=== PATIENT | male | born 1950 | race Hispanic/Latino ===

== ENCOUNTER 2019-07-07 11:44 | Day surgery (SDC) | payer MEDICARE ==
[2019-07-07] MEDS ORDERED: APRACLONIDINE 1% OPHTH SOLN DROPERETTE OS ONE (12:00)
[2019-07-07] MEDS ORDERED: TROPICAMIDE 1% OPHTH SOLN 3 ML OS ONE (12:01)
[2019-07-07] MEDS ORDERED: PHENYLEPHRINE 10% OPHTH SOLN 5 ML OS ONE (12:02)
[2019-07-07 12:16] VITALS: BP 130/81
[2019-07-07] MEDS ORDERED: TROPICAMIDE 1% OPHTH SOLN 3 ML ONE (13:21)
[2019-07-07] MEDS ORDERED: APRACLONIDINE 1% OPHTH SOLN DROPERETTE ONE (13:21)
[2019-07-07] MEDS ORDERED: PHENYLEPHRINE 10% OPHTH SOLN 5 ML ONE (13:21)
== END 2019-07-07 13:41 | disposition home or self-care (01) ==
LOC: OR 11:44
PROVIDERS: ATTEND Specialist
DX: H26.492 Other secondary cataract, left eye (principal); I11.0 Hypertensive heart disease with heart failure; I50.9 Heart failure, unspecified; E78.00 Pure hypercholesterolemia, unspecified; Z88.0 Allergy status to penicillin; Z79.899 Other long term (current) drug therapy; Z79.01 Long term (current) use of anticoagulants; Z98.41 Cataract extraction status, right eye; Z98.42 Cataract extraction status, left eye; Z95.0 Presence of cardiac pacemaker; Z86.2 Personal history of diseases of the blood and blood-forming organs and certain disorders involving the immune mechanism

== ENCOUNTER 2019-07-14 11:25 | Day surgery (SDC) | payer MEDICARE ==
[~2019-07-14 11:25] MED LIST: APRACLONIDINE 1% OPHTH SOLN DROPERETTE ONE; PHENYLEPHRINE 10% OPHTH SOLN 5 ML ONE; TROPICAMIDE 1% OPHTH SOLN 3 ML ONE
[2019-07-14] MEDS ORDERED: APRACLONIDINE 1% OPHTH SOLN DROPERETTE OD ONE (11:43)
[2019-07-14] MEDS ORDERED: PHENYLEPHRINE 10% OPHTH SOLN 5 ML OD ONE (11:43)
[2019-07-14] MEDS ORDERED: TROPICAMIDE 1% OPHTH SOLN 3 ML OD ONE (11:43)
[2019-07-14 12:21] VITALS: BP 124/81
== END 2019-07-14 11:26 | disposition home or self-care (01) ==
LOC: OR 11:25
PROVIDERS: ATTEND Specialist
DX: H26.491 Other secondary cataract, right eye (principal); I10 Essential (primary) hypertension; E78.00 Pure hypercholesterolemia, unspecified; Z79.899 Other long term (current) drug therapy; Z88.0 Allergy status to penicillin; Z98.890 Other specified postprocedural states
CPT/HCPCS: 82962

== ENCOUNTER 2019-10-18 20:03 | Inpatient (IN) | payer MEDICARE ==
--- NOTE | 2019-10-18 20:20 | Emergency Department Report ---
HPI - General Time Seen by Provider: 10/18/19 20:13 - HPI HPI: 68-year-old male presents to the emergency department via EMS from home with complaint of a 4-day history of progressively worsening shortness of breath. His shortness of breath is worsened with exertion. He denies any chest pain or tightness, fever, nausea or vomiting, but has had some episodes of diarr hea. He has a past medical history of CHF but denies any history of coronary artery disease, MIs, CVA or any previous PE/DVT. He did not take anything or receive anything for his symptoms prior to presentation today. 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 No recent travel or sick contacts at home. ED Past Medical Hx - Past Medical History Hx Hypertension: Yes Hx Congestive Heart Failure: Yes - Surgical History Hx Open Heart Surgery: Yes (Pcemaker/defibrillator) Hx Pacemaker: Yes Hx Internal Defibrillator: Yes - Social History Smoking Status: Never Smoker - Medications Home Medications: Home Medications Medication Instructions Recorded Confirmed Last Taken Type Atorvastatin [Lipitor Tab] 80 mg PO QHS 07/07/19 07/07/19 Unknown History Bisoprolol Fumarate 5 mg PO DAILY 07/07/19 07/07/19 Unknown History Mexiletine HCl 150 mg PO Q8H 07/07/19 07/07/19 Unknown History Warfarin [Coumadin] 5 mg PO QDAY 07/07/19 07/07/19 Unknown History ED Review of Systems ROS: Stated complaint: POSS STEMI Other details as noted in HPI Comment: All other systems reviewed and negative Constitutional: denies: chills, fever Eyes: denies: eye pain, vision change ENT: denies: ear pain, throat pain Respiratory: shortness of breath, SOB with exertion. denies: cough Cardiovascular: denies: chest pain, edema Gastrointestinal: denies: abdominal pain, vomiting Genitourinary: denies: dysuria, discharge Musculoskeletal: denies: back pain, arthralgia Skin: denies: rash, lesions Neurological: denies: headache, weakness Physical Exam - Physical Exam Physical Exam: GENERAL: Patient is ill-appearing. HENT: Normocephalic. Atraumatic. Patient has moist mucous membranes. EYES: Extraocular motions are intact. NECK: Supple. Trachea is midline. CHEST/LUNGS: Clear to auscultation. There is some tachypnea but no accessory muscle use. There is no respiratory distress noted. HEART/CARDIOVASCULAR: Regular. There is mild tachycardia. ABDOMEN: Abdomen is soft, nontender. Patient has normal bowel sounds. There is no abdominal distention. SKIN: Skin is cool and clammy. NEURO: The patient is awake, alert, and oriented. The patient is cooperative. The patient has no focal neurologic deficits. Normal speech. MUSCULOSKELETAL: There is no tenderness or deformity. There is no evidence of acute injury. - Central Line Placement Right Femoral Consent Obtained: verbal consent Time Out Performed: Yes Patient Placed on Monitor/Pulse Ox: Yes MD Prep: mask, gown, gloves Central Line Prep: Chlorhexidine scrub Local Anesthesia Used: Lidocaine 1% Amount of Anesthesia Used (mls): 3 Ultrasound Used for Placement: Yes Central Line Lumen Inserted: triple Complications: catheter malposition (I was unable to feed the catheter past 12 cm. The central catheter had good blood return but the 2 peripheral catheters had no blood return. I had concerns about using this central line placement for any infusions or pressors so it was pulled. Pressure was held and bleeding stopped.) Right IJ Consent Obtained: verbal consent Time Out Performed: Yes Patient Placed on Monitor/Pulse Ox: Yes MD Prep: mask, gown, gloves Central Line Prep: Chlorhexidine scrub Local Anesthesia Used: Lidocaine 1% Amount of Anesthesia Used (mls): 2 Ultrasound Used for Placement: Yes Central Line Lumen Inserted: triple Central Line Position: good blood return, all ports aspirated, flus, sutured in place with nyl Dressing Applied: Tegaderm, sterile gauze/tape Post Procedure X-Ray: tip of catheter in good p Patient Tolerated Procedure: well Complications: none - EJ/Peripheral Line Arm L Time Out Performed: Yes Indications: multiple IV sites needed Skin Cleansed in Sterile Fashion: Yes Size: 20 Dressing Placed: Tegaderm Patient Tolerated Procedure: well, no complications Additional Comments: This peripheral line eventually malfunctioned. ED Medical Decision Making - Lab Data Result diagrams: 10/18/19 20:37 10/18/19 20:37 - EKG Data -: EKG Interpreted by Me - EKG Data Interpretation: other (Ventricular paced complexes, nonspecific IVCD, left axis deviation, LVH, prolonged QTC, rate of 110 bpm) - Radiology Data Radiology results: image reviewed interpreted by me: Chest x-ray does not show any acute process. There are no pleural effusions, obvious pneumonia and there is no pneumothorax. - Medical Decision Making This patient presents to the emergency department with a complaint of a 4-day history of progressively worsening shortness of breath. Patient is afebrile but presents hypotensive. He started receiving some IV fluid resuscitation but at first we only have a 24-gauge in his wrist and IV fluid resuscitation is slow. Patient was placed in isolation and on droplet precautions with concern for possible Covid 19. I used PPE while in the room including surgical, goggles, mask, gloves and gowns. A chest x-ray was done that does not show any pneumonia, pleural effusions, or any other acute process. Patient's labs show multiple abnormalities. He has a 17,000 white count but leukopenia. Patient has hypochloremia, acute renal failure. Patient has abnormal coags. Initially he had elevated PT, INR and PTT. It was repeated and this time the PT was less than 10 but the INR was 17.6 and PTT was about 90. After discussion with the hospitalist, the patient was given a 5 mg dose of vitamin K. Patient's labs also show elevation in some of the COVID-19 markers and/or inflammatory markers such as ferritin, LDH, CRP, d-dimer. Despite getting about 2 L of IV fluid the patient continued to have some hypotension with a map of about 50 so the decis ion was made to place a central line. I attempted a right femoral central line but despite having the guidewire within the femoral vein as seen on ultrasound, it was very difficult to feed the central line catheter deep enough to use this CVC. So instead, a right IJ central line catheter was placed and the patient has been started on pressors. He will be admitted to the ICU and has been accepted for admission by the hospitalist, Dr. Jackson. Critical Care Time: Yes Critical care time in (mins) excluding proc time.: 45 Critical care attestation.: If time is entered above; I have spent that time in minutes in the direct care of this critically ill patient, excluding procedure time. Due to the immediate potential for life-threatening deterioration due to underlying hematologic, pulmonary and renal conditions, I spent 45 minutes of critical care time with the patient. This does not include the time spent doing the central line and peripheral line procedures. Critical Care Time: 45 minutes ED Disposition Clinical Impression: Suspected 2019-nCoV infection, Hypochloremia, Elevated INR Hypotension Qualifiers: Hypotension type: unspecified hypotension type Qualified Code(s): I95.9 - Hypotension, unspecified Acute renal failure Qualifiers: Acute renal failure type: unspecified Qualified Code(s): N17.9 - Acute kidney failure, unspecified Dyspnea Qualifiers: Dyspnea type: shortness of breath Qualified Code(s): R06.02 - Shortness of breath Disposition: -09 OP ADMIT IP TO THIS HOSP Is pt being admited?: Yes Condition: Serious Time of Disposition: 00:04
[2019-10-18] MEDS ORDERED: SODIUM CHLORIDE 0.9% 1000 ML 1,000 ML IV ONE ×2 (20:37→23:08)
[2019-10-18 20:50] LABS: Hemoglobin 9.5 gm/dl (11.8-15.2); Mean Corpuscular HGB Conc 32 % (32-34); Mean Corpuscular Volume 102 fl (84-94); Platelet Count 313 K/mm3 (140-440); Red Blood Count 2.94 M/mm3 (3.65-5.03); Red Cell Distribution Width 15.2 % (13.2-15.2)
--- NOTE | 2019-10-18 21:15 | XRay Report ---
CHEST 1 VIEW 10/18/2019 8:05 PM INDICATION / CLINICAL INFORMATION: SOB. COMPARISON: None available. FINDINGS: SUPPORT DEVICES: Cardiac pacemaker/ICD leads appear in appropriate position. HEART / MEDIASTINUM: No significant abnormality. LUNGS / PLEURA: No significant pulmonary or pleural abnormality. No pneumothorax. ADDITIONAL FINDINGS: No significant additional findings. IMPRESSION: 1. No acute findings. Signer Name: Gallo Shepard MD Signed: 10/18/2019 9:11 PM Workstation Name: [id number]
[2019-10-18 21:24] LABS: INR 16.02 (0.87-1.13); Partial Thromboplastin Time 69.1 Sec. (24.2-36.6)
[2019-10-18 21:30] LABS: Calcium 8.4 mg/dL (8.4-10.2)
[2019-10-18 21:56] LABS: Albumin 2.5 g/dL (3.9-5)
[2019-10-18 22:26] LABS: Basophils % (Manual) 0 % (0.0-1.8); Eosinophils % (Manual) 0 % (0.0-4.3); Macrocytosis Few; Ovalocytes Few; Total Cells Counted 100
[2019-10-18 22:27] LABS: Burr Cells Few; Large Platelets Few; Platelet Clumps Rare; Platelet Estimate Consistent w Auto
[2019-10-19] MEDS ORDERED: MAGNESIUM HYDROXIDE (MOM) ORAL LIQD UDC PO PRN (00:08)
[2019-10-19] MEDS ORDERED: ACETAMINOPHEN 325 MG TAB PO PRN ×2 (00:08)
[2019-10-19] MEDS ORDERED: ONDANSETRON 4 MG/2 ML INJ IV PRN (00:08)
[2019-10-19 00:17] LABS: INR > 17.67 (0.87-1.13)
[2019-10-19 00:18] LABS: Partial Thromboplastin Time 92.7 Sec. (24.2-36.6)
[2019-10-19] MEDS ORDERED: SODIUM CHLORIDE 0.9% IV ONE (00:18)
[2019-10-19] MEDS ORDERED: PHYTONADIONE IV ONE (00:18)
--- NOTE | 2019-10-19 00:28 | History and Physical Report ---
History of Present Illness Date of examination: 10/19/19 Date of admission: 10/19/2019 Chief complaint: Shortness of breath History of present illness: 68-year-old white male with known history of CHF, pacemaker/defibrillator placement in the past presenting to the emergency room today for progressive worsening of shortness of breath which has been ongoing for about 4 days. Shortness of breath is said to be worse on exertion. He denies any chest pain, no fever or chills, no cough, no nausea vomiting but he has had some episodes of diarrhea. He denies any bright red blood per rectum, no hematuria or dysuria. He denies any sick contacts and no recent travel. Upon arrival in the emergency room evaluation revealed elevated INR, acute kidney injury and other significant abnormalities on the chemistry. He was screened for COVID-19 and lab markers appeared to be remarkable. Past History Past Medical History: heart failure Past Surgical History: Other (History of pacemaker AICD placement) Social history: no significant social history Family history: no significant family history Medications and Allergies Allergies Allergy/AdvReac Type Severity Reaction Status Date / Time Penicillins Allergy Unknown Verified 07/07/19 15:47 Home Medications Medication Instructions Recorded Confirmed Last Taken Type Atorvastatin [Lipitor Tab] 80 mg PO QHS 07/07/19 07/07/19 Unknown History Bisoprolol Fumarate 5 mg PO DAILY 07/07/19 07/07/19 Unknown History Mexiletine HCl 150 mg PO Q8H 07/07/19 07/07/19 Unknown History Warfarin [Coumadin] 5 mg PO QDAY 07/07/19 07/07/19 Unknown History Active Meds: Active Medications Acetaminophen (Tylenol) 650 mg PO Q4H PRN PRN Reason: Pain MILD(1-3)/Fever >100.5/GIBBS Acetaminophen (Tylenol) 650 mg PO Q6H PRN PRN Reason: Pain MILD(1-3)/Fever >100.5/GIBBS Sodium Chloride (Nacl 0.9% 1000 Ml) 1,000 mls @ 125 mls/hr IV ONCE ONE Stop: 10/19/19 04:36 Last Admin: 10/18/19 20:45 Dose: 125 mls/hr Documented by: Sodium Chloride (Nacl 0.9% 1000 Ml) 1,000 mls @ 250 mls/hr IV ONCE ONE Stop: 10/19/19 03:07 Sodium Chloride (Nacl 0.9% 1000 Ml) 1,000 mls @ 125 mls/hr IV DIRECT ABBEY Levofloxacin/Dextrose (Levaquin 750mg/150ml) 750 mg in 150 mls @ 100 mls/hr IV Q24HR ABBEY; Protocol Phytonadione 5 mg/ Sodium (Chloride) 50.5 mls @ 100 mls/hr IV ONCE ONE Stop: 10/19/19 00:48 Magnesium Hydroxide (Milk Of Magnesia) 30 ml PO Q4H PRN PRN Reason: Constipation Ondansetron HCl (Zofran) 4 mg IV Q8H PRN PRN Reason: Nausea And Vomiting Ondansetron HCl (Zofran) 4 mg IV Q8H PRN PRN Reason: Nausea And Vomiting Sodium Chloride (Sodium Chloride Flush Syringe 10 Ml) 10 ml IV BID ABBEY Sodium Chloride (Sodium Chloride Flush Syringe 10 Ml) 10 ml IV PRN PRN PRN Reason: LINE FLUSH Sodium Chloride (Sodium Chloride Flush Syringe 10 Ml) 10 ml IV BID ABBEY Sodium Chloride (Sodium Chloride Flush Syringe 10 Ml) 10 ml IV PRN PRN PRN Reason: LINE FLUSH Review of Systems Constitutional: no weight loss, no fever, no chills Cardiovascular: no chest pain, no palpitations Respiratory: shortness of breath, no cough, no congestion Gastrointestinal: no abdominal pain, no nausea, no vomiting, no diarrhea Genitourinary Male: no dysuria, no hematuria Musculoskeletal: no neck pain, no low back pain Integumentary: no rash, no pruritis Neurological: no headaches, no confusion Psychiatric: no anxiety, no disorientation Exam - Constitutional Vitals: Temp Pulse Resp BP Pulse Ox 97.5 F L 128 H 15 90/63 100 10/18/19 20:13 10/18/19 22:46 10/18/19 22:46 10/18/19 22:46 10/18/19 22:46 General appearance: Present: no acute distress, well-nourished - EENT Eyes: Present: PERRL, EOM intact ENT: hearing intact, clear oral mucosa, dentition normal - Neck Neck: Present: supple, normal ROM - Respiratory Respiratory effort: normal Respiratory: bilateral: CTA - Cardiovascular Rhythm: regular Heart Sounds: Present: S1 & S2 - Extremities Extremities: no ischemia, pulses intact, pulses symmetrical, No edema, Full ROM Peripheral Pulses: within normal limits - Abdominal General gastrointestinal: Present: soft, non-tender, non-distended, normal bowel sounds - Integumentary Integumentary: Present: clear, warm, dry - Musculoskeletal Musculoskeletal: strength equal bilaterally - Psychiatric Psychiatric: appropriate mood/affect, intact judgment & insight, cooperative - Neurologic Neurologic: CNII-XII intact, moves all extremities Results - Labs CBC & Chem 7: 10/18/19 20:37 10/18/19 20:37 Labs: Abnormal lab results 10/18/19 10/18/19 10/18/19 Range/Units 20:37 20:37 20:37 WBC 17.8 H (4.5-11.0) K/mm3 RBC 2.94 L (3.65-5.03) M/mm3 Hgb 9.5 L (11.8-15.2) gm/dl Hct 30.0 L (35.5-45.6) % MCV 102 H (84-94) fl Seg Neuts % (Manual) 85.0 H (40.0-70.0) % Lymphocytes % (Manual) 6.0 L (13.4-35.0) % Monocytes % (Manual) 8.0 H (0.0-7.3) % Seg Neutrophils # Man 15.1 H (1.8-7.7) K/mm3 Lymphocytes # (Manual) 1.1 L (1.2-5.4) K/mm3 Monocytes # (Manual) 1.4 H (0.0-0.8) K/mm3 PT 109.8 H (12.2-14.9) Sec. INR 16.02 H* (0.87-1.13) APTT 69.1 H* (24.2-36.6) Sec. D-Dimer 2301.69 H (0-234) ng/mlDDU Chloride 60.0 L (98-107) mmol/L Carbon Dioxide 15 L (22-30) mmol/L BUN 192 H (9-20) mg/dL Creatinine 3.2 H (0.8-1.5) mg/dL Glucose 154 H (75-100) mg/dL Ferritin (13.0-400.0) ng/mL AST 120 H (5-40) units/L ALT 63 H (7-56) units/L Alkaline Phosphatase 194 H (35-129) units/L Lactate Dehydrogenase (91-180) units/L C-Reactive Protein (0.00-1.30) mg/dL NT-Pro-B Natriuret Pep 7312 H (0-900) pg/mL Total Protein 5.4 L (6.3-8.2) g/dL Albumin 2.5 L (3.9-5) g/dL 10/18/19 10/18/19 10/18/19 Range/Units 21:46 21:46 23:16 WBC (4.5-11.0) K/mm3 RBC (3.65-5.03) M/mm3 Hgb (11.8-15.2) gm/dl Hct (35.5-45.6) % MCV (84-94) fl Seg Neuts % (Manual) (40.0-70.0) % Lymphocytes % (Manual) (13.4-35.0) % Monocytes % (Manual) (0.0-7.3) % Seg Neutrophils # Man (1.8-7.7) K/mm3 Lymphocytes # (Manual) (1.2-5.4) K/mm3 Monocytes # (Manual) (0.0-0.8) K/mm3 PT < 10.0 L (12.2-14.9) Sec. INR > 17.67 H* (0.87-1.13) APTT 92.7 H* (24.2-36.6) Sec. D-Dimer 2524.09 H (0-234) ng/mlDDU Chloride (98-107) mmol/L Carbon Dioxide (22-30) mmol/L BUN (9-20) mg/dL Creatinine (0.8-1.5) mg/dL Glucose (75-100) mg/dL Ferritin > 2000.0 H (13.0-400.0) ng/mL AST (5-40) units/L ALT (7-56) units/L Alkaline Phosphatase (35-129) units/L Lactate Dehydrogenase 1150 H (91-180) units/L C-Reactive Protein 29.00 H (0.00-1.30) mg/dL NT-Pro-B Natriuret Pep (0-900) pg/mL Total Protein (6.3-8.2) g/dL Albumin (3.9-5) g/dL Assessment and Plan - Patient Problems (1) Dyspnea Current Visit: Yes Status: Acute Qualifiers: Dyspnea type: shortness of breath Qualified Code(s): R06.02 - Shortness of breath; R06.00 - Dyspnea, unspecified; R06.01 - Orthopnea Plan to address problem: Etiology is unclear. Possibly secondary to bronchitis however will rule out for COVID-19. Patient has been placed on airborne and droplet precautions. Will place on empiric IV antibiotics. We will also place a consult to infectious disease for further evaluation and recommendation. (2) Acute renal failure Current Visit: Yes Status: Acute Qualifiers: Acute renal failure type: unspecified Qualified Code(s): N17.9 - Acute kidney failure, unspecified Plan to address problem: Probably secondary to dehydration. Patient has been placed on IV fluid. Will monitor BUN and creatinine. We also place a consult to nephrology for evaluation and further recommendation. (3) Elevated INR Current Visit: Yes Status: Acute Plan to address problem: Patient had vitamin K in the emergency room. Will monitor PT/INR. Will hold off on anticoagulation. (4) Hypotension Current Visit: Yes Status: Acute Qualifiers: Hypotension type: unspecified hypotension type Qualified Code(s): I95.9 - Hypotension, unspecified Plan to address problem: Patient placed on IV fluid. Will consider placing on pressor if needed. We will continue to monitor vital signs closely. (5) DVT prophylaxis Current Visit: Yes Status: Acute Plan to address problem: We will hold anticoagulation as INR is currently supratherapeutic. (6) Full code status Current Visit: Yes Status: Acute
[2019-10-19] MEDS ORDERED: SODIUM CHLORIDE 0.9% 1000 ML 1,000 ML ONE ×5 (02:10→10:34)
[2019-10-19] MEDS ORDERED: NORepinephrine/NS 4 MG-250 ML 4 MG/250 ML BAG IV ONE ×2 (03:35→17:38)
[2019-10-19] MEDS: NORepinephrine/NS 4 MG-250 ML 4 MG/250 ML BAG IV SCH ×2 (04:05→18:15)
--- NOTE | 2019-10-19 04:31 | XRay Report ---
CHEST - 1 VIEW INDICATION: central line placement COMPARISON: Yesterday FINDINGS: Support devices: New right IJ CVL with tip in the SVC. Otherwise stable support device positioning. Heart: Stable cardiomediastinal silhouette. Lungs/pleura: Clear lungs with no pneumothorax Additional findings: None. IMPRESSION: Support devices as above. Signer Name: Burak Davila MD Signed: 10/19/2019 4:27 AM Workstation Name: [id number]
[2019-10-19] MEDS ORDERED: ONDANSETRON 4 MG/2 ML INJ ONE (08:16)
[2019-10-19] MEDS: ONDANSETRON 4 MG/2 ML INJ IV PRN (08:24)
--- NOTE | 2019-10-19 09:29 | Consultation ---
History of Present Illness - Reason for Consult Consult date: 10/19/19 r/o COVID Requesting physician: YONG MARTIN - History of Present Illness 68 y/o male with history of CAD, previous AR, CVA, CHF status post AICD, previous PE/DVT, admitted on due to 10 day-history of dry cough, malaise and progressive shortness of breath and dyspnea on exertion. 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 Last time he went to work was 10/14/2019. He denies any chest pain, nausea, vomiting. He does report an episode of diarrhea. Denies any recent travels. Patient reports a remote vague reaction to penicillin and has taken Keflex without reaction. On arrival temperature 98.1 0.1, HR 111, RR 22, O2 sat 100%, BP 100/59. Initial WBC 17.8. Hemoglobin 9.5. D-dimer 2301, CRP 29, LDH 1150, ferritin> 2000. AST 120, ALT 63. Procalcitonin 3.6. BNP 7312. Chest x-ray x2 without infiltrates. Blood pressure dropped to 70/52 patient was started on pressors in the ED. Review of Systems: positive in bold print General: +chills, +malaise Cutaneous: rash, pruritus Head: headaches or injury Eyes: changes in vision, eye pain, double vision Ears: ear pain, ear discharge, ringing or hearing loss Nose: nose bleeding, stuffiness Mouth & throat: bleeding gums, horseness, no dental problems, or swollen glands Neck: no pain, node enlargement/lumps, tyroid enlargement or tenderness Respiratory: +SOB, +cough, +[place], wheezing, sputum, hemoptysis, pleuritic chest pain Cardiovascular: chest pain, leg edema, cyanosis, [place], orthopnea Musculoskeletal: edema Gastrointestinal: nausea, vomiting, hematemesis, + diarrhea, constipation, melena, bright red blood in stools, fecal incontinence, jaundice Genitourinary/Reproductive: frequent urination, dysuria, hematuria, incontinence Neurogical: seizures, headaches, weakness, paresthesias, loss of speech or vision; memory loss, vertigo, tremors, numbness Psychiatric: stable mood; excessive anxiety, sadness or moodiness Past History Past Medical History: heart failure Past Surgical History: Other (History of pacemaker AICD placement) Social history: no significant social history Family history: no significant family history Medications and Allergies Allergies Allergy/AdvReac Type Severity Reaction Status Date / Time Penicillins Allergy Unknown Verified 07/07/19 15:47 Home Medications Medication Instructions Recorded Confirmed Last Taken Type Atorvastatin [Lipitor Tab] 80 mg PO QHS 07/07/19 07/07/19 Unknown History Bisoprolol Fumarate 5 mg PO DAILY 07/07/19 07/07/19 Unknown History Mexiletine HCl 150 mg PO Q8H 07/07/19 07/07/19 Unknown History Warfarin [Coumadin] 5 mg PO QDAY 07/07/19 07/07/19 Unknown History Active Meds: Active Medications Acetaminophen (Tylenol) 650 mg PO Q4H PRN PRN Reason: Pain MILD(1-3)/Fever >100.5/GIBBS Sodium Chloride (Nacl 0.9% 1000 Ml) 1,000 mls @ 125 mls/hr IV DIRECT ABBEY Levofloxacin/Dextrose (Levaquin 750mg/150ml) 750 mg in 150 mls @ 100 mls/hr IV Q48HR ABBEY; Protocol Norepinephrine (Levophed Drip 4 Mg/Ns 250 Ml) 4 mg in 250 mls @ 7.5 mls/hr IV TITR ABBEY; Protocol Last Titration: 10/19/19 06:05 Dose: 6 mcg/min, 22.5 mls/hr Documented by: Magnesium Hydroxide (Milk Of Magnesia) 30 ml PO Q4H PRN PRN Reason: Constipation Ondansetron HCl (Zofran) 4 mg IV Q8H PRN PRN Reason: Nausea And Vomiting Last Admin: 10/19/19 08:24 Dose: 4 mg Documented by: Sodium Chloride (Sodium Chloride Flush Syringe 10 Ml) 10 ml IV BID ABBEY Sodium Chloride (Sodium Chloride Flush Syringe 10 Ml) 10 ml IV PRN PRN PRN Reason: LINE FLUSH Physical Examination - Physical Exam Narrative exam: General appearance: Alert in NAD pleasant on nasal cannula oxygen Eyes: anicteric sclerae, moist conjunctivae HENT: Atraumatic; oropharynx clear Lungs: CTA narda +AICD pocket no erythema, heat, edema CV: Tachycardic Abdomen: Soft, non-tender Extremities: no edema, no cyanosis Skin: No rash. Psych: No agitated Neuro: alert and oriented x 3. Moving all extermities - Constitutional Vitals: Vital Signs Temp Pulse Resp BP Pulse Ox 97.4 F L 104 H 18 107/75 100 10/19/19 01:56 10/19/19 08:16 10/19/19 08:16 10/19/19 08:16 10/19/19 08:16 Temperature -Last 24 Hours Temperature 97.4 F Temperature 97.5 F Results - Labs CBC & Chem 7: 10/18/19 20:37 10/18/19 20:37 Labs: Abnormal lab results 10/18/19 10/18/19 10/18/19 Range/Units 20:37 20:37 20:37 WBC 17.8 H (4.5-11.0) K/mm3 RBC 2.94 L (3.65-5.03) M/mm3 Hgb 9.5 L (11.8-15.2) gm/dl Hct 30.0 L (35.5-45.6) % MCV 102 H (84-94) fl Seg Neuts % (Manual) 85.0 H (40.0-70.0) % Lymphocytes % (Manual) 6.0 L (13.4-35.0) % Monocytes % (Manual) 8.0 H (0.0-7.3) % Seg Neutrophils # Man 15.1 H (1.8-7.7) K/mm3 Lymphocytes # (Manual) 1.1 L (1.2-5.4) K/mm3 Monocytes # (Manual) 1.4 H (0.0-0.8) K/mm3 PT 109.8 H (12.2-14.9) Sec. INR 16.02 H* (0.87-1.13) APTT 69.1 H* (24.2-36.6) Sec. D-Dimer 2301.69 H (0-234) ng/mlDDU Chloride 60.0 L (98-107) mmol/L Carbon Dioxide 15 L (22-30) mmol/L BUN 192 H (9-20) mg/dL Creatinine 3.2 H (0.8-1.5) mg/dL Glucose 154 H (75-100) mg/dL Ferritin (13.0-400.0) ng/mL AST 120 H (5-40) units/L ALT 63 H (7-56) units/L Alkaline Phosphatase 194 H (35-129) units/L Lactate Dehydrogenase (91-180) units/L C-Reactive Protein (0.00-1.30) mg/dL NT-Pro-B Natriuret Pep 7312 H (0-900) pg/mL Total Protein 5.4 L (6.3-8.2) g/dL Albumin 2.5 L (3.9-5) g/dL 10/18/19 10/18/19 10/18/19 Range/Units 21:46 21:46 23:16 WBC (4.5-11.0) K/mm3 RBC (3.65-5.03) M/mm3 Hgb (11.8-15.2) gm/dl Hct (35.5-45.6) % MCV (84-94) fl Seg Neuts % (Manual) (40.0-70.0) % Lymphocytes % (Manual) (13.4-35.0) % Monocytes % (Manual) (0.0-7.3) % Seg Neutrophils # Man (1.8-7.7) K/mm3 Lymphocytes # (Manual) (1.2-5.4) K/mm3 Monocytes # (Manual) (0.0-0.8) K/mm3 PT < 10.0 L (12.2-14.9) Sec. INR > 17.67 H* (0.87-1.13) APTT 92.7 H* (24.2-36.6) Sec. D-Dimer 2524.09 H (0-234) ng/mlDDU Chloride (98-107) mmol/L Carbon Dioxide (22-30) mmol/L BUN (9-20) mg/dL Creatinine (0.8-1.5) mg/dL Glucose (75-100) mg/dL Ferritin > 2000.0 H (13.0-400.0) ng/mL AST (5-40) units/L ALT (7-56) units/L Alkaline Phosphatase (35-129) units/L Lactate Dehydrogenase 1150 H (91-180) units/L C-Reactive Protein 29.00 H (0.00-1.30) mg/dL NT-Pro-B Natriuret Pep (0-900) pg/mL Total Protein (6.3-8.2) g/dL Albumin (3.9-5) g/dL Assessment and Plan Cultures: None Assessment: 68 y/o male with history of CAD, previous AR, CVA, CHF status post AICD, previous PE/DVT, admitted on due to 10 day-history of dry cough, malaise and progressive shortness of breath and dyspnea on exertion: #Shock ?septic ?cardiogenic and MODS: Present on admission with tachycardia, leukocytosis, severe hypotension; unclear septic etiology ? Pneumonia (Chest x- ray negative). Urinalysis not available, blood cultures no available. Procalcitonin elevated, however unclear significance under ASHLIE setting. #Cough/Dyspnea on exertion: high suspicion for severe COVID pneumonia. CXR x 2 negative. COVID test pending. High risk for cytokine release syndrome. Inflamatory markers are markedly elevated D-dimer 2301, CRP 29, LDH 1150, ferritin> 2000. #History of CHF with AICD ? r/o CHF exacerbation, BNP 7312. AST 120, ALT 63. Currently on 2 L O2 however no desaturations documented #Elevated LFTs: from shock liver ? #ASHLIE: Renally adjust antibiotics #Anemia: Initial hemoglobin 9.5. #Penicillin allergy: Patient is taking Keflex, and he reports allergy is remote and vague. Recommendations: Obtain a stat blood cultures, UA and urine culture Check Hemoccult Obtain transthoracic echo Obtain cards consultation Stop Levaquin Start Ceftriaxone 2 gm IV q day and azithromycin 500 mg IV once a day Repeat CXR in 24h Continue COVID isolation precautions per [facility] protocol Follow-up COVID testing Check serial Ferritin, LDH, D-Dimer, CRP every 48 hour Will follow Jennifer Armstrong MD Infectious Diseases Clinical Product Specialist [facility] ([facility] M [phone] O [phone]
[2019-10-19] MEDS ORDERED: cefTRIAXone/NS 2 GM/100 ML 2 GM/100 ML BAG IV SCH ×2 (10:30→11:00)
--- NOTE | 2019-10-19 11:13 | Consultation ---
History of Present Illness Consult date: 10/19/19 Requesting physician: AGUSTIN CELESTE Consult reason: congestive heart failure History of present illness: The pt is a 68-year-old white male with a past medical history of HFrEF, NICMP, AICD in situ, paroxysmal atrial fibrillation, anticoagulated with coumadin, HTN. He is followed by [facility]. He is COVID-19 PUI and thus HPI is obtained per the chart. Pt presented with c/o 10 day-history of dry cough, malaise and progressive shortness of breath and dyspnea on exertion. 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 Last time he went to work was 10/14/2019. He denies any chest pain, nausea, vomiting. He does report an episode of diarrhea. Denies any recent travels. Cardiology has been consulted for HF although there is no apparent clinical evidence of acutely decompensated HF. Following arrival, pt noted to have significantly elevated INR >16, WBC 17.8, Hgb 9.5, D-dimer 2301, CRP 29, LDH 1150, ferritin> 2000, AST 120, ALT 63, BNP 7312. Chest x-ray x2 without infiltrates, NAF. Blood pressure dropped to 70/52 patient was started on pressors in the ED. Of note, pt has Dual-chamber ICD implanted in 2006. He currently has a [employer] generator. He has had intermittent ventricular arrhythmias for which he is on antiarrhythmics. He underwent BANK WORKER upgrade in 2017. 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 He has had inappropriate shocks for atrial fibrillation. Programming around this is challenging because he does have a history of VT which overlaps in rate with the atrial fibrillation. He continues to have episodes of rapid atrial fibrillation despite treatment with good doses of beta blockers and amiodarone. He is being considered for AV node ablation since he now has a functioning BANK WORKER system. Echo done 10/07/2016 showed EF 30%, LV severely dilated, mildly dilated LA, impaired relaxation, mod to severely reduced RV systolic function, trace MR. Cardiac PET done 02/2016 was negative for ischemia or scar, EF 25% at rest and 32% at stress, no coronary calcification present on attenuation CT scan. Past History Past Medical History: heart failure, other (as per HPI) Past Surgical History: Other (History of pacemaker AICD placement) Social history: no significant social history Family history: no significant family history Medications and Allergies Allergies Allergy/AdvReac Type Severity Reaction Status Date / Time Penicillins Allergy Unknown Verified 07/07/19 15:47 Home Medications Medication Instructions Recorded Confirmed Last Taken Type Atorvastatin [Lipitor Tab] 80 mg PO QHS 07/07/19 07/07/19 Unknown History Bisoprolol Fumarate 5 mg PO DAILY 07/07/19 07/07/19 Unknown History Mexiletine HCl 150 mg PO Q8H 07/07/19 07/07/19 Unknown History Warfarin [Coumadin] 5 mg PO QDAY 07/07/19 07/07/19 Unknown History Active Meds: Active Medications Acetaminophen (Tylenol) 650 mg PO Q4H PRN PRN Reason: Pain MILD(1-3)/Fever >100.5/GIBBS Sodium Chloride (Nacl 0.9% 1000 Ml) 1,000 mls @ 125 mls/hr IV DIRECT ABBEY Norepinephrine (Levophed Drip 4 Mg/Ns 250 Ml) 4 mg in 250 mls @ 7.5 mls/hr IV TITR ABBEY; Protocol Last Titration: 10/19/19 06:05 Dose: 6 mcg/min, 22.5 mls/hr Documented by: Azithromycin 500 mg/ Sodium (Chloride) 250 mls @ 250 mls/hr IV Q24HR ABBEY; Protocol Ceftriaxone Sodium (Rocephin/Ns 2 Gm/100 Ml) 2 gm in 100 mls @ 200 mls/hr IV Q24HR ABBEY Magnesium Hydroxide (Milk Of Magnesia) 30 ml PO Q4H PRN PRN Reason: Constipation Ondansetron HCl (Zofran) 4 mg IV Q8H PRN PRN Reason: Nausea And Vomiting Last Admin: 10/19/19 08:24 Dose: 4 mg Documented by: Sodium Chloride (Sodium Chloride Flush Syringe 10 Ml) 10 ml IV BID ABBEY Last Admin: 10/19/19 10:38 Dose: 10 ml Documented by: Sodium Chloride (Sodium Chloride Flush Syringe 10 Ml) 10 ml IV PRN PRN PRN Reason: LINE FLUSH Review of Systems All systems: negative (HPI per the chart as pt is COVID-19 PUI) Physical Examination Vital Signs Temp Pulse Resp BP Pulse Ox 97.5 F L 111 H 22 106/59 100 10/18/19 20:13 10/18/19 20:13 10/18/19 20:13 10/18/19 20:13 10/18/19 20:13 Narrative exam: agree with physical examination per primary team as pt is COVID-19 PUI Results 10/18/19 20:37 10/18/19 20:37 Cardiac Enzymes 10/18/19 10/18/19 Range/Units 20:37 21:46 AST 120 H (5-40) units/L Lactate Dehydrogenase 1150 H (91-180) units/L Coagulation 10/18/19 10/18/19 Range/Units 20:37 23:16 PT 109.8 H < 10.0 L (12.2-14.9) Sec. INR 16.02 H* > 17.67 H* (0.87-1.13) APTT 69.1 H* 92.7 H* (24.2-36.6) Sec. CBC 10/18/19 Range/Units 20:37 WBC 17.8 H (4.5-11.0) K/mm3 RBC 2.94 L (3.65-5.03) M/mm3 Hgb 9.5 L (11.8-15.2) gm/dl Hct 30.0 L (35.5-45.6) % Plt Count 313 (140-440) K/mm3 Comprehensive Metabolic Panel 10/18/19 Range/Units 20:37 Sodium 138 (137-145) mmol/L Potassium 4.6 (3.6-5.0) mmol/L Chloride 60.0 L (98-107) mmol/L Carbon Dioxide 15 L (22-30) mmol/L BUN 192 H (9-20) mg/dL Creatinine 3.2 H (0.8-1.5) mg/dL Glucose 154 H (75-100) mg/dL Calcium 8.4 (8.4-10.2) mg/dL AST 120 H (5-40) units/L ALT 63 H (7-56) units/L Alkaline Phosphatase 194 H (35-129) units/L Total Protein 5.4 L (6.3-8.2) g/dL Albumin 2.5 L (3.9-5) g/dL - Imaging and Cardiology Echo: report reviewed (10/07/2016 showed EF 30%, LV severely dilated, mildly dilated LA, impaired relaxation, mod to severely reduced RV systolic function, trace MR. ) EKG: report reviewed, image reviewed EKG interpretations - Telemetry EKG Rhythm: Paced - EKG Ventricular dysrhythmias: ventricular premature com Assessment and Plan Pt admitted as COVID-19 PUI with suspected sepsis and septic shock requiring vasopressors. No apparent clinical evidence of acutely decompensated HF. Cont supportive management. Hold home GDMT and diuretics in setting of hypotension. Pt received vitamin K yesterday for significantly elevated INR. F/u INR today. Cont to hold home coumadin. F/u echo. Further recs to follow per hospital course. The patient has been seen in conjunction with Dr. Disla who agrees with the assessment and plan of care. - Patient Problems (1) Suspected 2019-nCoV infection Current Visit: Yes Status: Acute (2) Sepsis Current Visit: Yes Status: Suspected (3) Sepsis associated hypotension Current Visit: Yes Status: Chronic (4) Coagulopathy Current Visit: Yes Status: Acute (5) Chronic HFrEF (heart failure with reduced ejection fraction) Current Visit: Yes Status: Chronic (6) NICM (nonischemic cardiomyopathy) Current Visit: Yes Status: Chronic (7) Automatic implantable cardioverter-defibrillator in situ Current Visit: Yes Status: Chronic (8) Paroxysmal atrial fibrillation Current Visit: Yes Status: Chronic (9) Anticoagulated on Coumadin Current Visit: Yes Status: Chronic (10) History of ventricular tachycardia Current Visit: Yes Status: Chronic (11) Anemia Current Visit: Yes Status: Acute (12) Elevated LFTs Current Visit: Yes Status: Acute
[2019-10-19] MEDS: AZITHROMYCIN 500 MG in SODIUM CHLORIDE 0.9% 250ML 250 ML IV SCH (11:14)
[2019-10-19] MEDS: SODIUM CHLORIDE 0.9% 1000 ML 1,000 ML IV SCH (11:15)
--- NOTE | 2019-10-19 11:39 | Consultation ---
History of Present Illness - Reason for Consult Consult date: 10/19/19 acute renal failure - History of Present Illness This is a 68 year old male who presented to the hospital with a chief complaint of malaise, dry cough x 10 days and shortness of breath. Patient is a PUI for COVID-19 thus information is being obtained from chart and staff. On evaluation patient was found to be Hypotensive with SBP in the 70-90's. Patient has been started on Levophed. Pertinent labs revealed an elevated BUN level of 192 and serum creatinine level 3.2. Baseline unknown. Other abnormal lab findings inclu de elevated liver enzymes and elevated inflammatory markers. Patient has history of CHF with EF 30%, Afib on Coumadin. Admission INR was >17.67. We are being consulted for management of this patient's Acute Renal Failure. Past History Past Medical History: heart failure, other (as per HPI) Past Surgical History: Other (History of pacemaker AICD placement) Social history: no significant social history Family history: no significant family history Medications and Allergies Allergies Allergy/AdvReac Type Severity Reaction Status Date / Time Penicillins Allergy Unknown Verified 07/07/19 15:47 Home Medications Medication Instructions Recorded Confirmed Last Taken Type Atorvastatin [Lipitor Tab] 80 mg PO QHS 07/07/19 07/07/19 Unknown History Bisoprolol Fumarate 5 mg PO DAILY 07/07/19 07/07/19 Unknown History Mexiletine HCl 150 mg PO Q8H 07/07/19 07/07/19 Unknown History Warfarin [Coumadin] 5 mg PO QDAY 07/07/19 07/07/19 Unknown History Active Meds: Active Medications Acetaminophen (Tylenol) 650 mg PO Q4H PRN PRN Reason: Pain MILD(1-3)/Fever >100.5/GIBBS Sodium Chloride (Nacl 0.9% 1000 Ml) 1,000 mls @ 125 mls/hr IV DIRECT ABBEY Last Admin: 10/19/19 11:15 Dose: 125 mls/hr Documented by: Norepinephrine (Levophed Drip 4 Mg/Ns 250 Ml) 4 mg in 250 mls @ 7.5 mls/hr IV TITR ABBEY; Protocol Last Titration: 10/19/19 06:05 Dose: 6 mcg/min, 22.5 mls/hr Documented by: Azithromycin 500 mg/ Sodium (Chloride) 250 mls @ 250 mls/hr IV Q24HR ABBEY; Prot ocol Last Admin: 10/19/19 11:14 Dose: 250 mls/hr Documented by: Ceftriaxone Sodium (Rocephin/Ns 2 Gm/100 Ml) 2 gm in 100 mls @ 200 mls/hr IV Q24HR ABBEY Magnesium Hydroxide (Milk Of Magnesia) 30 ml PO Q4H PRN PRN Reason: Constipation Ondansetron HCl (Zofran) 4 mg IV Q8H PRN PRN Reason: Nausea And Vomiting Last Admin: 10/19/19 08:24 Dose: 4 mg Documented by: Sodium Chloride (Sodium Chloride Flush Syringe 10 Ml) 10 ml IV BID ABBEY Last Admin: 10/19/19 10:38 Dose: 10 ml Documented by: Sodium Chloride (Sodium Chloride Flush Syringe 10 Ml) 10 ml IV PRN PRN PRN Reason: LINE FLUSH Exam - Vital Signs Vital signs: Vital Signs Temp Pulse Resp BP Pulse Ox 97.5 F L 111 H 22 106/59 100 10/18/19 20:13 10/18/19 20:13 10/18/19 20:13 10/18/19 20:13 10/18/19 20:13 - Physical Exam Narrative exam: No physical exam due to PUI for COVID-19 Results - Lab Results 10/18/19 20:37 10/18/19 20:37 Most recent lab results WBC 17.8 K/mm3 (4.5-11.0) H 10/18/19 20:37 RBC 2.94 M/mm3 (3.65-5.03) L 10/18/19 20:37 Hgb 9.5 gm/dl (11.8-15.2) L 10/18/19 20:37 Hct 30.0 % (35.5-45.6) L 10/18/19 20:37 MCV 102 fl (84-94) H 10/18/19 20:37 MCH 32 pg (28-32) 10/18/19 20:37 MCHC 32 % (32-34) 10/18/19 20:37 RDW 15.2 % (13.2-15.2) 10/18/19 20:37 Plt Count 313 K/mm3 (140-440) 10/18/19 20:37 Add Manual Diff Complete 10/18/19 20:37 Total Counted 100 05/12/20 20:37 Seg Neutrophils % Pipe Smoking Machine Operator 10/18/19 20:37 Seg Neuts % (Manual) 85.0 % (40.0-70.0) H 10/18/19 20:37 Band Neutrophils % 0 % 10/18/19 20:37 Lymphocytes % (Manual) 6.0 % (13.4-35.0) L 10/18/19 20:37 Reactive Lymphs % (Man) 0 % 10/18/19 20:37 Monocytes % (Manual) 8.0 % (0.0-7.3) H 10/18/19 20:37 Eosinophils % (Manual) 0 % (0.0-4.3) 10/18/19 20:37 Basophils % (Manual) 0 % (0.0-1.8) 10/18/19 20:37 Metamyelocytes % 1.0 % 10/18/19 20:37 Myelocytes % 0 % 10/18/19 20:37 Promyelocytes % 0 % 10/18/19 20:37 Blast Cells % 0 % 10/18/19 20:37 Nucleated RBC % Not Reportable 10/18/19 20:37 Seg Neutrophils # Man 15.1 K/mm3 (1.8-7.7) H 10/18/19 20:37 Band Neutrophils # 0.0 K/mm3 10/18/19 20:37 Lymphocytes # (Manual) 1.1 K/mm3 (1.2-5.4) L 10/18/19 20:37 Abs React Lymphs (Man) 0.0 K/mm3 10/18/19 20:37 Monocytes # (Manual) 1.4 K/mm3 (0.0-0.8) H 10/18/19 20:37 Eosinophils # (Manual) 0.0 K/mm3 (0.0-0.4) 10/18/19 20:37 Basophils # (Manual) 0.0 K/mm3 (0.0-0.1) 10/18/19 20:37 Metamyelocytes # 0.2 K/mm3 10/18/19 20:37 Myelocytes # 0.0 K/mm3 10/18/19 20:37 Promyelocytes # 0.0 K/mm3 10/18/19 20:37 Blast Cells # 0.0 K/mm3 10/18/19 20:37 WBC Morphology Not Reportable 10/18/19 20:37 Hypersegmented Neuts Not Reportable 10/18/19 20:37 Hyposegmented Neuts Not Reportable 10/18/19 20:37 Hypogranular Neuts Not Reportable 10/18/19 20:37 Smudge Cells Not Reportable 10/18/19 20:37 Toxic Granulation Not Reportable 10/18/19 20:37 Toxic Vacuolation Not Reportable 10/18/19 20:37 Dohle Bodies Not Reportable 10/18/19 20:37 Pelger-Huet Anomaly Not Reportable 10/18/19 20:37 Nanda Rods Not Reportable 10/18/19 20:37 Platelet Estimate Consistent w auto 10/18/19 20:37 Clumped Platelets Rare 10/18/19 20:37 Plt Clumps, EDTA Not Reportable 10/18/19 20:37 Large Platelets Few 10/18/19 20:37 Giant Platelets Not Reportable 10/18/19 20:37 Platelet Satelliting Not Reportable 10/18/19 20:37 Plt Morphology Comment Not Reportable 10/18/19 20:37 RBC Morphology Not Reportable 10/18/19 20:37 Dimorphic RBCs Not Reportable 10/18/19 20:37 Polychromasia Few 10/18/19 20:37 Hypochromasia Not Reportable 10/18/19 20:37 Poikilocytosis Not Reportable 10/18/19 20:37 Anisocytosis Not Reportable 10/18/19 20:37 Microcytosis Not Reportable 10/18/19 20:37 Macrocytosis Few 10/18/19 20:37 Spherocytes Not Reportable 10/18/19 20:37 Pappenheimer Bodies Not Reportable 10/18/19 20:37 Sickle Cells Not Reportable 10/18/19 20:37 Target Cells Not Reportable 10/18/19 20:37 Tear Drop Cells Not Reportable 10/18/19 20:37 Ovalocytes Few 10/18/19 20:37 Helmet Cells Not Reportable 10/18/19 20:37 [place] Bodies Not Reportable 10/18/19 20:37 [place] Rings Not Reportable 10/18/19 20:37 Ramila Cells Few 10/18/19 20:37 Bite Cells Not Reportable 10/18/19 20:37 Crenated Cell Not Reportable 10/18/19 20:37 Elliptocytes Not Reportable 10/18/19 20:37 Acanthocytes (Spur) Not Reportable 10/18/19 20:37 Rouleaux Not Reportable 10/18/19 20:37 Hemoglobin C Crystals Not Reportable 10/18/19 20:37 Schistocytes Not Reportable 10/18/19 20:37 Malaria parasites Not Reportable 10/18/19 20:37 Arnol Bodies Not Reportable 10/18/19 20:37 Hem Pathologist Commnt No 10/18/19 20:37 PT < 10.0 Sec. (12.2-14.9) L 10/18/19 23:16 INR > 17.67 (0.87-1.13) H* 10/18/19 23:16 APTT 92.7 Sec. (24.2-36.6) H* 10/18/19 23:16 D-Dimer 2524.09 ng/mlDDU (0-234) H 10/18/19 23:16 Sodium 138 mmol/L (137-145) 10/18/19 20:37 Potassium 4.6 mmol/L (3.6-5.0) 10/18/19 20:37 Chloride 60.0 mmol/L (98-107) L 10/18/19 20:37 Carbon Dioxide 15 mmol/L (22-30) L 10/18/19 20:37 Anion Gap 8 mmol/L 10/18/19 20:37 BUN 192 mg/dL (9-20) H 10/18/19 20:37 Creatinine 3.2 mg/dL (0.8-1.5) H 10/18/19 20:37 Estimated GFR 19 ml/min 10/18/19 20:37 BUN/Creatinine Ratio 60 % 10/18/19 20:37 Glucose 154 mg/dL (75-100) H 10/18/19 20:37 Calcium 8.4 mg/dL (8.4-10.2) 10/18/19 20:37 Ferritin > 2000.0 ng/mL (13.0-400.0) H 10/18/19 21:46 Total Bilirubin 1.00 mg/dL (0.1-1.2) 10/18/19 20:37 AST 120 units/L (5-40) H 10/18/19 20:37 ALT 63 units/L (7-56) H 10/18/19 20:37 Alkaline Phosphatase 194 units/L (35-129) H 10/18/19 20:37 Lactate Dehydrogenase 1150 units/L (91-180) H 10/18/19 21:46 Troponin T 0.017 ng/mL (0.00-0.029) 10/19/19 02:12 C-Reactive Protein 29.00 mg/dL (0.00-1.30) H 10/18/19 21:46 NT-Pro-B Natriuret Pep 7312 pg/mL (0-900) H 10/18/19 20:37 Total Protein 5.4 g/dL (6.3-8.2) L 10/18/19 20:37 Albumin 2.5 g/dL (3.9-5) L 10/18/19 20:37 Albumin/Globulin Ratio 0.9 % 10/18/19 20:37 Procalcitonin 3.62 ng/mL (<0.15) 10/18/19 21:46 Assessment and Plan Acute Renal Failure secondary to Prerenal Azotemia vs Ischemic ATN from Sepsis and Hypotension: -Renal labs reviewed. Serum creatinine 3.2 with a BUN level of 192. Baseline renal function unknown. -On NS@ 125 ml/hr -Obtain urine lytes, protein and urine eosinophils -Obtain renal ultrasound -Avoid nephrotoxic agents -Renally dose medications -Strict I/O monitoring -Obtain daily weights -No indication for HD at this time -Monitor renal function closely Suspect/PUI for COVID-19: -Awaiting repeat COVID-19 results -On airborne isolation -ID onboard Hypotension: -Diuretics on hold -On Levophed drip -On IVF Supratherapeutic INR/CHF/Afib/Vtach: -S/P vitamin K. Coumadin on hold -Has Defbrillator -F/u Echocardiogram -Cardiology onboard
[2019-10-19 12:47] LABS: Bilirubin,Urine NEG (Negative); Blood,Urine SM (Negative); Color,Urine Yellow (Yellow); Mucus,Urine FEW /HPF; Protein,Urine <15 mg/dL mg/dL (Negative)
[2019-10-19 12:49] LABS: Creatinine,Urine 101.1 mg/dL (0.1-20.0); Protein/Creatinine Ratio,Urine 0.21
[2019-10-19 14:37] LABS: Albumin 1.8 g/dL (3.9-5); Calcium 7.5 mg/dL (8.4-10.2); INR 3.19 (0.87-1.13)
[2019-10-19 15:23] LABS: Hepatitis B Surface Antigen Non-Reactive (Negative); Hepatitis C Virus Antibody Non-Reactive (NonReactive)
--- NOTE | 2019-10-19 16:43 | Event Note ---
Date: 10/19/19 Patient seen and examined continue current treatment
[2019-10-19] MEDS ORDERED: NORepinephrine/NS 4 MG-250 ML 4 MG/250 ML BAG IV SCH (19:00)
[2019-10-20 05:24] LABS: Hematocrit 24.4 % (35.5-45.6); Mean Corpuscular HGB Conc 33 % (32-34); Mean Corpuscular Volume 100 fl (84-94); Platelet Count 315 K/mm3 (140-440); Red Blood Count 2.44 M/mm3 (3.65-5.03); Red Cell Distribution Width 14.6 % (13.2-15.2)
[2019-10-20 05:35] LABS: INR 1.83 (0.87-1.13)
[2019-10-20 05:50] LABS: Albumin 2.2 g/dL (3.9-5); Calcium 8.6 mg/dL (8.4-10.2)
[2019-10-20 06:15] LABS: Band Neutrophils # (Manual) 0.3 K/mm3; Basophils % (Manual) 0 % (0.0-1.8); Eosinophils % (Manual) 0 % (0.0-4.3); Total Cells Counted 100
[2019-10-20 06:16] LABS: Burr Cells Few; Hypochromasia Few; Macrocytosis Few; Ovalocytes Few; Platelet Estimate Consistent w Auto
[2019-10-20] MEDS: NORepinephrine/NS 4 MG-250 ML 4 MG/250 ML BAG IV SCH (07:40)
--- NOTE | 2019-10-20 08:14 | Progress Note ---
Assessment and Plan Assessment and plan: 68-year-old white male with known history of CHF, pacemaker/defibrillator placement in the past presenting to the emergency room today for progressive worsening of shortness of breath which has been ongoing for about 4 days. Shortness of breath is said to be worse on exertion. He denies any chest pain, no fever or chills, no cough, no nausea vomiting but he has had some episodes of diarrhea. He denies any bright red blood per rectum, no hematuria or dysuria. He denies any sick contacts and no recent travel. Upon arrival in the emergency room evaluation revealed elevated INR, acute kidney injury and other significant abnormalities on the chemistry. He was screened for COVID-19 and was negative Septic shock ID FOLLOWING dyspnea Current Visit: Yes Status: Acute Qualifiers: Dyspnea type: shortness of breath Qualified Code(s): R06.02 - Shortness of breath; R06.00 - Dyspnea, unspecified; R06.01 - Orthopnea Plan to address problem: Etiology is unclear. Possibly secondary to bronchitis however will rule out for COVID-19. Patient has been placed on airborne and droplet precautions. Will place on empiric IV antibiotics. We will also place a consult to infectious disease for further evaluation and recommendation. Hepatic shock syndrome acute renal failure Current Visit: Yes Status: Acute Qualifiers: Acute renal failure type: unspecified Qualified Code(s): N17.9 - Acute kidney failure, unspecified Plan to address problem: Probably secondary to dehydration. Patient has been placed on IV fluid. Will monitor BUN and creatinine. We also place a consult to nephrology for evaluation and further recommendation. Anemia appears chronic Monitor elevated INR/secondary coagulopathy Current Visit: Yes Status: Acute Plan to address problem: Patient had vitamin K in the emergency room. Will monitor PT/INR. Will hold off on anticoagulation. Hypotension Current Visit: Yes Status: Acute Qualifiers: Hypotension type: unspecified hypotension type Qualified Code(s): I95.9 - Hypotension, unspecified Plan to address problem: Patient placed on IV fluid. Will consider placing on pressor if needed. We will continue to monitor vital signs closely. DVT prophylaxis Current Visit: Yes Status: Acute Plan to address problem: We will hold anticoagulation as INR is currently supratherapeutic. Full code status Current Visit: Yes Status: Acute DISCUSSED WITH [employer] cct 35 mins History Interval history: Patient seen and examined. Denies any chest pain nausea vomiting reports shortness of breath improving compared to yesterday. Reports that he normally has cold extremities. Nursing at bedside during my examination no other acute issues reported Hospitalist Physical - Physical exam Narrative exam: VITAL SIGNS: Reviewed. GENERAL: The patient appears normally developed, Vital signs as documented. HEAD: No signs of head trauma. EYES: Pupils are equal. Extraocular motions intact. EARS: Hearing grossly intact. MOUTH: Oropharynx is normal. NECK: No adenopathy, no JVD. CHEST: Chest with clear breath sounds bilaterally. No wheezes, rales, or rhonchi. CARDIAC: Regular rate and rhythm. S1 and S2, without murmurs, gallops, or rubs. VASCULAR: Trace bilateral edema. Peripheral pulses normal and equal in all extremities. ABDOMEN: Soft, non tender and non distended. No rebound or guarding, and no masses palpated. Bowel Sounds normal. MUSCULOSKELETAL: Good range of motion of all major joints. Extremities without clubbing, cyanosis. Trace bilateral pitting edema extremities are cold to the touch. Especially the foot Bilaterally or edema. NEUROLOGIC EXAM: Alert and oriented x 3 No focal sensory or strength deficits. Speech normal. Follows commands. PSYCHIATRIC: Mood normal. SKIN: detial exam as documented in skin assessment - Constitutional Vitals: Temp Pulse Resp BP Pulse Ox 98.4 F 101 H 21 85/40 98 10/20/19 04:00 10/20/19 06:00 10/20/19 06:00 10/20/19 00:20 10/20/19 06:00 General appearance: Present: no acute distress, well-nourished Results - Labs CBC & Chem 7: 10/21/19 04:24 10/21/19 04:24 Labs: Laboratory Last Values WBC 16.3 K/mm3 (4.5-11.0) H 10/20/19 04:15 RBC 2.44 M/mm3 (3.65-5.03) L 10/20/19 04:15 Hgb 8.0 gm/dl (11.8-15.2) L 10/20/19 04:15 Hct 24.4 % (35.5-45.6) L 10/20/19 04:15 MCV 100 fl (84-94) H 10/20/19 04:15 MCH 33 pg (28-32) H 10/20/19 04:15 MCHC 33 % (32-34) 10/20/19 04:15 RDW 14.6 % (13.2-15.2) 10/20/19 04:15 Plt Count 315 K/mm3 (140-440) 10/20/19 04:15 Add Manual Diff Complete 10/20/19 04:15 Total Counted 100 10/20/19 04:15 Seg Neutrophils % Sales Training Coordinator 10/20/19 04:15 Seg Neuts % (Manual) 89.0 % (40.0-70.0) H 10/20/19 04:15 Band Neutrophils % 2.0 % 10/20/19 04:15 Lymphocytes % (Manual) 5.0 % (13.4-35.0) L 10/20/19 04:15 Reactive Lymphs % (Man) 0 % 10/20/19 04:15 Monocytes % (Manual) 4.0 % (0.0-7.3) 10/20/19 04:15 Eosinophils % (Manual) 0 % (0.0-4.3) 10/20/19 04:15 Basophils % (Manual) 0 % (0.0-1.8) 10/20/19 04:15 Metamyelocytes % 0 % 10/20/19 04:15 Myelocytes % 0 % 10/20/19 04:15 Promyelocytes % 0 % 10/20/19 04:15 Blast Cells % 0 % 10/20/19 04:15 Nucleated RBC % Not Reportable 10/20/19 04:15 Seg Neutrophils # Man 14.5 K/mm3 (1.8-7.7) H 10/20/19 04:15 Band Neutrophils # 0.3 K/mm3 10/20/19 04:15 Lymphocytes # (Manual) 0.8 K/mm3 (1.2-5.4) L 10/20/19 04:15 Abs React Lymphs (Man) 0.0 K/mm3 10/20/19 04:15 Monocytes # (Manual) 0.7 K/mm3 (0.0-0.8) 10/20/19 04:15 Eosinophils # (Manual) 0.0 K/mm3 (0.0-0.4) 10/20/19 04:15 Basophils # (Manual) 0.0 K/mm3 (0.0-0.1) 10/20/19 04:15 Metamyelocytes # 0.0 K/mm3 10/20/19 04:15 Myelocytes # 0.0 K/mm3 10/20/19 04:15 Promyelocytes # 0.0 K/mm3 10/20/19 04:15 Blast Cells # 0.0 K/mm3 10/20/19 04:15 WBC Morphology Not Reportable 10/20/19 04:15 Hypersegmented Neuts Not Reportable 10/20/19 04:15 Hyposegmented Neuts Not Reportable 10/20/19 04:15 Hypogranular Neuts Not Reportable 10/20/19 04:15 Smudge Cells Not Reportable 10/20/19 04:15 Toxic Granulation Not Reportable 10/20/19 04:15 Toxic Vacuolation Not Reportable 10/20/19 04:15 Dohle Bodies Not Reportable 10/20/19 04:15 Pelger-Huet Anomaly Not Reportable 10/20/19 04:15 Nanda Rods Not Reportable 10/20/19 04:15 Platelet Estimate Consistent w auto 10/20/19 04:15 Clumped Platelets Not Reportable 10/20/19 04:15 Plt Clumps, EDTA Not Reportable 10/20/19 04:15 Large Platelets Not Reportable 10/20/19 04:15 Giant Platelets Not Reportable 10/20/19 04:15 Platelet Satelliting Not Reportable 10/20/19 04:15 Plt Morphology Comment Not Reportable 10/20/19 04:15 RBC Morphology Not Reportable 10/20/19 04:15 Dimorphic RBCs Not Reportable 10/20/19 04:15 Polychromasia Few 10/20/19 04:15 Hypochromasia Few 10/20/19 04:15 Poikilocytosis Not Reportable 10/20/19 04:15 Anisocytosis Not Reportable 10/20/19 04:15 Microcytosis Not Reportable 10/20/19 04:15 Macrocytosis Few 10/20/19 04:15 Spherocytes Not Reportable 10/20/19 04:15 Pappenheimer Bodies Not Reportable 10/20/19 04:15 Sickle Cells Not Reportable 10/20/19 04:15 Target Cells Not Reportable 10/20/19 04:15 Tear Drop Cells Not Reportable 10/20/19 04:15 Ovalocytes Few 10/20/19 04:15 Helmet Cells Not Reportable 10/20/19 04:15 [place] Bodies Not Reportable 10/20/19 04:15 [place] Rings Not Reportable 10/20/19 04:15 Ramila Cells Few 10/20/19 04:15 Bite Cells Not Reportable 10/20/19 04:15 Crenated Cell Not Reportable 10/20/19 04:15 Elliptocytes Not Reportable 10/20/19 04:15 Acanthocytes (Spur) Not Reportable 10/20/19 04:15 Rouleaux Not Reportable 10/20/19 04:15 Hemoglobin C Crystals Not Reportable 10/20/19 04:15 Schistocytes Not Reportable 10/20/19 04:15 Malaria parasites Not Reportable 10/20/19 04:15 Arnol Bodies Not Reportable 10/20/19 04:15 Hem Pathologist Commnt No 10/20/19 04:15 PT 20.7 Sec. (12.2-14.9) H 10/20/19 04:15 INR 1.83 (0.87-1.13) H 10/20/19 04:15 APTT 92.7 Sec. (24.2-36.6) H* 10/18/19 23:16 D-Dimer 2524.09 ng/mlDDU (0-234) H 10/18/19 23:16 Sodium 147 mmol/L (137-145) H 10/20/19 04:15 Potassium 3.8 mmol/L (3.6-5.0) 10/20/19 04:15 Chloride 106.0 mmol/L (98-107) 10/20/19 04:15 Carbon Dioxide 18 mmol/L (22-30) L 10/20/19 04:15 Anion Gap 27 mmol/L 10/20/19 04:15 BUN 169 mg/dL (9-20) H 10/20/19 04:15 Creatinine 2.1 mg/dL (0.8-1.5) H 10/20/19 04:15 Estimated GFR 32 ml/min 10/20/19 04:15 BUN/Creatinine Ratio 80 % 10/20/19 04:15 Glucose 136 mg/dL (75-100) H 10/20/19 04:15 Calcium 8.6 mg/dL (8.4-10.2) 10/20/19 04:15 Phosphorus 6.00 mg/dL (2.5-4.5) H 10/20/19 04:15 Ferritin > 2000.0 ng/mL (13.0-400.0) H 10/18/19 21:46 Total Bilirubin 1.20 mg/dL (0.1-1.2) 10/20/19 04:15 AST 817 units/L (5-40) H 10/20/19 04:15 ALT 374 units/L (7-56) H 10/20/19 04:15 Alkaline Phosphatase 165 units/L (35-129) H 10/20/19 04:15 Lactate Dehydrogenase 1150 units/L (91-180) H 10/18/19 21:46 Troponin T 0.017 ng/mL (0.00-0.029) 10/19/19 02:12 C-Reactive Protein 29.00 mg/dL (0.00-1.30) H 10/18/19 21:46 NT-Pro-B Natriuret Pep 7312 pg/mL (0-900) H 10/18/19 20:37 Total Protein 5.7 g/dL (6.3-8.2) L 10/20/19 04:15 Albumin 2.2 g/dL (3.9-5) L 10/20/19 04:15 Albumin/Globulin Ratio 0.6 % 10/20/19 04:15 Procalcitonin 3.62 ng/mL (<0.15) 10/18/19 21:46 Urine Color Yellow (Yellow) 10/19/19 12:25 Urine Turbidity Clear (Clear) 10/19/19 12:25 Urine pH 5.0 (5.0-7.0) 10/19/19 12:25 Ur Specific [place] 1.016 (1.003-1.030) 10/19/19 12:25 Urine Protein <15 mg/dl mg/dL (Negative) 10/19/19 12:25 Urine Glucose (UA) Neg mg/dL (Negative) 10/19/19 12:25 Urine Ketones Neg mg/dL (Negative) 10/19/19 12:25 Urine Blood Sm (Negative) 10/19/19 12:25 Urine Nitrite Neg (Negative) 10/19/19 12:25 Urine Bilirubin Neg (Negative) 10/19/19 12:25 Urine Urobilinogen 2.0 mg/dL (<2.0) 10/19/19 12:25 Ur Leukocyte Esterase Neg (Negative) 10/19/19 12:25 Urine WBC (Auto) 2.0 /HPF (0.0-6.0) 10/19/19 12:25 Urine RBC (Auto) 1.0 /HPF (0.0-6.0) 10/19/19 12:25 U Epithel Cells (Auto) 1.0 /HPF (0-13.0) 10/19/19 12:25 Urine Mucus Few /HPF 10/19/19 12:25 Urine Eosinophils None seen (None Seen) 10/19/19 12:25 Urine Creatinine 101.1 mg/dL (0.1-20.0) H 10/19/19 12:25 Protein/Creatinin Ratio 0.21 10/19/19 12:25 Urine Sodium 12 mmol/L 10/19/19 12:25 Urine Total Protein 21 mg/dL (5-11.8) H 10/19/19 12:25 Coronavirus (PCR) Negative (Negative) 10/19/19 08:23 Hepatitis A IgM Ab Non-reactive (NonReactive) 10/19/19 13:58 Hep Bs Antigen Non-reactive (Negative) 10/19/19 13:58 Hep B Core IgM Ab Non-reactive (NonReactive) 10/19/19 13:58 Hepatitis C Antibody Non-reactive (NonReactive) 10/19/19 13:58 Microbiology: Microbiology 10/19/19 14:19 Peripheral/Venous Blood Culture - Preliminary Culture in Progress 10/19/19 14:19 Peripheral/Venous Blood Culture - Preliminary Culture in Progress Rowe/IV: Voiding Method Urinal Active Medications - Current Medications Current Medications: Generic Name Dose Route Start Last Admin Trade Name Freq PRN Reason Stop Dose Admin Acetaminophen 650 mg 10/19/19 00:08 Tylenol PO Q4H PRN Pain MILD(1-3)/Fever >100.5/GIBBS Sodium Chloride 1,000 mls @ 125 mls/hr 10/19/19 00:15 10/19/19 11:15 Nacl 0.9% 1000 Ml IV 125 mls/hr DIRECT ABBEY Administration Norepinephrine 4 mg in 250 mls @ 7.5 mls/hr 10/19/19 05:00 10/20/19 07:40 Levophed Drip 4 Mg/Ns 250 Ml IV 6 mcg/min TITR ABBEY 22.5 mls/hr Administration Protocol 2 MCG/MIN Azithromycin 500 mg/ Sodium 250 mls @ 250 mls/hr 10/19/19 10:30 10/19/19 11:14 Chloride IV 250 mls/hr Q24HR ABBEY Administration Protocol Ceftriaxone Sodium 2 gm in 100 mls @ 200 mls/hr 10/19/19 11:00 10/19/19 12:21 Rocephin/Ns 2 Gm/100 Ml IV 200 mls/hr Q24HR ABBEY Administration Magnesium Hydroxide 30 ml 10/19/19 00:08 Milk Of Magnesia PO Q4H PRN Constipation Ondansetron HCl 4 mg 10/19/19 00:08 10/19/19 08:24 Zofran IV 4 mg Q8H PRN Administration Nausea And Vomiting Sodium Chloride 10 ml 10/19/19 10:00 10/19/19 22:00 Sodium Chloride Flush Syringe 10 Ml IV Not Given BID ABBEY Sodium Chloride 10 ml 10/19/19 00:08 Sodium Chloride Flush Syringe 10 Ml IV PRN PRN LINE FLUSH Nutrition/Malnutrition Assess - Dietary Evaluation Nutrition/Malnutrition Findings: Nutrition Notes Start: 10/19/19 09:23 Freq: Status: Active Protocol: Document 10/19/19 09:23 KIYA (Rec: 10/19/19 09:29 [facility] SR[facility]- [id number]) Nutrition Notes Need for Assessment generated from: MD Order,Education Initial or Follow up Brief Note Current Diagnosis Heart Failure Other Pertinent Diagnosis Dyspnea, ARF, r/o COVID-19 Current Diet Cardiac Subjective/Other Information RD consulted for diet education. Pt in ED at this time. Nutrition Intervention Follow-Up By: 10/21/19 Additional Comments F/U: diet education needs
--- NOTE | 2019-10-20 08:35 | Progress Note ---
Assessment and Plan Cultures: blood culture 10/19/2019 pending Assessment: 68 y/o male with history of CAD, previous PA, CVA, CHF status post AICD, previous PE/DVT, admitted on due to 10 day-history of dry cough, malaise and progressive shortness of breath and dyspnea on exertion: #Shock ?septic ?cardiogenic and MODS: remains on levophed at 4, leukocytosis better, no fever; unclear septic etiology ? Pneumonia (Chest x-ray negative). Urinalysis not available, blood cultures no available. Procalcitonin elevated, however unclear significance under ASHLIE setting. UA negative. #Cough/Dyspnea on exertion: high suspicion for severe COVID pneumonia. CXR x 2 negative. COVID test NEGATIVE. Inflamatory markers are markedly elevated D- dimer 2301, CRP 29, LDH 1150, ferritin> 2000. #History of CHF with AICD ? r/o CHF exacerbation, BNP 7312. #Elevated LFTs: from shock liver ? worsening #ASHLIE: Renally adjust antibiotics, improving #Anemia: Initial hemoglobin 9.5. #Penicillin allergy: Patient is taking Keflex, and he reports allergy is remote and vague. Recommendations: f/u blood cultures Check Hemoccult - pending Obtain transthoracic echo - pending Cards on board Continue Ceftriaxone 2 gm IV q day and azithromycin 500 mg IV once a day Repeat CXR today Obtain liver US Stop COVID isolation Will follow Jennifer Armstrong MD Infectious Diseases [employer] [facility] M [phone] O [phone] Subjective Date of service: 10/20/19 Principal diagnosis: shock Interval history: Feels better, continues on levophed gtt, no fever. Objective - Exam Narrative Exam: General appearance: Alert in NAD pleasant on nasal cannula oxygen Eyes: anicteric sclerae, moist conjunctivae HENT: Atraumatic; oropharynx clear Lungs: CTA narda +AICD pocket no erythema, heat or edema CV: Tachycardic Abdomen: Soft, non-tender Extremities: no edema, no cyanosis Skin: No rash. Psych: No agitated Neuro: alert and oriented x 3 - Constitutional Vitals: Vital Signs Temp Pulse Resp BP Pulse Ox 98.4 F 101 H 21 85/40 98 10/20/19 04:00 10/20/19 06:00 10/20/19 06:00 10/20/19 00:20 10/20/19 06:00 Temperature -Last 24 Hours Temperature 98.4 F Temperature 98.8 F Temperature 98.8 F Temperature 97.2 F Temperature 97.4 F - Labs CBC & Chem 7: 10/20/19 04:15 10/20/19 04:15 Labs: Abnormal lab results 10/19/19 10/19/19 10/19/19 Range/Units 12:25 13:58 13:58 WBC (4.5-11.0) K/mm3 RBC (3.65-5.03) M/mm3 Hgb (11.8-15.2) gm/dl Hct (35.5-45.6) % MCV (84-94) fl MCH (28-32) pg Seg Neuts % (Manual) (40.0-70.0) % Lymphocytes % (Manual) (13.4-35.0) % Seg Neutrophils # Man (1.8-7.7) K/mm3 Lymphocytes # (Manual) (1.2-5.4) K/mm3 PT 31.7 H (12.2-14.9) Sec. INR 3.19 H (0.87-1.13) Sodium (137-145) mmol/L Carbon Dioxide 14 L (22-30) mmol/L BUN 173 H (9-20) mg/dL Creatinine 2.4 H (0.8-1.5) mg/dL Glucose 129 H (75-100) mg/dL Calcium 7.5 L (8.4-10.2) mg/dL Phosphorus (2.5-4.5) mg/dL AST 754 H (5-40) units/L ALT 294 H (7-56) units/L Alkaline Phosphatase 141 H (35-129) units/L Total Protein 4.9 L (6.3-8.2) g/dL Albumin 1.8 L (3.9-5) g/dL Urine Creatinine 101.1 H (0.1-20.0) mg/dL Urine Total Protein 21 H (5-11.8) mg/dL 10/20/19 10/20/19 10/20/19 Range/Units 04:15 04:15 04:15 WBC 16.3 H (4.5-11.0) K/mm3 RBC 2.44 L (3.65-5.03) M/mm3 Hgb 8.0 L (11.8-15.2) gm/dl Hct 24.4 L (35.5-45.6) % MCV 100 H (84-94) fl MCH 33 H (28-32) pg Seg Neuts % (Manual) 89.0 H (40.0-70.0) % Lymphocytes % (Manual) 5.0 L (13.4-35.0) % Seg Neutrophils # Man 14.5 H (1.8-7.7) K/mm3 Lymphocytes # (Manual) 0.8 L (1.2-5.4) K/mm3 PT 20.7 H (12.2-14.9) Sec. INR 1.83 H (0.87-1.13) Sodium 147 H (137-145) mmol/L Carbon Dioxide 18 L (22-30) mmol/L BUN 169 H (9-20) mg/dL Creatinine 2.1 H (0.8-1.5) mg/dL Glucose 136 H (75-100) mg/dL Calcium (8.4-10.2) mg/dL Phosphorus 6.00 H (2.5-4.5) mg/dL AST 817 H (5-40) units/L ALT 374 H (7-56) units/L Alkaline Phosphatase 165 H (35-129) units/L Total Protein 5.7 L (6.3-8.2) g/dL Albumin 2.2 L (3.9-5) g/dL Urine Creatinine (0.1-20.0) mg/dL Urine Total Protein (5-11.8) mg/dL
[2019-10-20] MEDS ORDERED: VANCOMYCIN/NS 1 GM/250 ML 1 GM/250 ML BAG IV SCH (09:00)
--- NOTE | 2019-10-20 09:20 | Consultation ---
History of Present Illness Consult date: 10/20/19 Requesting physician: AGUSTIN CELESTE Reason for consult: other (CRITICAL CARE MANAGMENT) History of present illness: 68 y/o male with history of CAD, previous OK, CVA, CHF status post AICD, previous PE/DVT, admitted on due to 10 day-history of dry cough, malaise and progressive shortness of breath and dyspnea on exertion. 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 He reports coworkers with cough. Last time he went to work was 10/14/2019. He denies any chest pain, nausea, vomiting. He does report an episode of diarrhea. Denies any recent travels. Patient reports a remote vague reaction to penicillin and has taken Keflex without reaction. On arrival temperature 98.1 0.1, HR 111, RR 22, O2 sat 100%, BP 100/59. Initial WBC 17.8. Blood pressure dropped to 70/52 patient was started on pressors in the ED and admitted to the ICU. I have been consulted for critical care management Patient was seen and examined. Vitals, labs, medications, chart reviewed. he remains on vasopressors and is aggressively receiving IVF He complains of abdominal pain and wants to know when he is to get his ultr asound. Review of Systems: General: +chills, +malaise Cutaneous: rash, pruritus Head: headaches or injury Eyes: changes in vision, eye pain, double vision Ears: ear pain, ear discharge, ringing or hearing loss Nose: nose bleeding, stuffiness Mouth & throat: bleeding gums, horseness, no dental problems, or swollen glands Neck: no pain, node enlargement/lumps, tyroid enlargement or tenderness Respiratory: +SOB, +cough, +[place], wheezing, sputum, pleuritic chest pain Cardiovascular: chest pain, leg edema, cyanosis, [place], orthopnea Musculoskeletal: edema Gastrointestinal: nausea, vomiting, hematemesis, + diarrhea, constipation, melena, bright red blood in stools, fecal incontinence, jaundice Genitourinary/Reproductive: frequent urination, dysuria, hematuria, incontinence Neurogical: seizures, headaches, weakness, paresthesias, loss of speech or vision; memory loss, vertigo, tremors, numbness Psychiatric: stable mood; excessive anxiety, sadness or moodiness Past History Past Medical History: heart failure, other (as per HPI) Past Surgical History: Other (History of pacemaker AICD placement) Social history: no significant social history Family history: no significant family history Medications and Allergies Allergies Allergy/AdvReac Type Severity Reaction Status Date / Time Penicillins Allergy Unknown Verified 07/07/19 15:47 Home Medications Medication Instructions Recorded Confirmed Last Taken Type Atorvastatin [Lipitor Tab] 80 mg PO QHS 07/07/19 10/23/19 Unknown History Bisoprolol Fumarate 5 mg PO DAILY 07/07/19 10/23/19 Unknown History Mexiletine HCl 150 mg PO Q8H 07/07/19 10/23/19 Unknown History Warfarin [Coumadin] 5 mg PO QDAY 07/07/19 10/23/19 Unknown History Active Meds: Active Medications Acetaminophen (Tylenol) 650 mg PO Q4H PRN PRN Reason: Pain MILD(1-3)/Fever >100.5/GIBBS Sodium Chloride (Nacl 0.9% 1000 Ml) 1,000 mls @ 125 mls/hr IV DIRECT ABBEY Last Admin: 10/19/19 11:15 Dose: 125 mls/hr Documented by: Norepinephrine (Levophed Drip 4 Mg/Ns 250 Ml) 4 mg in 250 mls @ 7.5 mls/hr IV TITR ABBEY; Protocol Last Admin: 10/20/19 07:40 Dose: 6 mcg/min, 22.5 mls/hr Documented by: Azithromycin 500 mg/ Sodium (Chloride) 250 mls @ 250 mls/hr IV Q24HR ABBEY; Protocol Last Admin: 10/19/19 11:14 Dose: 250 mls/hr Documented by: Ceftriaxone Sodium (Rocephin/Ns 2 Gm/100 Ml) 2 gm in 100 mls @ 200 mls/hr IV Q24HR ABBEY Last Admin: 10/19/19 12:21 Dose: 200 mls/hr Documented by: Fluconazole (Diflucan) 200 mls @ 100 mls/hr IV Q24HR ABBEY; Protocol Cefepime HCl (Cefepime/Ns 2 Gm/100 Ml) 2 gm in 100 mls @ 200 mls/hr IV Q12HR ABBEY; Protocol Vancomycin HCl (Vancomycin/Ns 1 Gm/250 Ml) 1 gm in 250 mls @ 166.667 mls/hr IV Q24H ABBEY; Protocol Magnesium Hydroxide (Milk Of Magnesia) 30 ml PO Q4H PRN PRN Reason: Constipation Ondansetron HCl (Zofran) 4 mg IV Q8H PRN PRN Reason: Nausea And Vomiting Last Admin: 10/19/19 08:24 Dose: 4 mg Documented by: Sodium Chloride (Sodium Chloride Flush Syringe 10 Ml) 10 ml IV BID ABBEY Last Admin: 10/19/19 22:00 Dose: Not Given Documented by: Sodium Chloride (Sodium Chloride Flush Syringe 10 Ml) 10 ml IV PRN PRN PRN Reason: LINE FLUSH Physical Examination Vital signs: Vital Signs Temp Pulse Resp BP Pulse Ox 97.5 F L 111 H 22 106/59 100 10/18/19 20:13 10/18/19 20:13 10/18/19 20:13 10/18/19 20:13 10/18/19 20:13 Constitutional: appears uncomfortable, other (elderly looking obese CM, normocephalic with mildly increased respiratory effort at rest) Eyes: non-icteric ENT: oropharynx dry, other (mallampati 3) Neck: supple, no lymphadenopathy, other (RIJ CVL) Effort: mildly labored Ascultation: Bilateral: diminished breath sounds, rales (scant) Percussion: Bilateral: not dull Cardiovascular: other (paced rhythm) Gastrointestinal: normoactive bowel sounds, soft, non-tender, non-distended (protuberant) Integumentary: rash (stasis dermatitis type) Extremities: no cyanosis, pulses normal, no ischemia or petechiae, edema (trace) Neurologic: non-focal exam (grossly), pupils equal and round, CN II-XII normal, other (weak; fatigued at rest) Psychiatric: other (affect flat) Results - Laboratory Findings CBC and BMP: 10/24/19 Unknown 10/24/19 Unknown PT/INR, D-dimer PT 20.7 Sec. (12.2-14.9) H 10/20/19 04:15 INR 1.83 (0.87-1.13) H 10/20/19 04:15 D-Dimer 2524.09 ng/mlDDU (0-234) H 10/18/19 23:16 Abnormal lab findings: Abnormal Labs 10/18/19 10/18/19 10/18/19 20:37 20:37 20:37 WBC 17.8 H RBC 2.94 L Hgb 9.5 L Hct 30.0 L MCV 102 H MCH Seg Neuts % (Manual) 85.0 H Lymphocytes % (Manual) 6.0 L Monocytes % (Manual) 8.0 H Seg Neutrophils # Man 15.1 H Lymphocytes # (Manual) 1.1 L Monocytes # (Manual) 1.4 H PT 109.8 H INR 16.02 H* APTT 69.1 H* D-Dimer 2301.69 H Sodium Chloride 60.0 L Carbon Dioxide 15 L BUN 192 H Creatinine 3.2 H Glucose 154 H Calcium Phosphorus Ferritin AST 120 H ALT 63 H Alkaline Phosphatase 194 H Lactate Dehydrogenase C-Reactive Protein NT-Pro-B Natriuret Pep 7312 H Total Protein 5.4 L Albumin 2.5 L Urine Creatinine Urine Total Protein 10/18/19 10/18/19 10/18/19 21:46 21:46 23:16 WBC RBC Hgb Hct MCV MCH Seg Neuts % (Manual) Lymphocytes % (Manual) Monocytes % (Manual) Seg Neutrophils # Man Lymphocytes # (Manual) Monocytes # (Manual) PT < 10.0 L INR > 17.67 H* APTT 92.7 H* D-Dimer 2524.09 H Sodium Chloride Carbon Dioxide BUN Creatinine Glucose Calcium Phosphorus Ferritin > 2000.0 H AST ALT Alkaline Phosphatase Lactate Dehydrogenase 1150 H C-Reactive Protein 29.00 H NT-Pro-B Natriuret Pep Total Protein Albumin Urine Creatinine Urine Total Protein 10/19/19 10/19/19 10/19/19 12:25 13:58 13:58 WBC RBC Hgb Hct MCV MCH Seg Neuts % (Manual) Lymphocytes % (Manual) Monocytes % (Manual) Seg Neutrophils # Man Lymphocytes # (Manual) Monocytes # (Manual) PT 31.7 H INR 3.19 H APTT D-Dimer Sodium Chloride Carbon Dioxide 14 L BUN 173 H Creatinine 2.4 H Glucose 129 H Calcium 7.5 L Phosphorus Ferritin AST 754 H ALT 294 H Alkaline Phosphatase 141 H Lactate Dehydrogenase C-Reactive Protein NT-Pro-B Natriuret Pep Total Protein 4.9 L Albumin 1.8 L Urine Creatinine 101.1 H Urine Total Protein 21 H 10/20/19 10/20/19 10/20/19 04:15 04:15 04:15 WBC 16.3 H RBC 2.44 L Hgb 8.0 L Hct 24.4 L MCV 100 H MCH 33 H Seg Neuts % (Manual) 89.0 H Lymphocytes % (Manual) 5.0 L Monocytes % (Manual) Seg Neutrophils # Man 14.5 H Lymphocytes # (Manual) 0.8 L Monocytes # (Manual) PT 20.7 H INR 1.83 H APTT D-Dimer Sodium 147 H Chloride Carbon Dioxide 18 L BUN 169 H Creatinine 2.1 H Glucose 136 H Calcium Phosphorus 6.00 H Ferritin AST 817 H ALT 374 H Alkaline Phosphatase 165 H Lactate Dehydrogenase C-Reactive Protein NT-Pro-B Natriuret Pep Total Protein 5.7 L Albumin 2.2 L Urine Creatinine Urine Total Protein - Diagnostic Findings Chest x-ray: image reviewed Assessment and Plan Shock probably multifactorial- septic/cardiogenic/hypovolemic Shock liver Acute kidney injury- vasomotor nephropathy Anemia appears chronic , with acute component Acute on chronic systolic congestive heart failure, s/p AICD BNP 7312. Cough/Dyspnea on exertion: high suspicion for severe COVID pneumonia. Elevated inflammatory markers D-dimer 2301, CRP 29, LDH 1150, ferritin> 2000- possibly secondary to some other inflammatory condition. Hypernatremia Thrombocytopenia -Supportive blood transfusion to keep HgB >7g/dL -Continue vasopressor support to keep MAP >65 - prn supplemental oxygen for target O2 sat's > 90% acutely - continue accuchecks with glycemic control per SSI (While critically ill target blood glucose of 140-180 mg/dL; avoid hypoglycemia) - optimize cardiac status per cardiology team - prn bronchodilators with pulmonary hygiene per RT - avoid benzodiazepines, reduce the possibility of delirium - Antiinfective's per ID rec's; trend fevers, WBC - prn analgesia per pain score - Maintenance of sleep-wake cycle, avoid delirium - G.I. & VTE prophylaxis ( Famotidine, SCDs) -mobility protocol for pressure ulcer prevention -Get transthoracic echocardiogram to evaluate LVEF and for pulmaonry HTN -RUQ USS pending - Monitor hemodynamics closely - continue other care per attending / other consultants - discharge planning ongoing concurrently .... Re-evaluate in am & prn CONDITION: CRITICAL PROGNOSIS: GUARDED CODE STATUS: FULL CODE The high probability of a clinically significant, sudden or life-threatening deterioration of the [respiratory & cardiovascular] system(s) required my full and direct attention, intervention and personal management. The aggregate critical care time was [33] minutes without overlap. Time includes spent on; [x] Data Review and interpretation [x] Patient assessment and monitoring of vital signs [x] Documentation [x] Medication orders and management
--- NOTE | 2019-10-20 09:54 | Progress Note ---
Assessment and Plan COVID-19 negative. Pt continues to require vasopressor support. No apparent clinical evidence of acutely decompensated HF. Cont supportive management. Cont to hold home GDMT and diuretics in setting of hypotension. INR 1.83 today. Initiate heparin gtt and plan to resume home coumadin with tx INR 2-3 prior to discharge. Await echo. The patient has been seen in conjunction with Dr. Disla who agrees with the assessment and plan of care. - Patient Problems (1) Sepsis Current Visit: Yes Status: Suspected (2) Sepsis associated hypotension Current Visit: Yes Status: Chronic (3) Coagulopathy Current Visit: Yes Status: Acute (4) Chronic HFrEF (heart failure with reduced ejection fraction) Current Visit: Yes Status: Chronic (5) NICM (nonischemic cardiomyopathy) Current Visit: Yes Status: Chronic (6) Automatic implantable cardioverter-defibrillator in situ Current Visit: Yes Status: Chronic (7) Paroxysmal atrial fibrillation Current Visit: Yes Status: Chronic (8) Anticoagulated on Coumadin Current Visit: Yes Status: Chronic (9) History of ventricular tachycardia Current Visit: Yes Status: Chronic (10) Anemia Current Visit: Yes Status: Acute (11) Elevated LFTs Current Visit: Yes Status: Acute Subjective Date of service: 10/20/19 Principal diagnosis: shock Interval history: pt resting in bed, alert. VPaced on telemetry. levophed gtt infusing. Objective Last Vital Signs Temp 98.4 F 10/20/19 04:00 Pulse 111 H 10/20/19 08:30 Resp 22 10/20/19 08:30 BP 119/45 10/20/19 08:30 Pulse Ox 99 10/20/19 08:30 - Physical Examination Narrative exam: agree with physical examination per primary team as pt is COVID-19 PUI - Labs and Meds Cardiac Enzymes 10/19/19 10/20/19 Range/Units 13:58 04:15 AST 754 H 817 H (5-40) units/L Coagulation 10/19/19 10/20/19 Range/Units 13:58 04:15 PT 31.7 H 20.7 H (12.2-14.9) Sec. INR 3.19 H 1.83 H (0.87-1.13) CBC 10/20/19 Range/Units 04:15 WBC 16.3 H (4.5-11.0) K/mm3 RBC 2.44 L (3.65-5.03) M/mm3 Hgb 8.0 L (11.8-15.2) gm/dl Hct 24.4 L (35.5-45.6) % Plt Count 315 (140-440) K/mm3 Comprehensive Metabolic Panel 10/19/19 10/20/19 Range/Units 13:58 04:15 Sodium 142 147 H (137-145) mmol/L Potassium 4.1 3.8 (3.6-5.0) mmol/L Chloride 104.3 106.0 (98-107) mmol/L Carbon Dioxide 14 L 18 L (22-30) mmol/L BUN 173 H 169 H (9-20) mg/dL Creatinine 2.4 H 2.1 H (0.8-1.5) mg/dL Glucose 129 H 136 H (75-100) mg/dL Calcium 7.5 L 8.6 (8.4-10.2) mg/dL AST 754 H 817 H (5-40) units/L ALT 294 H 374 H (7-56) units/L Alkaline Phosphatase 141 H 165 H (35-129) units/L Total Protein 4.9 L 5.7 L (6.3-8.2) g/dL Albumin 1.8 L 2.2 L (3.9-5) g/dL - Imaging and Cardiology EKG: report reviewed, image reviewed Echo: report reviewed (10/07/2016 showed EF 30%, LV severely dilated, mildly dilated LA, impaired relaxation, mod to severely reduced RV systolic function, trace MR. ) - EKG Ventricular dysrhythmias: ventricular premature com
[2019-10-20] MEDS: SODIUM CHLORIDE 0.9% 1000 ML 1,000 ML IV SCH ×2 (10:45→23:47)
[2019-10-20] MEDS: CEFEPIME/NS 2 GM/100 ML 2 GM/100 ML BAG IV SCH ×2 (10:46→21:12)
[2019-10-20] MEDS ORDERED: VANCOMYCIN 2,000 MG in SODIUM CHLORIDE 0.9% 500 ML 500 ML IV ONE (11:00)
[2019-10-20] MEDS ORDERED: VANCOMYCIN PHARMACY TO DOSE IV SCH (11:00)
[2019-10-20 11:14] LABS: Hemoglobin 8.2 gm/dl (11.8-15.2)
[2019-10-20] MEDS: FLUCONAZOLE 400 MG 200 ML IV SCH (11:20)
[2019-10-20 11:23] LABS: INR 1.8 (0.87-1.13)
[2019-10-20 11:24] LABS: Partial Thromboplastin Time 25.7 Sec. (24.2-36.6)
[2019-10-20] MEDS: AZITHROMYCIN 500 MG in SODIUM CHLORIDE 0.9% 250ML 250 ML IV SCH (12:14)
--- NOTE | 2019-10-20 12:14 | Progress Note ---
Assessment and Plan Acute Renal Failure secondary to Prerenal Azotemia vs Ischemic ATN from Sepsis and Hypotension: -Cr and BUN remain elevated by slowly trending down, non-oliguric -will switch IVF to D5W with 75 NaHCO3 75 mwq @ 100 cc/h for acidosis and hypernatremia -urine eos -ve,. urine lytes suggestive or prerenal azotemia -no indication for GEOPHYSICAL COMPUTER, will monitor closely -Obtain renal ultrasound -Avoid nephrotoxic agents -Renally dose medications -Strict I/O monitoring -Obtain daily weights Suspect/PUI for COVID-19: - negative -On airborne isolation -ID onboard Hypotension: -Diuretics on hold -On Levophed drip -On IVF Supratherapeutic INR/CHF/Afib/Vtach: -S/P vitamin K. Coumadin on hold -Has Defbrillator -Cardiology onboard Renzo Hamilton MD [phone] Subjective Date of service: 10/20/19 Principal diagnosis: shock Interval history: he feels tired and hungry but overall comfortable Objective - Vital Signs Vital signs: Vital Signs - 12hr 10/20/19 10/20/19 10/20/19 00:10 00:20 00:30 Temperature Pulse Rate 101 H 115 H 114 H Pulse Rate [ From Monitor] Respiratory 14 19 13 Rate Blood Pressure 94/60 85/40 98/61 O2 Sat by Pulse 100 99 100 Oximetry 10/20/19 10/20/19 10/20/19 00:46 01:00 01:16 Temperature Pulse Rate 114 H 108 H 100 H Pulse Rate [ From Monitor] Respiratory 17 15 15 Rate Blood Pressure 98/61 94/60 110/51 O2 Sat by Pulse 98 99 98 Oximetry 10/20/19 10/20/19 10/20/19 01:30 01:46 02:00 Temperature Pulse Rate 87 106 H 106 H Pulse Rate [ 112 H From Monitor] Respiratory 17 17 18 Rate Blood Pressure 103/62 103/62 103/62 O2 Sat by Pulse 97 96 98 Oximetry 10/20/19 10/20/19 10/20/19 02:16 02:30 02:46 Temperature Pulse Rate 120 H 114 H 113 H Pulse Rate [ From Monitor] Respiratory 16 14 15 Rate Blood Pressure 109/59 89/62 95/51 O2 Sat by Pulse 100 96 100 Oximetry 10/20/19 10/20/19 10/20/19 03:00 03:16 03:30 Temperature Pulse Rate 100 H 93 H 105 H Pulse Rate [ From Monitor] Respiratory 15 15 18 Rate Blood Pressure 96/66 96/66 96/66 O2 Sat by Pulse 99 98 97 Oximetry 10/20/19 10/20/19 10/20/19 03:46 04:00 04:16 Temperature 98.4 F Pulse Rate 110 H 105 H 106 H Pulse Rate [ 93 H From Monitor] Respiratory 28 H 17 15 Rate Blood Pressure 83/51 83/51 111/51 O2 Sat by Pulse 99 100 99 Oximetry 10/20/19 10/20/19 10/20/19 04:30 04:46 05:00 Temperature Pulse Rate 104 H 108 H 99 H Pulse Rate [ From Monitor] Respiratory 17 17 15 Rate Blood Pressure 111/51 76/29 104/46 O2 Sat by Pulse 98 98 98 Oximetry 10/20/19 10/20/19 10/20/19 05:16 05:30 05:46 Temperature Pulse Rate 97 H 101 H 114 H Pulse Rate [ From Monitor] Respiratory 16 15 29 H Rate Blood Pressure 104/46 98/53 98/53 O2 Sat by Pulse 98 96 98 Oximetry 10/20/19 10/20/19 10/20/19 06:00 06:16 06:30 Temperature Pulse Rate 107 H 103 H 104 H Pulse Rate [ 101 H From Monitor] Respiratory 20 17 17 Rate Blood Pressure 104/63 104/63 104/63 O2 Sat by Pulse 95 95 99 Oximetry 10/20/19 10/20/19 10/20/19 06:46 07:00 07:16 Temperature Pulse Rate 113 H 121 H 102 H Pulse Rate [ From Monitor] Respiratory 21 16 14 Rate Blood Pressure 107/57 106/56 106/56 O2 Sat by Pulse 99 98 99 Oximetry 10/20/19 10/20/19 10/20/19 07:30 07:46 08:00 Temperature Pulse Rate 110 H 109 H 99 H Pulse Rate [ From Monitor] Respiratory 18 23 11 L Rate Blood Pressure 102/62 102/62 119/45 O2 Sat by Pulse 83 L 99 95 Oximetry 10/20/19 10/20/19 08:16 08:30 Temperature Pulse Rate 112 H 111 H Pulse Rate [ From Monitor] Respiratory 13 22 Rate Blood Pressure 119/45 119/45 O2 Sat by Pulse 98 99 Oximetry - General Appearance General appearance: well-developed, well-nourished, appears stated age EENT: ATNC, PERRL, mucous membranes dry Neck: no JVD, no carotid bruit Respiratory: Present: Clear to Ascultation. Absent: Rales, Ronchi Cardiology: irregular Gastrointestinal: normoactive bowel sounds, no tenderness, no distended, obese Integumentary: no rash, warm and dry Neurologic: no focal deficit, no asterixis, alert and oriented x3 Musculoskeletal: other (no edema in BLE) Psychiatric: mood/affect appropriate, cooperative - Lab 10/20/19 10:40 10/20/19 04:15 Most recent lab results Calcium 8.6 mg/dL (8.4-10.2) 10/20/19 04:15 Phosphorus 6.00 mg/dL (2.5-4.5) H 10/20/19 04:15 Urine Creatinine 101.1 mg/dL (0.1-20.0) H 10/19/19 12:25 Urine Sodium 12 mmol/L 10/19/19 12:25 Urine Total Protein 21 mg/dL (5-11.8) H 10/19/19 12:25 Medications & Allergies - Medications Allergies/Adverse Reactions: Allergies Penicillins Allergy (Verified 07/07/19 15:47) Unknown Home Medications: Home Medications Medication Instructions Recorded Confirmed Last Taken Type Atorvastatin [Lipitor Tab] 80 mg PO QHS 07/07/19 07/07/19 Unknown History Bisoprolol Fumarate 5 mg PO DAILY 07/07/19 07/07/19 Unknown History Mexiletine HCl 150 mg PO Q8H 07/07/19 07/07/19 Unknown History Warfarin [Coumadin] 5 mg PO QDAY 07/07/19 07/07/19 Unknown History Active Medications: Generic Name Dose Route Start Last Admin Trade Name Freq PRN Reason Stop Dose Admin Acetaminophen 650 mg 10/19/19 00:08 Tylenol PO Q4H PRN Pain MILD(1-3)/Fever >100.5/GIBBS Sodium Chloride 1,000 mls @ 125 mls/hr 10/19/19 00:15 10/20/19 10:45 Nacl 0.9% 1000 Ml IV 125 mls/hr DIRECT ABBEY Administration Norepinephrine 4 mg in 250 mls @ 7.5 mls/hr 10/19/19 05:00 10/20/19 11:01 Levophed Drip 4 Mg/Ns 250 Ml IV 4 mcg/min TITR ABBEY 15 mls/hr Titration Protocol 2 MCG/MIN Azithromycin 500 mg/ Sodium 250 mls @ 250 mls/hr 10/19/19 10:30 10/19/19 11:14 Chloride IV 250 mls/hr Q24HR ABBEY Administration Protocol Fluconazole 200 mls @ 100 mls/hr 10/20/19 10:30 Diflucan IV Q24HR ABBEY Protocol Cefepime HCl 2 gm in 100 mls @ 200 mls/hr 10/20/19 11:00 10/20/19 10:46 Cefepime/Ns 2 Gm/100 Ml IV 200 mls/hr Q12HR ABBEY Administration Protocol Vancomycin HCl 2,000 mg/ 540 mls @ 250 mls/hr 10/20/19 11:00 Sodium Chloride IV 10/20/19 13:09 ONCE ONE Heparin Sodium/Sodium Chloride 25,000 unit in 500 mls @ 20 mls/hr 10/20/19 1 1:00 Heparin/ 0.45% Nacl-25,000 Unit/500 Ml IV TITRATE ABBEY Protocol 1,000 UNITS/HR Sodium Bicarbonate 75 meq/ 1,075 mls @ 100 mls/hr 10/20/19 12:06 Dextrose IV 10/20/19 22:50 DIRECT ONE Magnesium Hydroxide 30 ml 10/19/19 00:08 Milk Of Magnesia PO Q4H PRN Constipation Ondansetron HCl 4 mg 10/19/19 00:08 10/19/19 08:24 Zofran IV 4 mg Q8H PRN Administration Nausea And Vomiting Sodium Chloride 10 ml 10/19/19 10:00 10/19/19 22:00 Sodium Chloride Flush Syringe 10 Ml IV Not Given BID ABBEY Sodium Chloride 10 ml 10/19/19 00:08 Sodium Chloride Flush Syringe 10 Ml IV PRN PRN LINE FLUSH
[2019-10-20] MEDS ORDERED: SODIUM BICARBONATE 75 MEQ in DEXTROSE 5% IN WATER 1,000 ML IV ONE (13:00)
[2019-10-20] MEDS: HEPARIN/ 0.45% NACL DRIP 25,000 UNIT/500 ML BAG IV SCH (13:22)
[2019-10-20] MEDS ORDERED: SODIUM CHLORIDE 0.9% 250ML 250 ML IV ONE (14:05)
--- NOTE | 2019-10-20 15:24 | Consultation ---
HOSPITAL CONSULT NOTE REFERRING PHYSICIAN: Dr. Roberto Mckeon. INDICATION: Increased liver function tests. HISTORY OF PRESENT ILLNESS: The patient is a 68-year-old white male with history of CHF, status post pacemaker, presented to the Emergency Room for progressive shortness of breath for 4 days. The patient reports dyspnea on exertion. He denies any chest pain. The patient subsequently admitted when he was found to be hypotensive. The patient noted to have increased liver function tests. The patient denies a history of liver disease. He reports he has never been told he had hepatitis. He reports he has never had a liver biopsy. He denies any family history of liver disease. The patient subsequently was admitted and GI consulted to aid in management. PAST MEDICAL HISTORY: 1. CHF. 2. Status post pacemaker defibrillator. ALLERGIES: To PENICILLIN. MEDICATIONS: Reviewed and updated in chart. SOCIAL HISTORY: Denies alcohol, tobacco or drug abuse. FAMILY HISTORY: Negative for colon cancer, IBD, or liver disease. REVIEW OF SYSTEMS: GENERAL: Reports some weakness. HEENT: No visual complaints or tinnitus. PULMONARY: No shortness of breath. No cough. No chest pain. GASTROINTESTINAL: Denies complaints. All points of 13-point review of systems otherwise negative. PHYSICAL EXAMINATION: VITAL SIGNS: Temperature of 98.7, pulse 110, respirations 20, blood pressure 119/45. GENERAL: Fairly nourished male, in no distress. HEENT: Pupils are equal, round and reactive. PULMONARY: Rhonchi and crackles. CARDIOVASCULAR: Regular rhythm. Normal S1, S2. ABDOMEN: Positive bowel sounds, soft. SKIN: No obvious rashes. LABORATORY DATA: Pertinent for white count of 16.3, hemoglobin and hematocrit of 8 and 24.4, platelet count of 315. Chem-7, sodium of 147, potassium 3.8, chloride 106, CO2 of 18, BUN and creatinine of 169 and 2.1. AST, ALT today of 817 and 374 with alkaline phosphatase of 165 and bilirubin of 1.2. ASSESSMENT AND PLAN: A 68-year-old male with a history of CHF and status post pacemaker defibrillator, now presented with hypotension and possible CHF, now noted to have increased liver function tests. The patient is currently on pressor support to help with this hypotension. He denies a history of liver disease in the past. Liver disease is probably secondary to hypotension with shock versus congestion from heart versus less likely medication induced and other etiologies. PLAN: 1. Right upper quadrant ultrasound with Doppler. 2. Hepatitis and other liver related labs to be ordered. 3. Follow LFTs. 4. Hypotension and CHF, management per primary team and Cardiology. Suspect as these are managed liver labs, will probably improve. 5. No plans for liver biopsy at this time. 6. We will follow with further recommendation based on progress. JOB# [id number] CAB/NTS MTDD
[2019-10-21] MEDS: NORepinephrine/NS 4 MG-250 ML 4 MG/250 ML BAG IV SCH (04:07)
[2019-10-21 05:22] LABS: Hematocrit 23.7 % (35.5-45.6); Hemoglobin 7.4 gm/dl (11.8-15.2); Mean Corpuscular HGB Conc 31 % (32-34); Mean Corpuscular Volume 102 fl (84-94); Platelet Count 264 K/mm3 (140-440); Red Blood Count 2.33 M/mm3 (3.65-5.03); Red Cell Distribution Width 15.2 % (13.2-15.2)
[2019-10-21 05:29] LABS: Calcium 8.3 mg/dL (8.4-10.2); Hemolysis Index 2; Iron 134 ug/dL (49-181)
[2019-10-21 05:59] LABS: BUN/Creatinine Ratio 80; Blood Urea Nitrogen 128 mg/dL (9-20)
[2019-10-21 06:14] LABS: Total Iron Binding Capacity 150 mcg/dL (250-450)
[2019-10-21 06:33] LABS: Band Neutrophils # (Manual) 1.2 K/mm3; Basophils % (Manual) 0 % (0.0-1.8); Eosinophils % (Manual) 0 % (0.0-4.3); Total Cells Counted 100
[2019-10-21 06:34] LABS: Burr Cells Few
[2019-10-21 06:35] LABS: Anisocytosis Few; Ovalocytes Rare; Platelet Estimate Consistent w Auto
--- NOTE | 2019-10-21 09:18 | Progress Note ---
Assessment and Plan Acute Renal Failure secondary to Prerenal Azotemia vs Ischemic ATN from Sepsis and Hypotension: -Cr and BUN cont to improve, very good UOP -will switch IVF to 1/2 NS for hypernatremia -urine eos -ve,. urine lytes suggestive or prerenal azotemia -no indication for [employer], will monitor closely -Obtain renal ultrasound -Avoid nephrotoxic agents -Renally dose medications -Strict I/O monitoring -Obtain daily weights Suspect/PUI for COVID-19: - negative -On airborne isolation -ID onboard Hypotension: -Diuretics on hold -On Levophed drip -On IVF Supratherapeutic INR/CHF/Afib/Vtach: -S/P vitamin K. Coumadin on hold -Has Defbrillator -Cardiology onboard Renzo Hamilton MD [phone] Subjective Date of service: 10/21/19 Principal diagnosis: shock Interval history: making urine Objective - Vital Signs Vital signs: Vital Signs - 12hr 10/20/19 10/20/19 10/20/19 21:20 21:30 21:40 Temperature Pulse Rate 129 H 111 H 111 H Pulse Rate [ From Monitor] Respiratory 17 16 17 Rate Blood Pressure 113/53 118/52 118/52 O2 Sat by Pulse 98 99 98 Oximetry 10/20/19 10/20/19 10/20/19 21:50 22:00 22:10 Temperature Pulse Rate 117 H 114 H 112 H Pulse Rate [ 106 H From Monitor] Respiratory 19 18 18 Rate Blood Pressure 118/52 118/52 100/62 O2 Sat by Pulse 98 99 99 Oximetry 10/20/19 10/20/19 10/20/19 22:20 22:30 22:35 Temperature Pulse Rate 112 H 109 H Pulse Rate [ 106 H From Monitor] Respiratory 19 15 16 Rate Blood Pressure 100/62 109/62 O2 Sat by Pulse 99 98 100 Oximetry 10/20/19 10/20/19 10/20/19 22:40 22:50 23:00 Temperature Pulse Rate 100 H 107 H 120 H Pulse Rate [ From Monitor] Respiratory 16 15 21 Rate Blood Pressure 109/62 100/62 100/62 O2 Sat by Pulse 98 98 100 Oximetry 10/20/19 10/20/19 10/20/19 23:10 23:18 23:20 Temperature 97.2 F L Pulse Rate 110 H 96 H Pulse Rate [ From Monitor] Respiratory 16 15 Rate Blood Pressure 126/54 126/54 O2 Sat by Pulse 99 98 Oximetry 10/20/19 10/20/19 10/20/19 23:30 23:40 23:50 Temperature Pulse Rate 115 H 80 95 H Pulse Rate [ From Monitor] Respiratory 17 15 28 H Rate Blood Pressure 126/54 109/54 109/54 O2 Sat by Pulse 99 99 99 Oximetry 10/21/19 10/21/19 10/21/19 00:00 00:10 00:20 Temperature Pulse Rate 114 H 103 H 108 H Pulse Rate [ From Monitor] Respiratory 19 16 19 Rate Blood Pressure 105/60 105/60 105/60 O2 Sat by Pulse 99 99 99 Oximetry 10/21/19 10/21/19 10/21/19 00:30 00:40 00:50 Temperature Pulse Rate 109 H 115 H 115 H Pulse Rate [ From Monitor] Respiratory 17 16 17 Rate Blood Pressure 105/60 95/58 O2 Sat by Pulse 99 99 99 Oximetry 10/21/19 10/21/19 10/21/19 01:00 01:10 01:20 Temperature Pulse Rate 90 106 H 113 H Pulse Rate [ From Monitor] Respiratory 17 20 17 Rate Blood Pressure 103/56 103/56 103/56 O2 Sat by Pulse 98 99 98 Oximetry 10/21/19 10/21/19 10/21/19 01:30 01:40 01:50 Temperature Pulse Rate 120 H 112 H 112 H Pulse Rate [ From Monitor] Respiratory 15 20 12 Rate Blood Pressure 116/56 116/56 116/56 O2 Sat by Pulse 99 98 100 Oximetry 10/21/19 10/21/19 10/21/19 02:00 02:10 02:20 Temperature Pulse Rate 108 H 110 H 118 H Pulse Rate [ From Monitor] Respiratory 16 15 16 Rate Blood Pressure 116/56 94/56 94/56 O2 Sat by Pulse 97 99 99 Oximetry 10/21/19 10/21/19 10/21/19 02:30 02:40 02:50 Temperature Pulse Rate 112 H 116 H 108 H Pulse Rate [ 100 H From Monitor] Respiratory 14 18 15 Rate Blood Pressure 94/56 104/47 104/47 O2 Sat by Pulse 100 97 99 Oximetry 10/21/19 10/21/19 10/21/19 03:00 03:10 03:20 Temperature Pulse Rate 116 H 117 H 108 H Pulse Rate [ From Monitor] Respiratory 19 16 16 Rate Blood Pressure 99/54 99/54 99/54 O2 Sat by Pulse 99 99 98 Oximetry 10/21/19 10/21/19 10/21/19 03:30 03:36 03:40 Temperature 97.8 F Pulse Rate 122 H Pulse Rate [ From Monitor] Respiratory 18 19 Rate Blood Pressure 97/52 97/52 O2 Sat by Pulse 98 100 Oximetry 10/21/19 10/21/19 10/21/19 03:50 04:00 04:10 Temperature Pulse Rate 103 H 112 H Pulse Rate [ From Monitor] Respiratory 18 14 Rate Blood Pressure 97/52 86/47 97/52 O2 Sat by Pulse 83 L 100 Oximetry 10/21/19 10/21/19 10/21/19 04:20 04:30 04:40 Temperature Pulse Rate 108 H 103 H 113 H Pulse Rate [ From Monitor] Respiratory 18 15 18 Rate Blood Pressure 97/52 97/52 113/51 O2 Sat by Pulse 97 98 Oximetry 10/21/19 10/21/19 10/21/19 04:50 05:00 05:10 Temperature Pulse Rate 109 H 115 H 111 H Pulse Rate [ From Monitor] Respiratory 17 16 14 Rate Blood Pressure 113/51 139/114 139/114 O2 Sat by Pulse 99 97 100 Oximetry 10/21/19 10/21/19 10/21/19 05:20 05:30 05:40 Temperature Pulse Rate 117 H 104 H 118 H Pulse Rate [ From Monitor] Respiratory 16 18 13 Rate Blood Pressure 139/114 111/61 139/114 O2 Sat by Pulse 98 98 99 Oximetry 10/21/19 10/21/19 10/21/19 05:50 06:00 06:10 Temperature Pulse Rate 98 H 103 H 108 H Pulse Rate [ 105 H From Monitor] Respiratory 16 15 17 Rate Blood Pressure 139/114 108/57 111/61 O2 Sat by Pulse 99 98 96 Oximetry 10/21/19 10/21/19 10/21/19 06:20 06:30 06:40 Temperature Pulse Rate 109 H 103 H 114 H Pulse Rate [ From Monitor] Respiratory 17 17 17 Rate Blood Pressure 111/61 107/82 107/82 O2 Sat by Pulse 99 98 98 Oximetry 10/21/19 10/21/19 06:50 07:00 Temperature Pulse Rate 114 H 113 H Pulse Rate [ From Monitor] Respiratory 16 19 Rate Blood Pressure 107/82 107/82 O2 Sat by Pulse 97 98 Oximetry - Lab 10/21/19 04:24 10/21/19 04:24 Most recent lab results Calcium 8.3 mg/dL (8.4-10.2) L 10/21/19 04:24 Phosphorus 6.00 mg/dL (2.5-4.5) H 10/20/19 04:15 Urine Creatinine 101.1 mg/dL (0.1-20.0) H 10/19/19 12:25 Urine Sodium 12 mmol/L 10/19/19 12:25 Urine Total Protein 21 mg/dL (5-11.8) H 10/19/19 12:25 Medications & Allergies - Medications Allergies/Adverse Reactions: Allergies Penicillins Allergy (Verified 07/07/19 15:47) Unknown Home Medications: Home Medications Medication Instructions Recorded Confirmed Last Taken Type Atorvastatin [Lipitor Tab] 80 mg PO QHS 07/07/19 07/07/19 Unknown History Bisoprolol Fumarate 5 mg PO DAILY 07/07/19 07/07/19 Unknown History Mexiletine HCl 150 mg PO Q8H 07/07/19 07/07/19 Unknown History Warfarin [Coumadin] 5 mg PO QDAY 07/07/19 07/07/19 Unknown History Active Medications: Generic Name Dose Route Start Last Admin Trade Name Freq PRN Reason Stop Dose Admin Acetaminophen 650 mg 10/19/19 00:08 Tylenol PO Q4H PRN Pain MILD(1-3)/Fever >100.5/GIBBS Norepinephrine 4 mg in 250 mls @ 7.5 mls/hr 10/19/19 05:00 10/21/19 08:54 Levophed Drip 4 Mg/Ns 250 Ml IV 2 mcg/min TITR ABBEY 7.5 mls/hr Titration Protocol 2 MCG/MIN Azithromycin 500 mg/ Sodium 250 mls @ 250 mls/hr 10/19/19 10:30 10/20/19 12:14 Chloride IV 250 mls/hr Q24HR ABBEY Administration Protocol Fluconazole 200 mls @ 100 mls/hr 10/20/19 10:30 10/20/19 11:20 Diflucan IV 100 mls/hr Q24HR ABBEY Administration Protocol Cefepime HCl 2 gm in 100 mls @ 200 mls/hr 10/20/19 11:00 10/20/19 21:12 Cefepime/Ns 2 Gm/100 Ml IV 200 mls/hr Q12HR ABBEY Administration Protocol Heparin Sodium/Sodium Chloride 25,000 unit in 500 mls @ 20 mls/hr 10/20/19 11:00 10/20/19 22:30 Heparin/ 0.45% Nacl-25,000 Unit/500 Ml IV 1,200 units/hr TITRATE ABBEY 24 mls/hr Titration Protocol 1,000 UNITS/HR Dextrose/Sodium Chloride 1,000 mls @ 100 mls/hr 10/21/19 10:00 D5/0.45ns IV DIRECT ABBEY Magnesium Hydroxide 30 ml 10/19/19 00:08 Milk Of Magnesia PO Q4H PRN Constipation Ondansetron HCl 4 mg 10/19/19 00:08 10/19/19 08:24 Zofran IV 4 mg Q8H PRN Administration Nausea And Vomiting Sodium Chloride 10 ml 10/19/19 10:00 10/20/19 21:15 Sodium Chloride Flush Syringe 10 Ml IV 10 ml BID ABBEY Administration Sodium Chloride 10 ml 10/19/19 00:08 Sodium Chloride Flush Syringe 10 Ml IV PRN PRN LINE FLUSH
[2019-10-21 09:37] LABS: Albumin 2.2 g/dL (3.9-5); Bilirubin,Direct 0.7 mg/dL (0-0.2)
--- NOTE | 2019-10-21 09:52 | XRay Report ---
CHEST 1 VIEW INDICATION / CLINICAL INFORMATION: SOB. COMPARISON: 10/19/2019 FINDINGS: SUPPORT DEVICES: AICD appears unchanged. Central venous line appears unchanged in position HEART / MEDIASTINUM: Unchanged LUNGS / PLEURA: There are low lung volumes bilaterally. There is elevation of the right hemidiaphragm . The lungs are unchanged in appearance.. No pneumothorax. ADDITIONAL FINDINGS: No significant additional findings. IMPRESSION: 1. No significant change. Signer Name: Jordan James MD Signed: 10/21/2019 9:47 AM Workstation Name: [id number]
--- NOTE | 2019-10-21 10:12 | Progress Note ---
Assessment and Plan tte reviewed - EF 25-30%, RV systolic function mildly reduced, RVSP 39mmHg. COVID-19 negative. Pt continues to require vasopressor support. No apparent clinical evidence of acutely decompensated HF. Cont supportive management. Cont to hold home GDMT and diuretics in setting of hypotension. Cont heparin gtt and plan to resume home coumadin with tx INR 2-3 prior to discharge. Will follow on as needed basis over the weekend. The patient has been seen in conjunction with Dr. Disla who agrees with the assessment and plan of care. - Patient Problems (1) Sepsis Current Visit: Yes Status: Suspected (2) Sepsis associated hypotension Current Visit: Yes Status: Chronic (3) Coagulopathy Current Visit: Yes Status: Acute (4) Chronic HFrEF (heart failure with reduced ejection fraction) Current Visit: Yes Status: Chronic (5) NICM (nonischemic cardiomyopathy) Current Visit: Yes Status: Chronic (6) Automatic implantable cardioverter-defibrillator in situ Current Visit: Yes Status: Chronic (7) Paroxysmal atrial fibrillation Current Visit: Yes Status: Chronic (8) Anticoagulated on Coumadin Current Visit: Yes Status: Chronic (9) History of ventricular tachycardia Current Visit: Yes Status: Chronic (10) Anemia Current Visit: Yes Status: Acute (11) Elevated LFTs Current Visit: Yes Status: Acute (12) Acute renal failure Current Visit: Yes Status: Acute Qualifiers: Acute renal failure type: unspecified Qualified Code(s): N17.9 - Acute kidney failure, unspecified Subjective Date of service: 10/21/19 Principal diagnosis: sepsis Interval history: pt resting in bed, alert. VPaced on telemetry. levophed gtt infusing. Objective Last Vital Signs Temp 97.8 F 10/21/19 03:36 Pulse 113 H 10/21/19 07:00 Resp 19 10/21/19 07:00 BP 107/82 10/21/19 07:00 Pulse Ox 98 10/21/19 07:00 - Physical Examination Narrative exam: agree with physical examination per primary team as pt is COVID-19 PUI - Labs and Meds Cardiac Enzymes 10/21/19 Range/Units 04:24 AST 754 H (5-40) units/L Coagulation 10/20/19 Range/Units 10:40 PT 20.9 H (12.2-14.9) Sec. INR 1.80 H (0.87-1.13) APTT 25.7 (24.2-36.6) Sec. CBC 10/20/19 10/21/19 Range/Units 10:40 04:24 WBC 19.3 H (4.5-11.0) K/mm3 RBC 2.33 L (3.65-5.03) M/mm3 Hgb 8.2 L 7.4 L (11.8-15.2) gm/dl Hct 25.0 L 23.7 L (35.5-45.6) % Plt Count 329 264 (140-440) K/mm3 Comprehensive Metabolic Panel 10/21/19 10/21/19 Range/Units 04:24 04:24 Sodium 149 H (137-145) mmol/L Potassium 3.3 L (3.6-5.0) mmol/L Chloride 113.9 H (98-107) mmol/L Carbon Dioxide 20 L (22-30) mmol/L BUN 128 H (9-20) mg/dL Creatinine 1.6 H (0.8-1.5) mg/dL Glucose 151 H (75-100) mg/dL Calcium 8.3 L (8.4-10.2) mg/dL Direct Bilirubin 0.7 H (0-0.2) mg/dL Indirect Bilirubin 0.4 mg/dL AST 754 H (5-40) units/L ALT 421 H (7-56) units/L Alkaline Phosphatase 165 H (35-129) units/L Total Protein 5.2 L (6.3-8.2) g/dL Albumin 2.2 L (3.9-5) g/dL - Imaging and Cardiology EKG: report reviewed, image reviewed Echo: report reviewed (10/07/2016 showed EF 30%, LV severely dilated, mildly dilated LA, impaired relaxation, mod to severely reduced RV systolic function, trace MR. ) - EKG Ventricular dysrhythmias: ventricular premature com
--- NOTE | 2019-10-21 11:01 | Progress Note ---
Assessment and Plan Cultures: blood culture 10/19/2019 no growth today urine culture 10/19/2019 <10 Assessment: 68 y/o male with history of CAD, previous PA, CVA, CHF status post AICD, previous PE/DVT, admitted on due to 10 day-history of dry cough, malaise and progressive shortness of breath and dyspnea on exertion: #Shock ?septic ?cardiogenic and MODS: was levophed at 4- now at 2, leukocytosis up, no fever; unclear septic etiology ? GB/liver. Urinalysis negative, blood cultures negative. Procalcitonin elevated, however unclear significance under ASHLIE setting. #Cough/Dyspnea on exertion: CXR x 3 negative. COVID test NEGATIVE. Inflamatory markers are markedly elevated D-dimer 2301, CRP 29, LDH 1150, ferritin> 2000. #History of CHF with AICD ? r/o CHF exacerbation, BNP 7312. EF 25-30% #Elevated LFTs: from shock liver ? worsening, r/o cholecystitis #ASHLIE: Renally adjust antibiotics, improving #Anemia: Initial hemoglobin 9.5. #Penicillin allergy: Patient has taken Keflex, and he reports allergy is remote and vague. Recommendations: monitor leukocytosis Obtain liver US - pending - LFTs going up consider abdominal CT f/u blood cultures Cards on board Stop Ceftriaxone and azithromycin after today Day 3 Dr Jones covering the weekend Will follow Jennifer Armstrong MD Infectious Diseases Feed Manager [facility] [phone] Subjective Date of service: 10/21/19 Principal diagnosis: sepsis Interval history: Feels better, continues on levophed gtt at 2, no fever, wants to eat. Objective - Exam Narrative Exam: General appearance: Alert in NAD on nasal cannula oxygen Eyes: anicteric sclerae, moist conjunctivae HENT: Atraumatic; oropharynx clear Lungs: CTA narda +AICD pocket no erythema, heat or edema CV: Tachycardic Abdomen: Soft, non-tender Extremities: no edema, no cyanosis Skin: No rash. Psych: upset he is hungry Neuro: alert and oriented x 3 - Constitutional Vitals: Vital Signs Temp Pulse Resp BP Pulse Ox 97.8 F 113 H 19 107/82 98 10/21/19 03:36 10/21/19 07:00 10/21/19 07:00 10/21/19 07:00 10/21/19 07:00 Temperature -Last 24 Hours Temperature 97.8 F Temperature 97.2 F Temperature 97.7 F Temperature 97.2 F Temperature 97.8 F - Labs CBC & Chem 7: 10/21/19 04:24 10/21/19 04:24 Labs: Abnormal lab results 10/20/19 10/20/19 10/20/19 Range/Units 10:40 10:40 20:51 WBC (4.5-11.0) K/mm3 RBC (3.65-5.03) M/mm3 Hgb 8.2 L (11.8-15.2) gm/dl Hct 25.0 L (35.5-45.6) % MCV (84-94) fl MCHC (32-34) % Seg Neuts % (Manual) (40.0-70.0) % Lymphocytes % (Manual) (13.4-35.0) % Seg Neutrophils # Man (1.8-7.7) K/mm3 Lymphocytes # (Manual) (1.2-5.4) K/mm3 PT 20.9 H (12.2-14.9) Sec. INR 1.80 H (0.87-1.13) Heparin Anti-Xa Level 0.12 L (0.3-0.7) U.I./ml Sodium (137-145) mmol/L Potassium (3.6-5.0) mmol/L Chloride (98-107) mmol/L Carbon Dioxide (22-30) mmol/L BUN (9-20) mg/dL Creatinine (0.8-1.5) mg/dL Glucose (75-100) mg/dL Calcium (8.4-10.2) mg/dL TIBC (250-450) mcg/dL Ferritin (13.0-400.0) ng/mL Direct Bilirubin (0-0.2) mg/dL AST (5-40) units/L ALT (7-56) units/L Alkaline Phosphatase (35-129) units/L Total Protein (6.3-8.2) g/dL Albumin (3.9-5) g/dL 10/21/19 10/21/19 10/21/19 Range/Units 04:24 04:24 04:24 WBC 19.3 H (4.5-11.0) K/mm3 RBC 2.33 L (3.65-5.03) M/mm3 Hgb 7.4 L (11.8-15.2) gm/dl Hct 23.7 L (35.5-45.6) % MCV 102 H (84-94) fl MCHC 31 L (32-34) % Seg Neuts % (Manual) 81.0 H (40.0-70.0) % Lymphocytes % (Manual) 5.0 L (13.4-35.0) % Seg Neutrophils # Man 15.6 H (1.8-7.7) K/mm3 Lymphocytes # (Manual) 1.0 L (1.2-5.4) K/mm3 PT (12.2-14.9) Sec. INR (0.87-1.13) Heparin Anti-Xa Level (0.3-0.7) U.I./ml Sodium 149 H (137-145) mmol/L Potassium 3.3 L (3.6-5.0) mmol/L Chloride 113.9 H (98-107) mmol/L Carbon Dioxide 20 L (22-30) mmol/L BUN 128 H (9-20) mg/dL Creatinine 1.6 H (0.8-1.5) mg/dL Glucose 151 H (75-100) mg/dL Calcium 8.3 L (8.4-10.2) mg/dL TIBC 150 L (250-450) mcg/dL Ferritin > 2000.0 H (13.0-400.0) ng/mL Direct Bilirubin (0-0.2) mg/dL AST (5-40) units/L ALT (7-56) units/L Alkaline Phosphatase (35-129) units/L Total Protein (6.3-8.2) g/dL Albumin (3.9-5) g/dL 10/21/19 10/21/19 Range/Units 04:24 08:06 WBC (4.5-11.0) K/mm3 RBC (3.65-5.03) M/mm3 Hgb (11.8-15.2) gm/dl Hct (35.5-45.6) % MCV (84-94) fl MCHC (32-34) % Seg Neuts % (Manual) (40.0-70.0) % Lymphocytes % (Manual) (13.4-35.0) % Seg Neutrophils # Man (1.8-7.7) K/mm3 Lymphocytes # (Manual) (1.2-5.4) K/mm3 PT (12.2-14.9) Sec. INR (0.87-1.13) Heparin Anti-Xa Level 0.26 L (0.3-0.7) U.I./ml Sodium (137-145) mmol/L Potassium (3.6-5.0) mmol/L Chloride (98-107) mmol/L Carbon Dioxide (22-30) mmol/L BUN (9-20) mg/dL Creatinine (0.8-1.5) mg/dL Glucose (75-100) mg/dL Calcium (8.4-10.2) mg/dL TIBC (250-450) mcg/dL Ferritin (13.0-400.0) ng/mL Direct Bilirubin 0.7 H (0-0.2) mg/dL AST 754 H (5-40) units/L ALT 421 H (7-56) units/L Alkaline Phosphatase 165 H (35-129) units/L Total Protein 5.2 L (6.3-8.2) g/dL Albumin 2.2 L (3.9-5) g/dL
[2019-10-21] MEDS ORDERED: SODIUM CHLORIDE 0.9% 500 ML 500 ML IV ONE (11:50)
[2019-10-21] MEDS ORDERED: POTASSIUM CHLORIDE ER 20 MEQ TAB PO ONE (12:00)
[2019-10-21] MEDS: D5W/0.45% NACL 1,000 ML IV SCH (12:05)
--- NOTE | 2019-10-21 12:27 | Progress Note ---
Assessment and Plan Shock probably multifactorial- septic/cardiogenic/hypovolemic Shock liver Acute kidney injury- vasomotor nephropathy Anemia appears chronic , with acute component Acute on chronic systolic congestive heart failure, s/p AICD BNP 7312. Cough/Dyspnea on exertion: high suspicion for severe COVID pneumonia. Elevated inflammatory markers D-dimer 2301, CRP 29, LDH 1150, ferritin> 2000- possibly secondary to some other inflammatory condition. Thrombocytopenia Supportive blood transfusion to keep HgB >7g/dL-ordered one unit PRBC Get HIV screen Get HIT, has thrombocytopenia, >50% drop in platelet counts since admission Antibiotics per ID service-currently on Cefepime, Rocephin, Zithromax. Diflucan added by ID service Start IVF NSaline at 125ml/hour, Continue to wean vasopressor support to keep MAP >65 - prn supplemental oxygen for target O2 sat's > 90% acutely - continue accuchecks with glycemic control per SSI (While critically ill target blood glucose of 140-180 mg/dL; avoid hypoglycemia) - optimize cardiac status per cardiology team - prn bronchodilators with pulmonary hygiene per RT - avoid benzodiazepines, reduce the possibility of delirium - Antiinfective's per ID rec's; trend fevers, WBC - prn analgesia per pain score - Maintenance of sleep-wake cycle, avoid delirium - G.I. & VTE prophylaxis ( Famotidine, SCDs) -mobility protocol for pressure ulcer prevention -Get transthoracic echocardiogram to evaluate LVEF and for pulmaonry HTN -RUQ USS pending - Monitor hemodynamics closely - continue other care per attending / other consultants - discharge planning ongoing concurrently .... Re-evaluate in am & prn CONDITION: CRITICAL PROGNOSIS: GUARDED CODE STATUS: FULL CODE The high probability of a clinically significant, sudden or life-threatening deterioration of the [respiratory & cardiovascular] system(s) required my full and direct attention, intervention and personal management. The aggregate critical care time was [33] minutes without overlap. Time includes spent on; [x] Data Review and interpretation [x] Patient assessment and monitoring of vital signs [x] Documentation [x] Medication orders and management Subjective Date of service: 10/21/19 Principal diagnosis: sepsis Interval history: Patient is seen today for: Septic shock; Shock liver; Acute renal failure; Anemia; Acute on chronic HFrEF Seen and examined at bedside; 24hour events reviewed; nursing and respiratory care staff consulted; no adverse overnight events reported to me; resting peacefully in bed; worsening hypotension, on levophed at 6mcg; he denies acute chest pains or SOB; no N/V/F, has some loose bowel movements paced on telemetry Objective - Exam Narrative Exam: Constitutional: appears uncomfortable, other (elderly looking obese CM, normocephalic with mildly increased respiratory effort at rest) Eyes: non-icteric ENT: oropharynx dry, other (mallampati 3) Neck: supple, no lymphadenopathy, other (RIJ CVL) Effort: mildly labored Ascultation: Bilateral: diminished breath sounds, rales (scant) Left chest wall cardiac device Percussion: Bilateral: not dull Cardiovascular: other (paced rhythm) Gastrointestinal: normoactive bowel sounds, soft, non-tender, non-distended (protuberant) Integumentary: rash (stasis dermatitis type) Extremities: no cyanosis, pulses normal, no ischemia or petechiae, edema (trace) Neurologic: non-focal exam (grossly), pupils equal and round, CN II-XII normal, other (weak; fatigued at rest) Psychiatric: other (affect flat) Vital Signs - 12hr 10/21/19 10/21/19 10/21/19 00:30 00:40 00:50 Temperature Pulse Rate 109 H 115 H 115 H Pulse Rate [ From Monitor] Respiratory 17 16 17 Rate Blood Pressure 105/60 95/58 O2 Sat by Pulse 99 99 99 Oximetry 10/21/19 10/21/19 10/21/19 01:00 01:10 01:20 Temperature Pulse Rate 90 106 H 113 H Pulse Rate [ From Monitor] Respiratory 17 20 17 Rate Blood Pressure 103/56 103/56 103/56 O2 Sat by Pulse 98 99 98 Oximetry 10/21/19 10/21/19 10/21/19 01:30 01:40 01:50 Temperature Pulse Rate 120 H 112 H 112 H Pulse Rate [ From Monitor] Respiratory 15 20 12 Rate Blood Pressure 116/56 116/56 116/56 O2 Sat by Pulse 99 98 100 Oximetry 10/21/19 10/21/19 10/21/19 02:00 02:10 02:20 Temperature Pulse Rate 108 H 110 H 118 H Pulse Rate [ From Monitor] Respiratory 16 15 16 Rate Blood Pressure 116/56 94/56 94/56 O2 Sat by Pulse 97 99 99 Oximetry 10/21/19 10/21/19 10/21/19 02:30 02:40 02:50 Temperature Pulse Rate 112 H 116 H 108 H Pulse Rate [ 100 H From Monitor] Respiratory 14 18 15 Rate Blood Pressure 94/56 104/47 104/47 O2 Sat by Pulse 100 97 99 Oximetry 10/21/19 10/21/19 10/21/19 03:00 03:10 03:20 Temperature Pulse Rate 116 H 117 H 108 H Pulse Rate [ From Monitor] Respiratory 19 16 16 Rate Blood Pressure 99/54 99/54 99/54 O2 Sat by Pulse 99 99 98 Oximetry 10/21/19 10/21/19 10/21/19 03:30 03:36 03:40 Temperature 97.8 F Pulse Rate 122 H Pulse Rate [ From Monitor] Respiratory 18 19 Rate Blood Pressure 97/52 97/52 O2 Sat by Pulse 98 100 Oximetry 10/21/19 10/21/19 10/21/19 03:50 04:00 04:10 Temperature Pulse Rate 103 H 112 H Pulse Rate [ From Monitor] Respiratory 18 14 Rate Blood Pressure 97/52 86/47 97/52 O2 Sat by Pulse 83 L 100 Oximetry 10/21/19 10/21/19 10/21/19 04:20 04:30 04:40 Temperature Pulse Rate 108 H 103 H 113 H Pulse Rate [ From Monitor] Respiratory 18 15 18 Rate Blood Pressure 97/52 97/52 113/51 O2 Sat by Pulse 97 98 Oximetry 10/21/19 10/21/19 10/21/19 04:50 05:00 05:10 Temperature Pulse Rate 109 H 115 H 111 H Pulse Rate [ From Monitor] Respiratory 17 16 14 Rate Blood Pressure 113/51 139/114 139/114 O2 Sat by Pulse 99 97 100 Oximetry 10/21/19 10/21/19 10/21/19 05:20 05:30 05:40 Temperature Pulse Rate 117 H 104 H 118 H Pulse Rate [ From Monitor] Respiratory 16 18 13 Rate Blood Pressure 139/114 111/61 139/114 O2 Sat by Pulse 98 98 99 Oximetry 10/21/19 10/21/19 10/21/19 05:50 06:00 06:10 Temperature Pulse Rate 98 H 103 H 108 H Pulse Rate [ 105 H From Monitor] Respiratory 16 15 17 Rate Blood Pressure 139/114 108/57 111/61 O2 Sat by Pulse 99 98 96 Oximetry 10/21/19 10/21/19 10/21/19 06:20 06:30 06:40 Temperature Pulse Rate 109 H 103 H 114 H Pulse Rate [ From Monitor] Respiratory 17 17 17 Rate Blood Pressure 111/61 107/82 107/82 O2 Sat by Pulse 99 98 98 Oximetry 10/21/19 10/21/19 10/21/19 06:50 07:00 07:10 Temperature Pulse Rate 114 H 113 H 105 H Pulse Rate [ From Monitor] Respiratory 16 19 15 Rate Blood Pressure 107/82 107/82 95/52 O2 Sat by Pulse 97 98 99 Oximetry 10/21/19 10/21/19 10/21/19 07:20 07:30 07:40 Temperature Pulse Rate 119 H 121 H 122 H Pulse Rate [ From Monitor] Respiratory 17 17 17 Rate Blood Pressure 95/52 95/52 93/51 O2 Sat by Pulse 97 100 97 Oximetry 10/21/19 10/21/19 10/21/19 07:50 08:00 08:10 Temperature Pulse Rate 116 H 106 H 113 H Pulse Rate [ From Monitor] Respiratory 16 17 18 Rate Blood Pressure 93/51 81/39 94/59 O2 Sat by Pulse 97 97 99 Oximetry 10/21/19 10/21/19 10/21/19 08:20 08:30 08:40 Temperature Pulse Rate 109 H 112 H 106 H Pulse Rate [ From Monitor] Respiratory 15 17 19 Rate Blood Pressure 94/59 94/59 94/59 O2 Sat by Pulse 99 99 99 Oximetry 10/21/19 10/21/19 10/21/19 08:50 09:00 09:10 Temperature Pulse Rate 104 H 103 H 105 H Pulse Rate [ From Monitor] Respiratory 18 17 17 Rate Blood Pressure 94/59 102/71 102/71 O2 Sat by Pulse 97 90 96 Oximetry 10/21/19 10/21/19 10/21/19 09:20 09:30 09:40 Temperature Pulse Rate 110 H 112 H 105 H Pulse Rate [ From Monitor] Respiratory 16 14 18 Rate Blood Pressure 102/71 101/75 102/71 O2 Sat by Pulse 99 97 Oximetry 10/21/19 10/21/19 10/21/19 09:50 10:00 10:10 Temperature Pulse Rate 127 H 103 H 121 H Pulse Rate [ From Monitor] Respiratory 18 18 17 Rate Blood Pressure 105/66 104/72 104/72 O2 Sat by Pulse 99 93 99 Oximetry 10/21/19 10/21/19 10/21/19 10:20 10:30 10:40 Temperature Pulse Rate 106 H 108 H Pulse Rate [ From Monitor] Respiratory 18 18 14 Rate Blood Pressure 104/72 92/57 92/57 O2 Sat by Pulse 99 100 100 Oximetry 10/21/19 10/21/19 10/21/19 10:50 11:00 11:10 Temperature Pulse Rate 105 H 95 H 128 H Pulse Rate [ From Monitor] Respiratory 16 17 21 Rate Blood Pressure 92/57 95/68 95/68 O2 Sat by Pulse 99 98 100 Oximetry CBC and BMP: 10/26/19 05:00 10/26/19 05:00 ABG, PT/INR, D-dimer: PT/INR, D-dimer PT 20.9 Sec. (12.2-14.9) H 10/20/19 10:40 INR 1.80 (0.87-1.13) H 10/20/19 10:40 D-Dimer 2524.09 ng/mlDDU (0-234) H 10/18/19 23:16 Abnormal lab findings: Abnormal Labs 10/18/19 10/18/19 10/18/19 20:37 20:37 20:37 WBC 17.8 H RBC 2.94 L Hgb 9.5 L Hct 30.0 L MCV 102 H MCH MCHC Seg Neuts % (Manual) 85.0 H Lymphocytes % (Manual) 6.0 L Monocytes % (Manual) 8.0 H Seg Neutrophils # Man 15.1 H Lymphocytes # (Manual) 1.1 L Monocytes # (Manual) 1.4 H PT 109.8 H INR 16.02 H* APTT 69.1 H* D-Dimer 2301.69 H Heparin Anti-Xa Level Sodium Potassium Chloride 60.0 L Carbon Dioxide 15 L BUN 192 H Creatinine 3.2 H Glucose 154 H Calcium Phosphorus TIBC Ferritin Direct Bilirubin AST 120 H ALT 63 H Alkaline Phosphatase 194 H Lactate Dehydrogenase C-Reactive Protein NT-Pro-B Natriuret Pep 7312 H Total Protein 5.4 L Albumin 2.5 L Urine Creatinine Urine Total Protein 10/18/19 10/18/19 10/18/19 21:46 21:46 23:16 WBC RBC Hgb Hct MCV MCH MCHC Seg Neuts % (Manual) Lymphocytes % (Manual) Monocytes % (Manual) Seg Neutrophils # Man Lymphocytes # (Manual) Monocytes # (Manual) PT < 10.0 L INR > 17.67 H* APTT 92.7 H* D-Dimer 2524.09 H Heparin Anti-Xa Level Sodium Potassium Chloride Carbon Dioxide BUN Creatinine Glucose Calcium Phosphorus TIBC Ferritin > 2000.0 H Direct Bilirubin AST ALT Alkaline Phosphatase Lactate Dehydrogenase 1150 H C-Reactive Protein 29.00 H NT-Pro-B Natriuret Pep Total Protein Albumin Urine Creatinine Urine Total Protein 10/19/19 10/19/19 10/19/19 12:25 13:58 13:58 WBC RBC Hgb Hct MCV MCH MCHC Seg Neuts % (Manual) Lymphocytes % (Manual) Monocytes % (Manual) Seg Neutrophils # Man Lymphocytes # (Manual) Monocytes # (Manual) PT 31.7 H INR 3.19 H APTT D-Dimer Heparin Anti-Xa Level Sodium Potassium Chloride Carbon Dioxide 14 L BUN 173 H Creatinine 2.4 H Glucose 129 H Calcium 7.5 L Phosphorus TIBC Ferritin Direct Bilirubin AST 754 H ALT 294 H Alkaline Phosphatase 141 H Lactate Dehydrogenase C-Reactive Protein NT-Pro-B Natriuret Pep Total Protein 4.9 L Albumin 1.8 L Urine Creatinine 101.1 H Urine Total Protein 21 H 10/20/19 10/20/19 10/20/19 04:15 04:15 04:15 WBC 16.3 H RBC 2.44 L Hgb 8.0 L Hct 24.4 L MCV 100 H MCH 33 H MCHC Seg Neuts % (Manual) 89.0 H Lymphocytes % (Manual) 5.0 L Monocytes % (Manual) Seg Neutrophils # Man 14.5 H Lymphocytes # (Manual) 0.8 L Monocytes # (Manual) PT 20.7 H INR 1.83 H APTT D-Dimer Heparin Anti-Xa Level Sodium 147 H Potassium Chloride Carbon Dioxide 18 L BUN 169 H Creatinine 2.1 H Glucose 136 H Calcium Phosphorus 6.00 H TIBC Ferritin Direct Bilirubin AST 817 H ALT 374 H Alkaline Phosphatase 165 H Lactate Dehydrogenase C-Reactive Protein NT-Pro-B Natriuret Pep Total Protein 5.7 L Albumin 2.2 L Urine Creatinine Urine Total Protein 10/20/19 10/20/19 10/20/19 10:40 10:40 20:51 WBC RBC Hgb 8.2 L Hct 25.0 L MCV MCH MCHC Seg Neuts % (Manual) Lymphocytes % (Manual) Monocytes % (Manual) Seg Neutrophils # Man Lymphocytes # (Manual) Monocytes # (Manual) PT 20.9 H INR 1.80 H APTT D-Dimer Heparin Anti-Xa Level 0.12 L Sodium Potassium Chloride Carbon Dioxide BUN Creatinine Glucose Calcium Phosphorus TIBC Ferritin Direct Bilirubin AST ALT Alkaline Phosphatase Lactate Dehydrogenase C-Reactive Protein NT-Pro-B Natriuret Pep Total Protein Albumin Urine Creatinine Urine Total Protein 10/21/19 10/21/19 10/21/19 04:24 04:24 04:24 WBC 19.3 H RBC 2.33 L Hgb 7.4 L Hct 23.7 L MCV 102 H MCH MCHC 31 L Seg Neuts % (Manual) 81.0 H Lymphocytes % (Manual) 5.0 L Monocytes % (Manual) Seg Neutrophils # Man 15.6 H Lymphocytes # (Manual) 1.0 L Monocytes # (Manual) PT INR APTT D-Dimer Heparin Anti-Xa Level Sodium 149 H Potassium 3.3 L Chloride 113.9 H Carbon Dioxide 20 L BUN 128 H Creatinine 1.6 H Glucose 151 H Calcium 8.3 L Phosphorus TIBC 150 L Ferritin > 2000.0 H Direct Bilirubin AST ALT Alkaline Phosphatase Lactate Dehydrogenase C-Reactive Protein NT-Pro-B Natriuret Pep Total Protein Albumin Urine Creatinine Urine Total Protein 10/21/19 10/21/19 04:24 08:06 WBC RBC Hgb Hct MCV MCH MCHC Seg Neuts % (Manual) Lymphocytes % (Manual) Monocytes % (Manual) Seg Neutrophils # Man Lymphocytes # (Manual) Monocytes # (Manual) PT INR APTT D-Dimer Heparin Anti-Xa Level 0.26 L Sodium Potassium Chloride Carbon Dioxide BUN Creatinine Glucose Calcium Phosphorus TIBC Ferritin Direct Bilirubin 0.7 H AST 754 H ALT 421 H Alkaline Phosphatase 165 H Lactate Dehydrogenase C-Reactive Protein NT-Pro-B Natriuret Pep Total Protein 5.2 L Albumin 2.2 L Urine Creatinine Urine Total Protein
--- NOTE | 2019-10-21 13:07 | Gastroenterology Progress Note ---
Assessment and Plan 1. Pt h/o CAD presents w/ signs shoch, chf noted in crease LFT's - most likely shock liver - noted high ferritin, will order further eval - all other liver labs negative to date - best management most likely hemodynamic stability - shock, cardiac issues per primary team and consultants - no plans liver bx - avoid hepatotoxic drugs - follow labs - will follow Subjective Date of service: 10/21/19 Principal diagnosis: sepsis Interval history: - no specific complaints from GI/Liver standpoint Objective - Constitutional Vitals: Temp Pulse Resp BP Pulse Ox 97.8 F 128 H 21 95/68 100 10/21/19 03:36 10/21/19 11:10 10/21/19 11:10 10/21/19 11:10 10/21/19 11:10 General appearance: no acute distress - EENT Eyes: PERRL - Respiratory Respiratory: bilateral: rhonchi - Cardiovascular Rhythm: regular Heart Sounds: Present: S1 & S2 - Gastrointestinal General gastrointestinal: Present: soft, non-tender, non-distended - Labs CBC & Chem 7: 10/21/19 04:24 10/21/19 04:24 Labs: Laboratory Results - last 24 hr 10/20/19 10/21/19 10/21/19 20:51 04:11 04:24 WBC 19.3 H RBC 2.33 L Hgb 7.4 L Hct 23.7 L MCV 102 H MCH 32 MCHC 31 L RDW 15.2 Plt Count 264 Add Manual Diff Complete Total Counted 100 Seg Neuts % (Manual) 81.0 H Band Neutrophils % 6.0 Lymphocytes % (Manual) 5.0 L Reactive Lymphs % (Man) 0 Monocytes % (Manual) 4.0 Eosinophils % (Manual) 0 Basophils % (Manual) 0 Metamyelocytes % 4.0 Myelocytes % 0 Promyelocytes % 0 Blast Cells % 0 Nucleated RBC % Not Reportable Seg Neutrophils # Man 15.6 H Band Neutrophils # 1.2 Lymphocytes # (Manual) 1.0 L Abs React Lymphs (Man) 0.0 Monocytes # (Manual) 0.8 Eosinophils # (Manual) 0.0 Basophils # (Manual) 0.0 Metamyelocytes # 0.8 Myelocytes # 0.0 Promyelocytes # 0.0 Blast Cells # 0.0 WBC Morphology Not Reportable Hypersegmented Neuts Not Reportable Hyposegmented Neuts Not Reportable Hypogranular Neuts Not Reportable Smudge Cells Not Reportable Toxic Granulation Not Reportable Toxic Vacuolation Not Reportable Dohle Bodies Not Reportable Pelger-Huet Anomaly Not Reportable Nanda Rods Not Reportable Platelet Estimate Consistent w auto Clumped Platelets Not Reportable Plt Clumps, EDTA Not Reportable Large Platelets Not Reportable Giant Platelets Not Reportable Platelet Satelliting Not Reportable Plt Morphology Comment Not Reportable RBC Morphology Not Reportable Dimorphic RBCs Not Reportable Polychromasia Rare Hypochromasia Not Reportable Poikilocytosis Not Reportable Anisocytosis Few Microcytosis Not Reportable Macrocytosis Not Reportable Spherocytes Not Reportable Pappenheimer Bodies Not Reportable Sickle Cells Not Reportable Target Cells Not Reportable Tear Drop Cells Not Reportable Ovalocytes Rare Helmet Cells Not Reportable [place] Bodies Not Reportable [place] Rings Not Reportable Enon Cells Few Bite Cells Not Reportable Crenated Cell Not Reportable Elliptocytes Not Reportable Acanthocytes (Spur) Not Reportable Rouleaux Not Reportable Hemoglobin C Crystals Not Reportable Schistocytes Not Reportable Malaria parasites Not Reportable Arnol Bodies Not Reportable Hem Pathologist Commnt No Heparin Anti-Xa Level 0.12 L Sodium Potassium Chloride Carbon Dioxide Anion Gap BUN Creatinine Estimated GFR BUN/Creatinine Ratio Glucose Calcium Iron TIBC Ferritin Total Bilirubin Direct Bilirubin Indirect Bilirubin AST ALT Alkaline Phosphatase Total Protein Albumin Albumin/Globulin Ratio TSH Random Vancomycin 16.6 10/21/19 10/21/19 10/21/19 04:24 04:24 04:24 WBC RBC Hgb Hct MCV MCH MCHC RDW Plt Count Add Manual Diff Total Counted Seg Neuts % (Manual) Band Neutrophils % Lymphocytes % (Manual) Reactive Lymphs % (Man) Monocytes % (Manual) Eosinophils % (Manual) Basophils % (Manual) Metamyelocytes % Myelocytes % Promyelocytes % Blast Cells % Nucleated RBC % Seg Neutrophils # Man Band Neutrophils # Lymphocytes # (Manual) Abs React Lymphs (Man) Monocytes # (Manual) Eosinophils # (Manual) Basophils # (Manual) Metamyelocytes # Myelocytes # Promyelocytes # Blast Cells # WBC Morphology Hypersegmented Neuts Hyposegmented Neuts Hypogranular Neuts Smudge Cells Toxic Granulation Toxic Vacuolation Dohle Bodies Pelger-Huet Anomaly Nanda Rods Platelet Estimate Clumped Platelets Plt Clumps, EDTA Large Platelets Giant Platelets Platelet Satelliting Plt Morphology Comment RBC Morphology Dimorphic RBCs Polychromasia Hypochromasia Poikilocytosis Anisocytosis Microcytosis Macrocytosis Spherocytes Pappenheimer Bodies Sickle Cells Target Cells Tear Drop Cells Ovalocytes Helmet Cells [place] Bodies [place] Rings Ramila Cells Bite Cells Crenated Cell Elliptocytes Acanthocytes (Spur) Rouleaux Hemoglobin C Crystals Schistocytes Malaria parasites Arnol Bodies Hem Pathologist Commnt Heparin Anti-Xa Level Sodium 149 H Potassium 3.3 L Chloride 113.9 H Carbon Dioxide 20 L Anion Gap 18 BUN 128 H Creatinine 1.6 H Estimated GFR 43 BUN/Creatinine Ratio 80 Glucose 151 H Calcium 8.3 L Iron 134 TIBC 150 L Ferritin > 2000.0 H Total Bilirubin Direct Bilirubin Indirect Bilirubin AST ALT Alkaline Phosphatase Total Protein Albumin Albumin/Globulin Ratio TSH 1.420 Random Vancomycin 10/21/19 10/21/19 04:24 08:06 WBC RBC Hgb Hct MCV MCH MCHC RDW Plt Count Add Manual Diff Total Counted Seg Neuts % (Manual) Band Neutrophils % Lymphocytes % (Manual) Reactive Lymphs % (Man) Monocytes % (Manual) Eosinophils % (Manual) Basophils % (Manual) Metamyelocytes % Myelocytes % Promyelocytes % Blast Cells % Nucleated RBC % Seg Neutrophils # Man Band Neutrophils # Lymphocytes # (Manual) Abs React Lymphs (Man) Monocytes # (Manual) Eosinophils # (Manual) Basophils # (Manual) Metamyelocytes # Myelocytes # Promyelocytes # Blast Cells # WBC Morphology Hypersegmented Neuts Hyposegmented Neuts Hypogranular Neuts Smudge Cells Toxic Granulation Toxic Vacuolation Dohle Bodies Pelger-Huet Anomaly Nanda Rods Platelet Estimate Clumped Platelets Plt Clumps, EDTA Large Platelets Giant Platelets Platelet Satelliting Plt Morphology Comment RBC Morphology Dimorphic RBCs Polychromasia Hypochromasia Poikilocytosis Anisocytosis Microcytosis Macrocytosis Spherocytes Pappenheimer Bodies Sickle Cells Target Cells Tear Drop Cells Ovalocytes Helmet Cells [place] Bodies [place] Rings Ramila Cells Bite Cells Crenated Cell Elliptocytes Acanthocytes (Spur) Rouleaux Hemoglobin C Crystals Schistocytes Malaria parasites Arnol Bodies Hem Pathologist Commnt Heparin Anti-Xa Level 0.26 L Sodium Potassium Chloride Carbon Dioxide Anion Gap BUN Creatinine Estimated GFR BUN/Creatinine Ratio Glucose Calcium Iron TIBC Ferritin Total Bilirubin 1.10 Direct Bilirubin 0.7 H Indirect Bilirubin 0.4 AST 754 H ALT 421 H Alkaline Phosphatase 165 H Total Protein 5.2 L Albumin 2.2 L Albumin/Globulin Ratio 0.7 TSH Random Vancomycin
--- NOTE | 2019-10-21 14:01 | Ultrasound Report ---
ULTRASOUND ABDOMEN, LIMITED (RIGHT UPPER QUADRANT) INDICATION: liver US eval GB cholecystitis. COMPARISON: None available. FINDINGS: Pancreas: Pancreas is not well-visualized. However, there are 2 solid masses in the expected location of the pancreas, the larger measures 6.7 cm in maximum diameter. The smaller measures 4.4 x 1.7 cm. Flow is seen within these. Liver: There are numerous heterogeneously hypoechoic hepatic masses. Gallbladder: Gallstones and sludge are noted. Common bile duct is not visualized. Free fluid: None. Additional Findings: Echogenic foci in both kidneys are suggestive of nonobstructing calyceal stones. No hydronephrosis is seen. IMPRESSION: 1. Exam is limited due to patient body habitus. 2. While the pancreas is not seen, there are 2 hypoechoic masslike lesions in the expected location o f the pancreas. This is concerning for primary pancreatic neoplasm. 3. Innumerable heterogeneously hypoechoic hepatic lesions are concerning for metastatic disease. 4. Cholelithiasis. Probable nephrolithiasis. CT with intravenous contrast is recommended to better characterize the pancreas and liver. Signer Name: Pravin Miranda MD Signed: 10/21/2019 1:57 PM Workstation Name: [id number]
[2019-10-21] MEDS: FLUCONAZOLE 400 MG 200 ML IV SCH (14:26)
[2019-10-21] MEDS: HEPARIN/ 0.45% NACL DRIP 25,000 UNIT/500 ML BAG IV SCH (14:26)
[2019-10-21] MEDS: CEFEPIME/NS 2 GM/100 ML 2 GM/100 ML BAG IV SCH ×2 (14:26→22:30)
--- NOTE | 2019-10-21 15:00 | Ultrasound Report ---
ULTRASOUND RENAL INDICATION / CLINICAL INFORMATION: Renal failure. COMPARISON: None available. FINDINGS: RIGHT KIDNEY: Length = 10.9 cm. - Echogenicity: Mildly echogenic. - Cortical Thickness: Normal. - Hydronephrosis: None. - Cyst or mass: No significant abnormality. - Stones: None seen. LEFT KIDNEY: Length = 10.0 cm. - Echogenicity: Mildly echogenic. - Cortical Thickness: Normal. - Hydronephrosis: None. - Cyst or mass: No significant abnormality. - Stones: None seen. URINARY BLADDER: No significant abnormality. FREE FLUID: None. ADDITIONAL FINDINGS: None. IMPRESSION: 1. No acute abnormality. 2. Mildly echogenic kidneys which can be seen in medical renal disease. Signer Name: Oliver Coronado MD Signed: 10/21/2019 2:56 PM Workstation Name: [id number]
--- NOTE | 2019-10-21 16:57 | Progress Note ---
Assessment and Plan Assessment and plan: 68-year-old white male with known history of CHF, pacemaker/defibrillator placement in the past presenting to the emergency room today for progressive worsening of shortness of breath which has been ongoing for about 4 days. Shortness of breath is said to be worse on exertion. He denies any chest pain, no fever or chills, no cough, no nausea vomiting but he has had some episodes of diarrhea. He denies any bright red blood per rectum, no hematuria or dysuria. He denies any sick contacts and no recent travel. Upon arrival in the emergency room evaluation revealed elevated INR, acute kidney injury and other significant abnormalities on the chemistry. He was screened for COVID-19 and was negative 10/20: STILL REQUIRING PRESSORS. We will continue in ICU care. Continue to monitor electrolytes. Check liver enzymes GI and ID inputs noted. Septic shock ID FOLLOWING dyspnea Current Visit: Yes Status: Acute Qualifiers: Dyspnea type: shortness of breath Qualified Code(s): R06.02 - Shortness of breath; R06.00 - Dyspnea, unspecified; R06.01 - Orthopnea Plan to address problem: Etiology is unclear. Possibly secondary to bronchitis however will rule out for COVID-19. Patient has been placed on airborne and droplet precautions. Will place on empiric IV antibiotics. We will also place a consult to infectious disease for further evaluation and recommendation. Shock liver syndrome acute renal failure Current Visit: Yes Status: Acute Qualifiers: Acute renal failure type: unspecified Qualified Code(s): N17.9 - Acute kidney failure, unspecified Plan to address problem: Probably secondary to dehydration. Patient has been placed on IV fluid. Will monitor BUN and creatinine. We also place a consult to nephrology for evaluation and further recommendation. Anemia appears chronic Monitor elevated INR/secondary coagulopathy Current Visit: Yes Status: Acute Plan to address problem: Patient had vitamin K in the emergency room. Will monitor PT/INR. Will hold off on anticoagulation. Hypotension Current Visit: Yes Status: Acute Qualifiers: Hypotension type: unspecified hypotension type Qualified Code(s): I95.9 - Hypotension, unspecified Plan to address problem: Patient placed on IV fluid. Will consider placing on pressor if needed. We will continue to monitor vital signs closely. Acute on chronic systolic congestive heart failure Cardiomyopathy question ischemic. Cardiology following EF noted to be 25 to 30%. Pacemaker noted right atrium. DVT prophylaxis Current Visit: Yes Status: Acute Plan to address problem: We will hold anticoagulation as INR is currently supratherapeutic. Full code status Current Visit: Yes Status: Acute DISCUSSED WITH [employer] cct 35 mins History Interval history: Patient seen and examined. Tells me he is hungry today no other adverse event r eported overnight Hospitalist Physical - Physical exam Narrative exam: VITAL SIGNS: Reviewed. GENERAL: The patient appears normally developed, Vital signs as documented. HEAD: No signs of head trauma. EYES: Pupils are equal. Extraocular motions intact. EARS: Hearing grossly intact. MOUTH: Oropharynx is normal. NECK: No adenopathy, no JVD. CHEST: Chest with clear breath sounds bilaterally. No wheezes, rales, or rhonchi. CARDIAC: Regular rate and rhythm. S1 and S2, without murmurs, gallops, or rubs. VASCULAR: Trace bilateral edema. Peripheral pulses normal and equal in all extremities. ABDOMEN: Soft, non tender and non distended. No rebound or guarding, and no masses palpated. Bowel Sounds normal. MUSCULOSKELETAL: Good range of motion of all major joints. Extremities without clubbing, cyanosis. Trace bilateral pitting edema extremities are cold to the touch bit more warmed up today.. Especially the foot Bilaterally or edema. NEUROLOGIC EXAM: Alert and oriented x 3 No focal sensory or strength deficits. Speech normal. Follows commands. PSYCHIATRIC: Mood normal. SKIN: detial exam as documented in skin assessment - Constitutional Vitals: Temp Pulse Resp BP Pulse Ox 97.4 F L 114 H 21 112/58 100 10/21/19 12:00 10/21/19 13:20 10/21/19 13:20 10/21/19 14:10 10/21/19 14:10 General appearance: Present: no acute distress, well-nourished HEART Score - HEART Score Troponin: Troponin T 0.017 ng/mL (0.00-0.029) 10/19/19 02:12 Results - Labs CBC & Chem 7: 10/22/19 05:58 10/22/19 05:58 Labs: Laboratory Last Values WBC 19.3 K/mm3 (4.5-11.0) H 10/21/19 04:24 RBC 2.33 M/mm3 (3.65-5.03) L 10/21/19 04:24 Hgb 7.4 gm/dl (11.8-15.2) L 10/21/19 04:24 Hct 23.7 % (35.5-45.6) L 10/21/19 04:24 MCV 102 fl (84-94) H 10/21/19 04:24 MCH 32 pg (28-32) 10/21/19 04:24 MCHC 31 % (32-34) L 10/21/19 04:24 RDW 15.2 % (13.2-15.2) 10/21/19 04:24 Plt Count 264 K/mm3 (140-440) 10/21/19 04:24 Add Manual Diff Complete 10/21/19 04:24 Total Counted 100 10/21/19 04:24 Seg Neutrophils % Assistant Statistician 10/20/19 04:15 Seg Neuts % (Manual) 81.0 % (40.0-70.0) H 10/21/19 04:24 Band Neutrophils % 6.0 % 10/21/19 04:24 Lymphocytes % (Manual) 5.0 % (13.4-35.0) L 10/21/19 04:24 Reactive Lymphs % (Man) 0 % 10/21/19 04:24 Monocytes % (Manual) 4.0 % (0.0-7.3) 10/21/19 04:24 Eosinophils % (Manual) 0 % (0.0-4.3) 10/21/19 04:24 Basophils % (Manual) 0 % (0.0-1.8) 10/21/19 04:24 Metamyelocytes % 4.0 % 10/21/19 04:24 Myelocytes % 0 % 10/21/19 04:24 Promyelocytes % 0 % 10/21/19 04:24 Blast Cells % 0 % 10/21/19 04:24 Nucleated RBC % Not Reportable 10/21/19 04:24 Seg Neutrophils # Man 15.6 K/mm3 (1.8-7.7) H 10/21/19 04:24 Band Neutrophils # 1.2 K/mm3 10/21/19 04:24 Lymphocytes # (Manual) 1.0 K/mm3 (1.2-5.4) L 10/21/19 04:24 Abs React Lymphs (Man) 0.0 K/mm3 10/21/19 04:24 Monocytes # (Manual) 0.8 K/mm3 (0.0-0.8) 10/21/19 04:24 Eosinophils # (Manual) 0.0 K/mm3 (0.0-0.4) 10/21/19 04:24 Basophils # (Manual) 0.0 K/mm3 (0.0-0.1) 10/21/19 04:24 Metamyelocytes # 0.8 K/mm3 10/21/19 04:24 Myelocytes # 0.0 K/mm3 10/21/19 04:24 Promyelocytes # 0.0 K/mm3 10/21/19 04:24 Blast Cells # 0.0 K/mm3 10/21/19 04:24 WBC Morphology Not Reportable 10/21/19 04:24 Hypersegmented Neuts Not Reportable 10/21/19 04:24 Hyposegmented Neuts Not Reportable 10/21/19 04:24 Hypogranular Neuts Not Reportable 10/21/19 04:24 Smudge Cells Not Reportable 10/21/19 04:24 Toxic Granulation Not Reportable 10/21/19 04:24 Toxic Vacuolation Not Reportable 10/21/19 04:24 Dohle Bodies Not Reportable 10/21/19 04:24 Pelger-Huet Anomaly Not Reportable 10/21/19 04:24 Nanda Rods Not Reportable 10/21/19 04:24 Platelet Estimate Consistent w auto 10/21/19 04:24 Clumped Platelets Not Reportable 10/21/19 04:24 Plt Clumps, EDTA Not Reportable 10/21/19 04:24 Large Platelets Not Reportable 10/21/19 04:24 Giant Platelets Not Reportable 10/21/19 04:24 Platelet Satelliting Not Reportable 10/21/19 04:24 Plt Morphology Comment Not Reportable 10/21/19 04:24 RBC Morphology Not Reportable 10/21/19 04:24 Dimorphic RBCs Not Reportable 10/21/19 04:24 Polychromasia Rare 10/21/19 04:24 Hypochromasia Not Reportable 10/21/19 04:24 Poikilocytosis Not Reportable 10/21/19 04:24 Anisocytosis Few 10/21/19 04:24 Microcytosis Not Reportable 10/21/19 04:24 Macrocytosis Not Reportable 10/21/19 04:24 Spherocytes Not Reportable 10/21/19 04:24 Pappenheimer Bodies Not Reportable 10/21/19 04:24 Sickle Cells Not Reportable 10/21/19 04:24 Target Cells Not Reportable 10/21/19 04:24 Tear Drop Cells Not Reportable 10/21/19 04:24 Ovalocytes Rare 10/21/19 04:24 Helmet Cells Not Reportable 10/21/19 04:24 Santiago-Higden Bodies Not Reportable 10/21/19 04:24 Paterson Rings Not Reportable 10/21/19 04:24 Mcwilliams Cells Few 10/21/19 04:24 Bite Cells Not Reportable 10/21/19 04:24 Crenated Cell Not Reportable 10/21/19 04:24 Elliptocytes Not Reportable 10/21/19 04:24 Acanthocytes (Spur) Not Reportable 10/21/19 04:24 Rouleaux Not Reportable 10/21/19 04:24 Hemoglobin C Crystals Not Reportable 10/21/19 04:24 Schistocytes Not Reportable 10/21/19 04:24 Malaria parasites Not Reportable 10/21/19 04:24 Arnol Bodies Not Reportable 10/21/19 04:24 Hem Pathologist Commnt No 10/21/19 04:24 PT 20.9 Sec. (12.2-14.9) H 10/20/19 10:40 INR 1.80 (0.87-1.13) H 10/20/19 10:40 APTT 25.7 Sec. (24.2-36.6) 10/20/19 10:40 D-Dimer 2524.09 ng/mlDDU (0-234) H 10/18/19 23:16 Heparin Anti-Xa Level 0.26 U.I./ml (0.3-0.7) L 10/21/19 08:06 Sodium 149 mmol/L (137-145) H 10/21/19 04:24 Potassium 3.3 mmol/L (3.6-5.0) L 10/21/19 04:24 Chloride 113.9 mmol/L (98-107) H 10/21/19 04:24 Carbon Dioxide 20 mmol/L (22-30) L 10/21/19 04:24 Anion Gap 18 mmol/L 10/21/19 04:24 BUN 128 mg/dL (9-20) H 10/21/19 04:24 Creatinine 1.6 mg/dL (0.8-1.5) H 10/21/19 04:24 Estimated GFR 43 ml/min 10/21/19 04:24 BUN/Creatinine Ratio 80 % 10/21/19 04:24 Glucose 151 mg/dL (75-100) H 10/21/19 04:24 Calcium 8.3 mg/dL (8.4-10.2) L 10/21/19 04:24 Phosphorus 6.00 mg/dL (2.5-4.5) H 10/20/19 04:15 Iron 134 ug/dL (49-181) 10/21/19 04:24 TIBC 150 mcg/dL (250-450) L 10/21/19 04:24 Ferritin > 2000.0 ng/mL (13.0-400.0) H 10/21/19 04:24 Total Bilirubin 1.10 mg/dL (0.1-1.2) 10/21/19 04:24 Direct Bilirubin 0.7 mg/dL (0-0.2) H 10/21/19 04:24 Indirect Bilirubin 0.4 mg/dL 10/21/19 04:24 AST 754 units/L (5-40) H 10/21/19 04:24 ALT 421 units/L (7-56) H 10/21/19 04:24 Alkaline Phosphatase 165 units/L (35-129) H 10/21/19 04:24 Lactate Dehydrogenase 1150 units/L (91-180) H 10/18/19 21:46 Troponin T 0.017 ng/mL (0.00-0.029) 10/19/19 02:12 C-Reactive Protein 29.00 mg/dL (0.00-1.30) H 10/18/19 21:46 NT-Pro-B Natriuret Pep 7312 pg/mL (0-900) H 10/18/19 20:37 Total Protein 5.2 g/dL (6.3-8.2) L 10/21/19 04:24 Albumin 2.2 g/dL (3.9-5) L 10/21/19 04:24 Albumin/Globulin Ratio 0.7 % 10/21/19 04:24 Procalcitonin 3.62 ng/mL (<0.15) 10/18/19 21:46 TSH 1.420 mlU/mL (0.270-4.200) 10/21/19 04:24 Urine Color Yellow (Yellow) 10/19/19 12:25 Urine Turbidity Clear (Clear) 10/19/19 12:25 Urine pH 5.0 (5.0-7.0) 10/19/19 12:25 Ur Specific Ward 1.016 (1.003-1.030) 10/19/19 12:25 Urine Protein <15 mg/dl mg/dL (Negative) 10/19/19 12:25 Urine Glucose (UA) Neg mg/dL (Negative) 10/19/19 12:25 Urine Ketones Neg mg/dL (Negative) 10/19/19 12:25 Urine Blood Sm (Negative) 10/19/19 12:25 Urine Nitrite Neg (Negative) 10/19/19 12:25 Urine Bilirubin Neg (Negative) 10/19/19 12:25 Urine Urobilinogen 2.0 mg/dL (<2.0) 10/19/19 12:25 Ur Leukocyte Esterase Neg (Negative) 10/19/19 12:25 Urine WBC (Auto) 2.0 /HPF (0.0-6.0) 10/19/19 12:25 Urine RBC (Auto) 1.0 /HPF (0.0-6.0) 10/19/19 12:25 U Epithel Cells (Auto) 1.0 /HPF (0-13.0) 10/19/19 12:25 Urine Mucus Few /HPF 10/19/19 12:25 Urine Eosinophils None seen (None Seen) 10/19/19 12:25 Urine Creatinine 101.1 mg/dL (0.1-20.0) H 10/19/19 12:25 Protein/Creatinin Ratio 0.21 10/19/19 12:25 Urine Sodium 12 mmol/L 10/19/19 12:25 Urine Total Protein 21 mg/dL (5-11.8) H 10/19/19 12:25 Random Vancomycin 16.6 ug/mL (0-40.0) 10/21/19 04:11 Coronavirus (PCR) Negative (Negative) 10/19/19 08:23 Hepatitis A IgM Ab Non-reactive (NonReactive) 10/19/19 13:58 Hep Bs Antigen Non-reactive (Negative) 10/19/19 13:58 Hep B Core IgM Ab Non-reactive (NonReactive) 10/19/19 13:58 Hepatitis C Antibody Non-reactive (NonReactive) 10/19/19 13:58 Microbiology: Microbiology 10/19/19 14:19 Peripheral/Venous Blood Culture - Preliminary NO GROWTH AFTER 48 HOURS 10/19/19 14:19 Peripheral/Venous Blood Culture - Preliminary NO GROWTH AFTER 48 HOURS 10/19/19 12:17 Urine,Clean Catch Urine Culture - Final - Diagnostic Impressions Diagnostic Impressions: Echocardiogram 10/19/19 09:58 Transthoracic Echocardiogram Indication: Bacteremia BP: 92/54 HR: 111 Conclusions *The left ventricular chamber size is mildly dilated. *Global left ventricular systolic function is severely decreased.LV diastolic function indeterminate *The estimated ejection fraction is 25-30%. *The left atrial chamber size is normal. *The right ventricular global systolic function is mildly reduced. *A pacemaker wire is visualized in the right atrium. *The right ventricular systolic pressure is calculated at 39 mmHg. Findings Left Ventricle: The left ventricular chamber size is mildly dilated. Global left ventricular systolic function is severely decreased.LV diastolic function indeterminate The estimated ejection fraction is 25-30%. Diffuse hypokinesis particularly of posterior wall and also abnormal motion secondary to conduction defect noted. Left Atrium: The left atrial chamber size is normal. Right Ventricle: The right ventricular global systolic function is mildly reduced. Right Atrium: The right atrial cavity size is normal. A pacemaker wire is visualized in the right atrium. Aortic Valve: The aortic valve leaflets are mildly thickened. There is no evidence of aortic regurgitation. Mitral Valve: The mitral valve leaflets are mildly thickened. There is mild mitral regurgitation. Tricuspid Valve: The tricuspid valve leaflets are mildly thickened. There is mild tricuspid regurgitation. The right ventricular systolic pressure is calculated at 39 mmHg. Pulmonic Valve: The pulmonic valve appears normal. There is trace pulmonic regurgitation. Pericardium: There is no pericardial effusion. Aorta: There is no dilatation of the ascending aorta. There is no dilatation of the aortic root. Venous: The inferior vena cava is not visualized. Measurements Chambers 2D Name Value Normal Range IVSd (2D) 1.04 cm (0.6 - 1.1) LVPWd (2D) 0.9 cm (0.6 - 1.1) LVIDd (2D) 6.25 cm (3.7 - 5.6) LVIDs (2D) 5.82 cm (2 - 3.8) LV FS (2D) 6.91 % - EF Teichholz (2D) 15.08 % - Ao root diameter (2D) 3.92 cm (2 - 3.7) Volumes/Mass Name Value Normal Range LA ESV SP 4CH (A/L) 88.58 ml - LA ESV SP 2CH (A/L) 67.41 ml - LA ESV BP (A/L) 80.54 ml - LA ESV BP (A/L) index 34.27 ml/m2 - LA ESV SP 4CH (MOD) 79.44 ml - LA ESV SP 2CH (MOD) 64.63 ml - LA ESV BP (MOD) 74.57 ml - LA ESV BP (MOD) index 31.73 ml/m2 - Diastolic/Systolic Function Name Value Normal Range MV E-wave Vmax 0.65 m/sec - MV deceleration time 154.22 msec - Aortic Valve Name Value Normal Range AV Vmax 1.56 m/sec - AV VTI 24.52 cm - AV peak gradient 9.84 mmHg - AV mean gradient 5.68 mmHg - LVOT diameter 2.42 cm - LVOT Vmax 0.9 m/sec - LVOT VTI 12.91 cm - LVOT peak gradient 3.21 mmHg - LVOT mean gradient 1.81 mmHg - SV LVOT 59.15 ml - ROBERTO (continuity Vmax) 2.63 cm2 - ROBERTO (continuity VTI) 2.41 cm2 - Tricuspid Valve Name Value Normal Range TR Vmax 3 m/sec - TR peak gradient 36 mmHg - RAP 3 mmHg - RVSP 39 mmHg - Pulmonic Valve/Qp:Qs Name Value Normal Range PV Vmax 1 m/sec - PV peak gradient 3.97 mmHg - PV acceleration time 76.12 msec - Rowe/IV: Voiding Method Urinal IV Catheter Type [Left Wrist] CVL Active Medications - Current Medications Current Medications: Generic Name Dose Route Start Last Admin Trade Name Freq PRN Reason Stop Dose Admin Acetaminophen 650 mg 10/19/19 00:08 Tylenol PO Q4H PRN Pain MILD(1-3)/Fever >100.5/GIBBS Fluconazole 200 mls @ 100 mls/hr 10/20/19 10:30 10/21/19 14:26 Diflucan IV 100 mls/hr Q24HR ABBEY Administration Protocol Cefepime HCl 2 gm in 100 mls @ 200 mls/hr 10/20/19 11:00 10/21/19 14:26 Cefepime/Ns 2 Gm/100 Ml IV 200 mls/hr Q12HR ABBEY Administration Protocol Heparin Sodium/Sodium Chloride 25,000 unit in 500 mls @ 20 mls/hr 10/20/19 11:00 10/21/19 14:26 Heparin/ 0.45% Nacl-25,000 Unit/500 Ml IV 1,300 units/hr TITRATE ABBEY 26 mls/hr Administration Protocol 1,000 UNITS/HR Dextrose/Sodium Chloride 1,000 mls @ 100 mls/hr 10/21/19 10:00 10/21/19 12:05 D5/0.45ns IV 100 mls/hr DIRECT ABBEY Administration Vancomycin HCl 1,500 mg/ 530 mls @ 333.333 mls/hr 10/22/19 10:00 Sodium Chloride IV Q24HR ABBEY Magnesium Hydroxide 30 ml 10/19/19 00:08 Milk Of Magnesia PO Q4H PRN Constipation Ondansetron HCl 4 mg 10/19/19 00:08 10/19/19 08:24 Zofran IV 4 mg Q8H PRN Administration Nausea And Vomiting Sodium Chloride 10 ml 10/19/19 10:00 10/20/19 21:15 Sodium Chloride Flush Syringe 10 Ml IV 10 ml BID ABBEY Administration Sodium Chloride 10 ml 10/19/19 00:08 Sodium Chloride Flush Syringe 10 Ml IV PRN PRN LINE FLUSH Nutrition/Malnutrition Assess - Dietary Evaluation Nutrition/Malnutrition Findings: Nutrition Notes Start: 10/19/19 09:23 Freq: Status: Active Protocol: Document 10/21/19 12:33 LM (Rec: 10/21/19 12:34 LM [id number]) Nutrition Notes Initial or Follow up Brief Note Current Diagnosis Heart Failure Other Pertinent Diagnosis Dyspnea, ARF, r/o COVID-19 Current Diet Cardiac Subjective/Other Information Unable to reach pt 2x. Nutrition Intervention Follow-Up By: 10/25/19 Additional Comments F/U: diet education needs
[2019-10-21] MEDS: ONDANSETRON 4 MG/2 ML INJ IV PRN (22:31)
[2019-10-22] MEDS: D5W/0.45% NACL 1,000 ML IV SCH ×2 (01:46→13:46)
[2019-10-22] MEDS: HEPARIN/ 0.45% NACL DRIP 25,000 UNIT/500 ML BAG IV SCH (06:04)
[2019-10-22 06:23] LABS: Hematocrit 21.6 % (35.5-45.6); Hemoglobin 6.7 gm/dl (11.8-15.2); Mean Corpuscular HGB Conc 31 % (32-34); Mean Corpuscular Volume 104 fl (84-94); Platelet Count 210 K/mm3 (140-440); Red Blood Count 2.09 M/mm3 (3.65-5.03); Red Cell Distribution Width 15.5 % (13.2-15.2)
[2019-10-22 06:50] LABS: Albumin 1.7 g/dL (3.9-5); Calcium 7.9 mg/dL (8.4-10.2)
[2019-10-22 07:28] LABS: Anisocytosis 1+; Band Neutrophils # (Manual) 0.8 K/mm3; Basophils % (Manual) 0 % (0.0-1.8); Eosinophils % (Manual) 0 % (0.0-4.3); Monocytes % (Manual) 4.5 % (0.0-7.3); Nucleated Red Blood Cells 4.5 % (0.0-0.9); Total Cells Counted 200
[2019-10-22 07:29] LABS: Burr Cells 1+; Platelet Estimate Consistent w Auto
--- NOTE | 2019-10-22 09:29 | Progress Note ---
Assessment and Plan Acute Renal Failure secondary to Prerenal Azotemia vs Ischemic ATN from Sepsis and Hypotension: Hypernatremia: -Cr stable -On D5 1/2 NS at 100 mls/hr, Na trending down. -urine eos -ve,. urine lytes suggestive or prerenal azotemia -no indication for MFTS, will monitor closely -Obtain renal ultrasound -Avoid nephrotoxic agents -Renally dose medications -Strict I/O monitoring -Obtain daily weights Suspect/PUI for COVID-19: - negative -On airborne isolation -ID onboard Hypotension: -Diuretics on hold -Albumin Q6H X 3 doses ordered for low BP -On IVF Supratherapeutic INR/CHF/Afib/Vtach: -S/P vitamin K. Coumadin on hold -Has Defbrillator -Cardiology onboard Subjective Date of service: 10/22/19 Principal diagnosis: sepsis Interval history: Making urine. Objective - Exam Narrative Exam: General appearance: well-developed, well-nourished, appears stated age EENT: ATNC, PERRL, mucous membranes dry Neck: no JVD, no carotid bruit Respiratory: Present: Clear to Ascultation. Absent: Rales, Ronchi Cardiology: irregular Gastrointestinal: normoactive bowel sounds, no tenderness, no distended, obese Integumentary: no rash, warm and dry Neurologic: no focal deficit, no asterixis, alert and oriented x3 Musculoskeletal: other (no edema in BLE) Psychiatric: mood/affect appropriate, cooperative - Vital Signs Vital signs: Vital Signs - 12hr 10/21/19 10/21/19 10/21/19 21:30 21:40 21:50 Temperature Pulse Rate 116 H 102 H 105 H Pulse Rate [ From Monitor] Respiratory 20 20 22 Rate Blood Pressure 93/48 93/48 93/48 O2 Sat by Pulse 100 100 100 Oximetry 10/21/19 10/21/19 10/21/19 22:00 22:10 22:20 Temperature Pulse Rate 103 H 95 H 92 H Pulse Rate [ From Monitor] Respiratory 22 18 20 Rate Blood Pressure 100/39 100/39 100/39 O2 Sat by Pulse 100 100 99 Oximetry 10/21/19 10/21/19 10/21/19 22:30 22:40 22:50 Temperature Pulse Rate 108 H 103 H 105 H Pulse Rate [ From Monitor] Respiratory 20 19 21 Rate Blood Pressure 92/54 92/54 92/54 O2 Sat by Pulse 100 100 99 Oximetry 10/21/19 10/21/19 10/21/19 23:00 23:10 23:20 Temperature Pulse Rate 105 H 102 H 98 H Pulse Rate [ From Monitor] Respiratory 24 18 26 H Rate Blood Pressure 101/59 101/59 101/59 O2 Sat by Pulse 100 100 98 Oximetry 10/21/19 10/21/19 10/21/19 23:30 23:40 23:50 Temperature Pulse Rate 102 H 93 H 110 H Pulse Rate [ From Monitor] Respiratory 21 25 H 21 Rate Blood Pressure 96/37 96/37 96/37 O2 Sat by Pulse 100 99 99 Oximetry 10/22/19 10/22/19 10/22/19 00:00 00:10 00:20 Temperature 91.6 F L Pulse Rate 107 H 106 H 116 H Pulse Rate [ From Monitor] Respiratory 22 20 18 Rate Blood Pressure 97/69 97/69 97/69 O2 Sat by Pulse 98 99 99 Oximetry 10/22/19 10/22/19 10/22/19 00:32 00:33 01:00 Temperature Pulse Rate 104 H 113 H Pulse Rate [ 104 H From Monitor] Respiratory 22 22 Rate Blood Pressure 94/29 O2 Sat by Pulse 100 100 Oximetry 10/22/19 10/22/19 10/22/19 02:00 03:01 04:00 Temperature 91.2 F L Pulse Rate 99 H 107 H 102 H Pulse Rate [ 99 H From Monitor] Respiratory 21 25 H 18 Rate Blood Pressure 104/56 90/67 O2 Sat by Pulse 99 100 100 Oximetry 10/22/19 10/22/19 10/22/19 04:01 05:01 06:01 Temperature Pulse Rate 102 H 95 H Pulse Rate [ From Monitor] Respiratory 25 H 22 20 Rate Blood Pressure 99/39 97/38 100/40 O2 Sat by Pulse 100 Oximetry 10/22/19 10/22/19 10/22/19 07:01 08:00 08:01 Temperature 92.4 F L Pulse Rate 99 H 99 H 99 H Pulse Rate [ From Monitor] Respiratory 20 25 H Rate Blood Pressure 86/47 95/69 O2 Sat by Pulse 99 99 Oximetry - Lab 10/22/19 05:58 10/22/19 05:58 Most recent lab results Calcium 7.9 mg/dL (8.4-10.2) L 10/22/19 05:58 Phosphorus 6.00 mg/dL (2.5-4.5) H 10/20/19 04:15 Urine Creatinine 101.1 mg/dL (0.1-20.0) H 10/19/19 12:25 Urine Sodium 12 mmol/L 10/19/19 12:25 Urine Total Protein 21 mg/dL (5-11.8) H 10/19/19 12:25 Medications & Allergies - Medications Allergies/Adverse Reactions: Allergies Penicillins Allergy (Verified 07/07/19 15:47) Unknown Home Medications: Home Medications Medication Instructions Recorded Confirmed Last Taken Type Atorvastatin [Lipitor Tab] 80 mg PO QHS 07/07/19 07/07/19 Unknown History Bisoprolol Fumarate 5 mg PO DAILY 07/07/19 07/07/19 Unknown History Mexiletine HCl 150 mg PO Q8H 07/07/19 07/07/19 Unknown History Warfarin [Coumadin] 5 mg PO QDAY 07/07/19 07/07/19 Unknown History Active Medications: Generic Name Dose Route Start Last Admin Trade Name Freq PRN Reason Stop Dose Admin Acetaminophen 650 mg 10/19/19 00:08 Tylenol PO Q4H PRN Pain MILD(1-3)/Fever >100.5/GIBBS Fluconazole 200 mls @ 100 mls/hr 10/20/19 10:30 10/21/19 14:26 Diflucan IV 100 mls/hr Q24HR ABBEY Administration Protocol Cefepime HCl 2 gm in 100 mls @ 200 mls/hr 10/20/19 11:00 10/21/19 22:30 Cefepime/Ns 2 Gm/100 Ml IV 200 mls/hr Q12HR ABBEY Administration Protocol Dextrose/Sodium Chloride 1,000 mls @ 100 mls/hr 10/21/19 10:00 10/22/19 01:46 D5/0.45ns IV 100 mls/hr DIRECT ABBEY Administration Vancomycin HCl 1,500 mg/ 530 mls @ 333.333 mls/hr 10/22/19 10:00 Sodium Chloride IV Q24HR ABBEY Sodium Chloride 500 mls @ 0 mls/hr 10/22/19 10:00 Nacl 0.9% 500 Ml IV 10/22/19 10:01 ONCE ONE As Directed Magnesium Hydroxide 30 ml 10/19/19 00:08 Milk Of Magnesia PO Q4H PRN Constipation Ondansetron HCl 4 mg 10/19/19 00:08 10/21/19 22:31 Zofran IV 4 mg Q8H PRN Administration Nausea And Vomiting Sodium Chloride 10 ml 10/19/19 10:00 10/21/19 22:30 Sodium Chloride Flush Syringe 10 Ml IV Not Given BID ABBEY Sodium Chloride 10 ml 10/19/19 00:08 Sodium Chloride Flush Syringe 10 Ml IV PRN PRN LINE FLUSH
[2019-10-22] MEDS ORDERED: VANCOMYCIN 1,500 MG in SODIUM CHLORIDE 0.9% 500 ML 500 ML IV SCH (10:00)
[2019-10-22] MEDS ORDERED: SODIUM CHLORIDE 0.9% 500 ML 500 ML IV ONE (10:00)
--- NOTE | 2019-10-22 11:30 | Progress Note ---
Assessment and Plan Shock (? Cardiogenic vs Septic) Shock liver syndrome Acute renal failure type Anemia appears chronic Acute on chronic systolic congestive heart failure (Suspect cardiogenic shock component although not clinically volume overloaded) - get ABG and address - deploy BIPAP for possible CRISTINE but also for its salutary effects on cardiovascular hemodynamics - trial of Dobutamine over next 48 hours (fixed dose) - wean vasopressors for MAP >/= 65 mmHg (Levophed) - get random cortisol level +/- stress dose steroids - get CVP reading to aid clinical decision making - continue other care as below otherwise - prn supplemental oxygen for target O2 sat's > 90% acutely - continue accuchecks resumed with glycemic control per SSI (While critically ill target blood glucose of 140-180 mg/dL; avoid hypoglycemia) - optimize cardiac status per cardiology team - prn bronchodilators with pulmonary hygiene per RT - avoid benzodiazepine's, reduce the possibility of delirium - complete antiinfective's per ID rec's; trend fevers, WBC - lactate, procalcitonin prn to aid clinical decision making - prn analgesia per pain score - Maintenance of sleep-wake cycle, avoid delirium - continue enteral nutritional support at goal rate as tolerated - G.I. & VTE prophylaxis - PT/OT/ROM exercises - continue mobility protocols for pressure ulcer prophylaxis - Monitor hemodynamics closely - continue other care per attending / other consultants - discharge planning ongoing concurrently .... Re-evaluate in am & prn CONDITION: CRITICAL PROGNOSIS: GUARDED CODE STATUS: FULL CODE The high probability of a clinically significant, sudden or life-threatening deterioration of the [respiratory & cardiovascular] system(s) required my full and direct attention, intervention and personal management. The aggregate critical care time was [33] minutes without overlap. Time includes spent on; [x] Data Review and interpretation [x] Patient assessment and monitoring of vital signs [x] Documentation [x] Medication orders and management Subjective Date of service: 10/22/19 Principal diagnosis: Septic shock; Shock liver; Acute renal failure; Anemia; Acute on ch HFrEF Interval history: Patient is seen today for: Septic shock; Shock liver; Acute renal failure; Anemia; Acute on chronic HFrEF Seen and examined at bedside; 24hour events reviewed; nursing and respiratory care staff consulted; no adverse overnight events reported to me; resting peacefully in bed; he is now hypotensive; he denies acute chest pains or SOB; no N/V/F/C Objective Vital Signs - 12hr 10/21/19 10/21/19 10/21/19 23:30 23:40 23:50 Temperature Pulse Rate 102 H 93 H 110 H Pulse Rate [ From Monitor] Respiratory 21 25 H 21 Rate Blood Pressure 96/37 96/37 96/37 O2 Sat by Pulse 100 99 99 Oximetry 10/22/19 10/22/19 10/22/19 00:00 00:10 00:20 Temperature 91.6 F L Pulse Rate 107 H 106 H 116 H Pulse Rate [ From Monitor] Respiratory 22 20 18 Rate Blood Pressure 97/69 97/69 97/69 O2 Sat by Pulse 98 99 99 Oximetry 10/22/19 10/22/19 10/22/19 00:32 00:33 01:00 Temperature Pulse Rate 104 H 113 H Pulse Rate [ 104 H From Monitor] Respiratory 22 22 Rate Blood Pressure 94/29 O2 Sat by Pulse 100 100 Oximetry 10/22/19 10/22/19 10/22/19 02:00 03:01 04:00 Temperature 91.2 F L Pulse Rate 99 H 107 H 102 H Pulse Rate [ 99 H From Monitor] Respiratory 21 25 H 18 Rate Blood Pressure 104/56 90/67 O2 Sat by Pulse 99 100 100 Oximetry 10/22/19 10/22/19 10/22/19 04:01 05:01 06:01 Temperature Pulse Rate 102 H 95 H Pulse Rate [ From Monitor] Respiratory 25 H 22 20 Rate Blood Pressure 99/39 97/38 100/40 O2 Sat by Pulse 100 Oximetry 10/22/19 10/22/19 10/22/19 07:01 08:00 08:01 Temperature 92.4 F L Pulse Rate 99 H 99 H 99 H Pulse Rate [ 98 H From Monitor] Respiratory 20 24 25 H Rate Blood Pressure 86/47 95/69 O2 Sat by Pulse 99 100 99 Oximetry 10/22/19 10/22/19 10/22/19 09:00 10:00 11:01 Temperature Pulse Rate 88 93 H Pulse Rate [ From Monitor] Respiratory 26 H 23 Rate Blood Pressure 102/54 90/62 81/57 O2 Sat by Pulse 95 90 Oximetry Constitutional: appears uncomfortable, other (elderly looking obese CM, normocephalic with mildly increased respiratory effort at rest) Eyes: non-icteric ENT: oropharynx dry, other (mallampati 3) Neck: supple, no lymphadenopathy, other (RIJ CVL) Effort: mildly labored Ascultation: Bilateral: diminished breath sounds, rales (scant) Percussion: Bilateral: not dull Cardiovascular: other (paced rhythm) Gastrointestinal: normoactive bowel sounds, soft, non-tender, non-distended (protuberant) Integumentary: rash (stasis dermatitis type) Extremities: no cyanosis, pulses normal, no ischemia or petechiae, edema (trace) Neurologic: non-focal exam (grossly), pupils equal and round, CN II-XII normal, other (weak; fatigued at rest) Psychiatric: other (affect flat) CBC and BMP: 10/22/19 05:58 10/22/19 05:58 ABG, PT/INR, D-dimer: PT/INR, D-dimer PT 20.9 Sec. (12.2-14.9) H 10/20/19 10:40 INR 1.80 (0.87-1.13) H 10/20/19 10:40 D-Dimer 2524.09 ng/mlDDU (0-234) H 10/18/19 23:16 Abnormal lab findings: Abnormal Labs 10/18/19 10/18/19 10/18/19 20:37 20:37 20:37 WBC 17.8 H RBC 2.94 L Hgb 9.5 L Hct 30.0 L MCV 102 H MCH MCHC RDW Seg Neuts % (Manual) 85.0 H Lymphocytes % (Manual) 6.0 L Monocytes % (Manual) 8.0 H Nucleated RBC % Seg Neutrophils # Man 15.1 H Lymphocytes # (Manual) 1.1 L Monocytes # (Manual) 1.4 H PT 109.8 H INR 16.02 H* APTT 69.1 H* D-Dimer 2301.69 H Heparin Anti-Xa Level Sodium Potassium Chloride 60.0 L Carbon Dioxide 15 L BUN 192 H Creatinine 3.2 H Glucose 154 H Calcium Phosphorus TIBC Ferritin Direct Bilirubin AST 120 H ALT 63 H Alkaline Phosphatase 194 H Lactate Dehydrogenase C-Reactive Protein NT-Pro-B Natriuret Pep 7312 H Total Protein 5.4 L Albumin 2.5 L Urine Creatinine Urine Total Protein 10/18/19 10/18/19 10/18/19 21:46 21:46 23:16 WBC RBC Hgb Hct MCV MCH MCHC RDW Seg Neuts % (Manual) Lymphocytes % (Manual) Monocytes % (Manual) Nucleated RBC % Seg Neutrophils # Man Lymphocytes # (Manual) Monocytes # (Manual) PT < 10.0 L INR > 17.67 H* APTT 92.7 H* D-Dimer 2524.09 H Heparin Anti-Xa Level Sodium Potassium Chloride Carbon Dioxide BUN Creatinine Glucose Calcium Phosphorus TIBC Ferritin > 2000.0 H Direct Bilirubin AST ALT Alkaline Phosphatase Lactate Dehydrogenase 1150 H C-Reactive Protein 29.00 H NT-Pro-B Natriuret Pep Total Protein Albumin Urine Creatinine Urine Total Protein 10/19/19 10/19/19 10/19/19 12:25 13:58 13:58 WBC RBC Hgb Hct MCV MCH MCHC RDW Seg Neuts % (Manual) Lymphocytes % (Manual) Monocytes % (Manual) Nucleated RBC % Seg Neutrophils # Man Lymphocytes # (Manual) Monocytes # (Manual) PT 31.7 H INR 3.19 H APTT D-Dimer Heparin Anti-Xa Level Sodium Potassium Chloride Carbon Dioxide 14 L BUN 173 H Creatinine 2.4 H Glucose 129 H Calcium 7.5 L Phosphorus TIBC Ferritin Direct Bilirubin AST 754 H ALT 294 H Alkaline Phosphatase 141 H Lactate Dehydrogenase C-Reactive Protein NT-Pro-B Natriuret Pep Total Protein 4.9 L Albumin 1.8 L Urine Creatinine 101.1 H Urine Total Protein 21 H 10/20/19 10/20/19 10/20/19 04:15 04:15 04:15 WBC 16.3 H RBC 2.44 L Hgb 8.0 L Hct 24.4 L MCV 100 H MCH 33 H MCHC RDW Seg Neuts % (Manual) 89.0 H Lymphocytes % (Manual) 5.0 L Monocytes % (Manual) Nucleated RBC % Seg Neutrophils # Man 14.5 H Lymphocytes # (Manual) 0.8 L Monocytes # (Manual) PT 20.7 H INR 1.83 H APTT D-Dimer Heparin Anti-Xa Level Sodium 147 H Potassium Chloride Carbon Dioxide 18 L BUN 169 H Creatinine 2.1 H Glucose 136 H Calcium Phosphorus 6.00 H TIBC Ferritin Direct Bilirubin AST 817 H ALT 374 H Alkaline Phosphatase 165 H Lactate Dehydrogenase C-Reactive Protein NT-Pro-B Natriuret Pep Total Protein 5.7 L Albumin 2.2 L Urine Creatinine Urine Total Protein 10/20/19 10/20/19 10/20/19 10:40 10:40 20:51 WBC RBC Hgb 8.2 L Hct 25.0 L MCV MCH MCHC RDW Seg Neuts % (Manual) Lymphocytes % (Manual) Monocytes % (Manual) Nucleated RBC % Seg Neutrophils # Man Lymphocytes # (Manual) Monocytes # (Manual) PT 20.9 H INR 1.80 H APTT D-Dimer Heparin Anti-Xa Level 0.12 L Sodium Potassium Chloride Carbon Dioxide BUN Creatinine Glucose Calcium Phosphorus TIBC Ferritin Direct Bilirubin AST ALT Alkaline Phosphatase Lactate Dehydrogenase C-Reactive Protein NT-Pro-B Natriuret Pep Total Protein Albumin Urine Creatinine Urine Total Protein 10/21/19 10/21/19 10/21/19 04:24 04:24 04:24 WBC 19.3 H RBC 2.33 L Hgb 7.4 L Hct 23.7 L MCV 102 H MCH MCHC 31 L RDW Seg Neuts % (Manual) 81.0 H Lymphocytes % (Manual) 5.0 L Monocytes % (Manual) Nucleated RBC % Seg Neutrophils # Man 15.6 H Lymphocytes # (Manual) 1.0 L Monocytes # (Manual) PT INR APTT D-Dimer Heparin Anti-Xa Level Sodium 149 H Potassium 3.3 L Chloride 113.9 H Carbon Dioxide 20 L BUN 128 H Creatinine 1.6 H Glucose 151 H Calcium 8.3 L Phosphorus TIBC 150 L Ferritin > 2000.0 H Direct Bilirubin AST ALT Alkaline Phosphatase Lactate Dehydrogenase C-Reactive Protein NT-Pro-B Natriuret Pep Total Protein Albumin Urine Creatinine Urine Total Protein 10/21/19 10/21/19 10/21/19 04:24 08:06 18:38 WBC RBC Hgb Hct MCV MCH MCHC RDW Seg Neuts % (Manual) Lymphocytes % (Manual) Monocytes % (Manual) Nucleated RBC % Seg Neutrophils # Man Lymphocytes # (Manual) Monocytes # (Manual) PT INR APTT D-Dimer Heparin Anti-Xa Level 0.26 L 0.29 L Sodium Potassium Chloride Carbon Dioxide BUN Creatinine Glucose Calcium Phosphorus TIBC Ferritin Direct Bilirubin 0.7 H AST 754 H ALT 421 H Alkaline Phosphatase 165 H Lactate Dehydrogenase C-Reactive Protein NT-Pro-B Natriuret Pep Total Protein 5.2 L Albumin 2.2 L Urine Creatinine Urine Total Protein 10/22/19 10/22/19 05:58 05:58 WBC 32.2 H RBC 2.09 L Hgb 6.7 L Hct 21.6 L MCV 104 H MCH MCHC 31 L RDW 15.5 H Seg Neuts % (Manual) 83.0 H Lymphocytes % (Manual) 9.0 L Monocytes % (Manual) Nucleated RBC % 4.5 H Seg Neutrophils # Man 26.7 H Lymphocytes # (Manual) Monocytes # (Manual) 1.4 H PT INR APTT D-Dimer Heparin Anti-Xa Level Sodium Potassium Chloride 112.5 H Carbon Dioxide 15 L BUN 123 H Creatinine 1.6 H Glucose 187 H Calcium 7.9 L Phosphorus TIBC Ferritin Direct Bilirubin AST 1210 H ALT 476 H Alkaline Phosphatase 197 H Lactate Dehydrogenase C-Reactive Protein NT-Pro-B Natriuret Pep Total Protein 4.8 L Albumin 1.7 L Urine Creatinine Urine Total Protein Chest x-ray: image reviewed (bibasilar atelectasis developing; + AICD) Allied health notes reviewed: nursing
[2019-10-22] MEDS ORDERED: SODIUM CHLORIDE 0.9% 500 ML 500 ML ONE ×3 (12:38→16:45)
[2019-10-22] MEDS ORDERED: NORepinephrine/NS 4 MG-250 ML 4 MG/250 ML BAG IV ONE (13:08)
[2019-10-22] MEDS: NORepinephrine/NS 4 MG-250 ML 4 MG/250 ML BAG IV SCH ×3 (13:08→23:57)
[2019-10-22] MEDS: CEFEPIME/NS 2 GM/100 ML 2 GM/100 ML BAG IV SCH ×2 (13:15→22:12)
--- NOTE | 2019-10-22 13:15 | Progress Note ---
Assessment and Plan Assessment and plan: 68-year-old white male with known history of CHF, pacemaker/defibrillator placement in the past presenting to the emergency room today for progressive worsening of shortness of breath which has been ongoing for about 4 days. Shortness of breath is said to be worse on exertion. He denies any chest pain, no fever or chills, no cough, no nausea vomiting but he has had some episodes of diarrhea. He denies any bright red blood per rectum, no hematuria or dysuria. He denies any sick contacts and no recent travel. Upon arrival in the emergency room evaluation revealed elevated INR, acute kidney injury and other significant abnormalities on the chemistry. He was screened for COVID-19 and was negative 10/20: STILL REQUIRING PRESSORS. We will continue in ICU care. Continue to monitor electrolytes. Check liver enzymes GI and ID inputs noted. 10/21: Restarted on pressors after briefly holding. Worsening anemia we will stop heparin drip and give the patient 2 L 2 units of packed red blood cell. Await GI reevaluation. Begin rewarming as patient hypothermic this morning. Cultures still unrevealing. Worsening leukocytosis noted will continue with ICU care Septic shock ID FOLLOWING, continue empiric antibiotic coverage follow cultures. Acute respiratory failure Current Visit: Yes Status: Acute Qualifiers: Dyspnea type: shortness of breath Qualified Code(s): R06.02 - Shortness of breath; R06.00 - Dyspnea, unspecified; R06.01 - Orthopnea Plan to address problem: Etiology is unclear. Possibly secondary to bronchitis however will rule out for COVID-19. Patient has been placed on airborne and droplet precautions. Will place on empiric IV antibiotics. We will also place a consult to infectious disease for further evaluation and recommendation. Shock liver syndrome Likely secondary to underlying cardiac failure. Continue supportive care acute renal failure secondary to hepatorenal syndrome, secondary to shock Current Visit: Yes Status: Acute Qualifiers: Acute renal failure type: unspecified Qualified Code(s): N17.9 - Acute kidney failure, unspecified Plan to address problem: Probably secondary to dehydration. Patient has been placed on IV fluid. Will monitor BUN and creatinine. We also place a consult to nephrology for evaluation and further recommendation. Acute blood loss anemia We will transfuse 2 unit packed red blood cells today elevated INR/secondary coagulopathy Current Visit: Yes Status: Acute Plan to address problem: Patient had vitamin K in the emergency room. Will monitor PT/INR. Will hold off on anticoagulation. Hypotension Current Visit: Yes Status: Acute Qualifiers: Hypotension type: unspecified hypotension type Qualified Code(s): I95.9 - Hypotension, unspecified Plan to address problem: Patient placed on IV fluid. We will continue to monitor vital signs closely. Acute on chronic systolic congestive heart failure Cardiology following. Cardiomyopathy question ischemic. Cardiology following EF noted to be 25 to 30%. Pacemaker noted right atrium. DVT prophylaxis Current Visit: Yes Status: Acute Plan to address problem: We will hold anticoagulation as INR is currently supratherapeutic. Full code status Current Visit: Yes Status: Acute DISCUSSED WITH DELIVERY CLERK cct 35 mins History Interval history: Patient seen and examined. No acute care issues noted overnight Hospitalist Physical - Physical exam Narrative exam: VITAL SIGNS: Reviewed. GENERAL: The patient appears normally developed, Vital signs as documented. HEAD: No signs of head trauma. EYES: Pupils are equal. Extraocular motions intact. EARS: Hearing grossly intact. MOUTH: Oropharynx is normal. NECK: No adenopathy, no JVD. CHEST: Chest with clear breath sounds bilaterally. No wheezes, rales, or rhonchi. CARDIAC: Tachycardia. S1 and S2, without murmurs, gallops, or rubs. VASCULAR: Trace bilateral edema. Peripheral pulses normal and equal in all extremities. ABDOMEN: Soft, non tender and non distended. No rebound or guarding, and no masses palpated. Bowel Sounds normal. MUSCULOSKELETAL: Good range of motion of all major joints. Extremities without clubbing, cyanosis. Trace bilateral pitting edema extremities are cold to the touch bit more warmed up today.. Especially the foot Bilaterally or edema. NEUROLOGIC EXAM: Alert and oriented x 3 No focal sensory or strength deficits. Speech normal. Follows commands. PSYCHIATRIC: Mood normal. SKIN: detail exam as documented in skin assessment - Constitutional Vitals: Temp Pulse Resp BP Pulse Ox 94.6 F L 78 23 90/46 100 10/22/19 13:11 10/22/19 13:11 10/22/19 13:11 10/22/19 13:11 10/22/19 13:01 General appearance: Present: no acute distress, well-nourished HEART Score - HEART Score Troponin: Troponin T 0.017 ng/mL (0.00-0.029) 10/19/19 02:12 Results - Labs CBC & Chem 7: 10/22/19 05:58 10/22/19 05:58 Labs: Laboratory Last Values WBC 32.2 K/mm3 (4.5-11.0) H 10/22/19 05:58 RBC 2.09 M/mm3 (3.65-5.03) L 10/22/19 05:58 Hgb 6.7 gm/dl (11.8-15.2) L 10/22/19 05:58 Hct 21.6 % (35.5-45.6) L 10/22/19 05:58 MCV 104 fl (84-94) H 10/22/19 05:58 MCH 32 pg (28-32) 10/22/19 05:58 MCHC 31 % (32-34) L 10/22/19 05:58 RDW 15.5 % (13.2-15.2) H 10/22/19 05:58 Plt Count 210 K/mm3 (140-440) 10/22/19 05:58 Add Manual Diff Complete 10/22/19 05:58 Total Counted 200 10/22/19 05:58 Seg Neutrophils % Wiper Blender 10/20/19 04:15 Seg Neuts % (Manual) 83.0 % (40.0-70.0) H 10/22/19 05:58 Band Neutrophils % 2.5 % 10/22/19 05:58 Lymphocytes % (Manual) 9.0 % (13.4-35.0) L 10/22/19 05:58 Reactive Lymphs % (Man) 1.0 % 10/22/19 05:58 Monocytes % (Manual) 4.5 % (0.0-7.3) 10/22/19 05:58 Eosinophils % (Manual) 0 % (0.0-4.3) 10/22/19 05:58 Basophils % (Manual) 0 % (0.0-1.8) 10/22/19 05:58 Metamyelocytes % 0 % 10/22/19 05:58 Myelocytes % 0 % 10/22/19 05:58 Promyelocytes % 0 % 10/22/19 05:58 Blast Cells % 0 % 10/22/19 05:58 Nucleated RBC % 4.5 % (0.0-0.9) H 10/22/19 05:58 Seg Neutrophils # Man 26.7 K/mm3 (1.8-7.7) H 10/22/19 05:58 Band Neutrophils # 0.8 K/mm3 10/22/19 05:58 Lymphocytes # (Manual) 2.9 K/mm3 (1.2-5.4) 10/22/19 05:58 Abs React Lymphs (Man) 0.3 K/mm3 10/22/19 05:58 Monocytes # (Manual) 1.4 K/mm3 (0.0-0.8) H 10/22/19 05:58 Eosinophils # (Manual) 0.0 K/mm3 (0.0-0.4) 10/22/19 05:58 Basophils # (Manual) 0.0 K/mm3 (0.0-0.1) 10/22/19 05:58 Metamyelocytes # 0.0 K/mm3 10/22/19 05:58 Myelocytes # 0.0 K/mm3 10/22/19 05:58 Promyelocytes # 0.0 K/mm3 10/22/19 05:58 Blast Cells # 0.0 K/mm3 10/22/19 05:58 WBC Morphology Not Reportable 10/22/19 05:58 Hypersegmented Neuts Not Reportable 10/22/19 05:58 Hyposegmented Neuts Not Reportable 10/22/19 05:58 Hypogranular Neuts Not Reportable 10/22/19 05:58 Smudge Cells Not Reportable 10/22/19 05:58 Toxic Granulation Not Reportable 10/22/19 05:58 Toxic Vacuolation Not Reportable 10/22/19 05:58 Dohle Bodies Not Reportable 10/22/19 05:58 Pelger-Huet Anomaly Not Reportable 10/22/19 05:58 Nanda Rods Not Reportable 10/22/19 05:58 Platelet Estimate Consistent w auto 10/22/19 05:58 Clumped Platelets Not Reportable 10/22/19 05:58 Plt Clumps, EDTA Not Reportable 10/22/19 05:58 Large Platelets Not Reportable 10/22/19 05:58 Giant Platelets Not Reportable 10/22/19 05:58 Platelet Satelliting Not Reportable 10/22/19 05:58 Plt Morphology Comment Not Reportable 10/22/19 05:58 RBC Morphology Not Reportable 10/22/19 05:58 Dimorphic RBCs Not Reportable 10/22/19 05:58 Polychromasia Not Reportable 10/22/19 05:58 Hypochromasia Not Reportable 10/22/19 05:58 Poikilocytosis Not Reportable 10/22/19 05:58 Anisocytosis 1+ 10/22/19 05:58 Microcytosis Not Reportable 10/22/19 05:58 Macrocytosis Not Reportable 10/22/19 05:58 Spherocytes Not Reportable 10/22/19 05:58 Pappenheimer Bodies Not Reportable 10/22/19 05:58 Sickle Cells Not Reportable 10/22/19 05:58 Target Cells Not Reportable 10/22/19 05:58 Tear Drop Cells Not Reportable 10/22/19 05:58 Ovalocytes Not Reportable 10/22/19 05:58 Helmet Cells Not Reportable 10/22/19 05:58 Santiago-B[place] Bodies Not Reportable 10/22/19 05:58 [place]rington Rings Not Reportable 10/22/19 05:58 Walton Cells 1+ 10/22/19 05:58 Bite Cells Not Reportable 10/22/19 05:58 Crenated Cell Not Reportable 10/22/19 05:58 Elliptocytes Not Reportable 10/22/19 05:58 Acanthocytes (Spur) Not Reportable 10/22/19 05:58 Rouleaux Not Reportable 10/22/19 05:58 Hemoglobin C Crystals Not Reportable 10/22/19 05:58 Schistocytes Not Reportable 10/22/19 05:58 Malaria parasites Not Reportable 10/22/19 05:58 Arnol Bodies Not Reportable 10/22/19 05:58 Hem Pathologist Commnt No 10/22/19 05:58 PT 20.9 Sec. (12.2-14.9) H 10/20/19 10:40 INR 1.80 (0.87-1.13) H 10/20/19 10:40 APTT 25.7 Sec. (24.2-36.6) 10/20/19 10:40 D-Dimer 2524.09 ng/mlDDU (0-234) H 10/18/19 23:16 Heparin Anti-Xa Level 0.33 U.I./ml (0.3-0.7) 10/22/19 09:00 Sodium 145 mmol/L (137-145) 10/22/19 05:58 Potassium 4.2 mmol/L (3.6-5.0) D 10/22/19 05:58 Chloride 112.5 mmol/L (98-107) H 10/22/19 05:58 Carbon Dioxide 15 mmol/L (22-30) L 10/22/19 05:58 Anion Gap 22 mmol/L 10/22/19 05:58 BUN 123 mg/dL (9-20) H 10/22/19 05:58 Creatinine 1.6 mg/dL (0.8-1.5) H 10/22/19 05:58 Estimated GFR 43 ml/min 10/22/19 05:58 BUN/Creatinine Ratio 77 % 10/22/19 05:58 Glucose 187 mg/dL (75-100) H 10/22/19 05:58 Calcium 7.9 mg/dL (8.4-10.2) L 10/22/19 05:58 Phosphorus 6.00 mg/dL (2.5-4.5) H 10/20/19 04:15 Iron 134 ug/dL (49-181) 10/21/19 04:24 TIBC 150 mcg/dL (250-450) L 10/21/19 04:24 Ferritin > 2000.0 ng/mL (13.0-400.0) H 10/21/19 04:24 Total Bilirubin 1.10 mg/dL (0.1-1.2) 10/22/19 05:58 Direct Bilirubin 0.7 mg/dL (0-0.2) H 10/21/19 04:24 Indirect Bilirubin 0.4 mg/dL 10/21/19 04:24 AST 1210 units/L (5-40) H 10/22/19 05:58 ALT 476 units/L (7-56) H 10/22/19 05:58 Alkaline Phosphatase 197 units/L (35-129) H 10/22/19 05:58 Lactate Dehydrogenase 1150 units/L (91-180) H 10/18/19 21:46 Troponin T 0.017 ng/mL (0.00-0.029) 10/19/19 02:12 C-Reactive Protein 29.00 mg/dL (0.00-1.30) H 10/18/19 21:46 NT-Pro-B Natriuret Pep 7312 pg/mL (0-900) H 10/18/19 20:37 Total Protein 4.8 g/dL (6.3-8.2) L 10/22/19 05:58 Albumin 1.7 g/dL (3.9-5) L 10/22/19 05:58 Albumin/Globulin Ratio 0.5 % 10/22/19 05:58 Procalcitonin 3.62 ng/mL (<0.15) 10/18/19 21:46 TSH 1.420 mlU/mL (0.270-4.200) 10/21/19 04:24 Urine Color Yellow (Yellow) 10/19/19 12:25 Urine Turbidity Clear (Clear) 10/19/19 12:25 Urine pH 5.0 (5.0-7.0) 10/19/19 12:25 Ur Specific [place] 1.016 (1.003-1.030) 10/19/19 12:25 Urine Protein <15 mg/dl mg/dL (Negative) 10/19/19 12:25 Urine Glucose (UA) Neg mg/dL (Negative) 10/19/19 12:25 Urine Ketones Neg mg/dL (Negative) 10/19/19 12:25 Urine Blood Sm (Negative) 10/19/19 12:25 Urine Nitrite Neg (Negative) 10/19/19 12:25 Urine Bilirubin Neg (Negative) 10/19/19 12:25 Urine Urobilinogen 2.0 mg/dL (<2.0) 10/19/19 12:25 Ur Leukocyte Esterase Neg (Negative) 10/19/19 12:25 Urine WBC (Auto) 2.0 /HPF (0.0-6.0) 10/19/19 12:25 Urine RBC (Auto) 1.0 /HPF (0.0-6.0) 10/19/19 12:25 U Epithel Cells (Auto) 1.0 /HPF (0-13.0) 10/19/19 12:25 Urine Mucus Few /HPF 10/19/19 12:25 Urine Eosinophils None seen (None Seen) 10/19/19 12:25 Urine Creatinine 101.1 mg/dL (0.1-20.0) H 10/19/19 12:25 Protein/Creatinin Ratio 0.21 10/19/19 12:25 Urine Sodium 12 mmol/L 10/19/19 12:25 Urine Total Protein 21 mg/dL (5-11.8) H 10/19/19 12:25 Random Vancomycin 16.6 ug/mL (0-40.0) 10/21/19 04:11 Coronavirus (PCR) Negative (Negative) 10/19/19 08:23 Hepatitis A IgM Ab Non-reactive (NonReactive) 10/19/19 13:58 Hep Bs Antigen Non-reactive (Negative) 10/19/19 13:58 Hep B Core IgM Ab Non-reactive (NonReactive) 10/19/19 13:58 Hepatitis C Antibody Non-reactive (NonReactive) 10/19/19 13:58 Blood Type O POSITIVE 10/22/19 09:26 Antibody Screen Negative 10/22/19 09:26 Crossmatch See Detail 10/22/19 09:26 Microbiology: Microbiology 10/19/19 14:19 Peripheral/Venous Blood Culture - Preliminary NO GROWTH AFTER 48 HOURS 10/19/19 14:19 Peripheral/Venous Blood Culture - Preliminary NO GROWTH AFTER 48 HOURS 10/19/19 12:17 Urine,Clean Catch Urine Culture - Final - Diagnostic Impressions Diagnostic Impressions: Echocardiogram 10/19/19 09:58 Transthoracic Echocardiogram Indication: Bacteremia BP: 92/54 HR: 111 Conclusions *The left ventricular chamber size is mildly dilated. *Global left ventricular systolic function is severely decreased.LV diastolic function indeterminate *The estimated ejection fraction is 25-30%. *The left atrial chamber size is normal. *The right ventricular global systolic function is mildly reduced. *A pacemaker wire is visualized in the right atrium. *The right ventricular systolic pressure is calculated at 39 mmHg. Findings Left Ventricle: The left ventricular chamber size is mildly dilated. Global left ventricular systolic function is severely decreased.LV diastolic function indeterminate The estimated ejection fraction is 25-30%. Diffuse hypokinesis particularly of posterior wall and also abnormal motion secondary to conduction defect noted. Left Atrium: The left atrial chamber size is normal. Right Ventricle: The right ventricular global systolic function is mildly reduced. Right Atrium: The right atrial cavity size is normal. A pacemaker wire is visualized in the right atrium. Aortic Valve: The aortic valve leaflets are mildly thickened. There is no evidence of aortic regurgitation. Mitral Valve: The mitral valve leaflets are mildly thickened. There is mild mitral regurgitation. Tricuspid Valve: The tricuspid valve leaflets are mildly thickened. There is mild tricuspid regurgitation. The right ventricular systolic pressure is calculated at 39 mmHg. Pulmonic Valve: The pulmonic valve appears normal. There is trace pulmonic regurgitation. Pericardium: There is no pericardial effusion. Aorta: There is no dilatation of the ascending aorta. There is no dilatation of the aortic root. Venous: The inferior vena cava is not visualized. Measurements Chambers 2D Name Value Normal Range IVSd (2D) 1.04 cm (0.6 - 1.1) LVPWd (2D) 0.9 cm (0.6 - 1.1) LVIDd (2D) 6.25 cm (3.7 - 5.6) LVIDs (2D) 5.82 cm (2 - 3.8) LV FS (2D) 6.91 % - EF Teichholz (2D) 15.08 % - Ao root diameter (2D) 3.92 cm (2 - 3.7) Volumes/Mass Name Value Normal Range LA ESV SP 4CH (A/L) 88.58 ml - LA ESV SP 2CH (A/L) 67.41 ml - LA ESV BP (A/L) 80.54 ml - LA ESV BP (A/L) index 34.27 ml/m2 - LA ESV SP 4CH (MOD) 79.44 ml - LA ESV SP 2CH (MOD) 64.63 ml - LA ESV BP (MOD) 74.57 ml - LA ESV BP (MOD) index 31.73 ml/m2 - Diastolic/Systolic Function Name Value Normal Range MV E-wave Vmax 0.65 m/sec - MV deceleration time 154.22 msec - Aortic Valve Name Value Normal Range AV Vmax 1.56 m/sec - AV VTI 24.52 cm - AV peak gradient 9.84 mmHg - AV mean gradient 5.68 mmHg - LVOT diameter 2.42 cm - LVOT Vmax 0.9 m/sec - LVOT VTI 12.91 cm - LVOT peak gradient 3.21 mmHg - LVOT mean gradient 1.81 mmHg - SV LVOT 59.15 ml - ROBERTO (continuity Vmax) 2.63 cm2 - ROBERTO (continuity VTI) 2.41 cm2 - Tricuspid Valve Name Value Normal Range TR Vmax 3 m/sec - TR peak gradient 36 mmHg - RAP 3 mmHg - RVSP 39 mmHg - Pulmonic Valve/Qp:Qs Name Value Normal Range PV Vmax 1 m/sec - PV peak gradient 3.97 mmHg - PV acceleration time 76.12 msec - Rowe/IV: Voiding Method Urinal IV Catheter Type [Left Wrist] CVL Active Medications - Current Medications Current Medications: Generic Name Dose Route Start Last Admin Trade Name Freq PRN Reason Stop Dose Admin Acetaminophen 650 mg 10/19/19 00:08 Tylenol PO Q4H PRN Pain MILD(1-3)/Fever >100.5/GIBBS Fluconazole 200 mls @ 100 mls/hr 10/20/19 10:30 10/21/19 14:26 Diflucan IV 100 mls/hr Q24HR ABBEY Administration Protocol Cefepime HCl 2 gm in 100 mls @ 200 mls/hr 10/20/19 11:00 10/21/19 22:30 Cefepime/Ns 2 Gm/100 Ml IV 200 mls/hr Q12HR ABBEY Administration Protocol Dextrose/Sodium Chloride 1,000 mls @ 100 mls/hr 10/21/19 10:00 10/22/19 01:46 D5/0.45ns IV 100 mls/hr DIRECT ABBEY Administration Vancomycin HCl 1,500 mg/ 530 mls @ 333.333 mls/hr 10/22/19 10:00 Sodium Chloride IV Q24HR ABBEY Magnesium Hydroxide 30 ml 10/19/19 00:08 Milk Of Magnesia PO Q4H PRN Constipation Ondansetron HCl 4 mg 10/19/19 00:08 10/21/19 22:31 Zofran IV 4 mg Q8H PRN Administration Nausea And Vomiting Sodium Bicarbonate 650 mg 10/22/19 14:00 Sodium Bicarbonate PO TID ABBEY Sodium Chloride 10 ml 10/19/19 10:00 10/21/19 22:30 Sodium Chloride Flush Syringe 10 Ml IV Not Given BID ABBEY Sodium Chloride 10 ml 10/19/19 00:08 Sodium Chloride Flush Syringe 10 Ml IV PRN PRN LINE FLUSH Nutrition/Malnutrition Assess - Dietary Evaluation Nutrition/Malnutrition Findings: Nutrition Notes Start: 10/19/19 09:23 Freq: Status: Active Protocol: Document 10/21/19 12:33 LM (Rec: 10/21/19 12:34 LM [email or web address]) Nutrition Notes Initial or Follow up Brief Note Current Diagnosis Heart Failure Other Pertinent Diagnosis Dyspnea, ARF, r/o COVID-19 Current Diet Cardiac Subjective/Other Information Unable to reach pt 2x. Nutrition Intervention Follow-Up By: 10/25/19 Additional Comments F/U: diet education needs
[2019-10-22] MEDS: AZITHROMYCIN 500 MG in SODIUM CHLORIDE 0.9% 250ML 250 ML IV SCH (13:18)
--- NOTE | 2019-10-22 14:23 | Progress Note ---
Assessment and Plan Cultures: blood culture 10/19/2019 no growth today urine culture 10/19/2019 <10 Assessment: 68 y/o male with history of CAD, previous CT, CVA, CHF status post AICD, previous PE/DVT, admitted on due to 10 day-history of dry cough, malaise and progressive shortness of breath and dyspnea on exertion: #Shock ?septic ?cardiogenic and MODS: was levophed at 4- now at 2, leukocytosis up, no fever; unclear septic etiology ? GB/liver. Urinalysis negative, blood cultures negative. Procalcitonin elevated, however unclear significance under ASHLIE setting. #Cough/Dyspnea on exertion: CXR x 3 negative. COVID test NEGATIVE. Inflamatory markers are markedly elevated D-dimer 2301, CRP 29, LDH 1150, ferritin> 2000. #History of CHF with AICD ? r/o CHF exacerbation, BNP 7312. EF 25-30% #Elevated LFTs: from shock liver ? worsening, r/o cholecystitis #ASHLIE: Renally adjust antibiotics, improving #Anemia: Initial hemoglobin 9.5. #Penicillin allergy: Patient has taken Keflex, and he reports allergy is remote and vague. Recommendations: monitor leukocytosis Obtain liver US - pending - LFTs going up Consider simon scan given greatly increased white count f/u blood cultures Cards on board Continue empiric vancomycin goal trough 10-20, cefepime, fluconazole for now. May need to escalate. I am covering this weekend, Dr. Mejía returns Thursday Will follow Ricardo Jones MD [facility] M: [phone] O: [phone] F: [phone] Subjective Date of service: 10/22/19 Principal diagnosis: sepsis Interval history: Low temperatures, white count really increased to 32. Objective - Exam Narrative Exam: General appearance: Alert in NAD on nasal cannula oxygen Eyes: anicteric sclerae, moist conjunctivae HENT: Atraumatic; oropharynx clear Lungs: CTA narda +AICD pocket no erythema, heat or edema CV: Tachycardic Abdomen: Soft, non-tender Extremities: no edema, no cyanosis Skin: No rash. Psych: upset he is hungry Neuro: alert and oriented x 3 - Constitutional Vitals: Vital Signs Temp Pulse Resp BP Pulse Ox 94.4 F L 82 23 87/43 100 10/22/19 14:00 10/22/19 14:00 10/22/19 14:00 10/22/19 14:01 10/22/19 14:01 Temperature -Last 24 Hours Temperature 94.4 F Temperature 97.4 F Temperature 94.6 F Temperature 97.5 F Temperature 94.4 F Temperature 92.7 F Temperature 92.4 F Temperature 92.4 F Temperature 91.2 F Temperature 91.6 F Temperature 90.3 F - Labs CBC & Chem 7: 10/22/19 05:58 10/22/19 05:58 Labs: Abnormal lab results 10/21/19 10/22/19 10/22/19 Range/Units 18:38 05:58 05:58 WBC 32.2 H (4.5-11.0) K/mm3 RBC 2.09 L (3.65-5.03) M/mm3 Hgb 6.7 L (11.8-15.2) gm/dl Hct 21.6 L (35.5-45.6) % MCV 104 H (84-94) fl MCHC 31 L (32-34) % RDW 15.5 H (13.2-15.2) % Seg Neuts % (Manual) 83.0 H (40.0-70.0) % Lymphocytes % (Manual) 9.0 L (13.4-35.0) % Nucleated RBC % 4.5 H (0.0-0.9) % Seg Neutrophils # Man 26.7 H (1.8-7.7) K/mm3 Monocytes # (Manual) 1.4 H (0.0-0.8) K/mm3 Heparin Anti-Xa Level 0.29 L (0.3-0.7) U.I./ml Chloride 112.5 H (98-107) mmol/L Carbon Dioxide 15 L (22-30) mmol/L BUN 123 H (9-20) mg/dL Creatinine 1.6 H (0.8-1.5) mg/dL Glucose 187 H (75-100) mg/dL Calcium 7.9 L (8.4-10.2) mg/dL AST 1210 H (5-40) units/L ALT 476 H (7-56) units/L Alkaline Phosphatase 197 H (35-129) units/L Total Protein 4.8 L (6.3-8.2) g/dL Albumin 1.7 L (3.9-5) g/dL Crossmatch 10/22/19 Range/Units 09:26 WBC (4.5-11.0) K/mm3 RBC (3.65-5.03) M/mm3 Hgb (11.8-15.2) gm/dl Hct (35.5-45.6) % MCV (84-94) fl MCHC (32-34) % RDW (13.2-15.2) % Seg Neuts % (Manual) (40.0-70.0) % Lymphocytes % (Manual) (13.4-35.0) % Nucleated RBC % (0.0-0.9) % Seg Neutrophils # Man (1.8-7.7) K/mm3 Monocytes # (Manual) (0.0-0.8) K/mm3 Heparin Anti-Xa Level (0.3-0.7) U.I./ml Chloride (98-107) mmol/L Carbon Dioxide (22-30) mmol/L BUN (9-20) mg/dL Creatinine (0.8-1.5) mg/dL Glucose (75-100) mg/dL Calcium (8.4-10.2) mg/dL AST (5-40) units/L ALT (7-56) units/L Alkaline Phosphatase (35-129) units/L Total Protein (6.3-8.2) g/dL Albumin (3.9-5) g/dL Crossmatch See Detail
[2019-10-22] MEDS ORDERED: NORepinephrine/NS 4 MG-250 ML 4 MG/250 ML BAG IV SCH (15:00)
[2019-10-22 15:13] LABS: ABG Base Excess -8.2 mmol/L (-2.0-3.0); ABG HCO3 15.4 mmol/L (20.0-26.0); ABG Methemoglobin 0.5 % (0.0-1.5); ABG Oxygen Saturation 97.1 % (95.0-99.0); ABG PCO2 24.4 mm Hg; ABG PH 7.418 pH Units (7.350-7.450); ABG PO2 86.5 mm Hg (80.0-90.0)
--- NOTE | 2019-10-22 16:58 | Progress Note ---
Assessment and Plan 1. Abnormal LFTs - continuing to climb. 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 Pt still on Levophed. - will recheck INR, monitor LFTs, and f/u on U/S results - if continues to climb even off pressors, will need to assess vasculature with Doppler U/S or other study. Subjective Date of service: 10/22/19 Principal diagnosis: sepsis Interval history: Pt comfortable, lying in bed. Denies abd pain, N/V. Objective - Constitutional Vitals: Vital Signs - 12hr 10/22/19 10/22/19 10/22/19 05:01 06:01 07:01 Temperature Pulse Rate 95 H 99 H Pulse Rate [ From Monitor] Respiratory 22 20 20 Rate Blood Pressure 97/38 100/40 86/47 O2 Sat by Pulse 99 Oximetry 10/22/19 10/22/19 10/22/19 08:00 08:01 09:00 Temperature 92.4 F L Pulse Rate 99 H 99 H 88 Pulse Rate [ 98 H From Monitor] Respiratory 24 25 H 26 H Rate Blood Pressure 95/69 102/54 O2 Sat by Pulse 100 99 95 Oximetry 10/22/19 10/22/19 10/22/19 10:00 11:01 11:21 Temperature 92.7 F L Pulse Rate 93 H 98 H Pulse Rate [ From Monitor] Respiratory 23 25 H Rate Blood Pressure 90/62 81/57 81/57 O2 Sat by Pulse 90 99 Oximetry 10/22/19 10/22/19 10/22/19 11:31 11:41 11:51 Temperature Pulse Rate 99 H Pulse Rate [ From Monitor] Respiratory 23 Rate Blood Pressure 81/47 81/47 81/47 O2 Sat by Pulse 99 99 98 Oximetry 10/22/19 10/22/19 10/22/19 12:00 12:11 12:21 Temperature 94.4 F L Pulse Rate 106 H Pulse Rate [ 98 H From Monitor] Respiratory 24 Rate Blood Pressure 95/47 95/47 95/47 O2 Sat by Pulse 98 99 100 Oximetry 10/22/19 10/22/19 10/22/19 12:30 12:41 12:45 Temperature 97.5 F L Pulse Rate 106 H Pulse Rate [ From Monitor] Respiratory 26 H Rate Blood Pressure 83/41 83/41 88/54 O2 Sat by Pulse 100 99 Oximetry 05/10/22/19 10/22/19 12:51 13:01 13:11 Temperature 94.6 F L Pulse Rate 97 H 86 Pulse Rate [ From Monitor] Respiratory 25 H 24 Rate Blood Pressure 82/48 58/28 88/54 O2 Sat by Pulse 96 100 100 Oximetry 10/22/19 10/22/19 10/22/19 13:21 13:30 13:41 Temperature 97.4 F L Pulse Rate 95 H 108 H 83 Pulse Rate [ From Monitor] Respiratory 24 22 20 Rate Blood Pressure 70/46 80/56 79/49 O2 Sat by Pulse 100 100 100 Oximetry 10/22/19 10/22/19 10/22/19 13:51 14:00 14:01 Temperature 94.4 F L Pulse Rate 82 Pulse Rate [ From Monitor] Respiratory 23 Rate Blood Pressure 86/52 87/43 87/43 O2 Sat by Pulse 100 100 Oximetry 10/22/19 10/22/19 10/22/19 14:29 14:30 15:00 Temperature 93.4 F L 94.5 F L 97.8 F Pulse Rate 87 99 H 100 H Pulse Rate [ From Monitor] Respiratory 25 H 25 H Rate Blood Pressure 93/68 100/58 105/53 O2 Sat by Pulse 26 L 98 Oximetry 10/22/19 10/22/19 10/22/19 15:01 15:53 16:00 Temperature 97.4 F L 97.4 F L Pulse Rate 93 H 100 H Pulse Rate [ From Monitor] Respiratory 26 H 23 Rate Blood Pressure 100/58 111/69 O2 Sat by Pulse 98 94 Oximetry 10/22/19 16:43 Temperature 97.8 F Pulse Rate 100 H Pulse Rate [ From Monitor] Respiratory 25 H Rate Blood Pressure 105/53 O2 Sat by Pulse 98 Oximetry General appearance: Present: no acute distress - EENT Eyes: PERRL, EOM intact ENT: hearing intact - Respiratory Respiratory effort: normal - Gastrointestinal General gastrointestinal: Present: soft, non-tender, other (Obese) - Labs CBC & Chem 7: 10/22/19 05:58 10/22/19 05:58 Labs: Abnormal lab results 10/21/19 10/22/19 10/22/19 Range/Units 18:38 05:58 05:58 WBC 32.2 H (4.5-11.0) K/mm3 RBC 2.09 L (3.65-5.03) M/mm3 Hgb 6.7 L (11.8-15.2) gm/dl Hct 21.6 L (35.5-45.6) % MCV 104 H (84-94) fl MCHC 31 L (32-34) % RDW 15.5 H (13.2-15.2) % Seg Neuts % (Manual) 83.0 H (40.0-70.0) % Lymphocytes % (Manual) 9.0 L (13.4-35.0) % Nucleated RBC % 4.5 H (0.0-0.9) % Seg Neutrophils # Man 26.7 H (1.8-7.7) K/mm3 Monocytes # (Manual) 1.4 H (0.0-0.8) K/mm3 Heparin Anti-Xa Level 0.29 L (0.3-0.7) U.I./ml ABG HCO3 (20.0-26.0) mmol/L ABG Base Excess (-2.0-3.0) mmol/L ABG Hemoglobin (14.0-18.0) gm/dl Chloride 112.5 H (98-107) mmol/L Carbon Dioxide 15 L (22-30) mmol/L BUN 123 H (9-20) mg/dL Creatinine 1.6 H (0.8-1.5) mg/dL Glucose 187 H (75-100) mg/dL Calcium 7.9 L (8.4-10.2) mg/dL AST 1210 H (5-40) units/L ALT 476 H (7-56) units/L Alkaline Phosphatase 197 H (35-129) units/L Total Protein 4.8 L (6.3-8.2) g/dL Albumin 1.7 L (3.9-5) g/dL Crossmatch 10/22/19 10/22/19 Range/Units 09:26 Unknown WBC (4.5-11.0) K/mm3 RBC (3.65-5.03) M/mm3 Hgb (11.8-15.2) gm/dl Hct (35.5-45.6) % MCV (84-94) fl MCHC (32-34) % RDW (13.2-15.2) % Seg Neuts % (Manual) (40.0-70.0) % Lymphocytes % (Manual) (13.4-35.0) % Nucleated RBC % (0.0-0.9) % Seg Neutrophils # Man (1.8-7.7) K/mm3 Monocytes # (Manual) (0.0-0.8) K/mm3 Heparin Anti-Xa Level (0.3-0.7) U.I./ml ABG HCO3 15.4 L (20.0-26.0) mmol/L ABG Base Excess -8.2 L (-2.0-3.0) mmol/L ABG Hemoglobin 6.8 L (14.0-18.0) gm/dl Chloride (98-107) mmol/L Carbon Dioxide (22-30) mmol/L BUN (9-20) mg/dL Creatinine (0.8-1.5) mg/dL Glucose (75-100) mg/dL Calcium (8.4-10.2) mg/dL AST (5-40) units/L ALT (7-56) units/L Alkaline Phosphatase (35-129) units/L Total Protein (6.3-8.2) g/dL Albumin (3.9-5) g/dL Crossmatch See Detail Medications & Allergies - Medications Allergies/Adverse Reactions: Allergies Penicillins Allergy (Verified 07/07/19 15:47) Unknown Home Medications: Home Medications Medication Instructions Recorded Confirmed Last Taken Type Atorvastatin [Lipitor Tab] 80 mg PO QHS 07/07/19 07/07/19 Unknown History Bisoprolol Fumarate 5 mg PO DAILY 07/07/19 07/07/19 Unknown History Mexiletine HCl 150 mg PO Q8H 07/07/19 07/07/19 Unknown History Warfarin [Coumadin] 5 mg PO QDAY 07/07/19 07/07/19 Unknown History Active Medications: Generic Name Dose Route Start Last Admin Trade Name Freq PRN Reason Stop Dose Admin Acetaminophen 650 mg 10/19/19 00:08 Tylenol PO Q4H PRN Pain MILD(1-3)/Fever >100.5/GIBBS Albumin Human 25 gm 10/22/19 15:00 Alburx 25% (Albumin) IV 10/23/19 03:01 Q6H ABBEY Fluconazole 200 mls @ 100 mls/hr 10/20/19 10:30 10/21/19 14:26 Diflucan IV 100 mls/hr Q24HR ABBEY Administration Protocol Cefepime HCl 2 gm in 100 mls @ 200 mls/hr 10/20/19 11:00 10/22/19 13:15 Cefepime/Ns 2 Gm/100 Ml IV 200 mls/hr Q12HR ABBEY Administration Protocol Dextrose/Sodium Chloride 1,000 mls @ 100 mls/hr 10/21/19 10:00 10/22/19 13:46 D5/0.45ns IV 100 mls/hr DIRECT ABBEY Administration Vancomycin HCl 1,500 mg/ 530 mls @ 333.333 mls/hr 10/22/19 10:00 10/22/19 13:17 Sodium Chloride IV 333.333 mls/hr Q24HR ABBEY Administration Norepinephrine 4 mg in 250 mls @ 7.5 mls/hr 10/22/19 15:00 Levophed Drip 4 Mg/Ns 250 Ml IV TITR ABBEY Protocol 2 MCG/MIN Dobutamine HCl/Dextrose 500 mg in 250 mls @ 17.085 mls/hr 10/22/19 15:00 Dobutrex Drip 500mg/D5w 250ml IV DIRECT ABBEY Protocol 5 MCG/KG/MIN Magnesium Hydroxide 30 ml 10/19/19 00:08 Milk Of Magnesia PO Q4H PRN Constipation Ondansetron HCl 4 mg 10/19/19 00:08 10/21/19 22:31 Zofran IV 4 mg Q8H PRN Administration Nausea And Vomiting Sodium Bicarbonate 650 mg 10/22/19 14:00 Sodium Bicarbonate PO TID ABBEY Sodium Chloride 10 ml 10/19/19 10:00 10/21/19 22:30 Sodium Chloride Flush Syringe 10 Ml IV Not Given BID ABBEY Sodium Chloride 10 ml 10/19/19 00:08 Sodium Chloride Flush Syringe 10 Ml IV PRN PRN LINE FLUSH HEART Score - HEART Score Troponin: Troponin T 0.017 ng/mL (0.00-0.029) 10/19/19 02:12
[2019-10-22] MEDS: SODIUM BICARBONATE 650 MG TAB PO SCH ×2 (18:23→22:12)
[2019-10-22] MEDS: DOBUTamine/D5W 500 MG/250 ML 500 MG/250 ML BAG IV SCH (18:23)
[2019-10-22] MEDS: ALBUMIN HUMAN 25% (25 GM/100 ML) INJ IV SCH ×2 (18:26→22:12)
[2019-10-22] MEDS: FLUCONAZOLE 400 MG 200 ML IV SCH (18:41)
[2019-10-23] MEDS: NORepinephrine 8 MG in SODIUM CHLORIDE 0.9% 250ML 242 ML IV SCH ×3 (03:08→18:03)
[2019-10-23] MEDS: DOBUTamine/D5W 500 MG/250 ML 500 MG/250 ML BAG IV SCH ×2 (05:34→21:17)
[2019-10-23] MEDS: D5W/0.45% NACL 1,000 ML IV SCH (05:35)
[2019-10-23] MEDS ORDERED: ALBUMIN HUMAN 25% (25 GM/100 ML) INJ IV ONE (05:41)
[2019-10-23] MEDS: ALBUMIN HUMAN 25% (25 GM/100 ML) INJ IV SCH ×3 (05:44→21:18)
[2019-10-23 06:12] LABS: Hematocrit 24.4 % (35.5-45.6); Hemoglobin 7.7 gm/dl (11.8-15.2); Mean Corpuscular HGB Conc 32 % (32-34); Mean Corpuscular Volume 98 fl (84-94); Platelet Count 121 K/mm3 (140-440); Red Cell Distribution Width 19.2 % (13.2-15.2)
[2019-10-23 06:23] LABS: Albumin 2.3 g/dL (3.9-5); Calcium 7.7 mg/dL (8.4-10.2)
[2019-10-23] MEDS: SODIUM BICARBONATE 650 MG TAB PO SCH ×3 (08:42→21:18)
[2019-10-23] MEDS: FLUCONAZOLE 200 MG 200 MG/100 ML BAG IV SCH ×2 (09:03→11:01)
[2019-10-23] MEDS: CEFEPIME/NS 2 GM/100 ML 2 GM/100 ML BAG IV SCH ×3 (09:04→11:09)
--- NOTE | 2019-10-23 10:11 | Progress Note ---
Assessment and Plan 1. Abnormal LFTs - stable. However, INR elevated. U/S suggests multiple hypodense lesions, concerning for neoplasm, though other processes, including infection need to be considered. - give vit K and monitor INR - needs MRI of liver once able to go to Radiology - discussed with pt. Subjective Date of service: 10/23/19 Principal diagnosis: sepsis Interval history: Pt comfortable, lying in bed. Denies abd pain, N/V. Levophed dose slightly hi gher than yesterday. Objective - Constitutional Vitals: Vital Signs - 12hr 10/22/19 10/22/19 10/22/19 22:15 22:31 22:45 Temperature Pulse Rate 101 H 98 H 93 H Respiratory 24 27 H 22 Rate Blood Pressure 107/44 99/48 105/35 O2 Sat by Pulse 98 98 99 Oximetry 10/22/19 10/22/19 10/22/19 23:00 23:15 23:30 Temperature Pulse Rate 95 H 102 H 108 H Respiratory 25 H 27 H 24 Rate Blood Pressure 97/43 92/39 101/44 O2 Sat by Pulse 98 98 Oximetry 10/22/19 10/23/19 10/23/19 23:45 00:00 00:15 Temperature 98.4 F Pulse Rate 99 H 108 H 109 H Respiratory 25 H 26 H 22 Rate Blood Pressure 95/33 97/44 92/57 O2 Sat by Pulse 97 100 100 Oximetry 10/23/19 10/23/19 10/23/19 00:22 00:30 00:45 Temperature Pulse Rate 94 H 95 H 93 H Respiratory 27 H 28 H 26 H Rate Blood Pressure 92/57 104/47 109/52 O2 Sat by Pulse 100 100 97 Oximetry 10/23/19 10/23/19 10/23/19 01:00 01:15 01:30 Temperature Pulse Rate 97 H 86 100 H Respiratory 25 H 25 H 26 H Rate Blood Pressure 97/49 103/40 95/45 O2 Sat by Pulse 97 97 97 Oximetry 10/23/19 10/23/19 10/23/19 01:45 02:00 02:15 Temperature Pulse Rate 90 97 H 98 H Respiratory 24 24 24 Rate Blood Pressure 104/45 106/53 108/47 O2 Sat by Pulse 97 100 98 Oximetry 10/23/19 10/23/19 10/23/19 02:31 02:45 03:00 Temperature Pulse Rate 96 H 93 H 98 H Respiratory 25 H 25 H 21 Rate Blood Pressure 103/37 103/37 94/42 O2 Sat by Pulse 98 99 99 Oximetry 10/23/19 10/23/19 10/23/19 03:15 03:30 03:45 Temperature Pulse Rate 78 90 98 H Respiratory 22 25 H 23 Rate Blood Pressure 94/42 123/42 109/34 O2 Sat by Pulse 99 97 Oximetry 10/23/19 10/23/19 10/23/19 04:00 04:15 04:30 Temperature 97.8 F Pulse Rate 97 H 89 93 H Respiratory 25 H 25 H 24 Rate Blood Pressure 108/45 103/52 97/43 O2 Sat by Pulse 100 98 Oximetry 10/23/19 10/23/19 10/23/19 04:45 05:00 05:15 Temperature Pulse Rate 89 Respiratory 23 Rate Blood Pressure 115/55 110/41 110/41 O2 Sat by Pulse 97 99 98 Oximetry 10/23/19 10/23/19 10/23/19 05:31 05:45 06:01 Temperature Pulse Rate 110 H 105 H 87 Respiratory 23 21 20 Rate Blood Pressure 111/38 115/44 103/62 O2 Sat by Pulse 98 98 96 Oximetry 10/23/19 10/23/19 10/23/19 06:15 06:30 06:45 Temperature Pulse Rate 97 H 106 H 82 Respiratory 21 21 20 Rate Blood Pressure 112/51 115/58 111/44 O2 Sat by Pulse 99 98 98 Oximetry 10/23/19 10/23/19 10/23/19 07:00 07:15 07:30 Temperature Pulse Rate 96 H 85 100 H Respiratory 21 23 23 Rate Blood Pressure 120/48 111/42 121/44 O2 Sat by Pulse 98 98 97 Oximetry 10/23/19 10/23/19 10/23/19 07:45 08:00 08:15 Temperature 97.5 F L Pulse Rate 86 90 89 Respiratory 24 24 22 Rate Blood Pressure 111/44 113/53 113/53 O2 Sat by Pulse 98 97 98 Oximetry 10/23/19 10/23/19 10/23/19 08:31 08:45 09:00 Temperature Pulse Rate 110 H 102 H 79 Respiratory 23 24 24 Rate Blood Pressure 116/51 116/51 113/47 O2 Sat by Pulse 97 99 97 Oximetry General appearance: Present: no acute distress - EENT Eyes: PERRL, EOM intact ENT: hearing intact - Respiratory Respiratory effort: normal - Gastrointestinal General gastrointestinal: Present: soft, tender (Mild diffuse) - Labs CBC & Chem 7: 10/23/19 05:30 10/23/19 08:28 Labs: Abnormal lab results 10/22/19 10/22/19 10/23/19 Range/Units 09:26 Unknown 05:30 WBC 34.3 H (4.5-11.0) K/mm3 RBC 2.50 L (3.65-5.03) M/mm3 Hgb 7.7 L (11.8-15.2) gm/dl Hct 24.4 L (35.5-45.6) % MCV 98 H (84-94) fl RDW 19.2 H (13.2-15.2) % Plt Count 121 L (140-440) K/mm3 PT (12.2-14.9) Sec. INR (0.87-1.13) ABG HCO3 15.4 L (20.0-26.0) mmol/L ABG Base Excess -8.2 L (-2.0-3.0) mmol/L ABG Hemoglobin 6.8 L (14.0-18.0) gm/dl Sodium (137-145) mmol/L Chloride (98-107) mmol/L Carbon Dioxide (22-30) mmol/L BUN (9-20) mg/dL Creatinine (0.8-1.5) mg/dL Glucose (75-100) mg/dL Lactic Acid (0.7-2.0) mmol/L Calcium (8.4-10.2) mg/dL Total Bilirubin (0.1-1.2) mg/dL AST (5-40) units/L ALT (7-56) units/L Alkaline Phosphatase (35-129) units/L Total Protein (6.3-8.2) g/dL Albumin (3.9-5) g/dL Crossmatch See Detail 10/23/19 10/23/19 10/23/19 Range/Units 05:30 05:30 05:30 WBC (4.5-11.0) K/mm3 RBC (3.65-5.03) M/mm3 Hgb (11.8-15.2) gm/dl Hct (35.5-45.6) % MCV (84-94) fl RDW (13.2-15.2) % Plt Count (140-440) K/mm3 PT 31.0 H (12.2-14.9) Sec. INR 3.00 H (0.87-1.13) ABG HCO3 (20.0-26.0) mmol/L ABG Base Excess (-2.0-3.0) mmol/L ABG Hemoglobin (14.0-18.0) gm/dl Sodium 146 H (137-145) mmol/L Chloride 114.8 H (98-107) mmol/L Carbon Dioxide 16 L (22-30) mmol/L BUN 130 H (9-20) mg/dL Creatinine 2.3 H (0.8-1.5) mg/dL Glucose 167 H (75-100) mg/dL Lactic Acid 3.20 H* (0.7-2.0) mmol/L Calcium 7.7 L (8.4-10.2) mg/dL Total Bilirubin 2.80 H (0.1-1.2) mg/dL AST 1098 H (5-40) units/L ALT 371 H (7-56) units/L Alkaline Phosphatase 225 H (35-129) units/L Total Protein 4.6 L (6.3-8.2) g/dL Albumin 2.3 L (3.9-5) g/dL Crossmatch 10/23/19 10/23/19 Range/Units 08:28 08:28 WBC (4.5-11.0) K/mm3 RBC (3.65-5.03) M/mm3 Hgb (11.8-15.2) gm/dl Hct (35.5-45.6) % MCV (84-94) fl RDW (13.2-15.2) % Plt Count (140-440) K/mm3 PT (12.2-14.9) Sec. INR (0.87-1.13) ABG HCO3 (20.0-26.0) mmol/L ABG Base Excess (-2.0-3.0) mmol/L ABG Hemoglobin (14.0-18.0) gm/dl Sodium (137-145) mmol/L Chloride 117.8 H (98-107) mmol/L Carbon Dioxide 14 L (22-30) mmol/L BUN 130 H (9-20) mg/dL Creatinine 2.3 H (0.8-1.5) mg/dL Glucose 168 H (75-100) mg/dL Lactic Acid 2.80 H* (0.7-2.0) mmol/L Calcium 8.0 L (8.4-10.2) mg/dL Total Bilirubin (0.1-1.2) mg/dL AST (5-40) units/L ALT (7-56) units/L Alkaline Phosphatase (35-129) units/L Total Protein (6.3-8.2) g/dL Albumin (3.9-5) g/dL Crossmatch Medications & Allergies - Medications Allergies/Adverse Reactions: Allergies Penicillins Allergy (Verified 07/07/19 15:47) Unknown Home Medications: Home Medications Medication Instructions Recorded Confirmed Last Taken Type Atorvastatin [Lipitor Tab] 80 mg PO QHS 07/07/19 07/07/19 Unknown History Bisoprolol Fumarate 5 mg PO DAILY 07/07/19 07/07/19 Unknown History Mexiletine HCl 150 mg PO Q8H 07/07/19 07/07/19 Unknown History Warfarin [Coumadin] 5 mg PO QDAY 07/07/19 07/07/19 Unknown History Active Medications: Generic Name Dose Route Start Last Admin Trade Name Freq PRN Reason Stop Dose Admin Acetaminophen 650 mg 10/19/19 00:08 Tylenol PO Q4H PRN Pain MILD(1-3)/Fever >100.5/GIBBS Dextrose/Sodium Chloride 1,000 mls @ 100 mls/hr 10/21/19 10:00 10/23/19 05:35 D5/0.45ns IV 100 mls/hr DIRECT ABBEY Administration Dobutamine HCl/Dextrose 500 mg in 250 mls @ 17.085 mls/hr 10/22/19 15:00 10/23/19 05:34 Dobutrex Drip 500mg/D5w 250ml IV 5 mcg/kg/min DIRECT ABBEY 17.085 mls/hr Administration Protocol 5 MCG/KG/MIN Norepinephrine 8 mg/ Sodium 250 mls @ 3.75 mls/hr 10/23/19 00:00 10/23/19 08:44 Chloride IV 16 mcg/min TITR ABBEY 30 mls/hr Administration Protocol 2 MCG/MIN Fluconazole 200 mls @ 100 mls/hr 10/24/19 10:00 Diflucan IV Q24HR ABBEY Protocol Fluconazole 200 mg in 100 mls @ 100 mls/hr 10/23/19 09:00 10/23/19 09:03 Diflucan IV 10/23/19 10:59 100 mls/hr Q1H ABBEY Administration Cefepime HCl 2 gm in 100 mls @ 200 mls/hr 10/23/19 10:00 Cefepime/Ns 2 Gm/100 Ml IV Q24HR [facility] Protocol Magnesium Hydroxide 30 ml 10/19/19 00:08 Milk Of Magnesia PO Q4H PRN Constipation Ondansetron HCl 4 mg 10/19/19 00:08 10/21/19 22:31 Zofran IV 4 mg Q8H PRN Administration Nausea And Vomiting Sodium Bicarbonate 650 mg 10/22/19 14:00 10/23/19 08:42 Sodium Bicarbonate PO 650 mg TID ABBEY Administration Sodium Chloride 10 ml 10/19/19 10:00 10/23/19 09:03 Sodium Chloride Flush Syringe 10 Ml IV 10 ml BID ABBEY Administration Sodium Chloride 10 ml 10/19/19 00:08 Sodium Chloride Flush Syringe 10 Ml IV PRN PRN LINE FLUSH HEART Score - HEART Score Troponin: Troponin T 0.017 ng/mL (0.00-0.029) 10/19/19 02:12
[2019-10-23 10:38] LABS: Band Neutrophils # (Manual) 2.7 K/mm3; Basophils % (Manual) 0 % (0.0-1.8); Eosinophils % (Manual) 0 % (0.0-4.3); Total Cells Counted 100
[2019-10-23 10:40] LABS: Burr Cells 1+; Platelet Estimate Consistent w Auto
[2019-10-23] MEDS ORDERED: PHYTONADIONE(ADULT ONLY) 10 MG in SODIUM CHLORIDE 0.9% 50 ML IV ONE (10:45)
[2019-10-23] MEDS ORDERED: ALBUMIN HUMAN 25% (25 GM/100 ML) INJ IV SCH (12:00)
[2019-10-23] MEDS: MIDODRINE 5 MG TAB PO SCH ×2 (13:04→17:25)
[2019-10-23] MEDS: OCTREOTIDE 100 MCG/1 ML INJ SUB-Q SCH ×2 (13:05→21:18)
[2019-10-23] MEDS: SODIUM BICARBONATE 100 MEQ in DEXTROSE 5% IN WATER 1,000 ML IV SCH (13:06)
--- NOTE | 2019-10-23 14:29 | Progress Note ---
Assessment and Plan Assessment and plan: 68-year-old white male with known history of CHF, pacemaker/defibrillator placement in the past presenting to the emergency room today for progressive worsening of shortness of breath which has been ongoing for about 4 days. Shortness of breath is said to be worse on exertion. He denies any chest pain, no fever or chills, no cough, no nausea vomiting but he has had some episodes of diarrhea. He denies any bright red blood per rectum, no hematuria or dysuria. He denies any sick contacts and no recent travel. Upon arrival in the emergency room evaluation revealed elevated INR, acute kidney injury and other significant abnormalities on the chemistry. He was screened for COVID-19 and was negative 10/20: STILL REQUIRING PRESSORS. We will continue in ICU care. Continue to monitor electrolytes. Check liver enzymes GI and ID inputs noted. 10/21: Restarted on pressors after briefly holding. Worsening anemia we will stop heparin drip and give the patient 2 L 2 units of packed red blood cell. Await GI reevaluation. Begin rewarming as patient hypothermic this morning. Cultures still unrevealing. Worsening leukocytosis noted will continue with ICU care 10/22: Abdominal ultrasound concerning for pancreatic mass possible malignancy with metastasis. Unfortunately we do not have oncologist on staff the one that does sometimes states that he is unable to come to the hospital to evaluate this patient. Nevertheless there is also concern if this pancreatic mass is an abscess patient still on pressors precluding obtaining MRI nevertheless we will order this in case we are able to move the patient to get MRI with an MRI compatible pump. I have also placed in some orders for tumor markers. And discussed with GI. Vitamin K being given for elevated INR Septic shock ID FOLLOWING, continue empiric antibiotic coverage follow cultures. Pancreatic mass rule out malignancy: As noted above Elevated INR: Vitamin K given for reversal Acute respiratory failure Current Visit: Yes Status: Acute Qualifiers: Dyspnea type: shortness of breath Qualified Code(s): R06.02 - Shortness of breath; R06.00 - Dyspnea, unspecified; R06.01 - Orthopnea Plan to address problem: Etiology is unclear. Possibly secondary to bronchitis however will rule out for COVID-19. Patient has been placed on airborne and droplet precautions. Will place on empiric IV antibiotics. We will also place a consult to infectious disease for further evaluation and recommendation. Shock liver syndrome Likely secondary to underlying cardiac failure. Continue supportive care acute renal failure secondary to hepatorenal syndrome, secondary to shock Current Visit: Yes Status: Acute Qualifiers: Acute renal failure type: unspecified Qualified Code(s): N17.9 - Acute kidney failure, unspecified Plan to address problem: Probably secondary to dehydration. Patient has been placed on IV fluid. Will monitor BUN and creatinine. We also place a consult to nephrology for evaluation and further recommendation. Acute blood loss anemia We will transfuse 2 unit packed red blood cells today elevated INR/secondary coagulopathy Current Visit: Yes Status: Acute Plan to address problem: Patient had vitamin K in the emergency room. Will monitor PT/INR. Will hold off on anticoagulation. Hypotension Current Visit: Yes Status: Acute Qualifiers: Hypotension type: unspecified hypotension type Qualified Code(s): I95.9 - Hypotension, unspecified Plan to address problem: Patient placed on IV fluid. We will continue to monitor vital signs closely. Acute on chronic systolic congestive heart failure Cardiology following. Cardiomyopathy question ischemic. Cardiology following EF noted to be 25 to 30%. Pacemaker noted right atrium. DVT prophylaxis Current Visit: Yes Status: Acute Plan to address problem: We will hold anticoagulation as INR is currently supratherapeutic. Full code status Current Visit: Yes Status: Acute DISCUSSED WITH CAR REPAIRER HELPER cct 35 mins History Interval history: Patient seen and examined. Remains on pressors. Off active warming. Hospitalist Physical - Physical exam Narrative exam: VITAL SIGNS: Reviewed. GENERAL: The patient appears normally developed, Vital signs as documented. HEAD: No signs of head trauma. EYES: Pupils are equal. Extraocular motions intact. EARS: Hearing grossly intact. MOUTH: Oropharynx is normal. NECK: No adenopathy, no JVD. CHEST: Chest with clear breath sounds bilaterally. No wheezes, rales, or rhonchi. CARDIAC: Tachycardia. S1 and S2, without murmurs, gallops, or rubs. VASCULAR: Trace bilateral edema. Peripheral pulses normal and equal in all extremities. ABDOMEN: Soft, non tender and non distended. No rebound or guarding, and no masses palpated. Bowel Sounds normal. MUSCULOSKELETAL: Good range of motion of all major joints. Extremities without clubbing, cyanosis. Trace bilateral pitting edema extremities are cold to the touch bit more warmed up today.. Especially the foot Bilaterally or edema. NEUROLOGIC EXAM: Alert and oriented x 3 No focal sensory or strength deficits. Speech normal. Follows commands. PSYCHIATRIC: Mood normal. SKIN: detail exam as documented in skin assessment - Constitutional Vitals: Temp Pulse Resp BP Pulse Ox 97.5 F L 90 22 99/68 99 10/23/19 12:00 10/23/19 14:15 10/23/19 14:15 10/23/19 14:15 10/23/19 14:15 General appearance: Present: no acute distress HEART Score - HEART Score Troponin: Troponin T 0.017 ng/mL (0.00-0.029) 10/19/19 02:12 Results - Labs CBC & Chem 7: 10/23/19 05:30 10/23/19 08:28 Labs: Laboratory Last Values WBC 34.3 K/mm3 (4.5-11.0) H 10/23/19 05:30 RBC 2.50 M/mm3 (3.65-5.03) L 10/23/19 05:30 Hgb 7.7 gm/dl (11.8-15.2) L 10/23/19 05:30 Hct 24.4 % (35.5-45.6) L 10/23/19 05:30 MCV 98 fl (84-94) H 10/23/19 05:30 MCH 31 pg (28-32) 10/23/19 05:30 MCHC 32 % (32-34) 10/23/19 05:30 RDW 19.2 % (13.2-15.2) H 10/23/19 05:30 Plt Count 121 K/mm3 (140-440) L 10/23/19 05:30 Add Manual Diff Complete 10/23/19 05:30 Total Counted 100 10/23/19 05:30 Seg Neutrophils % Practical Nursing Faculty 10/20/19 04:15 Seg Neuts % (Manual) 74.0 % (40.0-70.0) H 10/23/19 05:30 Band Neutrophils % 8.0 % 10/23/19 05:30 Lymphocytes % (Manual) 5.0 % (13.4-35.0) L 10/23/19 05:30 Reactive Lymphs % (Man) 0 % 10/23/19 05:30 Monocytes % (Manual) 2.0 % (0.0-7.3) 10/23/19 05:30 Eosinophils % (Manual) 0 % (0.0-4.3) 10/23/19 05:30 Basophils % (Manual) 0 % (0.0-1.8) 10/23/19 05:30 Metamyelocytes % 8.0 % 10/23/19 05:30 Myelocytes % 3.0 % 10/23/19 05:30 Promyelocytes % 0 % 10/23/19 05:30 Blast Cells % 0 % 10/23/19 05:30 Nucleated RBC % 12.0 % (0.0-0.9) H 10/23/19 05:30 Seg Neutrophils # Man 25.4 K/mm3 (1.8-7.7) H 10/23/19 05:30 Band Neutrophils # 2.7 K/mm3 10/23/19 05:30 Lymphocytes # (Manual) 1.7 K/mm3 (1.2-5.4) 10/23/19 05:30 Abs React Lymphs (Man) 0.0 K/mm3 10/23/19 05:30 Monocytes # (Manual) 0.7 K/mm3 (0.0-0.8) 10/23/19 05:30 Eosinophils # (Manual) 0.0 K/mm3 (0.0-0.4) 10/23/19 05:30 Basophils # (Manual) 0.0 K/mm3 (0.0-0.1) 10/23/19 05:30 Metamyelocytes # 2.7 K/mm3 10/23/19 05:30 Myelocytes # 1.0 K/mm3 10/23/19 05:30 Promyelocytes # 0.0 K/mm3 10/23/19 05:30 Blast Cells # 0.0 K/mm3 10/23/19 05:30 WBC Morphology Not Reportable 10/23/19 05:30 WBC Morphology TNR 10/23/19 05:30 Hypersegmented Neuts Not Reportable 10/23/19 05:30 Hyposegmented Neuts Not Reportable 10/23/19 05:30 Hypogranular Neuts Not Reportable 10/23/19 05:30 Smudge Cells Not Reportable 10/23/19 05:30 Toxic Granulation Not Reportable 10/23/19 05:30 Toxic Vacuolation Not Reportable 10/23/19 05:30 Dohle Bodies Not Reportable 10/23/19 05:30 Pelger-Huet Anomaly Not Reportable 10/23/19 05:30 Nanda Rods Not Reportable 10/23/19 05:30 Platelet Estimate Consistent w auto 10/23/19 05:30 Clumped Platelets Not Reportable 10/23/19 05:30 Plt Clumps, EDTA Not Reportable 10/23/19 05:30 Large Platelets Not Reportable 10/23/19 05:30 Giant Platelets Not Reportable 10/23/19 05:30 Platelet Satelliting Not Reportable 10/23/19 05:30 Plt Morphology Comment Not Reportable 10/23/19 05:30 RBC Morphology Not Reportable 10/23/19 05:30 Dimorphic RBCs Not Reportable 10/23/19 05:30 Polychromasia Not Reportable 10/23/19 05:30 Hypochromasia Not Reportable 10/23/19 05:30 Poikilocytosis Not Reportable 10/23/19 05:30 Anisocytosis Not Reportable 10/23/19 05:30 Microcytosis Not Reportable 10/23/19 05:30 Macrocytosis Not Reportable 10/23/19 05:30 Spherocytes Not Reportable 10/23/19 05:30 Pappenheimer Bodies Not Reportable 10/23/19 05:30 Sickle Cells Not Reportable 10/23/19 05:30 Target Cells Not Reportable 10/23/19 05:30 Tear Drop Cells Not Reportable 10/23/19 05:30 Ovalocytes Not Reportable 10/23/19 05:30 Helmet Cells Not Reportable 10/23/19 05:30 [place] Bodies Not Reportable 10/23/19 05:30 [place] Rings Not Reportable 10/23/19 05:30 Ramila Cells 1+ 10/23/19 05:30 Bite Cells Not Reportable 10/23/19 05:30 Crenated Cell Not Reportable 10/23/19 05:30 Elliptocytes Few 10/23/19 05:30 Acanthocytes (Spur) Not Reportable 10/23/19 05:30 Rouleaux Not Reportable 10/23/19 05:30 Hemoglobin C Crystals Not Reportable 10/23/19 05:30 Schistocytes Not Reportable 10/23/19 05:30 Malaria parasites Not Reportable 10/23/19 05:30 Arnol Bodies Not Reportable 10/23/19 05:30 Hem Pathologist Commnt No 10/23/19 05:30 PT 31.0 Sec. (12.2-14.9) H 10/23/19 05:30 INR 3.00 (0.87-1.13) H 10/23/19 05:30 APTT 25.7 Sec. (24.2-36.6) 10/20/19 10:40 D-Dimer 2524.09 ng/mlDDU (0-234) H 10/18/19 23:16 Heparin Anti-Xa Level 0.33 U.I./ml (0.3-0.7) 10/22/19 09:00 ABG pH 7.418 pH Units (7.350-7.450) 10/22/19 Unknown ABG pCO2 24.4 mm Hg 10/22/19 Unknown ABG pO2 86.5 mm Hg (80.0-90.0) 10/22/19 Unknown ABG HCO3 15.4 mmol/L (20.0-26.0) L 10/22/19 Unknown ABG O2 Saturation 97.1 % (95.0-99.0) 10/22/19 Unknown ABG O2 Content 9.3 (0.0-44) 10/22/19 Unknown ABG Base Excess -8.2 mmol/L (-2.0-3.0) L 10/22/19 Unknown ABG Hemoglobin 6.8 gm/dl (14.0-18.0) L 10/22/19 Unknown ABG Carboxyhemoglobin 1.6 % (0.0-5.0) 10/22/19 Unknown ABG Methemoglobin 0.5 % (0.0-1.5) 10/22/19 Unknown Oxyhemoglobin 95.0 % (95.0-99.0) 10/22/19 Unknown FiO2 21 % 10/22/19 Unknown Sodium 145 mmol/L (137-145) 10/23/19 08:28 Potassium 5.0 mmol/L (3.6-5.0) 10/23/19 08:28 Chloride 117.8 mmol/L (98-107) H 10/23/19 08:28 Carbon Dioxide 14 mmol/L (22-30) L 10/23/19 08:28 Anion Gap 18 mmol/L 10/23/19 08:28 BUN 130 mg/dL (9-20) H 10/23/19 08:28 Creatinine 2.3 mg/dL (0.8-1.5) H 10/23/19 08:28 Estimated GFR 28 ml/min 10/23/19 08:28 BUN/Creatinine Ratio 57 % 10/23/19 08:28 Glucose 168 mg/dL (75-100) H 10/23/19 08:28 Lactic Acid 2.80 mmol/L (0.7-2.0) H* 10/23/19 08:28 Calcium 8.0 mg/dL (8.4-10.2) L 10/23/19 08:28 Phosphorus 6.00 mg/dL (2.5-4.5) H 10/20/19 04:15 Iron 134 ug/dL (49-181) 10/21/19 04:24 TIBC 150 mcg/dL (250-450) L 10/21/19 04:24 Ferritin > 2000.0 ng/mL (13.0-400.0) H 10/21/19 04:24 Total Bilirubin 2.80 mg/dL (0.1-1.2) H 10/23/19 05:30 Direct Bilirubin 0.7 mg/dL (0-0.2) H 10/21/19 04:24 Indirect Bilirubin 0.4 mg/dL 10/21/19 04:24 AST 1098 units/L (5-40) H 10/23/19 05:30 ALT 371 units/L (7-56) H 10/23/19 05:30 Alkaline Phosphatase 225 units/L (35-129) H 10/23/19 05:30 Lactate Dehydrogenase 1150 units/L (91-180) H 10/18/19 21:46 Troponin T 0.017 ng/mL (0.00-0.029) 10/19/19 02:12 C-Reactive Protein 29.00 mg/dL (0.00-1.30) H 10/18/19 21:46 NT-Pro-B Natriuret Pep 7312 pg/mL (0-900) H 10/18/19 20:37 Total Protein 4.6 g/dL (6.3-8.2) L 10/23/19 05:30 Albumin 2.3 g/dL (3.9-5) L 10/23/19 05:30 Albumin/Globulin Ratio 1.0 % 10/23/19 05:30 Procalcitonin 3.62 ng/mL (<0.15) 10/18/19 21:46 TSH 1.420 mlU/mL (0.270-4.200) 10/21/19 04:24 Urine Color Yellow (Yellow) 10/19/19 12:25 Urine Turbidity Clear (Clear) 10/19/19 12:25 Urine pH 5.0 (5.0-7.0) 10/19/19 12:25 Ur Specific [place] 1.016 (1.003-1.030) 10/19/19 12:25 Urine Protein <15 mg/dl mg/dL (Negative) 10/19/19 12:25 Urine Glucose (UA) Neg mg/dL (Negative) 10/19/19 12:25 Urine Ketones Neg mg/dL (Negative) 10/19/19 12:25 Urine Blood Sm (Negative) 10/19/19 12:25 Urine Nitrite Neg (Negative) 10/19/19 12:25 Urine Bilirubin Neg (Negative) 10/19/19 12:25 Urine Urobilinogen 2.0 mg/dL (<2.0) 10/19/19 12:25 Ur Leukocyte Esterase Neg (Negative) 10/19/19 12:25 Urine WBC (Auto) 2.0 /HPF (0.0-6.0) 10/19/19 12:25 Urine RBC (Auto) 1.0 /HPF (0.0-6.0) 10/19/19 12:25 U Epithel Cells (Auto) 1.0 /HPF (0-13.0) 10/19/19 12:25 Urine Mucus Few /HPF 10/19/19 12:25 Urine Eosinophils None seen (None Seen) 10/19/19 12:25 Urine Creatinine 101.1 mg/dL (0.1-20.0) H 10/19/19 12:25 Protein/Creatinin Ratio 0.21 10/19/19 12:25 Urine Sodium 12 mmol/L 10/19/19 12:25 Urine Total Protein 21 mg/dL (5-11.8) H 10/19/19 12:25 Random Vancomycin 16.6 ug/mL (0-40.0) 10/21/19 04:11 Coronavirus (PCR) Negative (Negative) 10/19/19 08:23 Hepatitis A IgM Ab Non-reactive (NonReactive) 10/19/19 13:58 Hep Bs Antigen Non-reactive (Negative) 10/19/19 13:58 Hep B Core IgM Ab Non-reactive (NonReactive) 10/19/19 13:58 Hepatitis C Antibody Non-reactive (NonReactive) 10/19/19 13:58 Blood Type O POSITIVE 10/22/19 09:26 Antibody Screen Negative 10/22/19 09:26 Crossmatch See Detail 10/22/19 09:26 Microbiology: Microbiology 10/19/19 14:19 Peripheral/Venous Blood Culture - Preliminary NO GROWTH AFTER 72 HOURS 10/19/19 14:19 Peripheral/Venous Blood Culture - Preliminary NO GROWTH AFTER 72 HOURS - Diagnostic Impressions Diagnostic Impressions: Echocardiogram 10/19/19 09:58 Transthoracic Echocardiogram Indication: Bacteremia BP: 92/54 HR: 111 Conclusions *The left ventricular chamber size is mildly dilated. *Global left ventricular systolic function is severely decreased.LV diastolic function indeterminate *The estimated ejection fraction is 25-30%. *The left atrial chamber size is normal. *The right ventricular global systolic function is mildly reduced. *A pacemaker wire is visualized in the right atrium. *The right ventricular systolic pressure is calculated at 39 mmHg. Findings Left Ventricle: The left ventricular chamber size is mildly dilated. Global left ventricular systolic function is severely decreased.LV diastolic function indeterminate The estimated ejection fraction is 25-30%. Diffuse hypokinesis particularly of posterior wall and also abnormal motion secondary to conduction defect noted. Left Atrium: The left atrial chamber size is normal. Right Ventricle: The right ventricular global systolic function is mildly reduced. Right Atrium: The right atrial cavity size is normal. A pacemaker wire is visualized in the right atrium. Aortic Valve: The aortic valve leaflets are mildly thickened. There is no evidence of aortic regurgitation. Mitral Valve: The mitral valve leaflets are mildly thickened. There is mild mitral regurgitation. Tricuspid Valve: The tricuspid valve leaflets are mildly thickened. There is mild tricuspid regurgitation. The right ventricular systolic pressure is calculated at 39 mmHg. Pulmonic Valve: The pulmonic valve appears normal. There is trace pulmonic regurgitation. Pericardium: There is no pericardial effusion. Aorta: There is no dilatation of the ascending aorta. There is no dilatation of the aortic root. Venous: The inferior vena cava is not visualized. Measurements Chambers 2D Name Value Normal Range IVSd (2D) 1.04 cm (0.6 - 1.1) LVPWd (2D) 0.9 cm (0.6 - 1.1) LVIDd (2D) 6.25 cm (3.7 - 5.6) LVIDs (2D) 5.82 cm (2 - 3.8) LV FS (2D) 6.91 % - EF Teichholz (2D) 15.08 % - Ao root diameter (2D) 3.92 cm (2 - 3.7) Volumes/Mass Name Value Normal Range LA ESV SP 4CH (A/L) 88.58 ml - LA ESV SP 2CH (A/L) 67.41 ml - LA ESV BP (A/L) 80.54 ml - LA ESV BP (A/L) index 34.27 ml/m2 - LA ESV SP 4CH (MOD) 79.44 ml - LA ESV SP 2CH (MOD) 64.63 ml - LA ESV BP (MOD) 74.57 ml - LA ESV BP (MOD) index 31.73 ml/m2 - Diastolic/Systolic Function Name Value Normal Range MV E-wave Vmax 0.65 m/sec - MV deceleration time 154.22 msec - Aortic Valve Name Value Normal Range AV Vmax 1.56 m/sec - AV VTI 24.52 cm - AV peak gradient 9.84 mmHg - AV mean gradient 5.68 mmHg - LVOT diameter 2.42 cm - LVOT Vmax 0.9 m/sec - LVOT VTI 12.91 cm - LVOT peak gradient 3.21 mmHg - LVOT mean gradient 1.81 mmHg - SV LVOT 59.15 ml - ROBERTO (continuity Vmax) 2.63 cm2 - ROBERTO (continuity VTI) 2.41 cm2 - Tricuspid Valve Name Value Normal Range TR Vmax 3 m/sec - TR peak gradient 36 mmHg - RAP 3 mmHg - RVSP 39 mmHg - Pulmonic Valve/Qp:Qs Name Value Normal Range PV Vmax 1 m/sec - PV peak gradient 3.97 mmHg - PV acceleration time 76.12 msec - Rowe/IV: Voiding Method Urinal IV Catheter Type [Right Triple Lumen Cath Internal Jugular] IV Catheter Type [Left Wrist] CVL Active Medications - Current Medications Current Medications: Generic Name Dose Route Start Last Admin Trade Name Freq PRN Reason Stop Dose Admin Acetaminophen 650 mg 10/19/19 00:08 Tylenol PO Q4H PRN Pain MILD(1-3)/Fever >100.5/GIBBS Albumin Human 25 gm 10/23/19 12:00 10/23/19 13:04 Alburx 25% (Albumin) IV 10/25/19 04:01 25 gm Q8H ABBEY Administration Dobutamine HCl/Dextrose 500 mg in 250 mls @ 17.085 mls/hr 10/22/19 15:00 10/23/19 05:34 Dobutrex Drip 500mg/D5w 250ml IV 5 mcg/kg/min DIRECT ABBEY 17.085 mls/hr Administration Protocol 5 MCG/KG/MIN Norepinephrine 8 mg/ Sodium 250 mls @ 3.75 mls/hr 10/23/19 00:00 10/23/19 12:55 Chloride IV 10 mcg/min TITR ABBEY 18.75 mls/hr Titration Protocol 2 MCG/MIN Fluconazole 200 mls @ 100 mls/hr 10/24/19 10:00 Diflucan IV Q24HR ABBEY Protocol Cefepime HCl 2 gm in 100 mls @ 200 mls/hr 10/24/19 10:00 Cefepime/Ns 2 Gm/100 Ml IV Q24HR ABBEY Protocol Sodium Bicarbonate 100 meq/ 1,100 mls @ 100 mls/hr 10/23/19 12:00 10/23/19 13:06 Dextrose IV 100 mls/hr DIRECT ABBEY Administration Magnesium Hydroxide 30 ml 10/19/19 00:08 Milk Of Magnesia PO Q4H PRN Constipation Midodrine 10 mg 10/23/19 12:00 10/23/19 13:04 Proamatine PO 10 mg TID@0800,1200,1600 ABBEY Administration Octreotide Acetate 100 mcg 10/23/19 14:00 10/23/19 13:05 Sandostatin SUB-Q 100 mcg Q8HR ABBEY Administration Ondansetron HCl 4 mg 10/19/19 00:08 10/21/19 22:31 Zofran IV 4 mg Q8H PRN Administration Nausea And Vomiting Sodium Bicarbonate 1,300 mg 10/23/19 14:00 10/23/19 13:04 Sodium Bicarbonate PO 1,300 mg TID ABBEY Administration Sodium Chloride 10 ml 10/19/19 10:00 10/23/19 09:03 Sodium Chloride Flush Syringe 10 Ml IV 10 ml BID ABBEY Administration Sodium Chloride 10 ml 10/19/19 00:08 Sodium Chloride Flush Syringe 10 Ml IV PRN PRN LINE FLUSH Nutrition/Malnutrition Assess - Dietary Evaluation Nutrition/Malnutrition Findings: Nutrition Notes Start: 10/19/19 09:23 Freq: Status: Active Protocol: Document 10/21/19 12:33 LM (Rec: 10/21/19 12:34 LM [id number]) Nutrition Notes Initial or Follow up Brief Note Current Diagnosis Heart Failure Other Pertinent Diagnosis Dyspnea, ARF, r/o COVID-19 Current Diet Cardiac Subjective/Other Information Unable to reach pt 2x. Nutrition Intervention Follow-Up By: 10/25/19 Additional Comments F/U: diet education needs
--- NOTE | 2019-10-23 14:55 | Progress Note ---
Assessment and Plan Shock (? Cardiogenic vs Septic) Shock liver syndrome Acute renal failure type Anemia appears chronic Acute on chronic systolic congestive heart failure (Suspect cardiogenic shock component although not clinically volume overloaded) - ABG reviewed - continue BIPAP for possible CRISTINE but also for its salutary effects on cardiovascular hemodynamics - continue Dobutamine (fixed dose) - wean vasopressors for MAP >/= 65 mmHg (Levophed) - stress dose steroids - continue other care as below otherwise - prn supplemental oxygen for target O2 sat's > 90% acutely - continue accuchecks resumed with glycemic control per SSI (While critically ill target blood glucose of 140-180 mg/dL; avoid hypoglycemia) - optimize cardiac status per cardiology team - prn bronchodilators with pulmonary hygiene per RT - avoid benzodiazepine's, reduce the possibility of delirium - complete antiinfective's per ID rec's; trend fevers, WBC - lactate, procalcitonin prn to aid clinical decision making - prn analgesia per pain score - Maintenance of sleep-wake cycle, avoid delirium - continue enteral nutritional support at goal rate as tolerated - G.I. & VTE prophylaxis - PT/OT/ROM exercises - continue mobility protocols for pressure ulcer prophylaxis - Monitor hemodynamics closely - continue other care per attending / other consultants - discharge planning ongoing concurrently .... Re-evaluate in am & prn CONDITION: CRITICAL PROGNOSIS: GUARDED CODE STATUS: FULL CODE The high probability of a clinically significant, sudden or life-threatening deterioration of the [respiratory & cardiovascular] system(s) required my full and direct attention, intervention and personal management. The aggregate critical care time was [35] minutes without overlap. Time includes spent on; [x] Data Review and interpretation [x] Patient assessment and monitoring of vital signs [x] Documentation [x] Medication orders and management Subjective Date of service: 10/23/19 Principal diagnosis: Septic shock; Shock liver; ASHLIE; Anemia; Acute on chronic HFrEF Interval history: Patient is seen today for: Septic shock; Shock liver; Acute renal failure; Anemia; Acute on chronic HFrEF Seen and examined at bedside; 24hour events reviewed; nursing and respiratory care staff consulted; no adverse overnight events reported to me; resting peacefully in bed; remains septic; remains on dobutamine also Objective Vital Signs - 12hr 10/23/19 10/23/19 10/23/19 03:00 03:15 03:30 Temperature Pulse Rate 98 H 78 90 Respiratory 21 22 25 H Rate Blood Pressure 94/42 94/42 123/42 O2 Sat by Pulse 99 99 97 Oximetry 10/23/19 10/23/19 10/23/19 03:45 04:00 04:15 Temperature 97.8 F Pulse Rate 98 H 97 H 89 Respiratory 23 25 H 25 H Rate Blood Pressure 109/34 108/45 103/52 O2 Sat by Pulse 100 98 Oximetry 10/23/19 10/23/19 10/23/19 04:30 04:45 05:00 Temperature Pulse Rate 93 H 89 Respiratory 24 23 Rate Blood Pressure 97/43 115/55 110/41 O2 Sat by Pulse 97 99 Oximetry 10/23/19 10/23/19 10/23/19 05:15 05:31 05:45 Temperature Pulse Rate 110 H 105 H Respiratory 23 21 Rate Blood Pressure 110/41 111/38 115/44 O2 Sat by Pulse 98 98 98 Oximetry 10/23/19 10/23/19 10/23/19 06:01 06:15 06:30 Temperature Pulse Rate 87 97 H 106 H Respiratory 20 21 21 Rate Blood Pressure 103/62 112/51 115/58 O2 Sat by Pulse 96 99 98 Oximetry 10/23/19 10/23/19 10/23/19 06:45 07:00 07:15 Temperature Pulse Rate 82 96 H 85 Respiratory 20 21 23 Rate Blood Pressure 111/44 120/48 111/42 O2 Sat by Pulse 98 98 98 Oximetry 10/23/19 10/23/19 10/23/19 07:30 07:45 08:00 Temperature 97.5 F L Pulse Rate 100 H 86 90 Respiratory 23 24 24 Rate Blood Pressure 121/44 111/44 113/53 O2 Sat by Pulse 97 98 97 Oximetry 10/23/19 10/23/19 10/23/19 08:15 08:31 08:45 Temperature Pulse Rate 89 110 H 102 H Respiratory 22 23 24 Rate Blood Pressure 113/53 116/51 116/51 O2 Sat by Pulse 98 97 99 Oximetry 10/23/19 10/23/19 10/23/19 09:00 09:15 09:30 Temperature Pulse Rate 79 105 H Respiratory 24 24 Rate Blood Pressure 113/47 111/54 124/52 O2 Sat by Pulse 97 97 97 Oximetry 10/23/19 10/23/19 10/23/19 09:45 10:00 10:15 Temperature Pulse Rate 95 H 95 H 111 H Respiratory 27 H 25 H 26 H Rate Blood Pressure 111/54 112/45 113/49 O2 Sat by Pulse 99 97 98 Oximetry 10/23/19 10/23/19 10/23/19 10:31 10:45 11:00 Temperature Pulse Rate 104 H 96 H 93 H Respiratory 21 24 24 Rate Blood Pressure 119/37 113/50 107/41 O2 Sat by Pulse 97 98 97 Oximetry 10/23/19 10/23/19 10/23/19 11:15 11:30 11:45 Temperature Pulse Rate 98 H 103 H 100 H Respiratory 28 H 24 24 Rate Blood Pressure 107/41 107/38 122/47 O2 Sat by Pulse 99 97 98 Oximetry 10/23/19 10/23/19 10/23/19 12:00 12:01 12:15 Temperature 97.5 F L Pulse Rate 103 H 100 H 93 H Respiratory 24 20 Rate Blood Pressure 112/52 100/50 O2 Sat by Pulse 98 97 99 Oximetry 10/23/19 10/23/19 10/23/19 12:30 12:45 13:00 Temperature Pulse Rate 95 H 96 H 99 H Respiratory 23 24 25 H Rate Blood Pressure 104/48 104/48 108/44 O2 Sat by Pulse 100 Oximetry 10/23/19 10/23/19 10/23/19 13:15 13:30 13:45 Temperature Pulse Rate 102 H 95 H 94 H Respiratory 24 23 23 Rate Blood Pressure 118/53 121/55 121/55 O2 Sat by Pulse 97 97 97 Oximetry 10/23/19 10/23/19 14:00 14:15 Temperature Pulse Rate 84 90 Respiratory 22 22 Rate Blood Pressure 92/47 99/68 O2 Sat by Pulse 97 99 Oximetry Constitutional: appears uncomfortable, other (elderly looking obese CM, normocephalic with mildly increased respiratory effort at rest) Eyes: non-icteric ENT: oropharynx dry, other (mallampati 3) Neck: supple, no lymphadenopathy, other (RIJ CVL) Effort: mildly labored Ascultation: Bilateral: diminished breath sounds, rales (scant) Percussion: Bilateral: not dull Cardiovascular: other (paced rhythm) Gastrointestinal: normoactive bowel sounds, soft, non-tender, non-distended (protuberant) Integumentary: rash (stasis dermatitis type) Extremities: no cyanosis, pulses normal, no ischemia or petechiae, edema (trace) Neurologic: non-focal exam (grossly), pupils equal and round, CN II-XII normal, other (weak; fatigued at rest) Psychiatric: other (affect flat) CBC and BMP: 10/27/19 04:32 10/27/19 04:32 ABG, PT/INR, D-dimer: ABG ABG pH 7.418 pH Units (7.350-7.450) 10/22/19 Unknown ABG pCO2 24.4 mm Hg 10/22/19 Unknown ABG pO2 86.5 mm Hg (80.0-90.0) 10/22/19 Unknown ABG O2 Saturation 97.1 % (95.0-99.0) 10/22/19 Unknown PT/INR, D-dimer PT 31.0 Sec. (12.2-14.9) H 10/23/19 05:30 INR 3.00 (0.87-1.13) H 10/23/19 05:30 D-Dimer 2524.09 ng/mlDDU (0-234) H 10/18/19 23:16 Abnormal lab findings: Abnormal Labs 10/18/19 10/18/19 10/18/19 20:37 20:37 20:37 WBC 17.8 H RBC 2.94 L Hgb 9.5 L Hct 30.0 L MCV 102 H MCH MCHC RDW Plt Count Seg Neuts % (Manual) 85.0 H Lymphocytes % (Manual) 6.0 L Monocytes % (Manual) 8.0 H Nucleated RBC % Seg Neutrophils # Man 15.1 H Lymphocytes # (Manual) 1.1 L Monocytes # (Manual) 1.4 H PT 109.8 H INR 16.02 H* APTT 69.1 H* D-Dimer 2301.69 H Heparin Anti-Xa Level ABG HCO3 ABG Base Excess ABG Hemoglobin Sodium Potassium Chloride 60.0 L Carbon Dioxide 15 L BUN 192 H Creatinine 3.2 H Glucose 154 H Lactic Acid Calcium Phosphorus TIBC Ferritin Total Bilirubin Direct Bilirubin AST 120 H ALT 63 H Alkaline Phosphatase 194 H Lactate Dehydrogenase C-Reactive Protein NT-Pro-B Natriuret Pep 7312 H Total Protein 5.4 L Albumin 2.5 L Urine Creatinine Urine Total Protein Crossmatch 10/18/19 10/18/19 10/18/19 21:46 21:46 23:16 WBC RBC Hgb Hct MCV MCH MCHC RDW Plt Count Seg Neuts % (Manual) Lymphocytes % (Manual) Monocytes % (Manual) Nucleated RBC % Seg Neutrophils # Man Lymphocytes # (Manual) Monocytes # (Manual) PT < 10.0 L INR > 17.67 H* APTT 92.7 H* D-Dimer 2524.09 H Heparin Anti-Xa Level ABG HCO3 ABG Base Excess ABG Hemoglobin Sodium Potassium Chloride Carbon Dioxide BUN Creatinine Glucose Lactic Acid Calcium Phosphorus TIBC Ferritin > 2000.0 H Total Bilirubin Direct Bilirubin AST ALT Alkaline Phosphatase Lactate Dehydrogenase 1150 H C-Reactive Protein 29.00 H NT-Pro-B Natriuret Pep Total Protein Albumin Urine Creatinine Urine Total Protein Crossmatch 10/19/19 10/19/19 10/19/19 12:25 13:58 13:58 WBC RBC Hgb Hct MCV MCH MCHC RDW Plt Count Seg Neuts % (Manual) Lymphocytes % (Manual) Monocytes % (Manual) Nucleated RBC % Seg Neutrophils # Man Lymphocytes # (Manual) Monocytes # (Manual) PT 31.7 H INR 3.19 H APTT D-Dimer Heparin Anti-Xa Level ABG HCO3 ABG Base Excess ABG Hemoglobin Sodium Potassium Chloride Carbon Dioxide 14 L BUN 173 H Creatinine 2.4 H Glucose 129 H Lactic Acid Calcium 7.5 L Phosphorus TIBC Ferritin Total Bilirubin Direct Bilirubin AST 754 H ALT 294 H Alkaline Phosphatase 141 H Lactate Dehydrogenase C-Reactive Protein NT-Pro-B Natriuret Pep Total Protein 4.9 L Albumin 1.8 L Urine Creatinine 101.1 H Urine Total Protein 21 H Crossmatch 10/20/19 10/20/19 10/20/19 04:15 04:15 04:15 WBC 16.3 H RBC 2.44 L Hgb 8.0 L Hct 24.4 L MCV 100 H MCH 33 H MCHC RDW Plt Count Seg Neuts % (Manual) 89.0 H Lymphocytes % (Manual) 5.0 L Monocytes % (Manual) Nucleated RBC % Seg Neutrophils # Man 14.5 H Lymphocytes # (Manual) 0.8 L Monocytes # (Manual) PT 20.7 H INR 1.83 H APTT D-Dimer Heparin Anti-Xa Level ABG HCO3 ABG Base Excess ABG Hemoglobin Sodium 147 H Potassium Chloride Carbon Dioxide 18 L BUN 169 H Creatinine 2.1 H Glucose 136 H Lactic Acid Calcium Phosphorus 6.00 H TIBC Ferritin Total Bilirubin Direct Bilirubin AST 817 H ALT 374 H Alkaline Phosphatase 165 H Lactate Dehydrogenase C-Reactive Protein NT-Pro-B Natriuret Pep Total Protein 5.7 L Albumin 2.2 L Urine Creatinine Urine Total Protein Crossmatch 10/20/19 10/20/19 10/20/19 10:40 10:40 20:51 WBC RBC Hgb 8.2 L Hct 25.0 L MCV MCH MCHC RDW Plt Count Seg Neuts % (Manual) Lymphocytes % (Manual) Monocytes % (Manual) Nucleated RBC % Seg Neutrophils # Man Lymphocytes # (Manual) Monocytes # (Manual) PT 20.9 H INR 1.80 H APTT D-Dimer Heparin Anti-Xa Level 0.12 L ABG HCO3 ABG Base Excess ABG Hemoglobin Sodium Potassium Chloride Carbon Dioxide BUN Creatinine Glucose Lactic Acid Calcium Phosphorus TIBC Ferritin Total Bilirubin Direct Bilirubin AST ALT Alkaline Phosphatase Lactate Dehydrogenase C-Reactive Protein NT-Pro-B Natriuret Pep Total Protein Albumin Urine Creatinine Urine Total Protein Crossmatch 10/21/19 10/21/19 10/21/19 04:24 04:24 04:24 WBC 19.3 H RBC 2.33 L Hgb 7.4 L Hct 23.7 L MCV 102 H MCH MCHC 31 L RDW Plt Count Seg Neuts % (Manual) 81.0 H Lymphocytes % (Manual) 5.0 L Monocytes % (Manual) Nucleated RBC % Seg Neutrophils # Man 15.6 H Lymphocytes # (Manual) 1.0 L Monocytes # (Manual) PT INR APTT D-Dimer Heparin Anti-Xa Level ABG HCO3 ABG Base Excess ABG Hemoglobin Sodium 149 H Potassium 3.3 L Chloride 113.9 H Carbon Dioxide 20 L BUN 128 H Creatinine 1.6 H Glucose 151 H Lactic Acid Calcium 8.3 L Phosphorus TIBC 150 L Ferritin > 2000.0 H Total Bilirubin Direct Bilirubin AST ALT Alkaline Phosphatase Lactate Dehydrogenase C-Reactive Protein NT-Pro-B Natriuret Pep Total Protein Albumin Urine Creatinine Urine Total Protein Crossmatch 10/21/19 10/21/19 10/21/19 04:24 08:06 18:38 WBC RBC Hgb Hct MCV MCH MCHC RDW Plt Count Seg Neuts % (Manual) Lymphocytes % (Manual) Monocytes % (Manual) Nucleated RBC % Seg Neutrophils # Man Lymphocytes # (Manual) Monocytes # (Manual) PT INR APTT D-Dimer Heparin Anti-Xa Level 0.26 L 0.29 L ABG HCO3 ABG Base Excess ABG Hemoglobin Sodium Potassium Chloride Carbon Dioxide BUN Creatinine Glucose Lactic Acid Calcium Phosphorus TIBC Ferritin Total Bilirubin Direct Bilirubin 0.7 H AST 754 H ALT 421 H Alkaline Phosphatase 165 H Lactate Dehydrogenase C-Reactive Protein NT-Pro-B Natriuret Pep Total Protein 5.2 L Albumin 2.2 L Urine Creatinine Urine Total Protein Crossmatch 10/22/19 10/22/19 10/22/19 05:58 05:58 09:26 WBC 32.2 H RBC 2.09 L Hgb 6.7 L Hct 21.6 L MCV 104 H MCH MCHC 31 L RDW 15.5 H Plt Count Seg Neuts % (Manual) 83.0 H Lymphocytes % (Manual) 9.0 L Monocytes % (Manual) Nucleated RBC % 4.5 H Seg Neutrophils # Man 26.7 H Lymphocytes # (Manual) Monocytes # (Manual) 1.4 H PT INR APTT D-Dimer Heparin Anti-Xa Level ABG HCO3 ABG Base Excess ABG Hemoglobin Sodium Potassium Chloride 112.5 H Carbon Dioxide 15 L BUN 123 H Creatinine 1.6 H Glucose 187 H Lactic Acid Calcium 7.9 L Phosphorus TIBC Ferritin Total Bilirubin Direct Bilirubin AST 1210 H ALT 476 H Alkaline Phosphatase 197 H Lactate Dehydrogenase C-Reactive Protein NT-Pro-B Natriuret Pep Total Protein 4.8 L Albumin 1.7 L Urine Creatinine Urine Total Protein Crossmatch See Detail 10/22/19 10/23/19 10/23/19 Unknown 05:30 05:30 WBC 34.3 H RBC 2.50 L Hgb 7.7 L Hct 24.4 L MCV 98 H MCH MCHC RDW 19.2 H Plt Count 121 L Seg Neuts % (Manual) 74.0 H Lymphocytes % (Manual) 5.0 L Monocytes % (Manual) Nucleated RBC % 12.0 H Seg Neutrophils # Man 25.4 H Lymphocytes # (Manual) Monocytes # (Manual) PT INR APTT D-Dimer Heparin Anti-Xa Level ABG HCO3 15.4 L ABG Base Excess -8.2 L ABG Hemoglobin 6.8 L Sodium 146 H Potassium Chloride 114.8 H Carbon Dioxide 16 L BUN 130 H Creatinine 2.3 H Glucose 167 H Lactic Acid Calcium 7.7 L Phosphorus TIBC Ferritin Total Bilirubin 2.80 H Direct Bilirubin AST 1098 H ALT 371 H Alkaline Phosphatase 225 H Lactate Dehydrogenase C-Reactive Protein NT-Pro-B Natriuret Pep Total Protein 4.6 L Albumin 2.3 L Urine Creatinine Urine Total Protein Crossmatch 10/23/19 10/23/19 10/23/19 05:30 05:30 08:28 WBC RBC Hgb Hct MCV MCH MCHC RDW Plt Count Seg Neuts % (Manual) Lymphocytes % (Manual) Monocytes % (Manual) Nucleated RBC % Seg Neutrophils # Man Lymphocytes # (Manual) Monocytes # (Manual) PT 31.0 H INR 3.00 H APTT D-Dimer Heparin Anti-Xa Level ABG HCO3 ABG Base Excess ABG Hemoglobin Sodium Potassium Chloride 117.8 H Carbon Dioxide 14 L BUN 130 H Creatinine 2.3 H Glucose 168 H Lactic Acid 3.20 H* Calcium 8.0 L Phosphorus TIBC Ferritin Total Bilirubin Direct Bilirubin AST ALT Alkaline Phosphatase Lactate Dehydrogenase C-Reactive Protein NT-Pro-B Natriuret Pep Total Protein Albumin Urine Creatinine Urine Total Protein Crossmatch 10/23/19 08:28 WBC RBC Hgb Hct MCV MCH MCHC RDW Plt Count Seg Neuts % (Manual) Lymphocytes % (Manual) Monocytes % (Manual) Nucleated RBC % Seg Neutrophils # Man Lymphocytes # (Manual) Monocytes # (Manual) PT INR APTT D-Dimer Heparin Anti-Xa Level ABG HCO3 ABG Base Excess ABG Hemoglobin Sodium Potassium Chloride Carbon Dioxide BUN Creatinine Glucose Lactic Acid 2.80 H* Calcium Phosphorus TIBC Ferritin Total Bilirubin Direct Bilirubin AST ALT Alkaline Phosphatase Lactate Dehydrogenase C-Reactive Protein NT-Pro-B Natriuret Pep Total Protein Albumin Urine Creatinine Urine Total Protein Crossmatch Allied health notes reviewed: nursing
--- NOTE | 2019-10-23 14:55 | Progress Note ---
Assessment and Plan Acute Renal Failure secondary to Prerenal Azotemia vs Ischemic ATN from Sepsis and Hypotension, hepartorenal syndrome: Hypernatremia: Metabolic acidosis: -Cr worsening, May have HRS. Urine Na was low as well. Start albumin challenge, Midodrine and octreotide. -If renal function keeps worsening, will need dialysis -Change IVFs to D5W with 100 meq of Sodium bicarb at 100 mls/hr -Inc bicarb tabs to 1300 mg TID -Obtain renal ultrasound -Avoid nephrotoxic agents -Renally dose medications -Strict I/O monitoring -Obtain daily weights Suspect/PUI for COVID-19: - negative -On airborne isolation -ID onboard Hypotension: -Diuretics on hold -On Levophed -On IVF Supratherapeutic INR/CHF/Afib/Vtach: -S/P vitamin K. Coumadin on hold -Has Defbrillator -Cardiology onboard Critical Care time: 36 minutes Subjective Date of service: 10/23/19 Principal diagnosis: sepsis Interval history: Making urine. on Levophed. Objective - Exam Narrative Exam: General appearance: well-developed, well-nourished, appears stated age EENT: ATNC, PERRL, mucous membranes dry Neck: no JVD, no carotid bruit Respiratory: Present: Clear to Ascultation. Absent: Rales, Ronchi Cardiology: irregular Gastrointestinal: normoactive bowel sounds, no tenderness, no distended, obese Integumentary: no rash, warm and dry Neurologic: no focal deficit, no asterixis, alert and oriented x3 Musculoskeletal: other (no edema in BLE) Psychiatric: mood/affect appropriate, cooperative - Vital Signs Vital signs: Vital Signs - 12hr 10/23/19 10/23/19 10/23/19 03:00 03:15 03:30 Temperature Pulse Rate 98 H 78 90 Respiratory 21 22 25 H Rate Blood Pressure 94/42 94/42 123/42 O2 Sat by Pulse 99 99 97 Oximetry 10/23/19 10/23/19 10/23/19 03:45 04:00 04:15 Temperature 97.8 F Pulse Rate 98 H 97 H 89 Respiratory 23 25 H 25 H Rate Blood Pressure 109/34 108/45 103/52 O2 Sat by Pulse 100 98 Oximetry 10/23/19 10/23/19 10/23/19 04:30 04:45 05:00 Temperature Pulse Rate 93 H 89 Respiratory 24 23 Rate Blood Pressure 97/43 115/55 110/41 O2 Sat by Pulse 97 99 Oximetry 10/23/19 10/23/19 10/23/19 05:15 05:31 05:45 Temperature Pulse Rate 110 H 105 H Respiratory 23 21 Rate Blood Pressure 110/41 111/38 115/44 O2 Sat by Pulse 98 98 98 Oximetry 10/23/19 10/23/19 10/23/19 06:01 06:15 06:30 Temperature Pulse Rate 87 97 H 106 H Respiratory 20 21 21 Rate Blood Pressure 103/62 112/51 115/58 O2 Sat by Pulse 96 99 98 Oximetry 10/23/19 10/23/19 10/23/19 06:45 07:00 07:15 Temperature Pulse Rate 82 96 H 85 Respiratory 20 21 23 Rate Blood Pressure 111/44 120/48 111/42 O2 Sat by Pulse 98 98 98 Oximetry 10/23/19 10/23/19 10/23/19 07:30 07:45 08:00 Temperature 97.5 F L Pulse Rate 100 H 86 90 Respiratory 23 24 24 Rate Blood Pressure 121/44 111/44 113/53 O2 Sat by Pulse 97 98 97 Oximetry 10/23/19 10/23/19 10/23/19 08:15 08:31 08:45 Temperature Pulse Rate 89 110 H 102 H Respiratory 22 23 24 Rate Blood Pressure 113/53 116/51 116/51 O2 Sat by Pulse 98 97 99 Oximetry 10/23/19 10/23/19 10/23/19 09:00 09:15 09:30 Temperature Pulse Rate 79 105 H Respiratory 24 24 Rate Blood Pressure 113/47 111/54 124/52 O2 Sat by Pulse 97 97 97 Oximetry 10/23/19 10/23/19 10/23/19 09:45 10:00 10:15 Temperature Pulse Rate 95 H 95 H 111 H Respiratory 27 H 25 H 26 H Rate Blood Pressure 111/54 112/45 113/49 O2 Sat by Pulse 99 97 98 Oximetry 10/23/19 10/23/19 10/23/19 10:31 10:45 11:00 Temperature Pulse Rate 104 H 96 H 93 H Respiratory 21 24 24 Rate Blood Pressure 119/37 113/50 107/41 O2 Sat by Pulse 97 98 97 Oximetry 10/23/19 10/23/1910/22/20 11:15 11:30 11:45 Temperature Pulse Rate 98 H 103 H 100 H Respiratory 28 H 24 24 Rate Blood Pressure 107/41 107/38 122/47 O2 Sat by Pulse 99 97 98 Oximetry 10/23/19 10/23/19 10/23/19 12:00 12:01 12:15 Temperature 97.5 F L Pulse Rate 103 H 100 H 93 H Respiratory 24 20 Rate Blood Pressure 112/52 100/50 O2 Sat by Pulse 98 97 99 Oximetry 10/23/19 10/23/19 10/23/19 12:30 12:45 13:00 Temperature Pulse Rate 95 H 96 H 99 H Respiratory 23 24 25 H Rate Blood Pressure 104/48 104/48 108/44 O2 Sat by Pulse 100 Oximetry 10/23/19 10/23/19 10/23/19 13:15 13:30 13:45 Temperature Pulse Rate 102 H 95 H 94 H Respiratory 24 23 23 Rate Blood Pressure 118/53 121/55 121/55 O2 Sat by Pulse 97 97 97 Oximetry 10/23/19 10/23/19 14:00 14:15 Temperature Pulse Rate 84 90 Respiratory 22 22 Rate Blood Pressure 92/47 99/68 O2 Sat by Pulse 97 99 Oximetry - Lab 10/23/19 05:30 10/23/19 08:28 Most recent lab results ABG pH 7.418 pH Units (7.350-7.450) 10/22/19 Unknown ABG pCO2 24.4 mm Hg 10/22/19 Unknown ABG pO2 86.5 mm Hg (80.0-90.0) 10/22/19 Unknown ABG HCO3 15.4 mmol/L (20.0-26.0) L 10/22/19 Unknown ABG O2 Saturation 97.1 % (95.0-99.0) 10/22/19 Unknown Calcium 8.0 mg/dL (8.4-10.2) L 10/23/19 08:28 Phosphorus 6.00 mg/dL (2.5-4.5) H 10/20/19 04:15 Urine Creatinine 101.1 mg/dL (0.1-20.0) H 10/19/19 12:25 Urine Sodium 12 mmol/L 10/19/19 12:25 Urine Total Protein 21 mg/dL (5-11.8) H 10/19/19 12:25 Medications & Allergies - Medications Allergies/Adverse Reactions: Allergies Penicillins Allergy (Verified 07/07/19 15:47) Unknown Home Medications: Home Medications Medication Instructions Recorded Confirmed Last Taken Type Atorvastatin [Lipitor Tab] 80 mg PO QHS 07/07/19 10/23/19 Unknown History Bisoprolol Fumarate 5 mg PO DAILY 07/07/19 10/23/19 Unknown History Mexiletine HCl 150 mg PO Q8H 07/07/19 10/23/19 Unknown History Warfarin [Coumadin] 5 mg PO QDAY 07/07/19 10/23/19 Unknown History Active Medications: Generic Name Dose Route Start Last Admin Trade Name Freq PRN Reason Stop Dose Admin Acetaminophen 650 mg 10/19/19 00:08 Tylenol PO Q4H PRN Pain MILD(1-3)/Fever >100.5/GIBBS Albumin Human 25 gm 10/23/19 12:00 10/23/19 13:04 Alburx 25% (Albumin) IV 10/25/19 04:01 25 gm Q8H ABBEY Administration Dobutamine HCl/Dextrose 500 mg in 250 mls @ 17.085 mls/hr 10/22/19 15:00 10/23/19 05:34 Dobutrex Drip 500mg/D5w 250ml IV 5 mcg/kg/min DIRECT ABBEY 17.085 mls/hr Administration Protocol 5 MCG/KG/MIN Norepinephrine 8 mg/ Sodium 250 mls @ 3.75 mls/hr 10/23/19 00:00 10/23/19 12:55 Chloride IV 10 mcg/min TITR ABBEY 18.75 mls/hr Titration Protocol 2 MCG/MIN Fluconazole 200 mls @ 100 mls/hr 10/24/19 10:00 Diflucan IV Q24HR ABBEY Protocol Cefepime HCl 2 gm in 100 mls @ 200 mls/hr 10/24/19 10:00 Cefepime/Ns 2 Gm/100 Ml IV Q24HR ABBEY Protocol Sodium Bicarbonate 100 meq/ 1,100 mls @ 100 mls/hr 10/23/19 12:00 10/23/19 13:06 Dextrose IV 100 mls/hr DIRECT ABBEY Administration Magnesium Hydroxide 30 ml 10/19/19 00:08 Milk Of Magnesia PO Q4H PRN Constipation Midodrine 10 mg 10/23/19 12:00 10/23/19 13:04 Proamatine PO 10 mg TID@0800,1200,1600 ABBEY Administration Octreotide Acetate 100 mcg 10/23/19 14:00 10/23/19 13:05 Sandostatin SUB-Q 100 mcg Q8HR ABBEY Administration Ondansetron HCl 4 mg 10/19/19 00:08 10/21/19 22:31 Zofran IV 4 mg Q8H PRN Administration Nausea And Vomiting Sodium Bicarbonate 1,300 mg 10/23/19 14:00 10/23/19 13:04 Sodium Bicarbonate PO 1,300 mg TID ABBEY Administration Sodium Chloride 10 ml 10/19/19 10:00 10/23/19 09:03 Sodium Chloride Flush Syringe 10 Ml IV 10 ml BID ABBEY Administration Sodium Chloride 10 ml 10/19/19 00:08 Sodium Chloride Flush Syringe 10 Ml IV PRN PRN LINE FLUSH
--- NOTE | 2019-10-23 15:34 | Progress Note ---
Assessment and Plan Cultures: blood culture 10/19/2019 no growth today urine culture 10/19/2019 <10 Assessment: 68 y/o male with history of CAD, previous [place], CVA, CHF status post AICD, previous PE/DVT, admitted on due to 10 day-history of dry cough, malaise and progressive shortness of breath and dyspnea on exertion: #Shock ?septic ?cardiogenic and MODS: was levophed at 4- now at 2, leukocytosis up, no fever; unclear septic etiology ? GB/liver. Urinalysis negative, blood cultures negative. Procalcitonin elevated, however unclear significance under ASHLIE setting. #Cough/Dyspnea on exertion: CXR x 3 negative. COVID test NEGATIVE. Inflamatory markers are markedly elevated D-dimer 2301, CRP 29, LDH 1150, ferritin> 2000. #History of CHF with AICD ? r/o CHF exacerbation, BNP 7312. EF 25-30% #Elevated LFTs: from shock liver ? worsening, r/o cholecystitis #ASHLIE: Renally adjust antibiotics, improving #Anemia: Initial hemoglobin 9.5. #Penicillin allergy: Patient has taken Keflex, and he reports allergy is remote and vague. Recommendations: monitor leukocytosis Obtain liver US - pending - LFTs going up Consider simon scan given greatly increased white count f/u blood cultures Cards on board Continue empiric vancomycin goal trough 10-20, fluconazole for now. Escalated cefepime to meropenem. I am covering this weekend, Dr. Mejía returns Thursday Will follow Ricardo Jones MD [facility] ([facility] M: [phone] O: [phone] F: [phone] Subjective Date of service: 10/23/19 Principal diagnosis: sepsis Interval history: Low temperatures, white count really increased to 34. Objective - Exam Narrative Exam: General appearance: Alert in NAD on nasal cannula oxygen Eyes: anicteric sclerae, moist conjunctivae HENT: Atraumatic; oropharynx clear Lungs: CTA narda +AICD pocket no erythema, heat or edema CV: Tachycardic Abdomen: Soft, non-tender Extremities: no edema, no cyanosis Skin: No rash. Psych: upset he is hungry Neuro: alert and oriented x 3 - Constitutional Vitals: Vital Signs Temp Pulse Resp BP Pulse Ox 97.5 F L 90 22 99/68 99 10/23/19 12:00 10/23/19 14:15 10/23/19 14:15 10/23/19 14:15 10/23/19 14:15 Temperature -Last 24 Hours Temperature 97.5 F Temperature 97.5 F Temperature 97.8 F Temperature 98.4 F Temperature 97.0 F Temperature 95.0 F Temperature 97.5 F Temperature 97.7 F Temperature 97.5 F Temperature 97.8 F Temperature 97.4 F Temperature 97.4 F - Labs CBC & Chem 7: 10/23/19 05:30 10/23/19 08:28 Labs: Abnormal lab results 10/22/19 10/23/19 10/23/19 Range/Units 09:26 05:30 05:30 WBC 34.3 H (4.5-11.0) K/mm3 RBC 2.50 L (3.65-5.03) M/mm3 Hgb 7.7 L (11.8-15.2) gm/dl Hct 24.4 L (35.5-45.6) % MCV 98 H (84-94) fl RDW 19.2 H (13.2-15.2) % Plt Count 121 L (140-440) K/mm3 Seg Neuts % (Manual) 74.0 H (40.0-70.0) % Lymphocytes % (Manual) 5.0 L (13.4-35.0) % Nucleated RBC % 12.0 H (0.0-0.9) % Seg Neutrophils # Man 25.4 H (1.8-7.7) K/mm3 PT (12.2-14.9) Sec. INR (0.87-1.13) Sodium 146 H (137-145) mmol/L Chloride 114.8 H (98-107) mmol/L Carbon Dioxide 16 L (22-30) mmol/L BUN 130 H (9-20) mg/dL Creatinine 2.3 H (0.8-1.5) mg/dL Glucose 167 H (75-100) mg/dL Lactic Acid (0.7-2.0) mmol/L Calcium 7.7 L (8.4-10.2) mg/dL Total Bilirubin 2.80 H (0.1-1.2) mg/dL AST 1098 H (5-40) units/L ALT 371 H (7-56) units/L Alkaline Phosphatase 225 H (35-129) units/L Total Protein 4.6 L (6.3-8.2) g/dL Albumin 2.3 L (3.9-5) g/dL Crossmatch See Detail 10/23/19 10/23/19 10/23/19 Range/Units 05:30 05:30 08:28 WBC (4.5-11.0) K/mm3 RBC (3.65-5.03) M/mm3 Hgb (11.8-15.2) gm/dl Hct (35.5-45.6) % MCV (84-94) fl RDW (13.2-15.2) % Plt Count (140-440) K/mm3 Seg Neuts % (Manual) (40.0-70.0) % Lymphocytes % (Manual) (13.4-35.0) % Nucleated RBC % (0.0-0.9) % Seg Neutrophils # Man (1.8-7.7) K/mm3 PT 31.0 H (12.2-14.9) Sec. INR 3.00 H (0.87-1.13) Sodium (137-145) mmol/L Chloride 117.8 H (98-107) mmol/L Carbon Dioxide 14 L (22-30) mmol/L BUN 130 H (9-20) mg/dL Creatinine 2.3 H (0.8-1.5) mg/dL Glucose 168 H (75-100) mg/dL Lactic Acid 3.20 H* (0.7-2.0) mmol/L Calcium 8.0 L (8.4-10.2) mg/dL Total Bilirubin (0.1-1.2) mg/dL AST (5-40) units/L ALT (7-56) units/L Alkaline Phosphatase (35-129) units/L Total Protein (6.3-8.2) g/dL Albumin (3.9-5) g/dL Crossmatch 10/23/19 Range/Units 08:28 WBC (4.5-11.0) K/mm3 RBC (3.65-5.03) M/mm3 Hgb (11.8-15.2) gm/dl Hct (35.5-45.6) % MCV (84-94) fl RDW (13.2-15.2) % Plt Count (140-440) K/mm3 Seg Neuts % (Manual) (40.0-70.0) % Lymphocytes % (Manual) (13.4-35.0) % Nucleated RBC % (0.0-0.9) % Seg Neutrophils # Man (1.8-7.7) K/mm3 PT (12.2-14.9) Sec. INR (0.87-1.13) Sodium (137-145) mmol/L Chloride (98-107) mmol/L Carbon Dioxide (22-30) mmol/L BUN (9-20) mg/dL Creatinine (0.8-1.5) mg/dL Glucose (75-100) mg/dL Lactic Acid 2.80 H* (0.7-2.0) mmol/L Calcium (8.4-10.2) mg/dL Total Bilirubin (0.1-1.2) mg/dL AST (5-40) units/L ALT (7-56) units/L Alkaline Phosphatase (35-129) units/L Total Protein (6.3-8.2) g/dL Albumin (3.9-5) g/dL Crossmatch
[2019-10-23 17:02] LABS: Calcium 7.9 mg/dL (8.4-10.2)
[2019-10-23] MEDS: MEROPENEM/NS 1 GRAM/100 ML 1 GRAM/100 ML BAG IV SCH ×2 (17:25→22:37)
[2019-10-24] MEDS: SODIUM BICARBONATE 100 MEQ in DEXTROSE 5% IN WATER 1,000 ML IV SCH ×2 (04:30→14:56)
[2019-10-24 05:01] LABS: Hematocrit 20.2 % (35.5-45.6); Hemoglobin 6.4 gm/dl (11.8-15.2); Mean Corpuscular HGB Conc 32 % (32-34); Mean Corpuscular Volume 97 fl (84-94); Red Blood Count 2.08 M/mm3 (3.65-5.03); Red Cell Distribution Width 19.2 % (13.2-15.2)
[2019-10-24 05:04] LABS: Platelet Count 67 K/mm3 (140-440)
[2019-10-24 05:11] LABS: INR 2.15 (0.87-1.13)
[2019-10-24 05:16] LABS: Calcium 8.1 mg/dL (8.4-10.2)
[2019-10-24] MEDS: OCTREOTIDE 100 MCG/1 ML INJ SUB-Q SCH ×3 (06:35→23:28)
[2019-10-24] MEDS: ALBUMIN HUMAN 25% (25 GM/100 ML) INJ IV SCH ×3 (06:36→21:15)
[2019-10-24 06:49] LABS: Basophils % (Manual) 0 % (0.0-1.8); Eosinophils % (Manual) 0 % (0.0-4.3); Total Cells Counted 100
[2019-10-24 06:50] LABS: Anisocytosis 1+; Platelet Estimate Consistent w Auto
[2019-10-24] MEDS: SODIUM BICARBONATE 650 MG TAB PO SCH ×3 (08:55→20:30)
[2019-10-24] MEDS: MIDODRINE 5 MG TAB PO SCH ×3 (08:55→17:49)
[2019-10-24] MEDS: MEROPENEM/NS 1 GRAM/100 ML 1 GRAM/100 ML BAG IV SCH ×2 (09:03→21:42)
--- NOTE | 2019-10-24 09:07 | Progress Note ---
Assessment and Plan Cultures: blood culture 10/19/2019 no growth today urine culture 10/19/2019 <10 Assessment: 68 y/o male with history of CAD, previous [place], CVA, CHF status post AICD, previous PE/DVT, admitted on due to 10 day-history of dry cough, malaise and progressive shortness of breath and dyspnea on exertion: #Shock ?septic ?cardiogenic and MODS: now on dobutamin and levophed, leukocytosis worsening leukemoid reaction, no fever; unclear septic etiology ? GB/liver / malignancy. Urinalysis negative, blood cultures negative. Procalcitonin elevated, however unclear significance under ASHLIE setting. #Cough/Dyspnea on exertion: CXR x 3 negative. COVID test NEGATIVE. Inflamatory markers are markedly elevated D-dimer 2301, CRP 29, LDH 1150, ferritin> 2000. #History of CHF with AICD ? r/o CHF exacerbation, BNP 7312. EF 25-30% #Elevated LFTs: likely due to innumerable liver lesions ? mets and possible pancreatic mass ? malignancy #ASHLIE: Renally adjust antibiotics #Penicillin allergy: Patient has taken Keflex, and he reports allergy is remote and vague. #Anemia/thrombocytopenia: ? malignancy ? sepsis Recommendations: obtain CT abd/pelvis without contrast hem/onc consult due to leukemoid reaction/worsening thrombocytopenia and pancreatic mass stop vancomycin and fluconazole continue meropenem IV renally adjusted f/u blood cultures cards on board Guarded prognosis Will follow Jennifer Armstrong MD Infectious Diseases [employer] [facility] M [phone] O [phone] Subjective Date of service: 10/24/19 Principal diagnosis: sepsis Interval history: Feels worse, weakened, now on levophed and dobutamine, no fever Objective - Exam Narrative Exam: General appearance: Alert in NAD on nasal cannula oxygen Eyes: anicteric sclerae, moist conjunctivae HENT: Atraumatic; oropharynx clear Lungs: CTA narda +AICD pocket no erythema, heat or edema CV: Tachycardic Abdomen: Soft, non-tender Extremities: narda arm edema Skin: No rash. Psych: no agitated, depressed mood Neuro: alert and oriented x 3 - Constitutional Vitals: Vital Signs Temp Pulse Resp BP Pulse Ox 97.4 F L 91 H 18 94/42 99 10/24/19 08:00 10/24/19 07:00 10/24/19 07:00 10/24/19 07:00 10/24/19 07:00 Temperature -Last 24 Hours Temperature 97.4 F Temperature 97.6 F Temperature 98.3 F Temperature 97.9 F Temperature 97.8 F Temperature 97.5 F - Labs CBC & Chem 7: 10/24/19 Unknown 10/24/19 Unknown Labs: Abnormal lab results 10/23/19 10/23/19 10/23/19 Range/Units 05:30 08:28 15:52 WBC (4.5-11.0) K/mm3 RBC (3.65-5.03) M/mm3 Hgb (11.8-15.2) gm/dl Hct (35.5-45.6) % MCV (84-94) fl RDW (13.2-15.2) % Plt Count (140-440) K/mm3 Seg Neuts % (Manual) 74.0 H (40.0-70.0) % Lymphocytes % (Manual) 5.0 L (13.4-35.0) % Nucleated RBC % 12.0 H (0.0-0.9) % Seg Neutrophils # Man 25.4 H (1.8-7.7) K/mm3 Lymphocytes # (Manual) (1.2-5.4) K/mm3 PT (12.2-14.9) Sec. INR (0.87-1.13) Sodium (137-145) mmol/L Chloride 117.8 H (98-107) mmol/L Carbon Dioxide 14 L (22-30) mmol/L BUN 130 H (9-20) mg/dL Creatinine 2.3 H (0.8-1.5) mg/dL Glucose 168 H (75-100) mg/dL Lactic Acid 3.10 H* (0.7-2.0) mmol/L Calcium 8.0 L (8.4-10.2) mg/dL 10/23/19 10/23/19 10/24/19 Range/Units 15:52 23:00 Unknown WBC 21.8 H (4.5-11.0) K/mm3 RBC 2.08 L (3.65-5.03) M/mm3 Hgb 6.4 L (11.8-15.2) gm/dl Hct 20.2 L (35.5-45.6) % MCV 97 H (84-94) fl RDW 19.2 H (13.2-15.2) % Plt Count 67 L (140-440) K/mm3 Seg Neuts % (Manual) 90.0 H (40.0-70.0) % Lymphocytes % (Manual) 0 L (13.4-35.0) % Nucleated RBC % 9.0 H (0.0-0.9) % Seg Neutrophils # Man 0.0 L (1.8-7.7) K/mm3 Lymphocytes # (Manual) 0.0 L (1.2-5.4) K/mm3 PT (12.2-14.9) Sec. INR (0.87-1.13) Sodium 147 H (137-145) mmol/L Chloride 115.6 H (98-107) mmol/L Carbon Dioxide 16 L (22-30) mmol/L BUN 130 H (9-20) mg/dL Creatinine 2.5 H (0.8-1.5) mg/dL Glucose 168 H (75-100) mg/dL Lactic Acid 3.10 H* (0.7-2.0) mmol/L Calcium 7.9 L (8.4-10.2) mg/dL 10/24/19 10/24/19 10/24/19 Range/Units Unknown Unknown Unknown WBC (4.5-11.0) K/mm3 RBC (3.65-5.03) M/mm3 Hgb (11.8-15.2) gm/dl Hct (35.5-45.6) % MCV (84-94) fl RDW (13.2-15.2) % Plt Count (140-440) K/mm3 Seg Neuts % (Manual) (40.0-70.0) % Lymphocytes % (Manual) (13.4-35.0) % Nucleated RBC % (0.0-0.9) % Seg Neutrophils # Man (1.8-7.7) K/mm3 Lymphocytes # (Manual) (1.2-5.4) K/mm3 PT 24.0 H (12.2-14.9) Sec. INR 2.15 H (0.87-1.13) Sodium 148 H (137-145) mmol/L Chloride 113.5 H (98-107) mmol/L Carbon Dioxide 18 L (22-30) mmol/L BUN 124 H (9-20) mg/dL Creatinine 2.4 H (0.8-1.5) mg/dL Glucose 144 H (75-100) mg/dL Lactic Acid 3.00 H* (0.7-2.0) mmol/L Calcium 8.1 L (8.4-10.2) mg/dL
[2019-10-24] MEDS ORDERED: FLUCONAZOLE IV SCH (10:00)
[2019-10-24] MEDS ORDERED: CEFEPIME/NS 2 GM/100 ML 2 GM/100 ML BAG IV SCH (10:00)
[2019-10-24] MEDS ORDERED: FLUCONAZOLE 400 MG 200 ML IV SCH (10:00)
--- NOTE | 2019-10-24 10:19 | Progress Note ---
Assessment and Plan Acute Renal Failure secondary to Prerenal Azotemia vs Ischemic ATN from Sepsis and Hypotension, possible HRS: Metabolic Acidosis: Hypernatremia: -Renal labs reviewed. Serum creatinine 2.4 today, yesterday's was 2.5. Baseline renal function unknown. -No indication for HD at this time, will monitor renal function daily -Started on Albumin challenge, Midodrine and Ocreotide for possible HRS -On Sodium Bicarbonate 100 meq in D5W@ 100 ml/hr for Acidosis -Continue on Sodium Bicarbonate 1300 mg po TID -Hypernatremia- D5W 500 ml bolus x 1 -Renal ultrasound-No Hydronephrosis. Medical renal disease -Avoid nephrotoxic agents -Renally dose medications -Strict I/O monitoring -Obtain daily weights -Continue to monitor Sepsis/Leukocytosis: Cough/Dyspnea: -Initial COVID-19 result-negative -On IV Merrem -ID onboard Severe Anemia: Thrombocytopenia: -HGB 6.4 today -Platelet 67 today -Will need PRBC's transfusions -As per primary Hypotension: -On Levophed drip -On IV fluids -Monitor BP closely Supratherapeutic INR/CHF/Afib/Vtach: -S/P vitamin K. Coumadin on hold -Has Defbrillator -On Dobuatmine drip -Cardiology onboard Subjective Date of service: 10/24/19 Principal diagnosis: sepsis Interval history: Patient seen lying in bed. Patient sleepy but arouses to verbal stimuli. RN at bedside. Objective - Vital Signs Vital signs: Vital Signs - 12hr 10/23/19 10/23/19 10/23/19 22:15 22:30 22:45 Temperature Pulse Rate 90 82 83 Respiratory 19 23 22 Rate Blood Pressure 115/54 105/56 108/49 O2 Sat by Pulse 96 Oximetry 10/23/19 10/23/19 10/23/19 23:00 23:15 23:31 Temperature Pulse Rate 92 H 96 H 89 Respiratory 22 20 22 Rate Blood Pressure 127/42 127/42 103/43 O2 Sat by Pulse 97 96 96 Oximetry 10/23/19 10/24/19 10/24/19 23:45 00:00 00:15 Temperature 98.3 F Pulse Rate 84 85 82 Respiratory 22 21 24 Rate Blood Pressure 114/50 100/46 101/50 O2 Sat by Pulse 98 97 97 Oximetry 10/24/19 10/24/19 10/24/19 00:31 00:45 01:01 Temperature Pulse Rate 79 75 88 Respiratory 22 20 19 Rate Blood Pressure 111/38 113/64 95/48 O2 Sat by Pulse 96 98 95 Oximetry 10/24/19 10/24/19 10/24/19 01:15 01:30 01:45 Temperature Pulse Rate 92 H 89 85 Respiratory 19 17 24 Rate Blood Pressure 114/47 112/53 112/53 O2 Sat by Pulse 98 98 97 Oximetry 10/24/19 10/24/19 10/24/19 02:00 02:15 02:31 Temperature Pulse Rate 85 85 95 H Respiratory 22 25 H 25 H Rate Blood Pressure 103/51 116/52 108/89 O2 Sat by Pulse 97 Oximetry 10/24/19 10/24/19 10/24/19 02:45 03:00 03:15 Temperature Pulse Rate 97 H 84 70 Respiratory 26 H 26 H 23 Rate Blood Pressure 93/51 102/48 110/48 O2 Sat by Pulse 97 97 98 Oximetry 10/24/19 10/24/19 10/24/19 03:30 03:45 04:00 Temperature 97.6 F Pulse Rate 82 82 80 Respiratory 20 17 Rate Blood Pressure 110/46 112/44 O2 Sat by Pulse 97 97 Oximetry 10/24/19 10/24/19 10/24/19 04:01 04:15 04:31 Temperature Pulse Rate 83 76 76 Respiratory 23 23 23 Rate Blood Pressure 105/46 112/44 110/42 O2 Sat by Pulse Oximetry 10/24/19 10/24/19 10/24/19 04:45 05:00 05:15 Temperature Pulse Rate 99 H 91 H 79 Respiratory 22 21 25 H Rate Blood Pressure 108/40 115/46 112/40 O2 Sat by Pulse 98 98 99 Oximetry 10/24/19 10/24/19 10/24/19 05:30 05:45 06:00 Temperature Pulse Rate 80 93 H 82 Respiratory 16 30 H 24 Rate Blood Pressure 111/69 111/69 113/54 O2 Sat by Pulse 96 Oximetry 10/24/19 10/24/19 10/24/19 06:15 06:31 06:45 Temperature Pulse Rate 106 H 102 H 79 Respiratory 24 22 24 Rate Blood Pressure 123/56 126/51 126/51 O2 Sat by Pulse 97 Oximetry 10/24/19 10/24/19 07:00 08:00 Temperature 97.4 F L Pulse Rate 91 H Respiratory 18 Rate Blood Pressure 94/42 O2 Sat by Pulse 99 Oximetry - General Appearance General appearance: well-developed, other (Sleepy) EENT: ATNC, PERRL Neck: no JVD, supple Respiratory: Present: Decreased Breath Sounds Cardiology: S1S2 Gastrointestinal: normoactive bowel sounds Neurologic: other (Awaken to verbal stilumi then drifts off to sleep) Musculoskeletal: joint swelling, other (Has edema to left hand and mild edema to BLE) - Lab 10/24/19 Unknown 10/24/19 Unknown Most recent lab results ABG pH 7.418 pH Units (7.350-7.450) 10/22/19 Unknown ABG pCO2 24.4 mm Hg 10/22/19 Unknown ABG pO2 86.5 mm Hg (80.0-90.0) 10/22/19 Unknown ABG HCO3 15.4 mmol/L (20.0-26.0) L 10/22/19 Unknown ABG O2 Saturation 97.1 % (95.0-99.0) 10/22/19 Unknown Calcium 8.1 mg/dL (8.4-10.2) L 10/24/19 Unknown Phosphorus 6.00 mg/dL (2.5-4.5) H 10/20/19 04:15 Urine Creatinine 101.1 mg/dL (0.1-20.0) H 10/19/19 12:25 Urine Sodium 12 mmol/L 10/19/19 12:25 Urine Total Protein 21 mg/dL (5-11.8) H 10/19/19 12:25 Medications & Allergies - Medications Allergies/Adverse Reactions: Allergies Penicillins Allergy (Verified 07/07/19 15:47) Unknown Home Medications: Home Medications Medication Instructions Recorded Confirmed Last Taken Type Atorvastatin [Lipitor Tab] 80 mg PO QHS 07/07/19 10/23/19 Unknown History Bisoprolol Fumarate 5 mg PO DAILY 07/07/19 10/23/19 Unknown History Mexiletine HCl 150 mg PO Q8H 07/07/19 10/23/19 Unknown History Warfarin [Coumadin] 5 mg PO QDAY 07/07/19 10/23/19 Unknown History Active Medications: Generic Name Dose Route Start Last Admin Trade Name Freq PRN Reason Stop Dose Admin Acetaminophen 650 mg 10/19/19 00:08 Tylenol PO Q4H PRN Pain MILD(1-3)/Fever >100.5/GIBBS Albumin Human 25 gm 10/23/19 12:00 10/24/19 06:36 Alburx 25% (Albumin) IV 10/25/19 04:01 25 gm Q8H ABBEY Administration Dobutamine HCl/Dextrose 500 mg in 250 mls @ 17.085 mls/hr 10/22/19 15:00 10/23/19 21:17 Dobutrex Drip 500mg/D5w 250ml IV 5 mcg/kg/min DIRECT ABBEY 17.085 mls/hr Administration Protocol 5 MCG/KG/MIN Norepinephrine 8 mg/ Sodium 250 mls @ 3.75 mls/hr 10/23/19 00:00 10/24/19 06:35 Chloride IV 6 mcg/min TITR ABBEY 11.25 mls/hr Titration Protocol 2 MCG/MIN Sodium Bicarbonate 100 meq/ 1,100 mls @ 100 mls/hr 10/23/19 12:00 10/24/19 04:30 Dextrose IV 100 mls/hr DIRECT ABBEY Administration MEROPENEM/NS 1 GRAM/100 ML 1 gram in 100 mls @ 100 mls/hr 10/23/19 16:00 10/24/19 09:03 Merrem/Ns 1 Gram/100 Ml IV 100 mls/hr Q12HR ABBEY Administration Protocol Magnesium Hydroxide 30 ml 10/19/19 00:08 Milk Of Magnesia PO Q4H PRN Constipation Midodrine 10 mg 10/23/19 12:00 10/24/19 08:55 Proamatine PO 10 mg TID@0800,1200,1600 ABBEY Administration Octreotide Acetate 100 mcg 10/23/19 14:00 10/24/19 06:35 Sandostatin SUB-Q 100 mcg Q8HR ABBEY Administration Ondansetron HCl 4 mg 10/19/19 00:08 10/21/19 22:31 Zofran IV 4 mg Q8H PRN Administration Nausea And Vomiting Sodium Bicarbonate 1,300 mg 10/23/19 14:00 10/24/19 08:55 Sodium Bicarbonate PO 1,300 mg TID ABBEY Administration Sodium Chloride 10 ml 10/19/19 10:00 10/24/19 09:11 Sodium Chloride Flush Syringe 10 Ml IV 10 ml BID ABBEY Administration Sodium Chloride 10 ml 10/19/19 00:08 Sodium Chloride Flush Syringe 10 Ml IV PRN PRN LINE FLUSH
[2019-10-24] MEDS: NORepinephrine 8 MG in SODIUM CHLORIDE 0.9% 250ML 242 ML IV SCH ×2 (11:01→23:04)
[2019-10-24 11:47] LABS: Albumin 2.5 g/dL (3.9-5); Calcium 8.1 mg/dL (8.4-10.2)
[2019-10-24] MEDS: DOBUTamine/D5W 500 MG/250 ML 500 MG/250 ML BAG IV SCH (12:42)
--- NOTE | 2019-10-24 12:48 | Cat Scan Report ---
CT ABDOMEN AND PELVIS WITHOUT CONTRAST HISTORY: severe shock with pancrweatic mass liver lesions. COMPARISON: Abdominal ultrasound from 10/20/2019 TECHNIQUE: CT images of the abdomen and pelvis were obtained without administration of intravenous co ntrast. All CT scans at this location are performed using CT dose reduction for ALARA by means of au tomated exposure control. FINDINGS: Lungs/bones: There is trace right-sided pleural effusion with mild bibasilar atelectasis. Degenerati ve changes are present in the spine and pelvis with no acute osseous abnormality identified. A 1 cm r ounded osteoblastic lesion is seen in the L4 vertebral body on image #129 of series #5 and image 104 of series #602. No other definite bony lesion identified. Abdomen/pelvis: There is a mass measuring 6.2 x 5.3 cm in the region of the pancreatic head blending in with the second segment of the duodenum. The mass is measured on image #66 of series #2. Multiple low-attenuation lesions are seen throughout the liver consistent with metastatic disease. Several en larged regional lymph nodes are also present. The pancreatic duct is not dilated and there is also no dilatation of the CBD. There is generalized mild atrophy of the pancreas on this exam. There is mild cholelithiasis without inflammatory change. The spleen, adrenals, kidneys, and remainde r the proximal GI tract appear unremarkable. No bowel obstruction caused by the above-mentioned mass. The prostate and urinary bladder are unremarkable with no pelvic free fluid. There is colonic diverti culosis with no acute inflammatory change identified. IMPRESSION: 1. Large mass in the region of the pancreatic head/duodenum which could be of either origin although duodenal origin is favored since there is no pancreatic or biliary ductal dilatation as would be expe cted with a mass this size in the pancreatic head. There is metastatic disease disease involving the liver, likely the surrounding regional lymph nodes, and there is also a small bone lesion in the lumb ar spine. Signer Name: Burak Davila MD Signed: 10/24/2019 12:44 PM Workstation Name: [id number]
--- NOTE | 2019-10-24 12:52 | Progress Note ---
Assessment and Plan tte reviewed - EF 25-30%, RV systolic function mildly reduced, RVSP 39mmHg. COVID-19 negative. Pt continues to require vasopressor support. No apparent clinical evidence of acutely decompensated HF. Cont supportive management. Cont to hold home GDMT and diuretics in setting of hypotension. Heparin gtt and home coumadin held in setting of coagulopathy. GI w/u in progress. The patient has been seen in conjunction with Dr. Ty Seymour who agrees with the assessment and plan of care. - Patient Problems (1) Sepsis Current Visit: Yes Status: Suspected (2) Sepsis associated hypotension Current Visit: Yes Status: Chronic (3) Coagulopathy Current Visit: Yes Status: Acute (4) Chronic HFrEF (heart failure with reduced ejection fraction) Current Visit: Yes Status: Chronic (5) NICM (nonischemic cardiomyopathy) Current Visit: Yes Status: Chronic (6) Automatic implantable cardioverter-defibrillator in situ Current Visit: Yes Status: Chronic (7) Paroxysmal atrial fibrillation Current Visit: Yes Status: Chronic (8) Anticoagulated on Coumadin Current Visit: Yes Status: Chronic (9) History of ventricular tachycardia Current Visit: Yes Status: Chronic (10) Anemia Current Visit: Yes Status: Acute (11) Elevated LFTs Current Visit: Yes Status: Acute (12) Acute renal failure Current Visit: Yes Status: Acute Qualifiers: Acute renal failure type: unspecified Qualified Code(s): N17.9 - Acute kidney failure, unspecified Subjective Date of service: 10/24/19 Principal diagnosis: sepsis Interval history: pt resting in bed, alert. VPaced on telemetry. levophed and dobutamine gtt infusing. Objective Vital Signs Temp Pulse Resp BP Pulse Ox 10/24/19 10:31 70 17 75/39 98 10/24/19 10:15 80 16 77/53 99 10/24/19 10:01 83 20 77/53 99 10/24/19 09:45 85 24 99/57 99 10/24/19 09:31 81 24 94/49 99 10/24/19 09:15 78 25 H 98/50 99 10/24/19 09:01 80 22 101/41 99 10/24/19 08:45 94 H 21 103/34 99 10/24/19 08:31 83 18 103/34 98 10/24/19 08:15 82 25 H 99/38 99 05/18/20 08:01 83 28 H 99/38 98 05/18/20 08:00 97.4 F L 70 05/18/20 07:45 88 20 103/48 99 05/18/20 07:30 78 20 107/53 99 05/18/20 07:15 87 14 98/37 98 05/18/20 07:00 91 H 18 94/42 99 05/18/20 06:45 79 24 126/51 97 05/18/20 06:31 102 H 22 126/51 05/18/20 06:15 106 H 24 123/56 05/18/20 06:00 82 24 113/54 05/18/20 05:45 93 H 30 H 111/69 05/18/20 05:30 80 16 111/69 96 05/18/20 05:15 79 25 H 112/40 99 05/18/20 05:00 91 H 21 115/46 98 05/18/20 04:45 99 H 22 108/40 98 05/18/20 04:31 76 23 110/42 05/18/20 04:15 76 23 112/44 05/18/20 04:01 83 23 105/46 05/18/20 04:00 97.6 F 80 05/18/20 03:45 82 17 112/44 97 05/18/20 03:30 82 20 110/46 97 05/18/20 03:15 70 23 110/48 98 05/18/20 03:00 84 26 H 102/48 97 05/18/20 02:45 97 H 26 H 93/51 97 05/18/20 02:31 95 H 25 H 108/89 05/18/20 02:15 85 25 H 116/52 05/18/20 02:00 85 22 103/51 97 05/18/20 01:45 85 24 112/53 97 05/18/20 01:30 89 17 112/53 98 05/18/20 01:15 92 H 19 114/47 98 05/18/20 01:01 88 19 95/48 95 05/18/20 00:45 75 20 113/64 98 05/18/20 00:31 79 22 111/38 96 05/18/20 00:15 82 24 101/50 97 05/18/20 00:00 98.3 F 85 21 100/46 97 05/17/20 23:45 84 22 114/50 98 05/17/20 23:31 89 22 103/43 96 05/17/20 23:15 96 H 20 127/42 96 05/17/20 23:00 92 H 22 127/42 97 05/17/20 22:45 83 22 108/49 96 05/17/20 22:30 82 23 105/56 05/17/20 22:15 90 19 115/54 05/17/20 22:00 84 23 114/55 05/17/20 21:45 90 22 111/54 05/17/20 21:30 93 H 22 115/53 05/17/20 21:15 79 24 114/53 05/17/20 21:00 93 H 21 114/53 05/17/20 20:45 80 22 116/46 05/17/20 20:30 77 24 105/45 05/17/20 20:15 91 H 23 110/49 05/17/20 20:00 97.9 F 84 24 110/49 98 05/17/20 19:45 88 23 103/49 99 05/17/20 19:30 87 21 97/55 100 05/17/20 19:15 85 15 93/55 99 05/17/20 19:00 90 16 106/37 98 05/17/20 18:45 79 19 95/36 98 05/17/20 18:31 76 19 95/36 97 05/17/20 18:15 77 17 91/59 94 05/17/20 18:00 88 14 91/59 94 05/17/20 17:46 99 H 14 118/49 94 05/17/20 17:45 88 15 118/49 91 05/17/20 17:30 90 13 105/53 95 05/17/20 17:15 83 17 105/45 93 05/17/20 17:00 91 H 15 101/35 91 05/17/20 16:45 96 H 15 91/38 92 05/17/20 16:30 84 14 92/42 91 05/17/20 16:15 77 18 94/49 97 05/17/20 16:01 99 H 41 H 97/52 05/17/20 16:00 97.8 F 99 H 98 05/17/20 15:45 90 29 H 112/51 96 10/23/19 15:30 90 21 112/51 98 10/23/19 15:15 98 H 19 97/52 10/23/19 15:01 93 H 26 H 104/56 10/23/19 14:45 93 H 23 106/61 10/23/19 14:30 93 H 23 99/67 10/23/19 14:15 90 22 99/68 99 10/23/19 14:00 84 22 92/47 97 10/23/19 13:45 94 H 23 121/55 97 10/23/19 13:30 95 H 23 121/55 97 10/23/19 13:15 102 H 24 118/53 97 10/23/19 13:00 99 H 25 H 108/44 100 - Physical Examination Narrative exam: agree with physical examination per critical care team - Labs and Meds Cardiac Enzymes 10/24/19 Range/Units 10:52 AST 293 H (5-40) units/L Coagulation 10/24/19 Range/Units Unknown PT 24.0 H (12.2-14.9) Sec. INR 2.15 H (0.87-1.13) CBC 10/24/19 Range/Units Unknown WBC 21.8 H (4.5-11.0) K/mm3 RBC 2.08 L (3.65-5.03) M/mm3 Hgb 6.4 L (11.8-15.2) gm/dl Hct 20.2 L (35.5-45.6) % Plt Count 67 L (140-440) K/mm3 Comprehensive Metabolic Panel 10/23/19 10/24/19 10/24/19 Range/Units 15:52 10:52 Unknown Sodium 147 H 148 H 148 H (137-145) mmol/L Potassium 4.2 4.5 4.2 (3.6-5.0) mmol/L Chloride 115.6 H 116.5 H 113.5 H (98-107) mmol/L Carbon Dioxide 16 L 17 L 18 L (22-30) mmol/L BUN 130 H 122 H 124 H (9-20) mg/dL Creatinine 2.5 H 2.4 H 2.4 H (0.8-1.5) mg/dL Glucose 168 H 183 H 144 H (75-100) mg/dL Calcium 7.9 L 8.1 L 8.1 L (8.4-10.2) mg/dL AST 293 H (5-40) units/L ALT 215 H (7-56) units/L Alkaline Phosphatase 184 H (35-129) units/L Total Protein 4.3 L (6.3-8.2) g/dL Albumin 2.5 L (3.9-5) g/dL - Imaging and Cardiology EKG: report reviewed, image reviewed Echo: report reviewed (10/07/2016 showed EF 30%, LV severely dilated, mildly dilated LA, impaired relaxation, mod to severely reduced RV systolic function, trace MR. ) - EKG Ventricular dysrhythmias: ventricular premature com - Allied health notes Allied health notes reviewed: nursing
[2019-10-24] MEDS ORDERED: DEXTROSE 5% IN WATER 500 ML IV ONE (14:00)
[2019-10-24 15:15] LABS: INR 2.19 (0.87-1.13)
--- NOTE | 2019-10-24 16:00 | Progress Note ---
Assessment and Plan Shock probably multifactorial- septic/cardiogenic/hypovolemic Shock liver Acute kidney injury- vasomotor nephropathy Anemia appears chronic , with acute component Acute on chronic systolic congestive heart failure, s/p AICD BNP 7312. Cough/Dyspnea on exertion: high suspicion for severe COVID pneumonia. Elevated inflammatory markers D-dimer 2301, CRP 29, LDH 1150, ferritin> 2000- possibly secondary to some other inflammatory condition. Hypernatremia Thrombocytopenia -Supportive blood transfusion to keep HgB >7g/dL-ordered one unit PRBC -Get ABG- remains acidotic adn is on bicarbonate infusion Get HIV screen Get HIT, has thrombocytopenia, >50% drop in platelet counts since admission Antibiotics per ID service Patient is "dwindling" without any improvement since admission Hepatic and pancreatic lesions suspicious for malignancy, unable to get MRI since he has a cariac device. IR for diagnostic biopsy of liver lesions,if needed, will transfuse platelets prior to biopsy -Continue vasopressor support to keep MAP >65 - prn supplemental oxygen for target O2 sat's > 90% acutely - continue accuchecks with glycemic control per SSI (While critically ill target blood glucose of 140-180 mg/dL; avoid hypoglycemia) - optimize cardiac status per cardiology team - prn bronchodilators with pulmonary hygiene per RT - avoid benzodiazepines, reduce the possibility of delirium - Antiinfective's per ID rec's; trend fevers, WBC - prn analgesia per pain score - Maintenance of sleep-wake cycle, avoid delirium - G.I. & VTE prophylaxis ( Famotidine, SCDs) -mobility protocol for pressure ulcer prevention -Get transthoracic echocardiogram to evaluate LVEF and for pulmaonry HTN -RUQ USS pending - Monitor hemodynamics closely - continue other care per attending / other consultants - discharge planning ongoing concurrently .... Re-evaluate in am & prn CONDITION: CRITICAL PROGNOSIS: GUARDED CODE STATUS: FULL CODE The high probability of a clinically significant, sudden or life-threatening deterioration of the [respiratory & cardiovascular] system(s) required my full and direct attention, intervention and personal management. The aggregate critical care time was [33] minutes without overlap. Time includes spent on; [x] Data Review and interpretation [x] Patient assessment and monitoring of vital signs [x] Documentation [x] Medication orders and management Subjective Date of service: 10/24/19 Principal diagnosis: sepsis Interval history: Patient is seen today for: Septic shock; Shock liver; Acute renal failure; Anemia; Acute on chronic HFrEF Seen and examined at bedside; 24hour events reviewed; nursing and respiratory care staff consulted; no adverse overnight events reported to me; resting peacefully in bed; worsening hypotesnion, with increasing levophed dose; he denies acute chest pains or SOB; no N/V/F/C Objective Vital Signs - 12hr 10/24/19 10/24/19 10/24/19 04:01 04:15 04:31 Temperature Pulse Rate 83 76 76 Pulse Rate [ From Monitor] Respiratory 23 23 23 Rate Blood Pressure 105/46 112/44 110/42 O2 Sat by Pulse Oximetry 10/24/19 10/24/19 10/24/19 04:45 05:00 05:15 Temperature Pulse Rate 99 H 91 H 79 Pulse Rate [ From Monitor] Respiratory 22 21 25 H Rate Blood Pressure 108/40 115/46 112/40 O2 Sat by Pulse 98 98 99 Oximetry 10/24/19 10/24/19 10/24/19 05:30 05:45 06:00 Temperature Pulse Rate 80 93 H 82 Pulse Rate [ From Monitor] Respiratory 16 30 H 24 Rate Blood Pressure 111/69 111/69 113/54 O2 Sat by Pulse 96 Oximetry 10/24/19 10/24/19 10/24/19 06:15 06:31 06:45 Temperature Pulse Rate 106 H 102 H 79 Pulse Rate [ From Monitor] Respiratory 24 22 24 Rate Blood Pressure 123/56 126/51 126/51 O2 Sat by Pulse 97 Oximetry 10/24/19 10/24/19 10/24/19 07:00 07:15 07:30 Temperature Pulse Rate 91 H 87 78 Pulse Rate [ From Monitor] Respiratory 18 14 20 Rate Blood Pressure 94/42 98/37 107/53 O2 Sat by Pulse 99 98 99 Oximetry 10/24/19 10/24/19 10/24/19 07:45 08:00 08:01 Temperature 97.4 F L Pulse Rate 88 70 83 Pulse Rate [ 82 From Monitor] Respiratory 20 23 28 H Rate Blood Pressure 103/48 99/38 O2 Sat by Pulse 99 100 98 Oximetry 10/24/19 10/24/19 10/24/19 08:15 08:31 08:45 Temperature Pulse Rate 82 83 94 H Pulse Rate [ From Monitor] Respiratory 25 H 18 21 Rate Blood Pressure 99/38 103/34 103/34 O2 Sat by Pulse 99 98 99 Oximetry 10/24/19 10/24/19 10/24/19 09:01 09:15 09:31 Temperature Pulse Rate 80 78 81 Pulse Rate [ From Monitor] Respiratory 22 25 H 24 Rate Blood Pressure 101/41 98/50 94/49 O2 Sat by Pulse 99 99 99 Oximetry 10/24/19 10/24/19 10/24/19 09:45 10:01 10:15 Temperature Pulse Rate 85 83 80 Pulse Rate [ From Monitor] Respiratory 24 20 16 Rate Blood Pressure 99/57 77/53 77/53 O2 Sat by Pulse 99 99 99 Oximetry 10/24/19 10/24/19 10/24/19 10:31 10:45 11:01 Temperature Pulse Rate 70 78 72 Pulse Rate [ From Monitor] Respiratory 17 18 21 Rate Blood Pressure 75/39 88/46 98/47 O2 Sat by Pulse 98 99 99 Oximetry 10/24/19 10/24/19 10/24/19 11:15 11:31 12:00 Temperature 97.4 F L Pulse Rate 76 79 82 Pulse Rate [ 72 From Monitor] Respiratory 21 21 21 Rate Blood Pressure 98/47 88/46 O2 Sat by Pulse 97 97 99 Oximetry 10/24/19 10/24/19 10/24/19 12:07 12:15 12:30 Temperature Pulse Rate 78 84 71 Pulse Rate [ From Monitor] Respiratory 26 H 20 22 Rate Blood Pressure 103/52 O2 Sat by Pulse 99 99 98 Oximetry 10/24/19 10/24/19 10/24/19 12:45 13:01 13:15 Temperature Pulse Rate 79 84 77 Pulse Rate [ From Monitor] Respiratory 15 16 12 Rate Blood Pressure 122/47 102/55 102/55 O2 Sat by Pulse 97 99 88 Oximetry 10/24/1920 10/24/19 13:31 13:45 14:00 Temperature Pulse Rate 86 85 99 H Pulse Rate [ From Monitor] Respiratory 16 13 12 Rate Blood Pressure 102/40 102/40 91/50 O2 Sat by Pulse 99 92 92 Oximetry 10/24/1910/23/20 20 14:15 14:30 14:46 Temperature Pulse Rate 92 H 81 77 Pulse Rate [ From Monitor] Respiratory 15 19 19 Rate Blood Pressure 75/50 66/42 89/43 O2 Sat by Pulse 99 99 98 Oximetry 10/24/19 10/24/19 10/24/19 15:00 15:14 15:16 Temperature Pulse Rate 82 79 Pulse Rate [ 86 From Monitor] Respiratory 19 18 19 Rate Blood Pressure 80/47 99/46 O2 Sat by Pulse 98 98 97 Oximetry 10/24/19 15:27 Temperature Pulse Rate 95 H Pulse Rate [ From Monitor] Respiratory Rate Blood Pressure O2 Sat by Pulse Oximetry Constitutional: lethargic, appears uncomfortable, other (elderly looking obese CM, normocephalic with mildly increased respiratory effort at rest) Eyes: non-icteric ENT: oropharynx dry, other (mallampati 3) Neck: supple, no lymphadenopathy, other (RIJ CVL) Effort: mildly labored Ascultation: Bilateral: diminished breath sounds, rales (scant) Percussion: Bilateral: not dull Cardiovascular: other (paced rhythm) Gastrointestinal: normoactive bowel sounds, soft, non-tender, non-distended (protuberant) Integumentary: rash (stasis dermatitis type) Extremities: no cyanosis, pulses normal, no ischemia or petechiae, edema (trace) Neurologic: non-focal exam (grossly), pupils equal and round, CN II-XII normal, other (weak; fatigued at rest) Psychiatric: other (affect flat) CBC and BMP: 10/24/19 Unknown 10/24/19 Unknown ABG, PT/INR, D-dimer: ABG ABG pH 7.418 pH Units (7.350-7.450) 10/22/19 Unknown ABG pCO2 24.4 mm Hg 10/22/19 Unknown ABG pO2 86.5 mm Hg (80.0-90.0) 10/22/19 Unknown ABG O2 Saturation 97.1 % (95.0-99.0) 10/22/19 Unknown PT/INR, D-dimer PT 24.0 Sec. (12.2-14.9) H 10/24/19 Unknown INR 2.15 (0.87-1.13) H 10/24/19 Unknown D-Dimer 2524.09 ng/mlDDU (0-234) H 10/18/19 23:16 Abnormal lab findings: Abnormal Labs 10/18/19 10/18/19 10/18/19 20:37 20:37 20:37 WBC 17.8 H RBC 2.94 L Hgb 9.5 L Hct 30.0 L MCV 102 H MCH MCHC RDW Plt Count Seg Neuts % (Manual) 85.0 H Lymphocytes % (Manual) 6.0 L Monocytes % (Manual) 8.0 H Nucleated RBC % Seg Neutrophils # Man 15.1 H Lymphocytes # (Manual) 1.1 L Monocytes # (Manual) 1.4 H PT 109.8 H INR 16.02 H* APTT 69.1 H* D-Dimer 2301.69 H Heparin Anti-Xa Level ABG HCO3 ABG Base Excess ABG Hemoglobin Sodium Potassium Chloride 60.0 L Carbon Dioxide 15 L BUN 192 H Creatinine 3.2 H Glucose 154 H Lactic Acid Calcium Phosphorus TIBC Ferritin Total Bilirubin Direct Bilirubin AST 120 H ALT 63 H Alkaline Phosphatase 194 H Lactate Dehydrogenase C-Reactive Protein NT-Pro-B Natriuret Pep 7312 H Total Protein 5.4 L Albumin 2.5 L Urine Creatinine Urine Total Protein Crossmatch 10/18/19 10/18/19 10/18/19 21:46 21:46 23:16 WBC RBC Hgb Hct MCV MCH MCHC RDW Plt Count Seg Neuts % (Manual) Lymphocytes % (Manual) Monocytes % (Manual) Nucleated RBC % Seg Neutrophils # Man Lymphocytes # (Manual) Monocytes # (Manual) PT < 10.0 L INR > 17.67 H* APTT 92.7 H* D-Dimer 2524.09 H Heparin Anti-Xa Level ABG HCO3 ABG Base Excess ABG Hemoglobin Sodium Potassium Chloride Carbon Dioxide BUN Creatinine Glucose Lactic Acid Calcium Phosphorus TIBC Ferritin > 2000.0 H Total Bilirubin Direct Bilirubin AST ALT Alkaline Phosphatase Lactate Dehydrogenase 1150 H C-Reactive Protein 29.00 H NT-Pro-B Natriuret Pep Total Protein Albumin Urine Creatinine Urine Total Protein Crossmatch 10/19/19 10/19/19 10/19/19 12:25 13:58 13:58 WBC RBC Hgb Hct MCV MCH MCHC RDW Plt Count Seg Neuts % (Manual) Lymphocytes % (Manual) Monocytes % (Manual) Nucleated RBC % Seg Neutrophils # Man Lymphocytes # (Manual) Monocytes # (Manual) PT 31.7 H INR 3.19 H APTT D-Dimer Heparin Anti-Xa Level ABG HCO3 ABG Base Excess ABG Hemoglobin Sodium Potassium Chloride Carbon Dioxide 14 L BUN 173 H Creatinine 2.4 H Glucose 129 H Lactic Acid Calcium 7.5 L Phosphorus TIBC Ferritin Total Bilirubin Direct Bilirubin AST 754 H ALT 294 H Alkaline Phosphatase 141 H Lactate Dehydrogenase C-Reactive Protein NT-Pro-B Natriuret Pep Total Protein 4.9 L Albumin 1.8 L Urine Creatinine 101.1 H Urine Total Protein 21 H Crossmatch 10/20/19 10/20/19 10/20/19 04:15 04:15 04:15 WBC 16.3 H RBC 2.44 L Hgb 8.0 L Hct 24.4 L MCV 100 H MCH 33 H MCHC RDW Plt Count Seg Neuts % (Manual) 89.0 H Lymphocytes % (Manual) 5.0 L Monocytes % (Manual) Nucleated RBC % Seg Neutrophils # Man 14.5 H Lymphocytes # (Manual) 0.8 L Monocytes # (Manual) PT 20.7 H INR 1.83 H APTT D-Dimer Heparin Anti-Xa Level ABG HCO3 ABG Base Excess ABG Hemoglobin Sodium 147 H Potassium Chloride Carbon Dioxide 18 L BUN 169 H Creatinine 2.1 H Glucose 136 H Lactic Acid Calcium Phosphorus 6.00 H TIBC Ferritin Total Bilirubin Direct Bilirubin AST 817 H ALT 374 H Alkaline Phosphatase 165 H Lactate Dehydrogenase C-Reactive Protein NT-Pro-B Natriuret Pep Total Protein 5.7 L Albumin 2.2 L Urine Creatinine Urine Total Protein Crossmatch 10/20/19 10/20/19 10/20/19 10:40 10:40 20:51 WBC RBC Hgb 8.2 L Hct 25.0 L MCV MCH MCHC RDW Plt Count Seg Neuts % (Manual) Lymphocytes % (Manual) Monocytes % (Manual) Nucleated RBC % Seg Neutrophils # Man Lymphocytes # (Manual) Monocytes # (Manual) PT 20.9 H INR 1.80 H APTT D-Dimer Heparin Anti-Xa Level 0.12 L ABG HCO3 ABG Base Excess ABG Hemoglobin Sodium Potassium Chloride Carbon Dioxide BUN Creatinine Glucose Lactic Acid Calcium Phosphorus TIBC Ferritin Total Bilirubin Direct Bilirubin AST ALT Alkaline Phosphatase Lactate Dehydrogenase C-Reactive Protein NT-Pro-B Natriuret Pep Total Protein Albumin Urine Creatinine Urine Total Protein Crossmatch 10/21/19 10/21/19 10/21/19 04:24 04:24 04:24 WBC 19.3 H RBC 2.33 L Hgb 7.4 L Hct 23.7 L MCV 102 H MCH MCHC 31 L RDW Plt Count Seg Neuts % (Manual) 81.0 H Lymphocytes % (Manual) 5.0 L Monocytes % (Manual) Nucleated RBC % Seg Neutrophils # Man 15.6 H Lymphocytes # (Manual) 1.0 L Monocytes # (Manual) PT INR APTT D-Dimer Heparin Anti-Xa Level ABG HCO3 ABG Base Excess ABG Hemoglobin Sodium 149 H Potassium 3.3 L Chloride 113.9 H Carbon Dioxide 20 L BUN 128 H Creatinine 1.6 H Glucose 151 H Lactic Acid Calcium 8.3 L Phosphorus TIBC 150 L Ferritin > 2000.0 H Total Bilirubin Direct Bilirubin AST ALT Alkaline Phosphatase Lactate Dehydrogenase C-Reactive Protein NT-Pro-B Natriuret Pep Total Protein Albumin Urine Creatinine Urine Total Protein Crossmatch 10/21/19 10/21/19 10/21/19 04:24 08:06 18:38 WBC RBC Hgb Hct MCV MCH MCHC RDW Plt Count Seg Neuts % (Manual) Lymphocytes % (Manual) Monocytes % (Manual) Nucleated RBC % Seg Neutrophils # Man Lymphocytes # (Manual) Monocytes # (Manual) PT INR APTT D-Dimer Heparin Anti-Xa Level 0.26 L 0.29 L ABG HCO3 ABG Base Excess ABG Hemoglobin Sodium Potassium Chloride Carbon Dioxide BUN Creatinine Glucose Lactic Acid Calcium Phosphorus TIBC Ferritin Total Bilirubin Direct Bilirubin 0.7 H AST 754 H ALT 421 H Alkaline Phosphatase 165 H Lactate Dehydrogenase C-Reactive Protein NT-Pro-B Natriuret Pep Total Protein 5.2 L Albumin 2.2 L Urine Creatinine Urine Total Protein Crossmatch 10/22/19 10/22/19 10/22/19 05:58 05:58 09:26 WBC 32.2 H RBC 2.09 L Hgb 6.7 L Hct 21.6 L MCV 104 H MCH MCHC 31 L RDW 15.5 H Plt Count Seg Neuts % (Manual) 83.0 H Lymphocytes % (Manual) 9.0 L Monocytes % (Manual) Nucleated RBC % 4.5 H Seg Neutrophils # Man 26.7 H Lymphocytes # (Manual) Monocytes # (Manual) 1.4 H PT INR APTT D-Dimer Heparin Anti-Xa Level ABG HCO3 ABG Base Excess ABG Hemoglobin Sodium Potassium Chloride 112.5 H Carbon Dioxide 15 L BUN 123 H Creatinine 1.6 H Glucose 187 H Lactic Acid Calcium 7.9 L Phosphorus TIBC Ferritin Total Bilirubin Direct Bilirubin AST 1210 H ALT 476 H Alkaline Phosphatase 197 H Lactate Dehydrogenase C-Reactive Protein NT-Pro-B Natriuret Pep Total Protein 4.8 L Albumin 1.7 L Urine Creatinine Urine Total Protein Crossmatch See Detail 10/22/19 10/23/19 10/23/19 Unknown 05:30 05:30 WBC 34.3 H RBC 2.50 L Hgb 7.7 L Hct 24.4 L MCV 98 H MCH MCHC RDW 19.2 H Plt Count 121 L Seg Neuts % (Manual) 74.0 H Lymphocytes % (Manual) 5.0 L Monocytes % (Manual) Nucleated RBC % 12.0 H Seg Neutrophils # Man 25.4 H Lymphocytes # (Manual) Monocytes # (Manual) PT INR APTT D-Dimer Heparin Anti-Xa Level ABG HCO3 15.4 L ABG Base Excess -8.2 L ABG Hemoglobin 6.8 L Sodium 146 H Potassium Chloride 114.8 H Carbon Dioxide 16 L BUN 130 H Creatinine 2.3 H Glucose 167 H Lactic Acid Calcium 7.7 L Phosphorus TIBC Ferritin Total Bilirubin 2.80 H Direct Bilirubin AST 1098 H ALT 371 H Alkaline Phosphatase 225 H Lactate Dehydrogenase C-Reactive Protein NT-Pro-B Natriuret Pep Total Protein 4.6 L Albumin 2.3 L Urine Creatinine Urine Total Protein Crossmatch 10/23/19 10/23/19 10/23/19 05:30 05:30 08:28 WBC RBC Hgb Hct MCV MCH MCHC RDW Plt Count Seg Neuts % (Manual) Lymphocytes % (Manual) Monocytes % (Manual) Nucleated RBC % Seg Neutrophils # Man Lymphocytes # (Manual) Monocytes # (Manual) PT 31.0 H INR 3.00 H APTT D-Dimer Heparin Anti-Xa Level ABG HCO3 ABG Base Excess ABG Hemoglobin Sodium Potassium Chloride 117.8 H Carbon Dioxide 14 L BUN 130 H Creatinine 2.3 H Glucose 168 H Lactic Acid 3.20 H* Calcium 8.0 L Phosphorus TIBC Ferritin Total Bilirubin Direct Bilirubin AST ALT Alkaline Phosphatase Lactate Dehydrogenase C-Reactive Protein NT-Pro-B Natriuret Pep Total Protein Albumin Urine Creatinine Urine Total Protein Crossmatch 10/23/19 10/23/19 10/23/19 08:28 15:52 15:52 WBC RBC Hgb Hct MCV MCH MCHC RDW Plt Count Seg Neuts % (Manual) Lymphocytes % (Manual) Monocytes % (Manual) Nucleated RBC % Seg Neutrophils # Man Lymphocytes # (Manual) Monocytes # (Manual) PT INR APTT D-Dimer Heparin Anti-Xa Level ABG HCO3 ABG Base Excess ABG Hemoglobin Sodium 147 H Potassium Chloride 115.6 H Carbon Dioxide 16 L BUN 130 H Creatinine 2.5 H Glucose 168 H Lactic Acid 2.80 H* 3.10 H* Calcium 7.9 L Phosphorus TIBC Ferritin Total Bilirubin Direct Bilirubin AST ALT Alkaline Phosphatase Lactate Dehydrogenase C-Reactive Protein NT-Pro-B Natriuret Pep Total Protein Albumin Urine Creatinine Urine Total Protein Crossmatch 10/23/19 10/24/19 10/24/19 23:00 10:52 12:29 WBC RBC Hgb Hct MCV MCH MCHC RDW Plt Count Seg Neuts % (Manual) Lymphocytes % (Manual) Monocytes % (Manual) Nucleated RBC % Seg Neutrophils # Man Lymphocytes # (Manual) Monocytes # (Manual) PT 24.3 H INR 2.19 H APTT D-Dimer Heparin Anti-Xa Level ABG HCO3 ABG Base Excess ABG Hemoglobin Sodium 148 H Potassium Chloride 116.5 H Carbon Dioxide 17 L BUN 122 H Creatinine 2.4 H Glucose 183 H Lactic Acid 3.10 H* Calcium 8.1 L Phosphorus TIBC Ferritin Total Bilirubin 4.80 H Direct Bilirubin AST 293 H ALT 215 H Alkaline Phosphatase 184 H Lactate Dehydrogenase C-Reactive Protein NT-Pro-B Natriuret Pep Total Protein 4.3 L Albumin 2.5 L Urine Creatinine Urine Total Protein Crossmatch 10/24/19 10/24/19 10/24/19 Unknown Unknown Unknown WBC 21.8 H RBC 2.08 L Hgb 6.4 L Hct 20.2 L MCV 97 H MCH MCHC RDW 19.2 H Plt Count 67 L Seg Neuts % (Manual) 90.0 H Lymphocytes % (Manual) 0 L Monocytes % (Manual) Nucleated RBC % 9.0 H Seg Neutrophils # Man 0.0 L Lymphocytes # (Manual) 0.0 L Monocytes # (Manual) PT 24.0 H INR 2.15 H APTT D-Dimer Heparin Anti-Xa Level ABG HCO3 ABG Base Excess ABG Hemoglobin Sodium 148 H Potassium Chloride 113.5 H Carbon Dioxide 18 L BUN 124 H Creatinine 2.4 H Glucose 144 H Lactic Acid Calcium 8.1 L Phosphorus TIBC Ferritin Total Bilirubin Direct Bilirubin AST ALT Alkaline Phosphatase Lactate Dehydrogenase C-Reactive Protein NT-Pro-B Natriuret Pep Total Protein Albumin Urine Creatinine Urine Total Protein Crossmatch 10/24/19 Unknown WBC RBC Hgb Hct MCV MCH MCHC RDW Plt Count Seg Neuts % (Manual) Lymphocytes % (Manual) Monocytes % (Manual) Nucleated RBC % Seg Neutrophils # Man Lymphocytes # (Manual) Monocytes # (Manual) PT INR APTT D-Dimer Heparin Anti-Xa Level ABG HCO3 ABG Base Excess ABG Hemoglobin Sodium Potassium Chloride Carbon Dioxide BUN Creatinine Glucose Lactic Acid 3.00 H* Calcium Phosphorus TIBC Ferritin Total Bilirubin Direct Bilirubin AST ALT Alkaline Phosphatase Lactate Dehydrogenase C-Reactive Protein NT-Pro-B Natriuret Pep Total Protein Albumin Urine Creatinine Urine Total Protein Crossmatch Allied health notes reviewed: nursing
[2019-10-24] MEDS ORDERED: SODIUM CHLORIDE 0.9% 500 ML 500 ML IV ONE ×2 (16:04→17:28)
[2019-10-24 16:05] LABS: Hemoglobin 6.2 gm/dl (11.8-15.2); Mean Corpuscular HGB Conc 31 % (32-34); Mean Corpuscular Volume 99 fl (84-94); Red Blood Count 2.02 M/mm3 (3.65-5.03); Red Cell Distribution Width 19.8 % (13.2-15.2)
[2019-10-24 16:08] LABS: Platelet Count 48 K/mm3 (140-440)
--- NOTE | 2019-10-24 17:26 | Progress Note ---
Assessment and Plan Assessment and plan: 68-year-old white male with known history of CHF, pacemaker/defibrillator placement in the past presenting to the emergency room today for progressive worsening of shortness of breath which has been ongoing for about 4 days. Shortness of breath is said to be worse on exertion. He denies any chest pain, no fever or chills, no cough, no nausea vomiting but he has had some episodes of diarrhea. He denies any bright red blood per rectum, no hematuria or dysuria. He denies any sick contacts and no recent travel. Upon arrival in the emergency room evaluation revealed elevated INR, acute kidney injury and other significant abnormalities on the chemistry. He was screened for COVID-19 and was negative 10/20: STILL REQUIRING PRESSORS. We will continue in ICU care. Continue to monitor electrolytes. Check liver enzymes GI and ID inputs noted. 10/21: Restarted on pressors after briefly holding. Worsening anemia we will stop heparin drip and give the patient 2 L 2 units of packed red blood cell. Await GI reevaluation. Begin rewarming as patient hypothermic this morning. Cultures still unrevealing. Worsening leukocytosis noted will continue with ICU care 10/22: Abdominal ultrasound concerning for pancreatic mass possible malignancy with metastasis. Unfortunately we do not have oncologist on staff the one that does sometimes states that he is unable to come to the hospital to evaluate this patient. Nevertheless there is also concern if this pancreatic mass is an abscess patient still on pressors precluding obtaining MRI nevertheless we will order this in case we are able to move the patient to get MRI with an MRI compatible pump. I have also placed in some orders for tumor markers. And discussed with GI. Vitamin K being given for elevated INR 10/23: Imaging studies including CT very concerning for Malignancy. Unfortunately no HEMATOLOGY HERE, AWAIT TUMOR MARKERS Septic shock ID Following, continue empiric antibiotic coverage follow cultures. Pancreatic mass rule out malignancy: As noted above Acute respiratory failure Current Visit: Yes Status: Acute Qualifiers: Dyspnea type: shortness of breath Qualified Code(s): R06.02 - Shortness of breath; R06.00 - Dyspnea, unspecified; R06.01 - Orthopnea Plan to address problem: Etiology is unclear. Possibly secondary to bronchitis however will rule out for COVID-19. Patient has been placed on airborne and droplet precautions. Will place on empiric IV antibiotics. We will also place a consult to infectious disease for further evaluation and recommendation. Shock liver syndrome Likely secondary to underlying cardiac failure. Continue supportive care Acute renal failure secondary to hepatorenal syndrome, secondary to shock Current Visit: Yes Status: Acute Qualifiers: Acute renal failure type: unspecified Qualified Code(s): N17.9 - Acute kidney failure, unspecified Plan to address problem: Probably secondary to dehydration. Patient has been placed on IV fluid. Will monitor BUN and creatinine. We also place a consult to nephrology for evaluation and further recommendation. Acute blood loss anemia We will transfuse 2 unit packed red blood cells Elevated INR/secondary coagulopathy Current Visit: Yes Status: Acute Plan to address problem: Patient had vitamin K in the emergency room. Will monitor PT/INR. Will hold off on anticoagulation. Hypotension Current Visit: Yes Status: Acute Qualifiers: Hypotension type: unspecified hypotension type Qualified Code(s): I95.9 - Hypotension, unspecified Plan to address problem: Patient placed on IV fluid. We will continue to monitor vital signs closely. Acute on chronic systolic congestive heart failure Cardiology following. Cardiomyopathy question ischemic. Cardiology following EF noted to be 25 to 30%. Pacemaker noted right atrium. DVT prophylaxis Current Visit: Yes Status: Acute Plan to address problem: We will hold anticoagulation as INR is currently supratherapeutic. Full code status Current Visit: Yes Status: Acute DISCUSSED WITH LABOR ECONOMICS TEACHER cct 35 mins History Interval history: Patient seen and examined. Remains on pressors. Lethargic Hospitalist Physical - Physical exam Narrative exam: VITAL SIGNS: Reviewed. GENERAL: The patient appears normally developed, Pale. Vital signs as documented. HEAD: No signs of head trauma. EYES: Pupils are equal. Extraocular motions intact. EARS: Hearing grossly intact. MOUTH: Oropharynx is normal. NECK: No adenopathy, no JVD. CHEST: Chest with clear breath sounds bilaterally. No wheezes, rales, or rhonchi. CARDIAC: Tachycardia. S1 and S2, without murmurs, gallops, or rubs. VASCULAR: Trace bilateral edema. Peripheral pulses normal and equal in all extremities. ABDOMEN: Soft, non tender and non distended. No rebound or guarding, and no masses palpated. Bowel Sounds normal. MUSCULOSKELETAL: Good range of motion of all major joints. Extremities without clubbing, cyanosis. Trace bilateral pitting edema extremities are cold to the touch bit more warmed up today. Especially the foot Bilaterally or edema. NEUROLOGIC EXAM: Lethargic. No focal sensory or strength deficits. Speech normal. Follows commands. PSYCHIATRIC: Mood normal. SKIN: Detail exam as documented in skin assessment - Constitutional Vitals: Temp Pulse Resp BP Pulse Ox 97.4 F L 95 H 19 99/46 97 10/24/19 12:00 10/24/19 15:27 10/24/19 15:16 10/24/19 15:16 10/24/19 15:16 General appearance: Present: no acute distress HEART Score - HEART Score Troponin: Troponin T 0.017 ng/mL (0.00-0.029) 10/19/19 02:12 Results - Labs CBC & Chem 7: 10/24/19 Unknown 10/24/19 Unknown Labs: Laboratory Last Values WBC 21.8 K/mm3 (4.5-11.0) H 10/24/19 Unknown RBC 2.08 M/mm3 (3.65-5.03) L 10/24/19 Unknown Hgb 6.4 gm/dl (11.8-15.2) L 10/24/19 Unknown Hct 20.2 % (35.5-45.6) L 10/24/19 Unknown MCV 97 fl (84-94) H 10/24/19 Unknown MCH 31 pg (28-32) 10/24/19 Unknown MCHC 32 % (32-34) 10/24/19 Unknown RDW 19.2 % (13.2-15.2) H 10/24/19 Unknown Plt Count 67 K/mm3 (140-440) L 10/24/19 Unknown Add Manual Diff Complete 10/24/19 Unknown Total Counted 100 10/24/19 Unknown Seg Neutrophils % Data Miner 10/20/19 04:15 Seg Neuts % (Manual) 90.0 % (40.0-70.0) H 10/24/19 Unknown Band Neutrophils % 2.0 % 10/24/19 Unknown Lymphocytes % (Manual) 0 % (13.4-35.0) L 10/24/19 Unknown Reactive Lymphs % (Man) 0 % 10/24/19 Unknown Monocytes % (Manual) 1.0 % (0.0-7.3) 10/24/19 Unknown Eosinophils % (Manual) 0 % (0.0-4.3) 10/24/19 Unknown Basophils % (Manual) 0 % (0.0-1.8) 10/24/19 Unknown Metamyelocytes % 5.0 % 10/24/19 Unknown Myelocytes % 2.0 % 10/24/19 Unknown Promyelocytes % 0 % 10/24/19 Unknown Blast Cells % 0 % 10/24/19 Unknown Nucleated RBC % 9.0 % (0.0-0.9) H 10/24/19 Unknown Seg Neutrophils # Man 0.0 K/mm3 (1.8-7.7) L 10/24/19 Unknown Band Neutrophils # 0.0 K/mm3 10/24/19 Unknown Lymphocytes # (Manual) 0.0 K/mm3 (1.2-5.4) L 10/24/19 Unknown Abs React Lymphs (Man) 0.0 K/mm3 10/24/19 Unknown Monocytes # (Manual) 0.0 K/mm3 (0.0-0.8) 10/24/19 Unknown Eosinophils # (Manual) 0.0 K/mm3 (0.0-0.4) 10/24/19 Unknown Basophils # (Manual) 0.0 K/mm3 (0.0-0.1) 10/24/19 Unknown Metamyelocytes # 0.0 K/mm3 10/24/19 Unknown Myelocytes # 0.0 K/mm3 10/24/19 Unknown Promyelocytes # 0.0 K/mm3 10/24/19 Unknown Blast Cells # 0.0 K/mm3 10/24/19 Unknown WBC Morphology Not Reportable 10/24/19 Unknown Hypersegmented Neuts Not Reportable 10/24/19 Unknown Hyposegmented Neuts Not Reportable 10/24/19 Unknown Hypogranular Neuts Not Reportable 10/24/19 Unknown Smudge Cells Not Reportable 10/24/19 Unknown Toxic Granulation Not Reportable 10/24/19 Unknown Toxic Vacuolation Not Reportable 10/24/19 Unknown Dohle Bodies Not Reportable 10/24/19 Unknown Pelger-Huet Anomaly Not Reportable 10/24/19 Unknown Nanda Rods Not Reportable 10/24/19 Unknown Platelet Estimate Consistent w auto 10/24/19 Unknown Clumped Platelets Not Reportable 10/24/19 Unknown Plt Clumps, EDTA Not Reportable 10/24/19 Unknown Large Platelets Not Reportable 10/24/19 Unknown Giant Platelets Not Reportable 10/24/19 Unknown Platelet Satelliting Not Reportable 10/24/19 Unknown Plt Morphology Comment Not Reportable 10/24/19 Unknown RBC Morphology Not Reportable 10/24/19 Unknown Dimorphic RBCs Not Reportable 10/24/19 Unknown Polychromasia Few 10/24/19 Unknown Hypochromasia Not Reportable 10/24/19 Unknown Poikilocytosis Not Reportable 10/24/19 Unknown Anisocytosis 1+ 10/24/19 Unknown Microcytosis Not Reportable 10/24/19 Unknown Macrocytosis Not Reportable 10/24/19 Unknown Spherocytes Not Reportable 10/24/19 Unknown Pappenheimer Bodies Not Reportable 10/24/19 Unknown Sickle Cells Not Reportable 10/24/19 Unknown Target Cells Not Reportable 10/24/19 Unknown Tear Drop Cells Not Reportable 10/24/19 Unknown Ovalocytes Not Reportable 10/24/19 Unknown Helmet Cells Not Reportable 10/24/19 Unknown [place] Bodies Not Reportable 10/24/19 Unknown [place] Rings Not Reportable 10/24/19 Unknown [place] Cells Not Reportable 10/24/19 Unknown Bite Cells Not Reportable 10/24/19 Unknown Crenated Cell Not Reportable 10/24/19 Unknown Elliptocytes Not Reportable 10/24/19 Unknown Acanthocytes (Spur) Not Reportable 10/24/19 Unknown Rouleaux Not Reportable 10/24/19 Unknown Hemoglobin C Crystals Not Reportable 10/24/19 Unknown Schistocytes Not Reportable 10/24/19 Unknown Malaria parasites Not Reportable 10/24/19 Unknown Arnol Bodies Not Reportable 10/24/19 Unknown Hem Pathologist Commnt No 10/24/19 Unknown PT 24.0 Sec. (12.2-14.9) H 10/24/19 Unknown INR 2.15 (0.87-1.13) H 10/24/19 Unknown APTT 25.7 Sec. (24.2-36.6) 10/20/19 10:40 D-Dimer 2524.09 ng/mlDDU (0-234) H 10/18/19 23:16 Heparin Anti-Xa Level 0.33 U.I./ml (0.3-0.7) 10/22/19 09:00 ABG pH 7.418 pH Units (7.350-7.450) 10/22/19 Unknown ABG pCO2 24.4 mm Hg 10/22/19 Unknown ABG pO2 86.5 mm Hg (80.0-90.0) 10/22/19 Unknown ABG HCO3 15.4 mmol/L (20.0-26.0) L 10/22/19 Unknown ABG O2 Saturation 97.1 % (95.0-99.0) 10/22/19 Unknown ABG O2 Content 9.3 (0.0-44) 10/22/19 Unknown ABG Base Excess -8.2 mmol/L (-2.0-3.0) L 10/22/19 Unknown ABG Hemoglobin 6.8 gm/dl (14.0-18.0) L 10/22/19 Unknown ABG Carboxyhemoglobin 1.6 % (0.0-5.0) 10/22/19 Unknown ABG Methemoglobin 0.5 % (0.0-1.5) 10/22/19 Unknown Oxyhemoglobin 95.0 % (95.0-99.0) 10/22/19 Unknown FiO2 21 % 10/22/19 Unknown Sodium 148 mmol/L (137-145) H 10/24/19 Unknown Potassium 4.2 mmol/L (3.6-5.0) 10/24/19 Unknown Chloride 113.5 mmol/L (98-107) H 10/24/19 Unknown Carbon Dioxide 18 mmol/L (22-30) L 10/24/19 Unknown Anion Gap 21 mmol/L 10/24/19 Unknown BUN 124 mg/dL (9-20) H 10/24/19 Unknown Creatinine 2.4 mg/dL (0.8-1.5) H 10/24/19 Unknown Estimated GFR 27 ml/min 10/24/19 Unknown BUN/Creatinine Ratio 52 % 10/24/19 Unknown Glucose 144 mg/dL (75-100) H 10/24/19 Unknown Lactic Acid 3.00 mmol/L (0.7-2.0) H* 10/24/19 Unknown Calcium 8.1 mg/dL (8.4-10.2) L 10/24/19 Unknown Phosphorus 6.00 mg/dL (2.5-4.5) H 10/20/19 04:15 Iron 134 ug/dL (49-181) 10/21/19 04:24 TIBC 150 mcg/dL (250-450) L 10/21/19 04:24 Ferritin > 2000.0 ng/mL (13.0-400.0) H 10/21/19 04:24 Total Bilirubin 4.80 mg/dL (0.1-1.2) H 10/24/19 10:52 Direct Bilirubin 0.7 mg/dL (0-0.2) H 10/21/19 04:24 Indirect Bilirubin 0.4 mg/dL 10/21/19 04:24 AST 293 units/L (5-40) H 10/24/19 10:52 ALT 215 units/L (7-56) H 10/24/19 10:52 Alkaline Phosphatase 184 units/L (35-129) H 10/24/19 10:52 Lactate Dehydrogenase 1150 units/L (91-180) H 10/18/19 21:46 Troponin T 0.017 ng/mL (0.00-0.029) 10/19/19 02:12 C-Reactive Protein 29.00 mg/dL (0.00-1.30) H 10/18/19 21:46 NT-Pro-B Natriuret Pep 7312 pg/mL (0-900) H 10/18/19 20:37 Total Protein 4.3 g/dL (6.3-8.2) L 10/24/19 10:52 Albumin 2.5 g/dL (3.9-5) L 10/24/19 10:52 Albumin/Globulin Ratio 1.4 % 10/24/19 10:52 Procalcitonin 6.56 ng/mL (<0.15) 10/23/19 05:30 TSH 1.420 mlU/mL (0.270-4.200) 10/21/19 04:24 Urine Color Yellow (Yellow) 10/19/19 12:25 Urine Turbidity Clear (Clear) 10/19/19 12:25 Urine pH 5.0 (5.0-7.0) 10/19/19 12:25 Ur Specific [place] 1.016 (1.003-1.030) 10/19/19 12:25 Urine Protein <15 mg/dl mg/dL (Negative) 10/19/19 12:25 Urine Glucose (UA) Neg mg/dL (Negative) 10/19/19 12:25 Urine Ketones Neg mg/dL (Negative) 10/19/19 12:25 Urine Blood Sm (Negative) 10/19/19 12:25 Urine Nitrite Neg (Negative) 10/19/19 12:25 Urine Bilirubin Neg (Negative) 10/19/19 12:25 Urine Urobilinogen 2.0 mg/dL (<2.0) 10/19/19 12:25 Ur Leukocyte Esterase Neg (Negative) 10/19/19 12:25 Urine WBC (Auto) 2.0 /HPF (0.0-6.0) 10/19/19 12:25 Urine RBC (Auto) 1.0 /HPF (0.0-6.0) 10/19/19 12:25 U Epithel Cells (Auto) 1.0 /HPF (0-13.0) 10/19/19 12:25 Urine Mucus Few /HPF 10/19/19 12:25 Urine Eosinophils None seen (None Seen) 10/19/19 12:25 Urine Creatinine 101.1 mg/dL (0.1-20.0) H 10/19/19 12:25 Protein/Creatinin Ratio 0.21 10/19/19 12:25 Urine Sodium 12 mmol/L 10/19/19 12:25 Urine Total Protein 21 mg/dL (5-11.8) H 10/19/19 12:25 Random Vancomycin 14.4 ug/mL (0-40.0) 10/24/19 Unknown Coronavirus (PCR) Negative (Negative) 10/19/19 08:23 Hepatitis A IgM Ab Non-reactive (NonReactive) 10/19/19 13:58 Hep Bs Antigen Non-reactive (Negative) 10/19/19 13:58 Hep B Core IgM Ab Non-reactive (NonReactive) 10/19/19 13:58 Hepatitis C Antibody Non-reactive (NonReactive) 10/19/19 13:58 Blood Type O POSITIVE 10/22/19 09:26 Antibody Screen Negative 10/22/19 09:26 Crossmatch See Detail 10/22/19 09:26 Microbiology: Microbiology 10/19/19 14:19 Peripheral/Venous Blood Culture - Final NO GROWTH AFTER 5 DAYS 10/19/19 14:19 Peripheral/Venous Blood Culture - Final NO GROWTH AFTER 5 DAYS - Diagnostic Impressions Diagnostic Impressions: Echocardiogram 10/19/19 09:58 Transthoracic Echocardiogram Indication: Bacteremia BP: 92/54 HR: 111 Conclusions *The left ventricular chamber size is mildly dilated. *Global left ventricular systolic function is severely decreased.LV diastolic function indeterminate *The estimated ejection fraction is 25-30%. *The left atrial chamber size is normal. *The right ventricular global systolic function is mildly reduced. *A pacemaker wire is visualized in the right atrium. *The right ventricular systolic pressure is calculated at 39 mmHg. Findings Left Ventricle: The left ventricular chamber size is mildly dilated. Global left ventricular systolic function is severely decreased.LV diastolic function indeterminate The estimated ejection fraction is 25-30%. Diffuse hypokinesis particularly of posterior wall and also abnormal motion secondary to conduction defect noted. Left Atrium: The left atrial chamber size is normal. Right Ventricle: The right ventricular global systolic function is mildly reduced. Right Atrium: The right atrial cavity size is normal. A pacemaker wire is visualized in the right atrium. Aortic Valve: The aortic valve leaflets are mildly thickened. There is no evidence of aortic regurgitation. Mitral Valve: The mitral valve leaflets are mildly thickened. There is mild mitral regurgitation. Tricuspid Valve: The tricuspid valve leaflets are mildly thickened. There is mild tricuspid regurgitation. The right ventricular systolic pressure is calculated at 39 mmHg. Pulmonic Valve: The pulmonic valve appears normal. There is trace pulmonic regurgitation. Pericardium: There is no pericardial effusion. Aorta: There is no dilatation of the ascending aorta. There is no dilatation of the aortic root. Venous: The inferior vena cava is not visualized. Measurements Chambers 2D Name Value Normal Range IVSd (2D) 1.04 cm (0.6 - 1.1) LVPWd (2D) 0.9 cm (0.6 - 1.1) LVIDd (2D) 6.25 cm (3.7 - 5.6) LVIDs (2D) 5.82 cm (2 - 3.8) LV FS (2D) 6.91 % - EF Teichholz (2D) 15.08 % - Ao root diameter (2D) 3.92 cm (2 - 3.7) Volumes/Mass Name Value Normal Range LA ESV SP 4CH (A/L) 88.58 ml - LA ESV SP 2CH (A/L) 67.41 ml - LA ESV BP (A/L) 80.54 ml - LA ESV BP (A/L) index 34.27 ml/m2 - LA ESV SP 4CH (MOD) 79.44 ml - LA ESV SP 2CH (MOD) 64.63 ml - LA ESV BP (MOD) 74.57 ml - LA ESV BP (MOD) index 31.73 ml/m2 - Diastolic/Systolic Function Name Value Normal Range MV E-wave Vmax 0.65 m/sec - MV deceleration time 154.22 msec - Aortic Valve Name Value Normal Range AV Vmax 1.56 m/sec - AV VTI 24.52 cm - AV peak gradient 9.84 mmHg - AV mean gradient 5.68 mmHg - LVOT diameter 2.42 cm - LVOT Vmax 0.9 m/sec - LVOT VTI 12.91 cm - LVOT peak gradient 3.21 mmHg - LVOT mean gradient 1.81 mmHg - SV LVOT 59.15 ml - ROBERTO (continuity Vmax) 2.63 cm2 - ROBERTO (continuity VTI) 2.41 cm2 - Tricuspid Valve Name Value Normal Range TR Vmax 3 m/sec - TR peak gradient 36 mmHg - RAP 3 mmHg - RVSP 39 mmHg - Pulmonic Valve/Qp:Qs Name Value Normal Range PV Vmax 1 m/sec - PV peak gradient 3.97 mmHg - PV acceleration time 76.12 msec - Rowe/IV: Voiding Method Incontinent IV Catheter Type [Right Triple Lumen Cath Internal Jugular] IV Catheter Type [Left Wrist] CVL Active Medications - Current Medications Current Medications: Generic Name Dose Route Start Last Admin Trade Name [place] PRN Reason Stop Dose Admin Acetaminophen 650 mg 10/19/19 00:08 Tylenol PO Q4H PRN Pain MILD(1-3)/Fever >100.5/GIBBS Albumin Human 25 gm 10/23/19 12:00 10/24/19 12:50 Al[place]x 25% (Albumin) IV 10/25/19 04:01 25 gm Q8H ABBEY Administration Norepinephrine 8 mg/ Sodium 250 mls @ 3.75 mls/hr 10/23/19 00:00 10/24/19 14:30 Chloride IV 12 mcg/min TITR ABBEY 22.5 mls/hr Titration Protocol 2 MCG/MIN Sodium Bicarbonate 100 meq/ 1,100 mls @ 100 mls/hr 10/23/19 12:00 10/24/19 14:56 Dextrose IV 100 mls/hr DIRECT ABBEY Administration MEROPENEM/NS 1 GRAM/100 ML 1 gram in 100 mls @ 100 mls/hr 10/23/19 16:00 10/24/19 09:03 Merrem/Ns 1 Gram/100 Ml IV 100 mls/hr Q12HR ABBEY Administration Protocol Magnesium Hydroxide 30 ml 10/19/19 00:08 Milk Of Magnesia PO Q4H PRN Constipation Midodrine 10 mg 10/23/19 12:00 10/24/19 13:15 Proamatine PO 10 mg TID@0800,1200,1600 ABBEY Administration Octreotide Acetate 100 mcg 10/23/19 14:00 10/24/19 14:23 Sandostatin SUB-Q 100 mcg Q8HR ABBEY Administration Ondansetron HCl 4 mg 10/19/19 00:08 10/21/19 22:31 Zofran IV 4 mg Q8H PRN Administration Nausea And Vomiting Sodium Bicarbonate 1,300 mg 10/23/19 14:00 10/24/19 14:22 Sodium Bicarbonate PO 1,300 mg TID ABBEY Administration Sodium Chloride 10 ml 10/19/19 10:00 10/24/19 09:11 Sodium Chloride Flush Syringe 10 Ml IV 10 ml BID ABBEY Administration Sodium Chloride 10 ml 10/19/19 00:08 Sodium Chloride Flush Syringe 10 Ml IV PRN PRN LINE FLUSH Nutrition/Malnutrition Assess - Dietary Evaluation Nutrition/Malnutrition Findings: Nutrition Notes Start: 10/19/19 09:23 Freq: Status: Active Protocol: Document 10/21/19 12:33 LM (Rec: 10/21/19 12:34 LM [id number]) Nutrition Notes Initial or Follow up Brief Note Current Diagnosis Heart Failure Other Pertinent Diagnosis Dyspnea, ARF, r/o COVID-19 Current Diet Cardiac Subjective/Other Information Unable to reach pt 2x. Nutrition Intervention Follow-Up By: 10/25/19 Additional Comments F/U: diet education needs
[2019-10-24 18:52] LABS: ABG Base Excess -4.4 mmol/L (-2.0-3.0); ABG HCO3 19.1 mmol/L (20.0-26.0); ABG Methemoglobin 0.6 % (0.0-1.5); ABG Oxygen Saturation 97.4 % (95.0-99.0); ABG PCO2 29.7 mm Hg; ABG PH 7.426 pH Units (7.350-7.450); ABG PO2 93.4 mm Hg (80.0-90.0)
[2019-10-25] MEDS: ALBUMIN HUMAN 25% (25 GM/100 ML) INJ IV SCH (04:04)
[2019-10-25 04:52] LABS: Hematocrit 23.7 % (35.5-45.6); Hemoglobin 7.7 gm/dl (11.8-15.2); Mean Corpuscular HGB Conc 32 % (32-34); Mean Corpuscular Volume 93 fl (84-94); Platelet Count 58 K/mm3 (140-440); Red Blood Count 2.54 M/mm3 (3.65-5.03); Red Cell Distribution Width 21.1 % (13.2-15.2)
[2019-10-25 05:17] LABS: Albumin 3.2 g/dL (3.9-5); Calcium 8.3 mg/dL (8.4-10.2)
[2019-10-25 05:40] LABS: Anisocytosis 1+; Band Neutrophils # (Manual) 0.5 K/mm3; Basophils % (Manual) 0 % (0.0-1.8); Burr Cells Few; Hypochromasia 1+; Macrocytosis Few; Ovalocytes Few; Schistocytes Few; Total Cells Counted 100
[2019-10-25 05:41] LABS: Platelet Estimate Consistent w Auto
[2019-10-25] MEDS: OCTREOTIDE 100 MCG/1 ML INJ SUB-Q SCH ×3 (05:56→22:19)
[2019-10-25] MEDS: MIDODRINE 5 MG TAB PO SCH ×3 (08:17→16:51)
[2019-10-25] MEDS: SODIUM BICARBONATE 650 MG TAB PO SCH ×3 (08:17→20:42)
--- NOTE | 2019-10-25 08:37 | Progress Note ---
Assessment and Plan Assessment and plan: 68-year-old white male with known history of CHF, pacemaker/defibrillator placement in the past presenting to the emergency room today for progressive worsening of shortness of breath which has been ongoing for about 4 days. Shortness of breath is said to be worse on exertion. He denies any chest pain, no fever or chills, no cough, no nausea vomiting but he has had some episodes of diarrhea. He denies any bright red blood per rectum, no hematuria or dysuria. He denies any sick contacts and no recent travel. Upon arrival in the emergency room evaluation revealed elevated INR, acute kidney injury and other significant abnormalities on the chemistry. He was screened for COVID-19 and was negative 10/20: STILL REQUIRING PRESSORS. We will continue in ICU care. Continue to monitor electrolytes. Check liver enzymes GI and ID inputs noted. 10/21: Restarted on pressors after briefly holding. Worsening anemia we will stop heparin drip and give the patient 2 L 2 units of packed red blood cell. Await GI reevaluation. Begin rewarming as patient hypothermic this morning. Cultures still unrevealing. Worsening leukocytosis noted will continue with ICU care 10/22: Abdominal ultrasound concerning for pancreatic mass possible malignancy with metastasis. Unfortunately we do not have oncologist on staff the one that does sometimes states that he is unable to come to the hospital to evaluate this patient. Nevertheless there is also concern if this pancreatic mass is an abscess patient still on pressors precluding obtaining MRI nevertheless we will order this in case we are able to move the patient to get MRI with an MRI compatible pump. I have also placed in some orders for tumor markers. And discussed with GI. Vitamin K being given for elevated INR 10/23: Imaging studies including CT very concerning for Malignancy. Unfortunately no HEMATOLOGY HERE, AWAIT TUMOR MARKERS 10/24 --Septic shock : ID Following,Treat underlying cause of sepsis , antibiotics, follow cultures on vasopressors, wean as tolerated and discontinue Critical care time--Pancreatic mass rule out malignancy: As noted above, patient will follow up with oncology upon discharge --Acute respiratory failure Current Visit: Yes Status: Acute COVID negative, acute bronchitis Continue supportive care, pulmonary following --Shock liver ; Likely secondary to underlying cardiac failure. Continue supportive care --Acute renal failure secondary to hepatorenal syndrome, secondary to shock Current Visit: Yes Status: Acute Monitor renal function avoid nephrotoxins Creatinine trending down --Acute blood loss anemia Received total 3 units PRBC --Elevated INR/supratherapeutic INR Current Visit: Yes Status: Acute Secondary to Coumadin toxicity Hold Coumadin, continue to monitor -- H/O atrial fibrillation /rate controlled beta-blockers held due to septic shock But been held due to supratherapeutic INR --hypotension Current Visit: Yes Status: Acute Patient placed on IV fluid. We will continue to monitor vital signs closely. --Acute on chronic systolic congestive heart failure[EF 25 to 30%] Cardiology following., Continue anti-failure medications Input output monitoring --Cardiomyopathy [25 to 30% EF] Continue current anti-failure medications -- DVT prophylaxis Current Visit: Yes Status: Acute SCDs, supratherapeutic INR -- Full code status Current Visit: Yes Status: Acute Monitor closely and adjust management as needed Plan of care reviewed with the patient and his nurse Critical care time 35 minutes History Interval history: Patient seen and examined at the bedside in ICU this morning Patient's chart and medications reviewed Patient feels slightly better Looks critically ill edematous Vital signs noted Hospitalist Physical - Constitutional Vitals: Temp Pulse Resp BP Pulse Ox 97.9 F 98 H 23 148/61 100 10/25/19 03:12 10/25/19 06:30 10/25/19 06:30 10/25/19 06:30 10/25/19 06:30 General appearance: Present: mild distress, well-nourished, obese, other - EENT Eyes: Present: PERRL (Pneumonitis), EOM intact - Neck Neck: Present: supple, normal ROM - Respiratory Respiratory effort: normal Respiratory: bilateral: diminished, rhonchi, negative: rales, wheezing - Cardiovascular Rhythm: regular Heart Sounds: Present: S1 & S2 - Extremities Extremities: no ischemia Extremity abnormal: edema - Abdominal General gastrointestinal: soft, non-tender, non-distended, normal bowel sounds - Integumentary Integumentary: Present: clear, warm - Psychiatric Psychiatric: appropriate mood/affect, cooperative - Neurologic Neurologic: moves all extremities HEART Score - HEART Score Troponin: Troponin T 0.017 ng/mL (0.00-0.029) 10/19/19 02:12 Results - Labs CBC & Chem 7: 10/25/19 04:30 10/25/19 04:30 Labs: Laboratory Last Values WBC 22.7 K/mm3 (4.5-11.0) H 10/25/19 04:30 RBC 2.54 M/mm3 (3.65-5.03) L 10/25/19 04:30 Hgb 7.7 gm/dl (11.8-15.2) L 10/25/19 04:30 Hct 23.7 % (35.5-45.6) L 10/25/19 04:30 MCV 93 fl (84-94) 10/25/19 04:30 MCH 30 pg (28-32) 10/25/19 04:30 MCHC 32 % (32-34) 10/25/19 04:30 RDW 21.1 % (13.2-15.2) H 10/25/19 04:30 Plt Count 58 K/mm3 (140-440) L 10/25/19 04:30 Add Manual Diff Complete 10/25/19 04:30 Total Counted 100 10/25/19 04:30 Seg Neutrophils % Spanish Professor 10/20/19 04:15 Seg Neuts % (Manual) 81.0 % (40.0-70.0) H 10/25/19 04:30 Band Neutrophils % 2.0 % 10/25/19 04:30 Lymphocytes % (Manual) 5.0 % (13.4-35.0) L 10/25/19 04:30 Reactive Lymphs % (Man) 0 % 10/25/19 04:30 Monocytes % (Manual) 6.0 % (0.0-7.3) 10/25/19 04:30 Eosinophils % (Manual) 1.0 % (0.0-4.3) 10/25/19 04:30 Basophils % (Manual) 0 % (0.0-1.8) 10/25/19 04:30 Metamyelocytes % 5.0 % 10/25/19 04:30 Myelocytes % 0 % 10/25/19 04:30 Promyelocytes % 0 % 10/25/19 04:30 Blast Cells % 0 % 10/25/19 04:30 Nucleated RBC % 2.0 % (0.0-0.9) H 10/25/19 04:30 Seg Neutrophils # Man 18.4 K/mm3 (1.8-7.7) H 10/25/19 04:30 Band Neutrophils # 0.5 K/mm3 10/25/19 04:30 Lymphocytes # (Manual) 1.1 K/mm3 (1.2-5.4) L 10/25/19 04:30 Abs React Lymphs (Man) 0.0 K/mm3 10/25/19 04:30 Monocytes # (Manual) 1.4 K/mm3 (0.0-0.8) H 10/25/19 04:30 Eosinophils # (Manual) 0.2 K/mm3 (0.0-0.4) 10/25/19 04:30 Basophils # (Manual) 0.0 K/mm3 (0.0-0.1) 10/25/19 04:30 Metamyelocytes # 1.1 K/mm3 10/25/19 04:30 Myelocytes # 0.0 K/mm3 10/25/19 04:30 Promyelocytes # 0.0 K/mm3 10/25/19 04:30 Blast Cells # 0.0 K/mm3 10/25/19 04:30 WBC Morphology Not Reportable 10/25/19 04:30 Hypersegmented Neuts Not Reportable 10/25/19 04:30 Hyposegmented Neuts Not Reportable 10/25/19 04:30 Hypogranular Neuts Not Reportable 10/25/19 04:30 Smudge Cells Not Reportable 10/25/19 04:30 Toxic Granulation Not Reportable 10/25/19 04:30 Toxic Vacuolation Not Reportable 10/25/19 04:30 Dohle Bodies Not Reportable 10/25/19 04:30 Pelger-Huet Anomaly Not Reportable 10/25/19 04:30 Nanda Rods Not Reportable 10/25/19 04:30 Platelet Estimate Consistent w auto 10/25/19 04:30 Clumped Platelets Not Reportable 10/25/19 04:30 Plt Clumps, EDTA Not Reportable 10/25/19 04:30 Large Platelets Not Reportable 10/25/19 04:30 Giant Platelets Not Reportable 10/25/19 04:30 Platelet Satelliting Not Reportable 10/25/19 04:30 Plt Morphology Comment Not Reportable 10/25/19 04:30 RBC Morphology Not Reportable 10/25/19 04:30 Dimorphic RBCs Not Reportable 10/25/19 04:30 Polychromasia Few 10/25/19 04:30 Hypochromasia 1+ 10/25/19 04:30 Poikilocytosis Not Reportable 10/25/19 04:30 Anisocytosis 1+ 10/25/19 04:30 Microcytosis Few 10/25/19 04:30 Macrocytosis Few 10/25/19 04:30 Spherocytes Not Reportable 10/25/19 04:30 Pappenheimer Bodies Not Reportable 10/25/19 04:30 Sickle Cells Not Reportable 10/25/19 04:30 Target Cells Not Reportable 10/25/19 04:30 Tear Drop Cells Not Reportable 10/25/19 04:30 Ovalocytes Few 10/25/19 04:30 Helmet Cells Not Reportable 10/25/19 04:30 Santiago-Granjeno Bodies Not Reportable 10/25/19 04:30 [place] Rings Not Reportable 10/25/19 04:30 Meally Cells Few 10/25/19 04:30 Bite Cells Not Reportable 10/25/19 04:30 Crenated Cell Not Reportable 10/25/19 04:30 Elliptocytes Not Reportable 10/25/19 04:30 Acanthocytes (Spur) Not Reportable 10/25/19 04:30 Rouleaux Not Reportable 10/25/19 04:30 Hemoglobin C Crystals Not Reportable 10/25/19 04:30 Schistocytes Few 10/25/19 04:30 Malaria parasites Not Reportable 10/25/19 04:30 Arnol Bodies Not Reportable 10/25/19 04:30 Hem Pathologist Commnt No 10/25/19 04:30 PT 24.0 Sec. (12.2-14.9) H 10/24/19 Unknown INR 2.15 (0.87-1.13) H 10/24/19 Unknown APTT 25.7 Sec. (24.2-36.6) 10/20/19 10:40 D-Dimer 2524.09 ng/mlDDU (0-234) H 10/18/19 23:16 Heparin Anti-Xa Level 0.33 U.I./ml (0.3-0.7) 10/22/19 09:00 ABG pH 7.426 pH Units (7.350-7.450) 10/24/19 18:30 ABG pCO2 29.7 mm Hg 10/24/19 18:30 ABG pO2 93.4 mm Hg (80.0-90.0) H 10/24/19 18:30 ABG HCO3 19.1 mmol/L (20.0-26.0) L 10/24/19 18:30 ABG O2 Saturation 97.4 % (95.0-99.0) 10/24/19 18:30 ABG O2 Content 13.3 (0.0-44) 10/24/19 18:30 ABG Base Excess -4.4 mmol/L (-2.0-3.0) L 10/24/19 18:30 ABG Hemoglobin 9.9 gm/dl (14.0-18.0) L 10/24/19 18:30 ABG Carboxyhemoglobin 1.9 % (0.0-5.0) 10/24/19 18:30 ABG Methemoglobin 0.6 % (0.0-1.5) 10/24/19 18:30 Oxyhemoglobin 95.0 % (95.0-99.0) 10/24/19 18:30 FiO2 21 % 10/24/19 18:30 Sodium 149 mmol/L (137-145) H 10/25/19 04:30 Potassium 4.0 mmol/L (3.6-5.0) 10/25/19 04:30 Chloride 113.3 mmol/L (98-107) H 10/25/19 04:30 Carbon Dioxide 21 mmol/L (22-30) L 10/25/19 04:30 Anion Gap 19 mmol/L 10/25/19 04:30 BUN 104 mg/dL (9-20) H 10/25/19 04:30 Creatinine 2.1 mg/dL (0.8-1.5) H 10/25/19 04:30 Estimated GFR 32 ml/min 10/25/19 04:30 BUN/Creatinine Ratio 50 % 10/25/19 04:30 Glucose 168 mg/dL (75-100) H 10/25/19 04:30 Lactic Acid 3.00 mmol/L (0.7-2.0) H* 10/24/19 Unknown Calcium 8.3 mg/dL (8.4-10.2) L 10/25/19 04:30 Phosphorus 6.00 mg/dL (2.5-4.5) H 10/20/19 04:15 Iron 134 ug/dL (49-181) 10/21/19 04:24 TIBC 150 mcg/dL (250-450) L 10/21/19 04:24 Ferritin > 2000.0 ng/mL (13.0-400.0) H 10/21/19 04:24 Total Bilirubin 7.60 mg/dL (0.1-1.2) H 10/25/19 04:30 Direct Bilirubin 0.7 mg/dL (0-0.2) H 10/21/19 04:24 Indirect Bilirubin 0.4 mg/dL 10/21/19 04:24 AST 149 units/L (5-40) H 10/25/19 04:30 ALT 153 units/L (7-56) H 10/25/19 04:30 Alkaline Phosphatase 172 units/L (35-129) H 10/25/19 04:30 Lactate Dehydrogenase 1150 units/L (91-180) H 10/18/19 21:46 Troponin T 0.017 ng/mL (0.00-0.029) 10/19/19 02:12 C-Reactive Protein 29.00 mg/dL (0.00-1.30) H 10/18/19 21:46 NT-Pro-B Natriuret Pep 7312 pg/mL (0-900) H 10/18/19 20:37 Total Protein 4.8 g/dL (6.3-8.2) L 10/25/19 04:30 Albumin 3.2 g/dL (3.9-5) L 10/25/19 04:30 Albumin/Globulin Ratio 2.0 % 10/25/19 04:30 Procalcitonin 6.56 ng/mL (<0.15) 10/23/19 05:30 TSH 1.420 mlU/mL (0.270-4.200) 10/21/19 04:24 Urine Color Yellow (Yellow) 10/19/19 12:25 Urine Turbidity Clear (Clear) 10/19/19 12:25 Urine pH 5.0 (5.0-7.0) 10/19/19 12:25 Ur Specific [place] 1.016 (1.003-1.030) 10/19/19 12:25 Urine Protein <15 mg/dl mg/dL (Negative) 10/19/19 12:25 Urine Glucose (UA) Neg mg/dL (Negative) 10/19/19 12:25 Urine Ketones Neg mg/dL (Negative) 10/19/19 12:25 Urine Blood Sm (Negative) 10/19/19 12:25 Urine Nitrite Neg (Negative) 10/19/19 12:25 Urine Bilirubin Neg (Negative) 10/19/19 12:25 Urine Urobilinogen 2.0 mg/dL (<2.0) 10/19/19 12:25 Ur Leukocyte Esterase Neg (Negative) 10/19/19 12:25 Urine WBC (Auto) 2.0 /HPF (0.0-6.0) 10/19/19 12:25 Urine RBC (Auto) 1.0 /HPF (0.0-6.0) 10/19/19 12:25 U Epithel Cells (Auto) 1.0 /HPF (0-13.0) 10/19/19 12:25 Urine Mucus Few /HPF 10/19/19 12:25 Urine Eosinophils None seen (None Seen) 10/19/19 12:25 Urine Creatinine 101.1 mg/dL (0.1-20.0) H 10/19/19 12:25 Protein/Creatinin Ratio 0.21 10/19/19 12:25 Urine Sodium 12 mmol/L 10/19/19 12:25 Urine Total Protein 21 mg/dL (5-11.8) H 10/19/19 12:25 Random Vancomycin 14.4 ug/mL (0-40.0) 10/24/19 Unknown Coronavirus (PCR) Negative (Negative) 10/19/19 08:23 Hepatitis A IgM Ab Non-reactive (NonReactive) 10/19/19 13:58 Hep Bs Antigen Non-reactive (Negative) 10/19/19 13:58 Hep B Core IgM Ab Non-reactive (NonReactive) 10/19/19 13:58 Hepatitis C Antibody Non-reactive (NonReactive) 10/19/19 13:58 Blood Type O POSITIVE 10/22/19 09:26 Antibody Screen Negative 10/22/19 09:26 Crossmatch See Detail 10/22/19 09:26 Microbiology: Microbiology 10/19/19 14:19 Peripheral/Venous Blood Culture - Final NO GROWTH AFTER 5 DAYS 10/19/19 14:19 Peripheral/Venous Blood Culture - Final NO GROWTH AFTER 5 DAYS - Diagnostic Impressions Diagnostic Impressions: Echocardiogram 10/19/19 09:58 Transthoracic Echocardiogram Indication: Bacteremia BP: 92/54 HR: 111 Conclusions *The left ventricular chamber size is mildly dilated. *Global left ventricular systolic function is severely decreased.LV diastolic function indeterminate *The estimated ejection fraction is 25-30%. *The left atrial chamber size is normal. *The right ventricular global systolic function is mildly reduced. *A pacemaker wire is visualized in the right atrium. *The right ventricular systolic pressure is calculated at 39 mmHg. Findings Left Ventricle: The left ventricular chamber size is mildly dilated. Global left ventricular systolic function is severely decreased.LV diastolic function indeterminate The estimated ejection fraction is 25-30%. Diffuse hypokinesis particularly of posterior wall and also abnormal motion secondary to conduction defect noted. Left Atrium: The left atrial chamber size is normal. Right Ventricle: The right ventricular global systolic function is mildly reduced. Right Atrium: The right atrial cavity size is normal. A pacemaker wire is visualized in the right atrium. Aortic Valve: The aortic valve leaflets are mildly thickened. There is no evidence of aortic regurgitation. Mitral Valve: The mitral valve leaflets are mildly thickened. There is mild mitral regurgitation. Tricuspid Valve: The tricuspid valve leaflets are mildly thickened. There is mild tricuspid regurgitation. The right ventricular systolic pressure is calculated at 39 mmHg. Pulmonic Valve: The pulmonic valve appears normal. There is trace pulmonic regurgitation. Pericardium: There is no pericardial effusion. Aorta: There is no dilatation of the ascending aorta. There is no dilatation of the aortic root. Venous: The inferior vena cava is not visualized. Measurements Chambers 2D Name Value Normal Range IVSd (2D) 1.04 cm (0.6 - 1.1) LVPWd (2D) 0.9 cm (0.6 - 1.1) LVIDd (2D) 6.25 cm (3.7 - 5.6) LVIDs (2D) 5.82 cm (2 - 3.8) LV FS (2D) 6.91 % - EF Teichholz (2D) 15.08 % - Ao root diameter (2D) 3.92 cm (2 - 3.7) Volumes/Mass Name Value Normal Range LA ESV SP 4CH (A/L) 88.58 ml - LA ESV SP 2CH (A/L) 67.41 ml - LA ESV BP (A/L) 80.54 ml - LA ESV BP (A/L) index 34.27 ml/m2 - LA ESV SP 4CH (MOD) 79.44 ml - LA ESV SP 2CH (MOD) 64.63 ml - LA ESV BP (MOD) 74.57 ml - LA ESV BP (MOD) index 31.73 ml/m2 - Diastolic/Systolic Function Name Value Normal Range MV E-wave Vmax 0.65 m/sec - MV deceleration time 154.22 msec - Aortic Valve Name Value Normal Range AV Vmax 1.56 m/sec - AV VTI 24.52 cm - AV peak gradient 9.84 mmHg - AV mean gradient 5.68 mmHg - LVOT diameter 2.42 cm - LVOT Vmax 0.9 m/sec - LVOT VTI 12.91 cm - LVOT peak gradient 3.21 mmHg - LVOT mean gradient 1.81 mmHg - SV LVOT 59.15 ml - ROBERTO (continuity Vmax) 2.63 cm2 - ROBERTO (continuity VTI) 2.41 cm2 - Tricuspid Valve Name Value Normal Range TR Vmax 3 m/sec - TR peak gradient 36 mmHg - RAP 3 mmHg - RVSP 39 mmHg - Pulmonic Valve/Qp:Qs Name Value Normal Range PV Vmax 1 m/sec - PV peak gradient 3.97 mmHg - PV acceleration time 76.12 msec - Rowe/IV: Voiding Method Incontinent IV Catheter Type [Right Triple Lumen Cath Internal Jugular] IV Catheter Type [Left Wrist] CVL Active Medications - Current Medications Current Medications: Generic Name Dose Route Start Last Admin Trade Name Freq PRN Reason Stop Dose Admin Acetaminophen 650 mg 10/19/19 00:08 Tylenol PO Q4H PRN Pain MILD(1-3)/Fever >100.5/GIBBS Norepinephrine 8 mg/ Sodium 250 mls @ 3.75 mls/hr 10/23/19 00:00 10/25/19 08:15 Chloride IV 6 mcg/min TITR ABBEY 11.25 mls/hr Titration Protocol 2 MCG/MIN Sodium Bicarbonate 100 meq/ 1,100 mls @ 100 mls/hr 10/23/19 12:00 10/24/19 14:56 Dextrose IV 100 mls/hr DIRECT ABBEY Administration MEROPENEM/NS 1 GRAM/100 ML 1 gram in 100 mls @ 100 mls/hr 10/23/19 16:00 10/24/19 21:42 Merrem/Ns 1 Gram/100 Ml IV 100 mls/hr Q12HR ABBEY Administration Protocol Magnesium Hydroxide 30 ml 10/19/19 00:08 Milk Of Magnesia PO Q4H PRN Constipation Midodrine 10 mg 10/23/19 12:00 10/25/19 08:17 Proamatine PO 10 mg TID@0800,1200,1600 ABBEY Administration Octreotide Acetate 100 mcg 10/23/19 14:00 10/25/19 05:56 Sandostatin SUB-Q 100 mcg Q8HR ABBEY Administration Ondansetron HCl 4 mg 10/19/19 00:08 10/21/19 22:31 Zofran IV 4 mg Q8H PRN Administration Nausea And Vomiting Sodium Bicarbonate 1,300 mg 10/23/19 14:00 10/25/19 08:17 Sodium Bicarbonate PO 1,300 mg TID ABBEY Administration Sodium Chloride 10 ml 10/19/19 10:00 10/24/19 21:43 Sodium Chloride Flush Syringe 10 Ml IV 10 ml BID ABBEY Administration Sodium Chloride 10 ml 10/19/19 00:08 Sodium Chloride Flush Syringe 10 Ml IV PRN PRN LINE FLUSH Nutrition/Malnutrition Assess - Dietary Evaluation Nutrition/Malnutrition Findings: Nutrition Notes Start: 10/19/19 09:23 Freq: Status: Active Protocol: Document 10/21/19 12:33 LM (Rec: 10/21/19 12:34 LM [id number]) Nutrition Notes Initial or Follow up Brief Note Current Diagnosis Heart Failure Other Pertinent Diagnosis Dyspnea, ARF, r/o COVID-19 Current Diet Cardiac Subjective/Other Information Unable to reach pt 2x. Nutrition Intervention Follow-Up By: 10/25/19 Additional Comments F/U: diet education needs
[2019-10-25] MEDS: SODIUM BICARBONATE 100 MEQ in DEXTROSE 5% IN WATER 1,000 ML IV SCH ×2 (08:38→20:42)
--- NOTE | 2019-10-25 09:04 | Progress Note ---
Assessment and Plan Cultures: blood culture 10/19/2019 no growth today urine culture 10/19/2019 <10 Assessment: 68 y/o male with history of CAD, previous OR, CVA, CHF status post AICD, previous PE/DVT, admitted on due to 10 day-history of dry cough, malaise and progressive shortness of breath and dyspnea on exertion: #Shock ?septic ?cardiogenic and MODS: now on dobutamin and levophed, leukocytosis worsening leukemoid reaction, no fever; unclear septic etiology ? GB/liver / malignancy. Urinalysis negative, blood cultures negative. Procalcitonin elevated, however unclear significance under ASHLIE setting. #Cough/Dyspnea on exertion: CXR x 3 negative. COVID test NEGATIVE. Inflamatory markers are markedly elevated D-dimer 2301, CRP 29, LDH 1150, ferritin> 2000. #History of CHF with AICD ? r/o CHF exacerbation, BNP 7312. EF 25-30% #Elevated LFTs: likely due to innumerable liver lesions ? mets and possible pancreatic mass ? malignancy. CT abd/pelvis shows large mass in the region of the pancreatic head/duodenum which could be of either origin although duodenal origin is favored since there is no pancreatic or biliary ductal dilatation as would be expected with a mass this size in the pancreatic head. There is metastatic disease disease involving the liver, likely the surrounding regional lymph nodes, and there is also a small bone lesion in the lumbar spine. #ASHLIE: Renally adjust antibiotics, improving. #Penicillin allergy: Patient has taken Keflex, and he reports allergy is remote and vague. #Anemia/thrombocytopenia/coagulopathy: ? malignancy ? sepsis Recommendations: recheck procal ideally requires biopsy however currently coagulopathic and on pressors therefore too high risk hem/onc consult due to leukemoid reaction/worsening thrombocytopenia and pancreatic mass continue meropenem IV renally adjusted Day 3 of 5 f/u blood cultures cards on board Guarded prognosis Will follow Jennifer Armstrong MD Infectious Diseases Senior Manager [facility] M [phone] O [phone] Subjective Date of service: 10/25/19 Principal diagnosis: sepsis Interval history: Non verbal, remains on levophed, no fever Objective - Exam Narrative Exam: General appearance: somnolent in NAD on nasal cannula oxygen Eyes: anicteric sclerae, moist conjunctivae HENT: Atraumatic; oropharynx clear Lungs: CTA narda +AICD pocket no erythema, heat or edema CV: Tachycardic Abdomen: Soft, non-tender Extremities: narda arm edema Skin: No rash. Psych: no agitated, depressed mood Neuro: somnolent non verbal open eyes - Constitutional Vitals: Vital Signs Temp Pulse Resp BP Pulse Ox 99.4 F 88 20 120/55 98 10/25/19 08:00 10/25/19 08:46 10/25/19 08:46 10/25/19 08:46 10/25/19 08:46 Temperature -Last 24 Hours Temperature 99.4 F Temperature 97.9 F Temperature 98.1 F Temperature 98.0 F Temperature 97.9 F Temperature 97.5 F Temperature 97.8 F Temperature 97.6 F Temperature 97.9 F Temperature 97.8 F Temperature 97.2 F Temperature 97.4 F - Labs CBC & Chem 7: 10/25/19 04:30 10/25/19 04:30 Labs: Abnormal lab results 10/22/19 10/24/19 10/24/19 Range/Units 09:26 10:52 12:29 WBC (4.5-11.0) K/mm3 RBC (3.65-5.03) M/mm3 Hgb (11.8-15.2) gm/dl Hct (35.5-45.6) % MCV (84-94) fl MCHC (32-34) % RDW (13.2-15.2) % Plt Count (140-440) K/mm3 Seg Neuts % (Manual) (40.0-70.0) % Lymphocytes % (Manual) (13.4-35.0) % Nucleated RBC % (0.0-0.9) % Seg Neutrophils # Man (1.8-7.7) K/mm3 Lymphocytes # (Manual) (1.2-5.4) K/mm3 Monocytes # (Manual) (0.0-0.8) K/mm3 PT 24.3 H (12.2-14.9) Sec. INR 2.19 H (0.87-1.13) ABG pO2 (80.0-90.0) mm Hg ABG HCO3 (20.0-26.0) mmol/L ABG Base Excess (-2.0-3.0) mmol/L ABG Hemoglobin (14.0-18.0) gm/dl Sodium 148 H (137-145) mmol/L Chloride 116.5 H (98-107) mmol/L Carbon Dioxide 17 L (22-30) mmol/L BUN 122 H (9-20) mg/dL Creatinine 2.4 H (0.8-1.5) mg/dL Glucose 183 H (75-100) mg/dL Calcium 8.1 L (8.4-10.2) mg/dL Total Bilirubin 4.80 H (0.1-1.2) mg/dL AST 293 H (5-40) units/L ALT 215 H (7-56) units/L Alkaline Phosphatase 184 H (35-129) units/L Total Protein 4.3 L (6.3-8.2) g/dL Albumin 2.5 L (3.9-5) g/dL Crossmatch See Detail 10/24/19 10/24/19 10/25/19 Range/Units 15:35 18:30 04:30 WBC 17.8 H 22.7 H (4.5-11.0) K/mm3 RBC 2.02 L 2.54 L (3.65-5.03) M/mm3 Hgb 6.2 L 7.7 L (11.8-15.2) gm/dl Hct 20.0 L 23.7 L (35.5-45.6) % MCV 99 H (84-94) fl MCHC 31 L (32-34) % RDW 19.8 H 21.1 H (13.2-15.2) % Plt Count 48 L 58 L (140-440) K/mm3 Seg Neuts % (Manual) 81.0 H (40.0-70.0) % Lymphocytes % (Manual) 5.0 L (13.4-35.0) % Nucleated RBC % 2.0 H (0.0-0.9) % Seg Neutrophils # Man 18.4 H (1.8-7.7) K/mm3 Lymphocytes # (Manual) 1.1 L (1.2-5.4) K/mm3 Monocytes # (Manual) 1.4 H (0.0-0.8) K/mm3 PT (12.2-14.9) Sec. INR (0.87-1.13) ABG pO2 93.4 H (80.0-90.0) mm Hg ABG HCO3 19.1 L (20.0-26.0) mmol/L ABG Base Excess -4.4 L (-2.0-3.0) mmol/L ABG Hemoglobin 9.9 L (14.0-18.0) gm/dl Sodium (137-145) mmol/L Chloride (98-107) mmol/L Carbon Dioxide (22-30) mmol/L BUN (9-20) mg/dL Creatinine (0.8-1.5) mg/dL Glucose (75-100) mg/dL Calcium (8.4-10.2) mg/dL Total Bilirubin (0.1-1.2) mg/dL AST (5-40) units/L ALT (7-56) units/L Alkaline Phosphatase (35-129) units/L Total Protein (6.3-8.2) g/dL Albumin (3.9-5) g/dL Crossmatch 10/25/19 Range/Units 04:30 WBC (4.5-11.0) K/mm3 RBC (3.65-5.03) M/mm3 Hgb (11.8-15.2) gm/dl Hct (35.5-45.6) % MCV (84-94) fl MCHC (32-34) % RDW (13.2-15.2) % Plt Count (140-440) K/mm3 Seg Neuts % (Manual) (40.0-70.0) % Lymphocytes % (Manual) (13.4-35.0) % Nucleated RBC % (0.0-0.9) % Seg Neutrophils # Man (1.8-7.7) K/mm3 Lymphocytes # (Manual) (1.2-5.4) K/mm3 Monocytes # (Manual) (0.0-0.8) K/mm3 PT (12.2-14.9) Sec. INR (0.87-1.13) ABG pO2 (80.0-90.0) mm Hg ABG HCO3 (20.0-26.0) mmol/L ABG Base Excess (-2.0-3.0) mmol/L ABG Hemoglobin (14.0-18.0) gm/dl Sodium 149 H (137-145) mmol/L Chloride 113.3 H (98-107) mmol/L Carbon Dioxide 21 L (22-30) mmol/L BUN 104 H (9-20) mg/dL Creatinine 2.1 H (0.8-1.5) mg/dL Glucose 168 H (75-100) mg/dL Calcium 8.3 L (8.4-10.2) mg/dL Total Bilirubin 7.60 H (0.1-1.2) mg/dL AST 149 H (5-40) units/L ALT 153 H (7-56) units/L Alkaline Phosphatase 172 H (35-129) units/L Total Protein 4.8 L (6.3-8.2) g/dL Albumin 3.2 L (3.9-5) g/dL Crossmatch
[2019-10-25] MEDS: MEROPENEM/NS 1 GRAM/100 ML 1 GRAM/100 ML BAG IV SCH ×2 (09:57→22:19)
--- NOTE | 2019-10-25 10:03 | Progress Note ---
Assessment and Plan tte reviewed - EF 25-30%, RV systolic function mildly reduced, RVSP 39mmHg. COVID-19 negative. Pt continues to require vasopressor support. No apparent clinical evidence of acutely decompensated HF. Cont supportive management. Cont to hold home GDMT and diuretics in setting of hypotension. Heparin gtt and home coumadin held in setting of coagulopathy. Abdomen/pelvis CT reviewed - large mass in region of pancreatic head/duodenum, metastatic disease involving the liver, likely the surrounding regional lymph nodes and small bone lesion in lumbar spine. Heme/onc has been consulted. GI team is following. The patient has been seen in conjunction with Dr. Ty Seymour who agrees with the assessment and plan of care. - Patient Problems (1) Sepsis Current Visit: Yes Status: Suspected (2) Sepsis associated hypotension Current Visit: Yes Status: Chronic (3) Coagulopathy Current Visit: Yes Status: Acute (4) Chronic HFrEF (heart failure with reduced ejection fraction) Current Visit: Yes Status: Chronic (5) NICM (nonischemic cardiomyopathy) Current Visit: Yes Status: Chronic (6) Automatic implantable cardioverter-defibrillator in situ Current Visit: Yes Status: Chronic (7) Paroxysmal atrial fibrillation Current Visit: Yes Status: Chronic (8) Anticoagulated on Coumadin Current Visit: Yes Status: Chronic (9) History of ventricular tachycardia Current Visit: Yes Status: Chronic (10) Anemia Current Visit: Yes Status: Acute (11) Elevated LFTs Current Visit: Yes Status: Acute (12) Acute renal failure Current Visit: Yes Status: Acute Qualifiers: Acute renal failure type: unspecified Qualified Code(s): N17.9 - Acute kidney failure, unspecified Subjective Date of service: 10/25/19 Principal diagnosis: sepsis Interval history: pt resting in bed, alert. VPaced on telemetry with underlying AFib. levophed gtt infusing. Objective Last Vital Signs Temp 99.4 F 10/25/19 08:00 Pulse 88 10/25/19 08:46 Resp 20 10/25/19 08:46 BP 120/55 10/25/19 08:46 Pulse Ox 98 10/25/19 08:46 - Physical Examination Narrative exam: agree with physical examination per critical care team - Labs and Meds Cardiac Enzymes 10/24/19 10/25/19 Range/Units 10:52 04:30 AST 293 H 149 H (5-40) units/L Coagulation 10/24/19 Range/Units 12:29 PT 24.3 H (12.2-14.9) Sec. INR 2.19 H (0.87-1.13) CBC 10/24/19 10/25/19 Range/Units 15:35 04:30 WBC 17.8 H 22.7 H (4.5-11.0) K/mm3 RBC 2.02 L 2.54 L (3.65-5.03) M/mm3 Hgb 6.2 L 7.7 L (11.8-15.2) gm/dl Hct 20.0 L 23.7 L (35.5-45.6) % Plt Count 48 L 58 L (140-440) K/mm3 Comprehensive Metabolic Panel 10/24/19 10/25/19 Range/Units 10:52 04:30 Sodium 148 H 149 H (137-145) mmol/L Potassium 4.5 4.0 (3.6-5.0) mmol/L Chloride 116.5 H 113.3 H (98-107) mmol/L Carbon Dioxide 17 L 21 L (22-30) mmol/L BUN 122 H 104 H (9-20) mg/dL Creatinine 2.4 H 2.1 H (0.8-1.5) mg/dL Glucose 183 H 168 H (75-100) mg/dL Calcium 8.1 L 8.3 L (8.4-10.2) mg/dL AST 293 H 149 H (5-40) units/L ALT 215 H 153 H (7-56) units/L Alkaline Phosphatase 184 H 172 H (35-129) units/L Total Protein 4.3 L 4.8 L (6.3-8.2) g/dL Albumin 2.5 L 3.2 L (3.9-5) g/dL - Imaging and Cardiology EKG: report reviewed, image reviewed Echo: report reviewed (10/07/2016 showed EF 30%, LV severely dilated, mildly dilated LA, impaired relaxation, mod to severely reduced RV systolic function, trace MR. ) - Telemetry EKG Rhythm: Paced - EKG Ventricular dysrhythmias: ventricular premature com - Allied health notes Allied health notes reviewed: nursing
--- NOTE | 2019-10-25 11:09 | Progress Note ---
Assessment and Plan Acute Renal Failure secondary to Prerenal Azotemia vs Ischemic ATN from Sepsis and Hypotension, possible HRS: Metabolic Acidosis: Hypernatremia: -Cr and BUN cont to improve but noted to have decreased UOP - will check bladder scan - will check creatinine clearance -No indication for HD at this time, will monitor renal function daily -On Sodium Bicarbonate 100 meq in D5W@ 100 ml/hr for Acidosis -Continue on Sodium Bicarbonate 1300 mg po TID -Renal ultrasound-No Hydronephrosis. Medical renal disease -Avoid nephrotoxic agents -Renally dose medications -Strict I/O monitoring -Obtain daily weights -Continue to monitor Sepsis/Leukocytosis: Cough/Dyspnea: -Initial COVID-19 result-negative -On IV Merrem -ID onboard Severe Anemia: Thrombocytopenia: -HGB 6.4 today -Platelet 67 today -Will need PRBC's transfusions -As per primary Hypotension: -On Levophed drip -On IV fluids -Monitor BP closely Supratherapeutic INR/CHF/Afib/Vtach: -S/P vitamin K. Coumadin on hold -Has Defbrillator -On Dobuatmine drip -Cardiology onboard Renzo Hamilton MD [phone] Subjective Date of service: 10/25/19 Principal diagnosis: sepsis Interval history: weak but comfortable Objective - Vital Signs Vital signs: Vital Signs - 12hr 10/24/19 10/24/19 10/24/19 23:16 23:30 23:38 Temperature 98.1 F Pulse Rate 74 90 Pulse Rate [ From Monitor] Respiratory 25 H 22 Rate Blood Pressure 106/66 125/72 O2 Sat by Pulse 98 98 Oximetry 10/24/19 10/25/19 10/25/19 23:46 00:00 00:16 Temperature Pulse Rate 98 H 88 Pulse Rate [ From Monitor] Respiratory 23 20 Rate Blood Pressure 117/71 117/71 117/60 O2 Sat by Pulse 98 97 Oximetry 10/25/19 10/25/19 10/25/19 00:30 00:46 01:00 Temperature Pulse Rate 94 H 88 Pulse Rate [ From Monitor] Respiratory 21 23 Rate Blood Pressure 129/54 122/66 119/59 O2 Sat by Pulse 96 97 Oximetry 10/25/19 10/25/19 10/25/19 01:15 01:30 01:46 Temperature Pulse Rate 93 H 94 H 95 H Pulse Rate [ From Monitor] Respiratory 13 15 19 Rate Blood Pressure 120/57 124/49 124/58 O2 Sat by Pulse 95 93 97 Oximetry 10/25/19 10/25/19 10/25/19 02:00 02:16 02:30 Temperature Pulse Rate 95 H 96 H 94 H Pulse Rate [ From Monitor] Respiratory 21 19 23 Rate Blood Pressure 140/76 121/69 121/69 O2 Sat by Pulse 98 98 99 Oximetry 10/25/19 10/25/19 10/25/19 02:45 03:00 03:12 Temperature 97.9 F Pulse Rate 91 H 92 H Pulse Rate [ From Monitor] Respiratory 28 H 22 Rate Blood Pressure 115/65 111/72 O2 Sat by Pulse 99 97 Oximetry 10/25/19 10/25/19 10/25/19 03:16 03:30 03:46 Temperature Pulse Rate 92 H 103 H 88 Pulse Rate [ From Monitor] Respiratory 18 19 18 Rate Blood Pressure 110/72 110/72 125/71 O2 Sat by Pulse 98 98 98 Oximetry 10/25/19 10/25/19 10/25/19 04:00 04:15 04:30 Temperature Pulse Rate 86 92 H 81 Pulse Rate [ From Monitor] Respiratory 15 13 17 Rate Blood Pressure 115/72 111/63 113/71 O2 Sat by Pulse 96 95 95 Oximetry 10/25/19 10/25/19 10/25/19 04:45 05:00 05:15 Temperature Pulse Rate 89 88 98 H Pulse Rate [ From Monitor] Respiratory 18 17 19 Rate Blood Pressure 111/70 125/59 115/70 O2 Sat by Pulse 98 96 99 Oximetry 10/25/19 10/25/19 10/25/19 05:30 05:45 06:00 Temperature Pulse Rate 91 H 91 H 89 Pulse Rate [ From Monitor] Respiratory 12 31 H 22 Rate Blood Pressure 115/50 117/51 117/51 O2 Sat by Pulse 95 98 99 Oximetry 10/25/19 10/25/19 10/25/19 06:16 06:30 06:46 Temperature Pulse Rate 97 H 98 H 105 H Pulse Rate [ From Monitor] Respiratory 22 23 18 Rate Blood Pressure 143/58 148/61 157/64 O2 Sat by Pulse 97 100 93 Oximetry 10/25/19 10/25/19 10/25/19 07:00 07:16 07:30 Temperature Pulse Rate 97 H 92 H 92 H Pulse Rate [ From Monitor] Respiratory 21 18 19 Rate Blood Pressure 157/64 141/83 138/81 O2 Sat by Pulse 84 95 87 Oximetry 10/25/19 10/25/19 10/25/19 07:45 08:00 08:16 Temperature 99.4 F Pulse Rate 93 H 92 H 94 H Pulse Rate [ 90 From Monitor] Respiratory 22 25 H 22 Rate Blood Pressure 142/87 120/90 149/78 O2 Sat by Pulse 99 98 99 Oximetry 10/25/19 10/25/19 10/25/19 08:30 08:46 09:00 Temperature Pulse Rate 88 88 81 Pulse Rate [ From Monitor] Respiratory 30 H 20 20 Rate Blood Pressure 142/87 120/55 115/69 O2 Sat by Pulse 98 93 Oximetry 10/25/19 10/25/19 10/25/19 09:16 09:30 09:46 Temperature Pulse Rate 87 90 94 H Pulse Rate [ From Monitor] Respiratory 30 H 24 23 Rate Blood Pressure 132/77 136/81 122/71 O2 Sat by Pulse 94 98 92 Oximetry 10/25/19 10/25/19 10/25/19 10:00 10:16 10:30 Temperature Pulse Rate 86 103 H 93 H Pulse Rate [ From Monitor] Respiratory 22 18 24 Rate Blood Pressure 122/71 114/73 124/76 O2 Sat by Pulse 97 96 Oximetry 10/25/19 10/25/19 10:45 11:00 Temperature Pulse Rate 93 H 92 H Pulse Rate [ From Monitor] Respiratory 20 23 Rate Blood Pressure 124/70 124/76 O2 Sat by Pulse 97 97 Oximetry - General Appearance General appearance: well-developed, well-nourished, obese EENT: ATNC, PERRL, mucous membranes dry Neck: no JVD, no carotid bruit Respiratory: Present: Clear to Ascultation. Absent: Rales, Ronchi Cardiology: regular, S1S2 Gastrointestinal: hypoactive bowel sounds, no tenderness, no distended Integumentary: no rash, warm and dry Neurologic: no focal deficit, no asterixis, alert and oriented x3 Musculoskeletal: other (no edema in BLE) Psychiatric: cooperative - Lab 10/25/19 04:30 10/25/19 04:30 Most recent lab results ABG pH 7.426 pH Units (7.350-7.450) 10/24/19 18:30 ABG pCO2 29.7 mm Hg 10/24/19 18:30 ABG pO2 93.4 mm Hg (80.0-90.0) H 10/24/19 18:30 ABG HCO3 19.1 mmol/L (20.0-26.0) L 10/24/19 18:30 ABG O2 Saturation 97.4 % (95.0-99.0) 10/24/19 18:30 Calcium 8.3 mg/dL (8.4-10.2) L 10/25/19 04:30 Phosphorus 6.00 mg/dL (2.5-4.5) H 10/20/19 04:15 Urine Creatinine 101.1 mg/dL (0.1-20.0) H 10/19/19 12:25 Urine Sodium 12 mmol/L 10/19/19 12:25 Urine Total Protein 21 mg/dL (5-11.8) H 10/19/19 12:25 Medications & Allergies - Medications Allergies/Adverse Reactions: Allergies Penicillins Allergy (Verified 07/07/19 15:47) Unknown Home Medications: Home Medications Medication Instructions Recorded Confirmed Last Taken Type Atorvastatin [Lipitor Tab] 80 mg PO QHS 07/07/19 10/23/19 Unknown History Bisoprolol Fumarate 5 mg PO DAILY 07/07/19 10/23/19 Unknown History Mexiletine HCl 150 mg PO Q8H 07/07/19 10/23/19 Unknown History Warfarin [Coumadin] 5 mg PO QDAY 07/07/19 10/23/19 Unknown History Active Medications: Generic Name Dose Route Start Last Admin Trade Name Freq PRN Reason Stop Dose Admin Acetaminophen 650 mg 10/19/19 00:08 Tylenol PO Q4H PRN Pain MILD(1-3)/Fever >100.5/GIBBS Norepinephrine 8 mg/ Sodium 250 mls @ 3.75 mls/hr 10/23/19 00:00 10/25/19 09:45 Chloride IV 0 mcg/min TITR ABBEY 0 mls/hr Titration Protocol 2 MCG/MIN Sodium Bicarbonate 100 meq/ 1,100 mls @ 100 mls/hr 10/23/19 12:00 10/25/19 08:38 Dextrose IV 100 mls/hr DIRECT ABBEY Administration MEROPENEM/NS 1 GRAM/100 ML 1 gram in 100 mls @ 100 mls/hr 10/23/19 16:00 10/25/19 09:57 Merrem/Ns 1 Gram/100 Ml IV 10/27/19 23:59 100 mls/hr Q12HR ABBEY Administration Protocol Magnesium Hydroxide 30 ml 10/19/19 00:08 Milk Of Magnesia PO Q4H PRN Constipation Midodrine 10 mg 10/23/19 12:00 10/25/19 08:17 Proamatine PO 10 mg TID@0800,1200,1600 ABBEY Administration Octreotide Acetate 100 mcg 10/23/19 14:00 10/25/19 05:56 Sandostatin SUB-Q 100 mcg Q8HR ABBEY Administration Ondansetron HCl 4 mg 10/19/19 00:08 10/21/19 22:31 Zofran IV 4 mg Q8H PRN Administration Nausea And Vomiting Sodium Bicarbonate 1,300 mg 10/23/19 14:00 10/25/19 08:17 Sodium Bicarbonate PO 1,300 mg TID ABBEY Administration Sodium Chloride 10 ml 10/19/19 10:00 10/25/19 09:58 Sodium Chloride Flush Syringe 10 Ml IV 10 ml BID ABBEY Administration Sodium Chloride 10 ml 10/19/19 00:08 Sodium Chloride Flush Syringe 10 Ml IV PRN PRN LINE FLUSH
--- NOTE | 2019-10-25 11:22 | Progress Note ---
Assessment and Plan Shock probably multifactorial- septic/cardiogenic/hypovolemic Shock liver, improving Acute kidney injury- vasomotor nephropathy Anemia appears chronic , with acute component Acute on chronic systolic congestive heart failure, s/p AICD BNP 7312. Cough/Dyspnea on exertion: high suspicion for severe COVID pneumonia. Elevated inflammatory markers D-dimer 2301, CRP 29, LDH 1150, ferritin> 2000- possibly secondary to some other inflammatory condition. 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 -Supportive blood transfusion to keep HgB >7g/dL-ordered one unit PRBC -Encourage free water -Supportive care -Weaned off vasopressor this morning, monitor for another 24 hours in the ICU. If he remains off vasopressors can transfer to telemetry in the morning fro ongoing care Currently on midodrine -PT/OT to increase activity and mobility -Avoid delirium Treat hypernatremia, I doublt he will drink enough free water to correct the hypernatremia. Will encourage oral fluids and monitor. Patient is on bicarb tabs and bicarb infusion- defer renal service -vasopressor support to keep MAP >65 - prn supplemental oxygen for target O2 sat's > 90% acutely - continue accuchecks with glycemic control per SSI (While critically ill target blood glucose of 140-180 mg/dL; avoid hypoglycemia) - optimize cardiac status per cardiology team - prn bronchodilators with pulmonary hygiene per RT - avoid benzodiazepines, reduce the possibility of delirium - Antiinfective's per ID rec's; trend fevers, WBC - prn analgesia per pain score - Maintenance of sleep-wake cycle, avoid delirium - G.I. & VTE prophylaxis ( Famotidine, SCDs) -mobility protocol for pressure ulcer prevention - Monitor hemodynamics closely - continue other care per attending / other consultants - discharge planning ongoing concurrently .... Re-evaluate in am & prn CONDITION: CRITICAL PROGNOSIS: GUARDED CODE STATUS: FULL CODE The high probability of a clinically significant, sudden or life-threatening deterioration of the [respiratory & cardiovascular] system(s) required my full and direct attention, intervention and personal management. The aggregate critical care time was [33] minutes without overlap. Time includes spent on; [x] Data Review and interpretation [x] Patient assessment and monitoring of vital signs [x] Documentation [x] Medication orders and management Subjective Date of service: 10/25/19 Principal diagnosis: sepsis Interval history: Patient is seen today for: Septic shock; Shock liver; Acute renal failure; Anemia; Acute on chronic HFrEF Seen and examined at bedside; 24hour events reviewed; nursing and respiratory care staff consulted; no adverse overnight events reported to me; resting peacefully in bed;blood pressure has improved on midodrine, off levophed this morning. No reported fever, no diarrhea, minimally interactive, monosyllabic answers to questions if at all Remains on bicarb infusion. His liver enzymes are improving Rowe cathetr is to be placed fro 24 hour urine collection. Remains on Meropenem and Octreotide Objective Vital Signs - 12hr 10/24/19 10/24/19 10/24/19 23:30 23:38 23:46 Temperature 98.1 F Pulse Rate 90 98 H Pulse Rate [ From Monitor] Respiratory 22 23 Rate Blood Pressure 125/72 117/71 O2 Sat by Pulse 98 98 Oximetry 10/25/19 10/25/19 10/25/19 00:00 00:16 00:30 Temperature Pulse Rate 88 Pulse Rate [ From Monitor] Respiratory 20 Rate Blood Pressure 117/71 117/60 129/54 O2 Sat by Pulse 97 Oximetry 10/25/19 10/25/19 10/25/19 00:46 01:00 01:15 Temperature Pulse Rate 94 H 88 93 H Pulse Rate [ From Monitor] Respiratory 21 23 13 Rate Blood Pressure 122/66 119/59 120/57 O2 Sat by Pulse 96 97 95 Oximetry 10/25/19 10/25/19 10/25/19 01:30 01:46 02:00 Temperature Pulse Rate 94 H 95 H 95 H Pulse Rate [ From Monitor] Respiratory 15 19 21 Rate Blood Pressure 124/49 124/58 140/76 O2 Sat by Pulse 93 97 98 Oximetry 10/25/19 10/25/19 10/25/19 02:16 02:30 02:45 Temperature Pulse Rate 96 H 94 H 91 H Pulse Rate [ From Monitor] Respiratory 19 23 28 H Rate Blood Pressure 121/69 121/69 115/65 O2 Sat by Pulse 98 99 99 Oximetry 10/25/19 10/25/19 10/25/19 03:00 03:12 03:16 Temperature 97.9 F Pulse Rate 92 H 92 H Pulse Rate [ From Monitor] Respiratory 22 18 Rate Blood Pressure 111/72 110/72 O2 Sat by Pulse 97 98 Oximetry 10/25/19 10/25/19 10/25/19 03:30 03:46 04:00 Temperature Pulse Rate 103 H 88 86 Pulse Rate [ From Monitor] Respiratory 19 18 15 Rate Blood Pressure 110/72 125/71 115/72 O2 Sat by Pulse 98 98 96 Oximetry 10/25/19 10/25/19 10/25/19 04:15 04:30 04:45 Temperature Pulse Rate 92 H 81 89 Pulse Rate [ From Monitor] Respiratory 13 17 18 Rate Blood Pressure 111/63 113/71 111/70 O2 Sat by Pulse 95 95 98 Oximetry 10/25/19 10/25/19 10/25/19 05:00 05:15 05:30 Temperature Pulse Rate 88 98 H 91 H Pulse Rate [ From Monitor] Respiratory 17 19 12 Rate Blood Pressure 125/59 115/70 115/50 O2 Sat by Pulse 96 99 95 Oximetry 10/25/19 10/25/19 10/25/19 05:45 06:00 06:16 Temperature Pulse Rate 91 H 89 97 H Pulse Rate [ From Monitor] Respiratory 31 H 22 22 Rate Blood Pressure 117/51 117/51 143/58 O2 Sat by Pulse 98 99 97 Oximetry 10/25/19 10/25/19 10/25/19 06:30 06:46 07:00 Temperature Pulse Rate 98 H 105 H 97 H Pulse Rate [ From Monitor] Respiratory 23 18 21 Rate Blood Pressure 148/61 157/64 157/64 O2 Sat by Pulse 100 93 84 Oximetry 10/25/19 10/25/19 10/25/19 07:16 07:30 07:45 Temperature Pulse Rate 92 H 92 H 93 H Pulse Rate [ From Monitor] Respiratory 18 19 22 Rate Blood Pressure 141/83 138/81 142/87 O2 Sat by Pulse 95 87 99 Oximetry 10/25/19 10/25/19 10/25/19 08:00 08:16 08:30 Temperature 99.4 F Pulse Rate 92 H 94 H 88 Pulse Rate [ 90 From Monitor] Respiratory 25 H 22 30 H Rate Blood Pressure 120/90 149/78 142/87 O2 Sat by Pulse 98 99 Oximetry 10/25/19 10/25/19 10/25/19 08:46 09:00 09:16 Temperature Pulse Rate 88 81 87 Pulse Rate [ From Monitor] Respiratory 20 20 30 H Rate Blood Pressure 120/55 115/69 132/77 O2 Sat by Pulse 98 93 94 Oximetry 10/25/19 10/25/19 10/25/19 09:30 09:46 10:00 Temperature Pulse Rate 90 94 H 86 Pulse Rate [ From Monitor] Respiratory 24 23 22 Rate Blood Pressure 136/81 122/71 122/71 O2 Sat by Pulse 98 92 97 Oximetry 10/25/19 10/25/19 10/25/19 10:16 10:30 10:45 Temperature Pulse Rate 103 H 93 H 93 H Pulse Rate [ From Monitor] Respiratory 18 24 20 Rate Blood Pressure 114/73 124/76 124/70 O2 Sat by Pulse 96 97 Oximetry 10/25/19 11:00 Temperature Pulse Rate 92 H Pulse Rate [ From Monitor] Respiratory 23 Rate Blood Pressure 124/76 O2 Sat by Pulse 97 Oximetry Constitutional: lethargic, appears uncomfortable, other (elderly looking obese CM, normocephalic with mildly increased respiratory effort at rest) Eyes: non-icteric ENT: oropharynx dry, other (mallampati 3) Neck: supple, no lymphadenopathy, other (RIJ CVL) Effort: mildly labored Ascultation: Bilateral: diminished breath sounds, rales (scant) Percussion: Bilateral: not dull Cardiovascular: other (paced rhythm) Gastrointestinal: normoactive bowel sounds, soft, non-tender, non-distended (protuberant) Integumentary: rash (stasis dermatitis type) Extremities: no cyanosis, pulses normal, no ischemia or petechiae, edema (trace) Neurologic: non-focal exam (grossly), pupils equal and round, CN II-XII normal, other (weak; fatigued at rest) Psychiatric: other (affect flat) CBC and BMP: 10/26/19 05:00 10/26/19 05:00 ABG, PT/INR, D-dimer: ABG ABG pH 7.426 pH Units (7.350-7.450) 10/24/19 18:30 ABG pCO2 29.7 mm Hg 10/24/19 18:30 ABG pO2 93.4 mm Hg (80.0-90.0) H 10/24/19 18:30 ABG O2 Saturation 97.4 % (95.0-99.0) 10/24/19 18:30 PT/INR, D-dimer PT 24.0 Sec. (12.2-14.9) H 10/24/19 Unknown INR 2.15 (0.87-1.13) H 10/24/19 Unknown D-Dimer 2524.09 ng/mlDDU (0-234) H 10/18/19 23:16 Abnormal lab findings: Abnormal Labs 10/18/19 10/18/19 10/18/19 20:37 20:37 20:37 WBC 17.8 H RBC 2.94 L Hgb 9.5 L Hct 30.0 L MCV 102 H MCH MCHC RDW Plt Count Seg Neuts % (Manual) 85.0 H Lymphocytes % (Manual) 6.0 L Monocytes % (Manual) 8.0 H Nucleated RBC % Seg Neutrophils # Man 15.1 H Lymphocytes # (Manual) 1.1 L Monocytes # (Manual) 1.4 H PT 109.8 H INR 16.02 H* APTT 69.1 H* D-Dimer 2301.69 H Heparin Anti-Xa Level ABG pO2 ABG HCO3 ABG Base Excess ABG Hemoglobin Sodium Potassium Chloride 60.0 L Carbon Dioxide 15 L BUN 192 H Creatinine 3.2 H Glucose 154 H POC Glucose Lactic Acid Calcium Phosphorus TIBC Ferritin Total Bilirubin Direct Bilirubin AST 120 H ALT 63 H Alkaline Phosphatase 194 H Lactate Dehydrogenase C-Reactive Protein NT-Pro-B Natriuret Pep 7312 H Total Protein 5.4 L Albumin 2.5 L Urine Creatinine Urine Total Protein Crossmatch 10/18/19 10/18/19 10/18/19 21:46 21:46 23:16 WBC RBC Hgb Hct MCV MCH MCHC RDW Plt Count Seg Neuts % (Manual) Lymphocytes % (Manual) Monocytes % (Manual) Nucleated RBC % Seg Neutrophils # Man Lymphocytes # (Manual) Monocytes # (Manual) PT < 10.0 L INR > 17.67 H* APTT 92.7 H* D-Dimer 2524.09 H Heparin Anti-Xa Level ABG pO2 ABG HCO3 ABG Base Excess ABG Hemoglobin Sodium Potassium Chloride Carbon Dioxide BUN Creatinine Glucose POC Glucose Lactic Acid Calcium Phosphorus TIBC Ferritin > 2000.0 H Total Bilirubin Direct Bilirubin AST ALT Alkaline Phosphatase Lactate Dehydrogenase 1150 H C-Reactive Protein 29.00 H NT-Pro-B Natriuret Pep Total Protein Albumin Urine Creatinine Urine Total Protein Crossmatch 10/19/19 10/19/19 10/19/19 12:25 13:58 13:58 WBC RBC Hgb Hct MCV MCH MCHC RDW Plt Count Seg Neuts % (Manual) Lymphocytes % (Manual) Monocytes % (Manual) Nucleated RBC % Seg Neutrophils # Man Lymphocytes # (Manual) Monocytes # (Manual) PT 31.7 H INR 3.19 H APTT D-Dimer Heparin Anti-Xa Level ABG pO2 ABG HCO3 ABG Base Excess ABG Hemoglobin Sodium Potassium Chloride Carbon Dioxide 14 L BUN 173 H Creatinine 2.4 H Glucose 129 H POC Glucose Lactic Acid Calcium 7.5 L Phosphorus TIBC Ferritin Total Bilirubin Direct Bilirubin AST 754 H ALT 294 H Alkaline Phosphatase 141 H Lactate Dehydrogenase C-Reactive Protein NT-Pro-B Natriuret Pep Total Protein 4.9 L Albumin 1.8 L Urine Creatinine 101.1 H Urine Total Protein 21 H Crossmatch 10/20/19 10/20/19 10/20/19 04:15 04:15 04:15 WBC 16.3 H RBC 2.44 L Hgb 8.0 L Hct 24.4 L MCV 100 H MCH 33 H MCHC RDW Plt Count Seg Neuts % (Manual) 89.0 H Lymphocytes % (Manual) 5.0 L Monocytes % (Manual) Nucleated RBC % Seg Neutrophils # Man 14.5 H Lymphocytes # (Manual) 0.8 L Monocytes # (Manual) PT 20.7 H INR 1.83 H APTT D-Dimer Heparin Anti-Xa Level ABG pO2 ABG HCO3 ABG Base Excess ABG Hemoglobin Sodium 147 H Potassium Chloride Carbon Dioxide 18 L BUN 169 H Creatinine 2.1 H Glucose 136 H POC Glucose Lactic Acid Calcium Phosphorus 6.00 H TIBC Ferritin Total Bilirubin Direct Bilirubin AST 817 H ALT 374 H Alkaline Phosphatase 165 H Lactate Dehydrogenase C-Reactive Protein NT-Pro-B Natriuret Pep Total Protein 5.7 L Albumin 2.2 L Urine Creatinine Urine Total Protein Crossmatch 10/20/19 10/20/19 10/20/19 10:40 10:40 20:51 WBC RBC Hgb 8.2 L Hct 25.0 L MCV MCH MCHC RDW Plt Count Seg Neuts % (Manual) Lymphocytes % (Manual) Monocytes % (Manual) Nucleated RBC % Seg Neutrophils # Man Lymphocytes # (Manual) Monocytes # (Manual) PT 20.9 H INR 1.80 H APTT D-Dimer Heparin Anti-Xa Level 0.12 L ABG pO2 ABG HCO3 ABG Base Excess ABG Hemoglobin Sodium Potassium Chloride Carbon Dioxide BUN Creatinine Glucose POC Glucose Lactic Acid Calcium Phosphorus TIBC Ferritin Total Bilirubin Direct Bilirubin AST ALT Alkaline Phosphatase Lactate Dehydrogenase C-Reactive Protein NT-Pro-B Natriuret Pep Total Protein Albumin Urine Creatinine Urine Total Protein Crossmatch 10/21/19 10/21/19 10/21/19 04:24 04:24 04:24 WBC 19.3 H RBC 2.33 L Hgb 7.4 L Hct 23.7 L MCV 102 H MCH MCHC 31 L RDW Plt Count Seg Neuts % (Manual) 81.0 H Lymphocytes % (Manual) 5.0 L Monocytes % (Manual) Nucleated RBC % Seg Neutrophils # Man 15.6 H Lymphocytes # (Manual) 1.0 L Monocytes # (Manual) PT INR APTT D-Dimer Heparin Anti-Xa Level ABG pO2 ABG HCO3 ABG Base Excess ABG Hemoglobin Sodium 149 H Potassium 3.3 L Chloride 113.9 H Carbon Dioxide 20 L BUN 128 H Creatinine 1.6 H Glucose 151 H POC Glucose Lactic Acid Calcium 8.3 L Phosphorus TIBC 150 L Ferritin > 2000.0 H Total Bilirubin Direct Bilirubin AST ALT Alkaline Phosphatase Lactate Dehydrogenase C-Reactive Protein NT-Pro-B Natriuret Pep Total Protein Albumin Urine Creatinine Urine Total Protein Crossmatch 10/21/19 10/21/19 10/21/19 04:24 08:06 18:15 WBC RBC Hgb Hct MCV MCH MCHC RDW Plt Count Seg Neuts % (Manual) Lymphocytes % (Manual) Monocytes % (Manual) Nucleated RBC % Seg Neutrophils # Man Lymphocytes # (Manual) Monocytes # (Manual) PT INR APTT D-Dimer Heparin Anti-Xa Level 0.26 L ABG pO2 ABG HCO3 ABG Base Excess ABG Hemoglobin Sodium Potassium Chloride Carbon Dioxide BUN Creatinine Glucose POC Glucose 195 H Lactic Acid Calcium Phosphorus TIBC Ferritin Total Bilirubin Direct Bilirubin 0.7 H AST 754 H ALT 421 H Alkaline Phosphatase 165 H Lactate Dehydrogenase C-Reactive Protein NT-Pro-B Natriuret Pep Total Protein 5.2 L Albumin 2.2 L Urine Creatinine Urine Total Protein Crossmatch 10/21/19 10/22/19 10/22/19 18:38 05:58 05:58 WBC 32.2 H RBC 2.09 L Hgb 6.7 L Hct 21.6 L MCV 104 H MCH MCHC 31 L RDW 15.5 H Plt Count Seg Neuts % (Manual) 83.0 H Lymphocytes % (Manual) 9.0 L Monocytes % (Manual) Nucleated RBC % 4.5 H Seg Neutrophils # Man 26.7 H Lymphocytes # (Manual) Monocytes # (Manual) 1.4 H PT INR APTT D-Dimer Heparin Anti-Xa Level 0.29 L ABG pO2 ABG HCO3 ABG Base Excess ABG Hemoglobin Sodium Potassium Chloride 112.5 H Carbon Dioxide 15 L BUN 123 H Creatinine 1.6 H Glucose 187 H POC Glucose Lactic Acid Calcium 7.9 L Phosphorus TIBC Ferritin Total Bilirubin Direct Bilirubin AST 1210 H ALT 476 H Alkaline Phosphatase 197 H Lactate Dehydrogenase C-Reactive Protein NT-Pro-B Natriuret Pep Total Protein 4.8 L Albumin 1.7 L Urine Creatinine Urine Total Protein Crossmatch 10/22/19 10/22/19 10/23/19 09:26 Unknown 05:30 WBC 34.3 H RBC 2.50 L Hgb 7.7 L Hct 24.4 L MCV 98 H MCH MCHC RDW 19.2 H Plt Count 121 L Seg Neuts % (Manual) 74.0 H Lymphocytes % (Manual) 5.0 L Monocytes % (Manual) Nucleated RBC % 12.0 H Seg Neutrophils # Man 25.4 H Lymphocytes # (Manual) Monocytes # (Manual) PT INR APTT D-Dimer Heparin Anti-Xa Level ABG pO2 ABG HCO3 15.4 L ABG Base Excess -8.2 L ABG Hemoglobin 6.8 L Sodium Potassium Chloride Carbon Dioxide BUN Creatinine Glucose POC Glucose Lactic Acid Calcium Phosphorus TIBC Ferritin Total Bilirubin Direct Bilirubin AST ALT Alkaline Phosphatase Lactate Dehydrogenase C-Reactive Protein NT-Pro-B Natriuret Pep Total Protein Albumin Urine Creatinine Urine Total Protein Crossmatch See Detail 10/23/19 10/23/19 10/23/19 05:30 05:30 05:30 WBC RBC Hgb Hct MCV MCH MCHC RDW Plt Count Seg Neuts % (Manual) Lymphocytes % (Manual) Monocytes % (Manual) Nucleated RBC % Seg Neutrophils # Man Lymphocytes # (Manual) Monocytes # (Manual) PT 31.0 H INR 3.00 H APTT D-Dimer Heparin Anti-Xa Level ABG pO2 ABG HCO3 ABG Base Excess ABG Hemoglobin Sodium 146 H Potassium Chloride 114.8 H Carbon Dioxide 16 L BUN 130 H Creatinine 2.3 H Glucose 167 H POC Glucose Lactic Acid 3.20 H* Calcium 7.7 L Phosphorus TIBC Ferritin Total Bilirubin 2.80 H Direct Bilirubin AST 1098 H ALT 371 H Alkaline Phosphatase 225 H Lactate Dehydrogenase C-Reactive Protein NT-Pro-B Natriuret Pep Total Protein 4.6 L Albumin 2.3 L Urine Creatinine Urine Total Protein Crossmatch 10/23/19 10/23/19 10/23/19 08:28 08:28 15:52 WBC RBC Hgb Hct MCV MCH MCHC RDW Plt Count Seg Neuts % (Manual) Lymphocytes % (Manual) Monocytes % (Manual) Nucleated RBC % Seg Neutrophils # Man Lymphocytes # (Manual) Monocytes # (Manual) PT INR APTT D-Dimer Heparin Anti-Xa Level ABG pO2 ABG HCO3 ABG Base Excess ABG Hemoglobin Sodium Potassium Chloride 117.8 H Carbon Dioxide 14 L BUN 130 H Creatinine 2.3 H Glucose 168 H POC Glucose Lactic Acid 2.80 H* 3.10 H* Calcium 8.0 L Phosphorus TIBC Ferritin Total Bilirubin Direct Bilirubin AST ALT Alkaline Phosphatase Lactate Dehydrogenase C-Reactive Protein NT-Pro-B Natriuret Pep Total Protein Albumin Urine Creatinine Urine Total Protein Crossmatch 10/23/19 10/23/19 10/24/19 15:52 23:00 10:52 WBC RBC Hgb Hct MCV MCH MCHC RDW Plt Count Seg Neuts % (Manual) Lymphocytes % (Manual) Monocytes % (Manual) Nucleated RBC % Seg Neutrophils # Man Lymphocytes # (Manual) Monocytes # (Manual) PT INR APTT D-Dimer Heparin Anti-Xa Level ABG pO2 ABG HCO3 ABG Base Excess ABG Hemoglobin Sodium 147 H 148 H Potassium Chloride 115.6 H 116.5 H Carbon Dioxide 16 L 17 L BUN 130 H 122 H Creatinine 2.5 H 2.4 H Glucose 168 H 183 H POC Glucose Lactic Acid 3.10 H* Calcium 7.9 L 8.1 L Phosphorus TIBC Ferritin Total Bilirubin 4.80 H Direct Bilirubin AST 293 H ALT 215 H Alkaline Phosphatase 184 H Lactate Dehydrogenase C-Reactive Protein NT-Pro-B Natriuret Pep Total Protein 4.3 L Albumin 2.5 L Urine Creatinine Urine Total Protein Crossmatch 10/24/19 10/24/19 10/24/19 12:29 15:35 18:30 WBC 17.8 H RBC 2.02 L Hgb 6.2 L Hct 20.0 L MCV 99 H MCH MCHC 31 L RDW 19.8 H Plt Count 48 L Seg Neuts % (Manual) Lymphocytes % (Manual) Monocytes % (Manual) Nucleated RBC % Seg Neutrophils # Man Lymphocytes # (Manual) Monocytes # (Manual) PT 24.3 H INR 2.19 H APTT D-Dimer Heparin Anti-Xa Level ABG pO2 93.4 H ABG HCO3 19.1 L ABG Base Excess -4.4 L ABG Hemoglobin 9.9 L Sodium Potassium Chloride Carbon Dioxide BUN Creatinine Glucose POC Glucose Lactic Acid Calcium Phosphorus TIBC Ferritin Total Bilirubin Direct Bilirubin AST ALT Alkaline Phosphatase Lactate Dehydrogenase C-Reactive Protein NT-Pro-B Natriuret Pep Total Protein Albumin Urine Creatinine Urine Total Protein Crossmatch 10/24/19 10/24/19 10/24/19 Unknown Unknown Unknown WBC 21.8 H RBC 2.08 L Hgb 6.4 L Hct 20.2 L MCV 97 H MCH MCHC RDW 19.2 H Plt Count 67 L Seg Neuts % (Manual) 90.0 H Lymphocytes % (Manual) 0 L Monocytes % (Manual) Nucleated RBC % 9.0 H Seg Neutrophils # Man 0.0 L Lymphocytes # (Manual) 0.0 L Monocytes # (Manual) PT 24.0 H INR 2.15 H APTT D-Dimer Heparin Anti-Xa Level ABG pO2 ABG HCO3 ABG Base Excess ABG Hemoglobin Sodium 148 H Potassium Chloride 113.5 H Carbon Dioxide 18 L BUN 124 H Creatinine 2.4 H Glucose 144 H POC Glucose Lactic Acid Calcium 8.1 L Phosphorus TIBC Ferritin Total Bilirubin Direct Bilirubin AST ALT Alkaline Phosphatase Lactate Dehydrogenase C-Reactive Protein NT-Pro-B Natriuret Pep Total Protein Albumin Urine Creatinine Urine Total Protein Crossmatch 10/24/19 10/25/19 10/25/19 Unknown 04:30 04:30 WBC 22.7 H RBC 2.54 L Hgb 7.7 L Hct 23.7 L MCV MCH MCHC RDW 21.1 H Plt Count 58 L Seg Neuts % (Manual) 81.0 H Lymphocytes % (Manual) 5.0 L Monocytes % (Manual) Nucleated RBC % 2.0 H Seg Neutrophils # Man 18.4 H Lymphocytes # (Manual) 1.1 L Monocytes # (Manual) 1.4 H PT INR APTT D-Dimer Heparin Anti-Xa Level ABG pO2 ABG HCO3 ABG Base Excess ABG Hemoglobin Sodium 149 H Potassium Chloride 113.3 H Carbon Dioxide 21 L BUN 104 H Creatinine 2.1 H Glucose 168 H POC Glucose Lactic Acid 3.00 H* Calcium 8.3 L Phosphorus TIBC Ferritin Total Bilirubin 7.60 H Direct Bilirubin AST 149 H ALT 153 H Alkaline Phosphatase 172 H Lactate Dehydrogenase C-Reactive Protein NT-Pro-B Natriuret Pep Total Protein 4.8 L Albumin 3.2 L Urine Creatinine Urine Total Protein Crossmatch Allied health notes reviewed: nursing
--- NOTE | 2019-10-25 15:07 | Progress Note ---
Assessment and Plan 1. Abnormal LFTs - much improved, c/w ischemic hepatopathy or "shock" liver. Once sepsis syndrome resolves, if still elevated, then further evaluation, but probably due to neoplastic process. 2. 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 Tissue origin unclear, but pancreatic or duodenal are considerations. Doubt this is the cause of sepsis. - check CA19-9 and CEA - once pt improves, liver biopsy to diagnose, and then Oncology evaluation - further evaluation including EUS may be needed for staging and diagnosis, but this would need to be done elsewhere, where the modality is available. No further GI recommendations at present. Will sign off. Thanks. Subjective Date of service: 10/25/19 Principal diagnosis: sepsis Interval history: Pt denies complaints. Mildly confused, but answers questions. Objective - Constitutional Vitals: Vital Signs - 12hr 10/25/19 10/25/19 10/25/19 03:12 03:16 03:30 Temperature 97.9 F Pulse Rate 92 H 103 H Pulse Rate [ From Monitor] Respiratory 18 19 Rate Blood Pressure 110/72 110/72 O2 Sat by Pulse 98 98 Oximetry 10/25/19 10/25/19 10/25/19 03:46 04:00 04:15 Temperature Pulse Rate 88 86 92 H Pulse Rate [ From Monitor] Respiratory 18 15 13 Rate Blood Pressure 125/71 115/72 111/63 O2 Sat by Pulse 98 96 95 Oximetry 10/25/19 10/25/19 10/25/19 04:30 04:45 05:00 Temperature Pulse Rate 81 89 88 Pulse Rate [ From Monitor] Respiratory 17 18 17 Rate Blood Pressure 113/71 111/70 125/59 O2 Sat by Pulse 95 98 96 Oximetry 10/25/19 10/25/19 10/25/19 05:15 05:30 05:45 Temperature Pulse Rate 98 H 91 H 91 H Pulse Rate [ From Monitor] Respiratory 19 12 31 H Rate Blood Pressure 115/70 115/50 117/51 O2 Sat by Pulse 99 95 98 Oximetry 10/25/19 10/25/19 10/25/19 06:00 06:16 06:30 Temperature Pulse Rate 89 97 H 98 H Pulse Rate [ From Monitor] Respiratory 22 22 23 Rate Blood Pressure 117/51 143/58 148/61 O2 Sat by Pulse 99 97 100 Oximetry 10/25/19 10/25/19 10/25/19 06:46 07:00 07:16 Temperature Pulse Rate 105 H 97 H 92 H Pulse Rate [ From Monitor] Respiratory 18 21 18 Rate Blood Pressure 157/64 157/64 141/83 O2 Sat by Pulse 93 84 95 Oximetry 10/25/19 10/25/19 10/25/19 07:30 07:45 08:00 Temperature 99.4 F Pulse Rate 92 H 93 H 92 H Pulse Rate [ 90 From Monitor] Respiratory 19 22 25 H Rate Blood Pressure 138/81 142/87 120/90 O2 Sat by Pulse 87 99 98 Oximetry 10/25/19 10/25/19 10/25/19 08:16 08:30 08:46 Temperature Pulse Rate 94 H 88 88 Pulse Rate [ From Monitor] Respiratory 22 30 H 20 Rate Blood Pressure 149/78 142/87 120/55 O2 Sat by Pulse 99 98 Oximetry 10/25/19 10/25/19 10/25/19 09:00 09:16 09:30 Temperature Pulse Rate 81 87 90 Pulse Rate [ From Monitor] Respiratory 20 30 H 24 Rate Blood Pressure 115/69 132/77 136/81 O2 Sat by Pulse 93 94 98 Oximetry 10/25/19 10/25/19 10/25/19 09:46 10:00 10:16 Temperature Pulse Rate 94 H 86 103 H Pulse Rate [ From Monitor] Respiratory 23 22 18 Rate Blood Pressure 122/71 122/71 114/73 O2 Sat by Pulse 92 97 Oximetry 10/25/19 10/25/19 10/25/19 10:30 10:45 11:00 Temperature Pulse Rate 93 H 93 H 92 H Pulse Rate [ From Monitor] Respiratory 24 20 23 Rate Blood Pressure 124/76 124/70 124/76 O2 Sat by Pulse 96 97 97 Oximetry General appearance: Present: no acute distress, mild distress - EENT Eyes: PERRL, EOM intact - Respiratory Respiratory effort: normal - Gastrointestinal General gastrointestinal: Present: soft, non-tender - Labs CBC & Chem 7: 10/25/19 04:30 10/25/19 04:30 Labs: Abnormal lab results 10/21/19 10/22/19 10/24/19 Range/Units 18:15 09:26 12:29 WBC (4.5-11.0) K/mm3 RBC (3.65-5.03) M/mm3 Hgb (11.8-15.2) gm/dl Hct (35.5-45.6) % MCV (84-94) fl MCHC (32-34) % RDW (13.2-15.2) % Plt Count (140-440) K/mm3 Seg Neuts % (Manual) (40.0-70.0) % Lymphocytes % (Manual) (13.4-35.0) % Nucleated RBC % (0.0-0.9) % Seg Neutrophils # Man (1.8-7.7) K/mm3 Lymphocytes # (Manual) (1.2-5.4) K/mm3 Monocytes # (Manual) (0.0-0.8) K/mm3 PT 24.3 H (12.2-14.9) Sec. INR 2.19 H (0.87-1.13) ABG pO2 (80.0-90.0) mm Hg ABG HCO3 (20.0-26.0) mmol/L ABG Base Excess (-2.0-3.0) mmol/L ABG Hemoglobin (14.0-18.0) gm/dl Sodium (137-145) mmol/L Chloride (98-107) mmol/L Carbon Dioxide (22-30) mmol/L BUN (9-20) mg/dL Creatinine (0.8-1.5) mg/dL Glucose (75-100) mg/dL POC Glucose 195 H (70-105) Calcium (8.4-10.2) mg/dL Total Bilirubin (0.1-1.2) mg/dL AST (5-40) units/L ALT (7-56) units/L Alkaline Phosphatase (35-129) units/L Total Protein (6.3-8.2) g/dL Albumin (3.9-5) g/dL Crossmatch See Detail 10/24/19 10/24/19 10/25/19 Range/Units 15:35 18:30 04:30 WBC 17.8 H 22.7 H (4.5-11.0) K/mm3 RBC 2.02 L 2.54 L (3.65-5.03) M/mm3 Hgb 6.2 L 7.7 L (11.8-15.2) gm/dl Hct 20.0 L 23.7 L (35.5-45.6) % MCV 99 H (84-94) fl MCHC 31 L (32-34) % RDW 19.8 H 21.1 H (13.2-15.2) % Plt Count 48 L 58 L (140-440) K/mm3 Seg Neuts % (Manual) 81.0 H (40.0-70.0) % Lymphocytes % (Manual) 5.0 L (13.4-35.0) % Nucleated RBC % 2.0 H (0.0-0.9) % Seg Neutrophils # Man 18.4 H (1.8-7.7) K/mm3 Lymphocytes # (Manual) 1.1 L (1.2-5.4) K/mm3 Monocytes # (Manual) 1.4 H (0.0-0.8) K/mm3 PT (12.2-14.9) Sec. INR (0.87-1.13) ABG pO2 93.4 H (80.0-90.0) mm Hg ABG HCO3 19.1 L (20.0-26.0) mmol/L ABG Base Excess -4.4 L (-2.0-3.0) mmol/L ABG Hemoglobin 9.9 L (14.0-18.0) gm/dl Sodium (137-145) mmol/L Chloride (98-107) mmol/L Carbon Dioxide (22-30) mmol/L BUN (9-20) mg/dL Creatinine (0.8-1.5) mg/dL Glucose (75-100) mg/dL POC Glucose (70-105) Calcium (8.4-10.2) mg/dL Total Bilirubin (0.1-1.2) mg/dL AST (5-40) units/L ALT (7-56) units/L Alkaline Phosphatase (35-129) units/L Total Protein (6.3-8.2) g/dL Albumin (3.9-5) g/dL Crossmatch 10/25/19 Range/Units 04:30 WBC (4.5-11.0) K/mm3 RBC (3.65-5.03) M/mm3 Hgb (11.8-15.2) gm/dl Hct (35.5-45.6) % MCV (84-94) fl MCHC (32-34) % RDW (13.2-15.2) % Plt Count (140-440) K/mm3 Seg Neuts % (Manual) (40.0-70.0) % Lymphocytes % (Manual) (13.4-35.0) % Nucleated RBC % (0.0-0.9) % Seg Neutrophils # Man (1.8-7.7) K/mm3 Lymphocytes # (Manual) (1.2-5.4) K/mm3 Monocytes # (Manual) (0.0-0.8) K/mm3 PT (12.2-14.9) Sec. INR (0.87-1.13) ABG pO2 (80.0-90.0) mm Hg ABG HCO3 (20.0-26.0) mmol/L ABG Base Excess (-2.0-3.0) mmol/L ABG Hemoglobin (14.0-18.0) gm/dl Sodium 149 H (137-145) mmol/L Chloride 113.3 H (98-107) mmol/L Carbon Dioxide 21 L (22-30) mmol/L BUN 104 H (9-20) mg/dL Creatinine 2.1 H (0.8-1.5) mg/dL Glucose 168 H (75-100) mg/dL POC Glucose (70-105) Calcium 8.3 L (8.4-10.2) mg/dL Total Bilirubin 7.60 H (0.1-1.2) mg/dL AST 149 H (5-40) units/L ALT 153 H (7-56) units/L Alkaline Phosphatase 172 H (35-129) units/L Total Protein 4.8 L (6.3-8.2) g/dL Albumin 3.2 L (3.9-5) g/dL Crossmatch Medications & Allergies - Medications Allergies/Adverse Reactions: Allergies Penicillins Allergy (Verified 07/07/19 15:47) Unknown Home Medications: Home Medications Medication Instructions Recorded Confirmed Last Taken Type Atorvastatin [Lipitor Tab] 80 mg PO QHS 07/07/19 10/23/19 Unknown History Bisoprolol Fumarate 5 mg PO DAILY 07/07/19 10/23/19 Unknown History Mexiletine HCl 150 mg PO Q8H 07/07/19 10/23/19 Unknown History Warfarin [Coumadin] 5 mg PO QDAY 07/07/19 10/23/19 Unknown History Active Medications: Generic Name Dose Route Start Last Admin Trade Name Freq PRN Reason Stop Dose Admin Acetaminophen 650 mg 10/19/19 00:08 Tylenol PO Q4H PRN Pain MILD(1-3)/Fever >100.5/GIBBS Norepinephrine 8 mg/ Sodium 250 mls @ 3.75 mls/hr 10/23/19 00:00 10/25/19 09:45 Chloride IV 0 mcg/min TITR ABBEY 0 mls/hr Titration Protocol 2 MCG/MIN Sodium Bicarbonate 100 meq/ 1,100 mls @ 100 mls/hr 10/23/19 12:00 10/25/19 08:38 Dextrose IV 100 mls/hr DIRECT ABBEY Administration MEROPENEM/NS 1 GRAM/100 ML 1 gram in 100 mls @ 100 mls/hr 10/23/19 16:00 10/25/19 09:57 Merrem/Ns 1 Gram/100 Ml IV 10/27/19 23:59 100 mls/hr Q12HR ABBEY Administration Protocol Magnesium Hydroxide 30 ml 10/19/19 00:08 Milk Of Magnesia PO Q4H PRN Constipation Midodrine 10 mg 10/23/19 12:00 10/25/19 12:32 Proamatine PO 10 mg TID@0800,1200,1600 ABBEY Administration Octreotide Acetate 100 mcg 10/23/19 14:00 10/25/19 14:57 Sandostatin SUB-Q 100 mcg Q8HR ABBEY Administration Ondansetron HCl 4 mg 10/19/19 00:08 10/21/19 22:31 Zofran IV 4 mg Q8H PRN Administration Nausea And Vomiting Sodium Bicarbonate 1,300 mg 10/23/19 14:00 10/25/19 14:02 Sodium Bicarbonate PO 1,300 mg TID ABBEY Administration Sodium Chloride 10 ml 10/19/19 10:00 10/25/19 09:58 Sodium Chloride Flush Syringe 10 Ml IV 10 ml BID ABBEY Administration Sodium Chloride 10 ml 10/19/19 00:08 Sodium Chloride Flush Syringe 10 Ml IV PRN PRN LINE FLUSH HEART Score - HEART Score Troponin: Troponin T 0.017 ng/mL (0.00-0.029) 10/19/19 02:12
[2019-10-26 05:20] LABS: Hematocrit 25.8 % (35.5-45.6); Hemoglobin 8.4 gm/dl (11.8-15.2); Mean Corpuscular HGB Conc 33 % (32-34); Mean Corpuscular Volume 93 fl (84-94); Red Blood Count 2.78 M/mm3 (3.65-5.03)
[2019-10-26 05:21] LABS: Platelet Count 33 K/mm3 (140-440); Red Cell Distribution Width 20.9 % (13.2-15.2)
[2019-10-26 05:31] LABS: Calcium 8.2 mg/dL (8.4-10.2)
[2019-10-26 05:33] LABS: Albumin 2.8 g/dL (3.9-5); Bilirubin,Direct 6.8 mg/dL (0-0.2)
[2019-10-26] MEDS: OCTREOTIDE 100 MCG/1 ML INJ SUB-Q SCH ×3 (05:54→22:51)
[2019-10-26 06:14] LABS: Anisocytosis 1+; Band Neutrophils # (Manual) 0.2 K/mm3; Basophils % (Manual) 0 % (0.0-1.8); Burr Cells Rare; Eosinophils % (Manual) 0 % (0.0-4.3); Ovalocytes Rare; Schistocytes Rare; Total Cells Counted 100
[2019-10-26 06:15] LABS: Hypochromasia 1+; Macrocytosis Rare
[2019-10-26 06:16] LABS: Platelet Estimate Consistent w Auto
[2019-10-26] MEDS: SODIUM BICARBONATE 650 MG TAB PO SCH ×3 (08:20→22:50)
[2019-10-26] MEDS: MIDODRINE 5 MG TAB PO SCH ×3 (08:20→16:20)
[2019-10-26] MEDS: SODIUM BICARBONATE 100 MEQ in DEXTROSE 5% IN WATER 1,000 ML IV SCH (09:22)
[2019-10-26] MEDS: MEROPENEM/NS 1 GRAM/100 ML 1 GRAM/100 ML BAG IV SCH ×2 (09:23→22:50)
--- NOTE | 2019-10-26 11:03 | Progress Note ---
Assessment and Plan Assessment and plan: --Septic shock : Requiring vasopressors Blood pressures improved, off levo fed Closely monitor --Pancreatic mass with liver mets/malignancy: Oncology service not available Outpatient follow-up for further evaluation Unable to get biopsy due to coagulopathy Oncology service not available GI following --Acute respiratory failure Current Visit: Yes Status: Acute COVID negative, acute bronchitis Continue supportive care, pulmonary following --Shock liver ; Likely secondary to septic shock As well as congested liver due to CHF Transaminases trending down --ARF due to hepatorenal syndrome, secondary to shock Current Visit: Yes Status: Acute Partly due to vasomotor nephropathy Monitor renal function avoid nephrotoxins Creatinine level improving today 1.8 Nephrology following --Acute blood loss anemia Received total 3 units PRBC P improved to 8.4, monitor H&H, transfuse as needed --Elevated INR/supratherapeutic INR Current Visit: Yes Status: Acute Secondary to Coumadin toxicity Hold Coumadin, continue to monitor -- H/O atrial fibrillation /rate controlled beta-blockers held due to septic shock Coumadin held due to supratherapeutic INR --hypotension Current Visit: Yes Status: Acute Patient placed on IV fluid. Off levophed --Acute on chronic systolic congestive heart failure[EF 25 to 30%] Cardiology following., Continue anti-failure medications Input output monitoring --Cardiomyopathy [25 to 30% EF] Continue current anti-failure medications -- DVT prophylaxis Current Visit: Yes Status: Acute SCDs, supratherapeutic INR -- Full code status Current Visit: Yes Status: Acute Physical therapy occupational therapy DC planning per case management Monitor closely and adjust management as needed Patient has multiple medical problems patient is aware of poor prognosis Plan of care reviewed with the patient and his nurse Patient is stable to be transferred out of ICU to telemetry Critical care time 36 minutes History Interval history: Patient seen and examined at the bedside in ICU this morning Patient's chart, medications, tests, consults recommendations reviewed Patient feels better, denies chest pain or shortness of breath Off vasopressors, blood pressures reasonable level Vital signs noted Hospitalist Physical - Constitutional Vitals: Temp Pulse Resp BP Pulse Ox 98.8 F 86 22 118/69 98 10/26/19 08:00 10/26/19 10:00 10/26/19 10:00 10/26/19 10:00 10/26/19 10:00 General appearance: Present: no acute distress, well-nourished, obese - EENT Eyes: Present: PERRL, EOM intact - Neck Neck: Present: supple, normal ROM - Respiratory Respiratory effort: normal Respiratory: bilateral: diminished, rales, negative: rhonchi, wheezing - Cardiovascular Rhythm: regular Heart Sounds: Present: S1 & S2 - Extremities Extremities: no ischemia Extremity abnormal: edema - Abdominal General gastrointestinal: soft, non-tender, non-distended, normal bowel sounds - Integumentary Integumentary: Present: clear, warm - Psychiatric Psychiatric: appropriate mood/affect, cooperative - Neurologic Neurologic: moves all extremities HEART Score - HEART Score Troponin: Troponin T 0.017 ng/mL (0.00-0.029) 10/19/19 02:12 Results - Labs CBC & Chem 7: 10/26/19 05:00 10/26/19 05:00 Labs: Laboratory Last Values WBC 18.6 K/mm3 (4.5-11.0) H 10/26/19 05:00 RBC 2.78 M/mm3 (3.65-5.03) L 10/26/19 05:00 Hgb 8.4 gm/dl (11.8-15.2) L 10/26/19 05:00 Hct 25.8 % (35.5-45.6) L 10/26/19 05:00 MCV 93 fl (84-94) 10/26/19 05:00 MCH 30 pg (28-32) 10/26/19 05:00 MCHC 33 % (32-34) 10/26/19 05:00 RDW 20.9 % (13.2-15.2) H 10/26/19 05:00 Plt Count 33 K/mm3 (140-440) L 10/26/19 05:00 Add Manual Diff Complete 10/26/19 05:00 Total Counted 100 10/26/19 05:00 Seg Neutrophils % Duplex Trimmer 10/20/19 04:15 Seg Neuts % (Manual) 86.0 % (40.0-70.0) H 10/26/19 05:00 Band Neutrophils % 1.0 % 10/26/19 05:00 Lymphocytes % (Manual) 3.0 % (13.4-35.0) L 10/26/19 05:00 Reactive Lymphs % (Man) 0 % 10/26/19 05:00 Monocytes % (Manual) 8.0 % (0.0-7.3) H 10/26/19 05:00 Eosinophils % (Manual) 0 % (0.0-4.3) 10/26/19 05:00 Basophils % (Manual) 0 % (0.0-1.8) 10/26/19 05:00 Metamyelocytes % 2.0 % 10/26/19 05:00 Myelocytes % 0 % 10/26/19 05:00 Promyelocytes % 0 % 10/26/19 05:00 Blast Cells % 0 % 10/26/19 05:00 Nucleated RBC % 1.0 % (0.0-0.9) H 10/26/19 05:00 Seg Neutrophils # Man 16.0 K/mm3 (1.8-7.7) H 10/26/19 05:00 Band Neutrophils # 0.2 K/mm3 10/26/19 05:00 Lymphocytes # (Manual) 0.6 K/mm3 (1.2-5.4) L 10/26/19 05:00 Abs React Lymphs (Man) 0.0 K/mm3 10/26/19 05:00 Monocytes # (Manual) 1.5 K/mm3 (0.0-0.8) H 10/26/19 05:00 Eosinophils # (Manual) 0.0 K/mm3 (0.0-0.4) 10/26/19 05:00 Basophils # (Manual) 0.0 K/mm3 (0.0-0.1) 10/26/19 05:00 Metamyelocytes # 0.4 K/mm3 10/26/19 05:00 Myelocytes # 0.0 K/mm3 10/26/19 05:00 Promyelocytes # 0.0 K/mm3 10/26/19 05:00 Blast Cells # 0.0 K/mm3 10/26/19 05:00 WBC Morphology Not Reportable 10/26/19 05:00 Hypersegmented Neuts Not Reportable 10/26/19 05:00 Hyposegmented Neuts Not Reportable 10/26/19 05:00 Hypogranular Neuts Not Reportable 10/26/19 05:00 Smudge Cells Not Reportable 10/26/19 05:00 Toxic Granulation Not Reportable 10/26/19 05:00 Toxic Vacuolation Not Reportable 10/26/19 05:00 Dohle Bodies Not Reportable 10/26/19 05:00 Pelger-Huet Anomaly Not Reportable 10/26/19 05:00 Nanda Rods Not Reportable 10/26/19 05:00 Platelet Estimate Consistent w auto 10/26/19 05:00 Clumped Platelets Not Reportable 10/26/19 05:00 Plt Clumps, EDTA Not Reportable 10/26/19 05:00 Large Platelets Not Reportable 10/26/19 05:00 Giant Platelets Not Reportable 10/26/19 05:00 Platelet Satelliting Not Reportable 10/26/19 05:00 Plt Morphology Comment Not Reportable 10/26/19 05:00 RBC Morphology Not Reportable 10/26/19 05:00 Dimorphic RBCs Not Reportable 10/26/19 05:00 Polychromasia Rare 10/26/19 05:00 Hypochromasia 1+ 10/26/19 05:00 Poikilocytosis Not Reportable 10/26/19 05:00 Anisocytosis 1+ 10/26/19 05:00 Microcytosis Not Reportable 10/26/19 05:00 Macrocytosis Rare 10/26/19 05:00 Spherocytes Not Reportable 10/26/19 05:00 Pappenheimer Bodies Not Reportable 10/26/19 05:00 Sickle Cells Not Reportable 10/26/19 05:00 Target Cells Not Reportable 10/26/19 05:00 Tear Drop Cells Not Reportable 10/26/19 05:00 Ovalocytes Rare 10/26/19 05:00 Helmet Cells Not Reportable 10/26/19 05:00 Santiago-Cook Bodies Not Reportable 10/26/19 05:00 [place] Rings Not Reportable 10/26/19 05:00 [place] Cells Rare 10/26/19 05:00 Bite Cells Not Reportable 10/26/19 05:00 Crenated Cell Not Reportable 10/26/19 05:00 Elliptocytes Not Reportable 10/26/19 05:00 Acanthocytes (Spur) Not Reportable 10/26/19 05:00 Rouleaux Not Reportable 10/26/19 05:00 Hemoglobin C Crystals Not Reportable 10/26/19 05:00 Schistocytes Rare 10/26/19 05:00 Malaria parasites Not Reportable 10/26/19 05:00 Arnol Bodies Not Reportable 10/26/19 05:00 Hem Pathologist Commnt No 10/26/19 05:00 PT 24.0 Sec. (12.2-14.9) H 10/24/19 Unknown INR 2.15 (0.87-1.13) H 10/24/19 Unknown APTT 25.7 Sec. (24.2-36.6) 10/20/19 10:40 D-Dimer 2524.09 ng/mlDDU (0-234) H 10/18/19 23:16 Heparin Anti-Xa Level 0.33 U.I./ml (0.3-0.7) 10/22/19 09:00 ABG pH 7.426 pH Units (7.350-7.450) 10/24/19 18:30 ABG pCO2 29.7 mm Hg 10/24/19 18:30 ABG pO2 93.4 mm Hg (80.0-90.0) H 10/24/19 18:30 ABG HCO3 19.1 mmol/L (20.0-26.0) L 10/24/19 18:30 ABG O2 Saturation 97.4 % (95.0-99.0) 10/24/19 18:30 ABG O2 Content 13.3 (0.0-44) 10/24/19 18:30 ABG Base Excess -4.4 mmol/L (-2.0-3.0) L 10/24/19 18:30 ABG Hemoglobin 9.9 gm/dl (14.0-18.0) L 10/24/19 18:30 ABG Carboxyhemoglobin 1.9 % (0.0-5.0) 10/24/19 18:30 ABG Methemoglobin 0.6 % (0.0-1.5) 10/24/19 18:30 Oxyhemoglobin 95.0 % (95.0-99.0) 10/24/19 18:30 FiO2 21 % 10/24/19 18:30 Sodium 154 mmol/L (137-145) H 10/26/19 05:00 Potassium 3.9 mmol/L (3.6-5.0) 10/26/19 05:00 Chloride 112.9 mmol/L (98-107) H 10/26/19 05:00 Carbon Dioxide 28 mmol/L (22-30) D 10/26/19 05:00 Anion Gap 17 mmol/L 10/26/19 05:00 BUN 99 mg/dL (9-20) H 10/26/19 05:00 Creatinine 1.8 mg/dL (0.8-1.5) H 10/26/19 05:00 Estimated GFR 38 ml/min 10/26/19 05:00 BUN/Creatinine Ratio 55 % 10/26/19 05:00 Glucose 154 mg/dL (75-100) H 10/26/19 05:00 POC Glucose 195 (70-105) H 10/21/19 18:15 Lactic Acid 3.00 mmol/L (0.7-2.0) H* 10/24/19 Unknown Calcium 8.2 mg/dL (8.4-10.2) L 10/26/19 05:00 Phosphorus 6.00 mg/dL (2.5-4.5) H 10/20/19 04:15 Magnesium 2.80 mg/dL (1.7-2.3) H 10/26/19 05:00 Iron 134 ug/dL (49-181) 10/21/19 04:24 TIBC 150 mcg/dL (250-450) L 10/21/19 04:24 Ferritin > 2000.0 ng/mL (13.0-400.0) H 10/21/19 04:24 Total Bilirubin 10.30 mg/dL (0.1-1.2) H 10/26/19 05:00 Direct Bilirubin 6.8 mg/dL (0-0.2) H 10/26/19 05:00 Indirect Bilirubin 3.5 mg/dL 10/26/19 05:00 AST 69 units/L (5-40) H 10/26/19 05:00 ALT 96 units/L (7-56) H 10/26/19 05:00 Alkaline Phosphatase 153 units/L (35-129) H 10/26/19 05:00 Lactate Dehydrogenase 1150 units/L (91-180) H 10/18/19 21:46 Troponin T 0.017 ng/mL (0.00-0.029) 10/19/19 02:12 C-Reactive Protein 29.00 mg/dL (0.00-1.30) H 10/18/19 21:46 NT-Pro-B Natriuret Pep 7312 pg/mL (0-900) H 10/18/19 20:37 Total Protein 4.4 g/dL (6.3-8.2) L 10/26/19 05:00 Albumin 2.8 g/dL (3.9-5) L 10/26/19 05:00 Albumin/Globulin Ratio 1.8 % 10/26/19 05:00 Carcinoembryonic Ag 3.4 ng/mL (0.0-2.4) H 10/23/19 10:20 CA 19-9 Antigen 28 U/mL (<34) 10/23/19 10:20 Procalcitonin 6.56 ng/mL (<0.15) 10/23/19 05:30 TSH 1.420 mlU/mL (0.270-4.200) 10/21/19 04:24 Urine Color Yellow (Yellow) 10/19/19 12:25 Urine Turbidity Clear (Clear) 10/19/19 12:25 Urine pH 5.0 (5.0-7.0) 10/19/19 12:25 Ur Specific [place] 1.016 (1.003-1.030) 10/19/19 12:25 Urine Protein <15 mg/dl mg/dL (Negative) 10/19/19 12:25 Urine Glucose (UA) Neg mg/dL (Negative) 10/19/19 12:25 Urine Ketones Neg mg/dL (Negative) 10/19/19 12:25 Urine Blood Sm (Negative) 10/19/19 12:25 Urine Nitrite Neg (Negative) 10/19/19 12:25 Urine Bilirubin Neg (Negative) 10/19/19 12:25 Urine Urobilinogen 2.0 mg/dL (<2.0) 10/19/19 12:25 Ur Leukocyte Esterase Neg (Negative) 10/19/19 12:25 Urine WBC (Auto) 2.0 /HPF (0.0-6.0) 10/19/19 12:25 Urine RBC (Auto) 1.0 /HPF (0.0-6.0) 10/19/19 12:25 U Epithel Cells (Auto) 1.0 /HPF (0-13.0) 10/19/19 12:25 Urine Mucus Few /HPF 10/19/19 12:25 Urine Eosinophils None seen (None Seen) 10/19/19 12:25 Urine Creatinine 101.1 mg/dL (0.1-20.0) H 10/19/19 12:25 Protein/Creatinin Ratio 0.21 10/19/19 12:25 Urine Sodium 12 mmol/L 10/19/19 12:25 Urine Total Protein 21 mg/dL (5-11.8) H 10/19/19 12:25 Random Vancomycin 14.4 ug/mL (0-40.0) 10/24/19 Unknown Coronavirus (PCR) Negative (Negative) 10/19/19 08:23 Hepatitis A IgM Ab Non-reactive (NonReactive) 10/19/19 13:58 Hep Bs Antigen Non-reactive (Negative) 10/19/19 13:58 Hep B Core IgM Ab Non-reactive (NonReactive) 10/19/19 13:58 Hepatitis C Antibody Non-reactive (NonReactive) 10/19/19 13:58 Blood Type O POSITIVE 10/22/19 09:26 Antibody Screen Negative 10/22/19 09:26 Crossmatch See Detail 10/22/19 09:26 - Diagnostic Impressions Diagnostic Impressions: Echocardiogram 10/19/19 09:58 Transthoracic Echocardiogram Indication: Bacteremia BP: 92/54 HR: 111 Conclusions *The left ventricular chamber size is mildly dilated. *Global left ventricular systolic function is severely decreased.LV diastolic function indeterminate *The estimated ejection fraction is 25-30%. *The left atrial chamber size is normal. *The right ventricular global systolic function is mildly reduced. *A pacemaker wire is visualized in the right atrium. *The right ventricular systolic pressure is calculated at 39 mmHg. Findings Left Ventricle: The left ventricular chamber size is mildly dilated. Global left ventricular systolic function is severely decreased.LV diastolic function indeterminate The estimated ejection fraction is 25-30%. Diffuse hypokinesis particularly of posterior wall and also abnormal motion secondary to conduction defect noted. Left Atrium: The left atrial chamber size is normal. Right Ventricle: The right ventricular global systolic function is mildly reduced. Right Atrium: The right atrial cavity size is normal. A pacemaker wire is visualized in the right atrium. Aortic Valve: The aortic valve leaflets are mildly thickened. There is no evidence of aortic regurgitation. Mitral Valve: The mitral valve leaflets are mildly thickened. There is mild mitral regurgitation. Tricuspid Valve: The tricuspid valve leaflets are mildly thickened. There is mild tricuspid regurgitation. The right ventricular systolic pressure is calculated at 39 mmHg. Pulmonic Valve: The pulmonic valve appears normal. There is trace pulmonic regurgitation. Pericardium: There is no pericardial effusion. Aorta: There is no dilatation of the ascending aorta. There is no dilatation of the aortic root. Venous: The inferior vena cava is not visualized. Measurements Chambers 2D Name Value Normal Range IVSd (2D) 1.04 cm (0.6 - 1.1) LVPWd (2D) 0.9 cm (0.6 - 1.1) LVIDd (2D) 6.25 cm (3.7 - 5.6) LVIDs (2D) 5.82 cm (2 - 3.8) LV FS (2D) 6.91 % - EF Teichholz (2D) 15.08 % - Ao root diameter (2D) 3.92 cm (2 - 3.7) Volumes/Mass Name Value Normal Range LA ESV SP 4CH (A/L) 88.58 ml - LA ESV SP 2CH (A/L) 67.41 ml - LA ESV BP (A/L) 80.54 ml - LA ESV BP (A/L) index 34.27 ml/m2 - LA ESV SP 4CH (MOD) 79.44 ml - LA ESV SP 2CH (MOD) 64.63 ml - LA ESV BP (MOD) 74.57 ml - LA ESV BP (MOD) index 31.73 ml/m2 - Diastolic/Systolic Function Name Value Normal Range MV E-wave Vmax 0.65 m/sec - MV deceleration time 154.22 msec - Aortic Valve Name Value Normal Range AV Vmax 1.56 m/sec - AV VTI 24.52 cm - AV peak gradient 9.84 mmHg - AV mean gradient 5.68 mmHg - LVOT diameter 2.42 cm - LVOT Vmax 0.9 m/sec - LVOT VTI 12.91 cm - LVOT peak gradient 3.21 mmHg - LVOT mean gradient 1.81 mmHg - SV LVOT 59.15 ml - ROBERTO (continuity Vmax) 2.63 cm2 - ROBERTO (continuity VTI) 2.41 cm2 - Tricuspid Valve Name Value Normal Range TR Vmax 3 m/sec - TR peak gradient 36 mmHg - RAP 3 mmHg - RVSP 39 mmHg - Pulmonic Valve/Qp:Qs Name Value Normal Range PV Vmax 1 m/sec - PV peak gradient 3.97 mmHg - PV acceleration time 76.12 msec - Rowe/IV: Voiding Method Indwelling Catheter IV Catheter Type [Right Triple Lumen Cath Internal Jugular] IV Catheter Type [Left Wrist] CVL Active Medications - Current Medications Current Medications: Generic Name Dose Route Start Last Admin Trade Name Freq PRN Reason Stop Dose Admin Acetaminophen 650 mg 10/19/19 00:08 Tylenol PO Q4H PRN Pain MILD(1-3)/Fever >100.5/GIBBS Norepinephrine 8 mg/ Sodium 250 mls @ 3.75 mls/hr 10/23/19 00:00 10/25/19 09:45 Chloride IV 0 mcg/min TITR ABBEY 0 mls/hr Titration Protocol 2 MCG/MIN MEROPENEM/NS 1 GRAM/100 ML 1 gram in 100 mls @ 100 mls/hr 10/23/19 16:00 10/26/19 09:23 Merrem/Ns 1 Gram/100 Ml IV 10/27/19 23:59 100 mls/hr Q12HR ABBEY Administration Protocol Magnesium Hydroxide 30 ml 10/19/19 00:08 Milk Of Magnesia PO Q4H PRN Constipation Midodrine 10 mg 10/23/19 12:00 10/26/19 08:20 Proamatine PO 10 mg TID@0800,1200,1600 ABBEY Administration Octreotide Acetate 100 mcg 10/23/19 14:00 10/26/19 05:54 Sandostatin SUB-Q 100 mcg Q8HR ABBEY Administration Ondansetron HCl 4 mg 10/19/19 00:08 10/21/19 22:31 Zofran IV 4 mg Q8H PRN Administration Nausea And Vomiting Sodium Bicarbonate 1,300 mg 10/23/19 14:00 10/26/19 08:20 Sodium Bicarbonate PO 1,300 mg TID ABBEY Administration Sodium Chloride 10 ml 10/19/19 10:00 10/26/19 09:26 Sodium Chloride Flush Syringe 10 Ml IV 10 ml BID ABBEY Administration Sodium Chloride 10 ml 10/19/19 00:08 Sodium Chloride Flush Syringe 10 Ml IV PRN PRN LINE FLUSH Nutrition/Malnutrition Assess - Dietary Evaluation Nutrition/Malnutrition Findings: Nutrition Notes Start: 10/19/19 09:23 Freq: Status: Active Protocol: Document 10/25/19 11:53 LM (Rec: 10/25/19 12:09 LM [email or web address]) Nutrition Notes Initial or Follow up Assessment Current Diagnosis Acute Kidney Injury,Heart Failure Other Pertinent Diagnosis Dyspnea, ARF, r/o COVID-19, shock liver Current Diet Renal Labs/Tests Na 149 BUN 104 Cr 2.1 Bili 7.6 Pertinent Medications Norepinepherine Height 6 ft Weight 113.9 kg [place] Body Weight (kg) 80.90 BMI 34.0 Weight Status Obese Subjective/Other Information Pt not appropriate for diet education at this time. Pt with weak manager account management strength and edema. Burn Absent Trauma Absent Minimum of two criteria Yes Fluid Accumulation Mild (non-severe) Reduced Med Spec Strength Measurably Reduced (severe) #1 Nutrition Diagnosis Malnutrition Etiology Chronic illness As Evidenced by Signs and Symptoms weak manager account management strength, fluid accumulation Is patient on ventilator? No Is Patient Ambulatory and/or Out of Bed No REE-([facility]-confined to bed) 2341.560 Kcal/Kg value to use for calculation 17 Approximate Energy Requirements Using 1936 kcal/Kg Calculation Used for Recommendations Kcal/kg Additional Notes Protein: 78-147g (0.8-1.5g/kg using AdjBW 98kg) Fluid: per MD Nutrition Intervention Change Diet Order: Continue current Goal #1 Meet at least 75% of energy and protein needs Anticipated Discharge Needs: unable to determine at this time Follow-Up By: 10/27/19 Additional Comments F/U for intakes, ONS needs
--- NOTE | 2019-10-26 11:17 | Progress Note ---
Assessment and Plan tte reviewed - EF 25-30%, RV systolic function mildly reduced, RVSP 39mmHg. COVID-19 negative. No apparent clinical evidence of acutely decompensated HF. Cont supportive management. Cont to hold home GDMT and diuretics in setting of hypotension - resume once BPs stabilize. Heparin gtt and home coumadin held in setting of coagulopathy. Abdomen/pelvis CT reviewed - large mass in region of pancreatic head/duodenum, metastatic disease involving the liver, likely the surrounding regional lymph nodes and small bone lesion in lumbar spine. Heme/onc has been consulted. GI team is following. Nothing further to add from cardiac perspective at this time. Will follow on as needed basis. The patient has been seen in conjunction with Dr. Ty Seymour who agrees with the assessment and plan of care. - Patient Problems (1) Sepsis Current Visit: Yes Status: Suspected (2) Sepsis associated hypotension Current Visit: Yes Status: Chronic (3) Coagulopathy Current Visit: Yes Status: Acute (4) Chronic HFrEF (heart failure with reduced ejection fraction) Current Visit: Yes Status: Chronic (5) NICM (nonischemic cardiomyopathy) Current Visit: Yes Status: Chronic (6) Automatic implantable cardioverter-defibrillator in situ Current Visit: Yes Status: Chronic (7) Paroxysmal atrial fibrillation Current Visit: Yes Status: Chronic (8) Anticoagulated on Coumadin Current Visit: Yes Status: Chronic (9) History of ventricular tachycardia Current Visit: Yes Status: Chronic (10) Anemia Current Visit: Yes Status: Acute (11) Elevated LFTs Current Visit: Yes Status: Acute (12) Acute renal failure Current Visit: Yes Status: Acute Qualifiers: Acute renal failure type: unspecified Qualified Code(s): N17.9 - Acute kidney failure, unspecified Subjective Date of service: 10/26/19 Principal diagnosis: sepsis Interval history: pt resting in bed, alert. VPaced on telemetry with underlying AFib. currently weaned off levophed gtt. Objective Last Vital Signs Temp 98.8 F 10/26/19 08:00 Pulse 86 10/26/19 10:00 Resp 22 10/26/19 10:00 BP 118/69 10/26/19 10:00 Pulse Ox 98 10/26/19 10:00 - Physical Examination Narrative exam: agree with physical examination per critical care team - Labs and Meds Cardiac Enzymes 10/26/19 Range/Units 05:00 AST 69 H (5-40) units/L CBC 10/26/19 Range/Units 05:00 WBC 18.6 H (4.5-11.0) K/mm3 RBC 2.78 L (3.65-5.03) M/mm3 Hgb 8.4 L (11.8-15.2) gm/dl Hct 25.8 L (35.5-45.6) % Plt Count 33 L (140-440) K/mm3 Comprehensive Metabolic Panel 10/26/19 10/26/19 Range/Units 05:00 05:00 Sodium 154 H (137-145) mmol/L Potassium 3.9 (3.6-5.0) mmol/L Chloride 112.9 H (98-107) mmol/L Carbon Dioxide 28 D (22-30) mmol/L BUN 99 H (9-20) mg/dL Creatinine 1.8 H (0.8-1.5) mg/dL Glucose 154 H (75-100) mg/dL Calcium 8.2 L (8.4-10.2) mg/dL Direct Bilirubin 6.8 H (0-0.2) mg/dL Indirect Bilirubin 3.5 mg/dL AST 69 H (5-40) units/L ALT 96 H (7-56) units/L Alkaline Phosphatase 153 H (35-129) units/L Total Protein 4.4 L (6.3-8.2) g/dL Albumin 2.8 L (3.9-5) g/dL - Imaging and Cardiology EKG: report reviewed, image reviewed Echo: report reviewed (10/07/2016 showed EF 30%, LV severely dilated, mildly dilated LA, impaired relaxation, mod to severely reduced RV systolic function, trace MR. ) - EKG Ventricular dysrhythmias: ventricular premature com - Allied health notes Allied health notes reviewed: nursing
--- NOTE | 2019-10-26 12:09 | Progress Note ---
Assessment and Plan Shock probably multifactorial- septic/cardiogenic/hypovolemic Shock liver, improving Acute kidney injury- vasomotor nephropathy Anemia appears chronic , with acute component Acute on chronic systolic congestive heart failure, s/p AICD BNP 7312. Cough/Dyspnea on exertion: high suspicion for severe COVID pneumonia. Elevated inflammatory markers D-dimer 2301, CRP 29, LDH 1150, ferritin> 2000- possibly secondary to some other inflammatory condition. 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 -Supportive blood transfusion to keep HgB >7g/dL -Encourage free water -Supportive care -PT/OT to increase activity and mobility -Avoid delirium -Will continue to encourage oral fluids and monitor. -Discussed with primary service, transfer to telemetry for ongoing care - Continue other care per attending / other consultants - prn supplemental oxygen for target O2 sat's > 90% acutely - continue accuchecks with glycemic control per SSI (While critically ill target blood glucose of 140-180 mg/dL; avoid hypoglycemia) - optimize cardiac status per cardiology team - prn bronchodilators with pulmonary hygiene per RT - avoid benzodiazepines, reduce the possibility of delirium - Antiinfective's per ID rec's; trend fevers, WBC - prn analgesia per pain score - Maintenance of sleep-wake cycle, avoid delirium - G.I. & VTE prophylaxis ( Famotidine, SCDs) -mobility protocol for pressure ulcer prevention - Monitor hemodynamics closely - discharge planning ongoing concurrently .... Re-evaluate in am & prn CONDITION: FAIR PROGNOSIS: GUARDED CODE STATUS: FULL CODE Subjective Date of service: 10/26/19 Principal diagnosis: sepsis Interval history: Patient is seen today for: Septic shock; Shock liver; Acute renal failure; Anemia; Acute on chronic HFrEF Seen and examined at bedside; 24hour events reviewed; nursing and respiratory care staff consulted; no adverse overnight events reported to me; resting peacefully in bed;blood pressure has improved on midodrine, remains off levop hed No reported fever, no diarrhea, awake, alert and very interactive Remains on bicarb infusion. Has Rowe catheter Remains on Meropenem and Octreotide Objective Vital Signs - 12hr 10/26/19 10/26/19 10/26/19 00:16 00:30 00:46 Temperature Pulse Rate 90 90 82 Pulse Rate [ From Monitor] Respiratory 24 23 20 Rate Blood Pressure 121/44 121/44 107/58 O2 Sat by Pulse 99 95 Oximetry 10/26/19 0520 10/26/19 01:00 01:15 01:30 Temperature Pulse Rate 86 65 79 Pulse Rate [ From Monitor] Respiratory 24 21 26 H Rate Blood Pressure 101/63 109/55 100/61 O2 Sat by Pulse 97 95 91 Oximetry 10/26/19 0520 10/26/19 01:45 02:00 02:16 Temperature Pulse Rate 80 88 88 Pulse Rate [ From Monitor] Respiratory 24 19 22 Rate Blood Pressure 90/54 91/54 87/52 O2 Sat by Pulse 99 99 96 Oximetry 10/26/19 10/26/19 10/26/19 02:30 02:45 03:00 Temperature Pulse Rate 82 82 82 Pulse Rate [ From Monitor] Respiratory 19 14 22 Rate Blood Pressure 85/56 74/52 74/52 O2 Sat by Pulse 92 93 92 Oximetry 10/26/19 10/26/19 10/26/19 03:16 03:30 03:45 Temperature Pulse Rate 82 75 88 Pulse Rate [ From Monitor] Respiratory 21 22 22 Rate Blood Pressure 88/50 102/57 108/49 O2 Sat by Pulse 95 95 98 Oximetry 10/26/19 0510/26/19 04:00 04:15 04:30 Temperature 98.6 F Pulse Rate 85 81 81 Pulse Rate [ 87 From Monitor] Respiratory 20 23 15 Rate Blood Pressure 90/54 104/47 104/47 O2 Sat by Pulse 96 97 Oximetry 10/26/19 0510/26/19 04:46 05:00 05:16 Temperature Pulse Rate 83 83 95 H Pulse Rate [ From Monitor] Respiratory 25 H 26 H 23 Rate Blood Pressure 141/85 141/85 121/100 O2 Sat by Pulse 96 97 Oximetry 10/26/19 0520 10/26/19 05:30 05:45 06:00 Temperature Pulse Rate 92 H 89 89 Pulse Rate [ From Monitor] Respiratory 26 H 24 23 Rate Blood Pressure 121/100 102/67 119/60 O2 Sat by Pulse 96 95 Oximetry 20 0520/20 0520 06:16 06:30 07:00 Temperature Pulse Rate 83 87 88 Pulse Rate [ From Monitor] Respiratory 23 17 23 Rate Blood Pressure 89/62 96/64 94/70 O2 Sat by Pulse 95 96 96 Oximetry 10/26/19 10/26/19 10/26/19 07:30 08:00 08:30 Temperature 98.8 F Pulse Rate 94 H 86 87 Pulse Rate [ 82 From Monitor] Respiratory 26 H 21 15 Rate Blood Pressure 118/80 107/69 102/58 O2 Sat by Pulse 95 96 95 Oximetry 10/26/19 10/26/19 10/26/19 09:00 09:30 10:00 Temperature Pulse Rate 90 88 86 Pulse Rate [ From Monitor] Respiratory 24 21 22 Rate Blood Pressure 102/58 112/70 118/69 O2 Sat by Pulse 98 98 98 Oximetry 10/26/19 10/26/19 11:54 12:00 Temperature 99.4 F Pulse Rate 82 Pulse Rate [ From Monitor] Respiratory Rate Blood Pressure O2 Sat by Pulse Oximetry Constitutional: alert, appears uncomfortable, other (elderly looking obese CM, normocephalic with mildly increased respiratory effort at rest) Eyes: non-icteric ENT: oropharynx dry, other (mallampati 3) Neck: supple, no lymphadenopathy, other (RIJ CVL) Effort: mildly labored Ascultation: Bilateral: diminished breath sounds, rales (scant) Percussion: Bilateral: not dull Cardiovascular: other (paced rhythm) Gastrointestinal: normoactive bowel sounds, soft, non-tender, non-distended (protuberant) Integumentary: rash (stasis dermatitis type) Extremities: no cyanosis, pulses normal, no ischemia or petechiae, edema (bilateral upper extremity) Neurologic: non-focal exam (grossly), pupils equal and round, CN II-XII normal, other (weak; fatigued at rest) Psychiatric: other (affect flat) CBC and BMP: 10/26/19 05:00 10/26/19 05:00 ABG, PT/INR, D-dimer: ABG ABG pH 7.426 pH Units (7.350-7.450) 10/24/19 18:30 ABG pCO2 29.7 mm Hg 10/24/19 18:30 ABG pO2 93.4 mm Hg (80.0-90.0) H 10/24/19 18:30 ABG O2 Saturation 97.4 % (95.0-99.0) 10/24/19 18:30 PT/INR, D-dimer PT 24.0 Sec. (12.2-14.9) H 10/24/19 Unknown INR 2.15 (0.87-1.13) H 10/24/19 Unknown D-Dimer 2524.09 ng/mlDDU (0-234) H 10/18/19 23:16 Abnormal lab findings: Abnormal Labs 10/18/19 10/18/19 10/18/19 20:37 20:37 20:37 WBC 17.8 H RBC 2.94 L Hgb 9.5 L Hct 30.0 L MCV 102 H MCH MCHC RDW Plt Count Seg Neuts % (Manual) 85.0 H Lymphocytes % (Manual) 6.0 L Monocytes % (Manual) 8.0 H Nucleated RBC % Seg Neutrophils # Man 15.1 H Lymphocytes # (Manual) 1.1 L Monocytes # (Manual) 1.4 H PT 109.8 H INR 16.02 H* APTT 69.1 H* D-Dimer 2301.69 H Heparin Anti-Xa Level ABG pO2 ABG HCO3 ABG Base Excess ABG Hemoglobin Sodium Potassium Chloride 60.0 L Carbon Dioxide 15 L BUN 192 H Creatinine 3.2 H Glucose 154 H POC Glucose Lactic Acid Calcium Phosphorus Magnesium TIBC Ferritin Total Bilirubin Direct Bilirubin AST 120 H ALT 63 H Alkaline Phosphatase 194 H Lactate Dehydrogenase C-Reactive Protein NT-Pro-B Natriuret Pep 7312 H Total Protein 5.4 L Albumin 2.5 L Carcinoembryonic Ag Urine Creatinine Urine Total Protein Crossmatch 10/18/19 10/18/19 10/18/19 21:46 21:46 23:16 WBC RBC Hgb Hct MCV MCH MCHC RDW Plt Count Seg Neuts % (Manual) Lymphocytes % (Manual) Monocytes % (Manual) Nucleated RBC % Seg Neutrophils # Man Lymphocytes # (Manual) Monocytes # (Manual) PT < 10.0 L INR > 17.67 H* APTT 92.7 H* D-Dimer 2524.09 H Heparin Anti-Xa Level ABG pO2 ABG HCO3 ABG Base Excess ABG Hemoglobin Sodium Potassium Chloride Carbon Dioxide BUN Creatinine Glucose POC Glucose Lactic Acid Calcium Phosphorus Magnesium TIBC Ferritin > 2000.0 H Total Bilirubin Direct Bilirubin AST ALT Alkaline Phosphatase Lactate Dehydrogenase 1150 H C-Reactive Protein 29.00 H NT-Pro-B Natriuret Pep Total Protein Albumin Carcinoembryonic Ag Urine Creatinine Urine Total Protein Crossmatch 10/19/19 10/19/19 10/19/19 12:25 13:58 13:58 WBC RBC Hgb Hct MCV MCH MCHC RDW Plt Count Seg Neuts % (Manual) Lymphocytes % (Manual) Monocytes % (Manual) Nucleated RBC % Seg Neutrophils # Man Lymphocytes # (Manual) Monocytes # (Manual) PT 31.7 H INR 3.19 H APTT D-Dimer Heparin Anti-Xa Level ABG pO2 ABG HCO3 ABG Base Excess ABG Hemoglobin Sodium Potassium Chloride Carbon Dioxide 14 L BUN 173 H Creatinine 2.4 H Glucose 129 H POC Glucose Lactic Acid Calcium 7.5 L Phosphorus Magnesium TIBC Ferritin Total Bilirubin Direct Bilirubin AST 754 H ALT 294 H Alkaline Phosphatase 141 H Lactate Dehydrogenase C-Reactive Protein NT-Pro-B Natriuret Pep Total Protein 4.9 L Albumin 1.8 L Carcinoembryonic Ag Urine Creatinine 101.1 H Urine Total Protein 21 H Crossmatch 10/20/19 10/20/19 10/20/19 04:15 04:15 04:15 WBC 16.3 H RBC 2.44 L Hgb 8.0 L Hct 24.4 L MCV 100 H MCH 33 H MCHC RDW Plt Count Seg Neuts % (Manual) 89.0 H Lymphocytes % (Manual) 5.0 L Monocytes % (Manual) Nucleated RBC % Seg Neutrophils # Man 14.5 H Lymphocytes # (Manual) 0.8 L Monocytes # (Manual) PT 20.7 H INR 1.83 H APTT D-Dimer Heparin Anti-Xa Level ABG pO2 ABG HCO3 ABG Base Excess ABG Hemoglobin Sodium 147 H Potassium Chloride Carbon Dioxide 18 L BUN 169 H Creatinine 2.1 H Glucose 136 H POC Glucose Lactic Acid Calcium Phosphorus 6.00 H Magnesium TIBC Ferritin Total Bilirubin Direct Bilirubin AST 817 H ALT 374 H Alkaline Phosphatase 165 H Lactate Dehydrogenase C-Reactive Protein NT-Pro-B Natriuret Pep Total Protein 5.7 L Albumin 2.2 L Carcinoembryonic Ag Urine Creatinine Urine Total Protein Crossmatch 10/20/19 10/20/19 10/20/19 10:40 10:40 20:51 WBC RBC Hgb 8.2 L Hct 25.0 L MCV MCH MCHC RDW Plt Count Seg Neuts % (Manual) Lymphocytes % (Manual) Monocytes % (Manual) Nucleated RBC % Seg Neutrophils # Man Lymphocytes # (Manual) Monocytes # (Manual) PT 20.9 H INR 1.80 H APTT D-Dimer Heparin Anti-Xa Level 0.12 L ABG pO2 ABG HCO3 ABG Base Excess ABG Hemoglobin Sodium Potassium Chloride Carbon Dioxide BUN Creatinine Glucose POC Glucose Lactic Acid Calcium Phosphorus Magnesium TIBC Ferritin Total Bilirubin Direct Bilirubin AST ALT Alkaline Phosphatase Lactate Dehydrogenase C-Reactive Protein NT-Pro-B Natriuret Pep Total Protein Albumin Carcinoembryonic Ag Urine Creatinine Urine Total Protein Crossmatch 10/21/19 10/21/19 10/21/19 04:24 04:24 04:24 WBC 19.3 H RBC 2.33 L Hgb 7.4 L Hct 23.7 L MCV 102 H MCH MCHC 31 L RDW Plt Count Seg Neuts % (Manual) 81.0 H Lymphocytes % (Manual) 5.0 L Monocytes % (Manual) Nucleated RBC % Seg Neutrophils # Man 15.6 H Lymphocytes # (Manual) 1.0 L Monocytes # (Manual) PT INR APTT D-Dimer Heparin Anti-Xa Level ABG pO2 ABG HCO3 ABG Base Excess ABG Hemoglobin Sodium 149 H Potassium 3.3 L Chloride 113.9 H Carbon Dioxide 20 L BUN 128 H Creatinine 1.6 H Glucose 151 H POC Glucose Lactic Acid Calcium 8.3 L Phosphorus Magnesium TIBC 150 L Ferritin > 2000.0 H Total Bilirubin Direct Bilirubin AST ALT Alkaline Phosphatase Lactate Dehydrogenase C-Reactive Protein NT-Pro-B Natriuret Pep Total Protein Albumin Carcinoembryonic Ag Urine Creatinine Urine Total Protein Crossmatch 10/21/19 10/21/19 10/21/19 04:24 08:06 18:15 WBC RBC Hgb Hct MCV MCH MCHC RDW Plt Count Seg Neuts % (Manual) Lymphocytes % (Manual) Monocytes % (Manual) Nucleated RBC % Seg Neutrophils # Man Lymphocytes # (Manual) Monocytes # (Manual) PT INR APTT D-Dimer Heparin Anti-Xa Level 0.26 L ABG pO2 ABG HCO3 ABG Base Excess ABG Hemoglobin Sodium Potassium Chloride Carbon Dioxide BUN Creatinine Glucose POC Glucose 195 H Lactic Acid Calcium Phosphorus Magnesium TIBC Ferritin Total Bilirubin Direct Bilirubin 0.7 H AST 754 H ALT 421 H Alkaline Phosphatase 165 H Lactate Dehydrogenase C-Reactive Protein NT-Pro-B Natriuret Pep Total Protein 5.2 L Albumin 2.2 L Carcinoembryonic Ag Urine Creatinine Urine Total Protein Crossmatch 10/21/19 10/22/19 10/22/19 18:38 05:58 05:58 WBC 32.2 H RBC 2.09 L Hgb 6.7 L Hct 21.6 L MCV 104 H MCH MCHC 31 L RDW 15.5 H Plt Count Seg Neuts % (Manual) 83.0 H Lymphocytes % (Manual) 9.0 L Monocytes % (Manual) Nucleated RBC % 4.5 H Seg Neutrophils # Man 26.7 H Lymphocytes # (Manual) Monocytes # (Manual) 1.4 H PT INR APTT D-Dimer Heparin Anti-Xa Level 0.29 L ABG pO2 ABG HCO3 ABG Base Excess ABG Hemoglobin Sodium Potassium Chloride 112.5 H Carbon Dioxide 15 L BUN 123 H Creatinine 1.6 H Glucose 187 H POC Glucose Lactic Acid Calcium 7.9 L Phosphorus Magnesium TIBC Ferritin Total Bilirubin Direct Bilirubin AST 1210 H ALT 476 H Alkaline Phosphatase 197 H Lactate Dehydrogenase C-Reactive Protein NT-Pro-B Natriuret Pep Total Protein 4.8 L Albumin 1.7 L Carcinoembryonic Ag Urine Creatinine Urine Total Protein Crossmatch 10/22/19 10/22/19 10/23/19 09:26 Unknown 05:30 WBC 34.3 H RBC 2.50 L Hgb 7.7 L Hct 24.4 L MCV 98 H MCH MCHC RDW 19.2 H Plt Count 121 L Seg Neuts % (Manual) 74.0 H Lymphocytes % (Manual) 5.0 L Monocytes % (Manual) Nucleated RBC % 12.0 H Seg Neutrophils # Man 25.4 H Lymphocytes # (Manual) Monocytes # (Manual) PT INR APTT D-Dimer Heparin Anti-Xa Level ABG pO2 ABG HCO3 15.4 L ABG Base Excess -8.2 L ABG Hemoglobin 6.8 L Sodium Potassium Chloride Carbon Dioxide BUN Creatinine Glucose POC Glucose Lactic Acid Calcium Phosphorus Magnesium TIBC Ferritin Total Bilirubin Direct Bilirubin AST ALT Alkaline Phosphatase Lactate Dehydrogenase C-Reactive Protein NT-Pro-B Natriuret Pep Total Protein Albumin Carcinoembryonic Ag Urine Creatinine Urine Total Protein Crossmatch See Detail 10/23/19 10/23/19 10/23/19 05:30 05:30 05:30 WBC RBC Hgb Hct MCV MCH MCHC RDW Plt Count Seg Neuts % (Manual) Lymphocytes % (Manual) Monocytes % (Manual) Nucleated RBC % Seg Neutrophils # Man Lymphocytes # (Manual) Monocytes # (Manual) PT 31.0 H INR 3.00 H APTT D-Dimer Heparin Anti-Xa Level ABG pO2 ABG HCO3 ABG Base Excess ABG Hemoglobin Sodium 146 H Potassium Chloride 114.8 H Carbon Dioxide 16 L BUN 130 H Creatinine 2.3 H Glucose 167 H POC Glucose Lactic Acid 3.20 H* Calcium 7.7 L Phosphorus Magnesium TIBC Ferritin Total Bilirubin 2.80 H Direct Bilirubin AST 1098 H ALT 371 H Alkaline Phosphatase 225 H Lactate Dehydrogenase C-Reactive Protein NT-Pro-B Natriuret Pep Total Protein 4.6 L Albumin 2.3 L Carcinoembryonic Ag Urine Creatinine Urine Total Protein Crossmatch 10/23/19 10/23/19 10/23/19 08:28 08:28 10:20 WBC RBC Hgb Hct MCV MCH MCHC RDW Plt Count Seg Neuts % (Manual) Lymphocytes % (Manual) Monocytes % (Manual) Nucleated RBC % Seg Neutrophils # Man Lymphocytes # (Manual) Monocytes # (Manual) PT INR APTT D-Dimer Heparin Anti-Xa Level ABG pO2 ABG HCO3 ABG Base Excess ABG Hemoglobin Sodium Potassium Chloride 117.8 H Carbon Dioxide 14 L BUN 130 H Creatinine 2.3 H Glucose 168 H POC Glucose Lactic Acid 2.80 H* Calcium 8.0 L Phosphorus Magnesium TIBC Ferritin Total Bilirubin Direct Bilirubin AST ALT Alkaline Phosphatase Lactate Dehydrogenase C-Reactive Protein NT-Pro-B Natriuret Pep Total Protein Albumin Carcinoembryonic Ag 3.4 H Urine Creatinine Urine Total Protein Crossmatch 10/23/19 10/23/19 10/23/19 15:52 15:52 23:00 WBC RBC Hgb Hct MCV MCH MCHC RDW Plt Count Seg Neuts % (Manual) Lymphocytes % (Manual) Monocytes % (Manual) Nucleated RBC % Seg Neutrophils # Man Lymphocytes # (Manual) Monocytes # (Manual) PT INR APTT D-Dimer Heparin Anti-Xa Level ABG pO2 ABG HCO3 ABG Base Excess ABG Hemoglobin Sodium 147 H Potassium Chloride 115.6 H Carbon Dioxide 16 L BUN 130 H Creatinine 2.5 H Glucose 168 H POC Glucose Lactic Acid 3.10 H* 3.10 H* Calcium 7.9 L Phosphorus Magnesium TIBC Ferritin Total Bilirubin Direct Bilirubin AST ALT Alkaline Phosphatase Lactate Dehydrogenase C-Reactive Protein NT-Pro-B Natriuret Pep Total Protein Albumin Carcinoembryonic Ag Urine Creatinine Urine Total Protein Crossmatch 10/24/19 10/24/19 10/24/19 10:52 12:29 15:35 WBC 17.8 H RBC 2.02 L Hgb 6.2 L Hct 20.0 L MCV 99 H MCH MCHC 31 L RDW 19.8 H Plt Count 48 L Seg Neuts % (Manual) Lymphocytes % (Manual) Monocytes % (Manual) Nucleated RBC % Seg Neutrophils # Man Lymphocytes # (Manual) Monocytes # (Manual) PT 24.3 H INR 2.19 H APTT D-Dimer Heparin Anti-Xa Level ABG pO2 ABG HCO3 ABG Base Excess ABG Hemoglobin Sodium 148 H Potassium Chloride 116.5 H Carbon Dioxide 17 L BUN 122 H Creatinine 2.4 H Glucose 183 H POC Glucose Lactic Acid Calcium 8.1 L Phosphorus Magnesium TIBC Ferritin Total Bilirubin 4.80 H Direct Bilirubin AST 293 H ALT 215 H Alkaline Phosphatase 184 H Lactate Dehydrogenase C-Reactive Protein NT-Pro-B Natriuret Pep Total Protein 4.3 L Albumin 2.5 L Carcinoembryonic Ag Urine Creatinine Urine Total Protein Crossmatch 10/24/19 10/24/19 10/24/19 18:30 Unknown Unknown WBC 21.8 H RBC 2.08 L Hgb 6.4 L Hct 20.2 L MCV 97 H MCH MCHC RDW 19.2 H Plt Count 67 L Seg Neuts % (Manual) 90.0 H Lymphocytes % (Manual) 0 L Monocytes % (Manual) Nucleated RBC % 9.0 H Seg Neutrophils # Man 0.0 L Lymphocytes # (Manual) 0.0 L Monocytes # (Manual) PT INR APTT D-Dimer Heparin Anti-Xa Level ABG pO2 93.4 H ABG HCO3 19.1 L ABG Base Excess -4.4 L ABG Hemoglobin 9.9 L Sodium 148 H Potassium Chloride 113.5 H Carbon Dioxide 18 L BUN 124 H Creatinine 2.4 H Glucose 144 H POC Glucose Lactic Acid Calcium 8.1 L Phosphorus Magnesium TIBC Ferritin Total Bilirubin Direct Bilirubin AST ALT Alkaline Phosphatase Lactate Dehydrogenase C-Reactive Protein NT-Pro-B Natriuret Pep Total Protein Albumin Carcinoembryonic Ag Urine Creatinine Urine Total Protein Crossmatch 10/24/19 10/24/19 10/25/19 Unknown Unknown 04:30 WBC 22.7 H RBC 2.54 L Hgb 7.7 L Hct 23.7 L MCV MCH MCHC RDW 21.1 H Plt Count 58 L Seg Neuts % (Manual) 81.0 H Lymphocytes % (Manual) 5.0 L Monocytes % (Manual) Nucleated RBC % 2.0 H Seg Neutrophils # Man 18.4 H Lymphocytes # (Manual) 1.1 L Monocytes # (Manual) 1.4 H PT 24.0 H INR 2.15 H APTT D-Dimer Heparin Anti-Xa Level ABG pO2 ABG HCO3 ABG Base Excess ABG Hemoglobin Sodium Potassium Chloride Carbon Dioxide BUN Creatinine Glucose POC Glucose Lactic Acid 3.00 H* Calcium Phosphorus Magnesium TIBC Ferritin Total Bilirubin Direct Bilirubin AST ALT Alkaline Phosphatase Lactate Dehydrogenase C-Reactive Protein NT-Pro-B Natriuret Pep Total Protein Albumin Carcinoembryonic Ag Urine Creatinine Urine Total Protein Crossmatch 10/25/19 10/26/19 10/26/19 04:30 05:00 05:00 WBC 18.6 H RBC 2.78 L Hgb 8.4 L Hct 25.8 L MCV MCH MCHC RDW 20.9 H Plt Count 33 L Seg Neuts % (Manual) 86.0 H Lymphocytes % (Manual) 3.0 L Monocytes % (Manual) 8.0 H Nucleated RBC % 1.0 H Seg Neutrophils # Man 16.0 H Lymphocytes # (Manual) 0.6 L Monocytes # (Manual) 1.5 H PT INR APTT D-Dimer Heparin Anti-Xa Level ABG pO2 ABG HCO3 ABG Base Excess ABG Hemoglobin Sodium 149 H 154 H Potassium Chloride 113.3 H 112.9 H Carbon Dioxide 21 L BUN 104 H 99 H Creatinine 2.1 H 1.8 H Glucose 168 H 154 H POC Glucose Lactic Acid Calcium 8.3 L 8.2 L Phosphorus Magnesium TIBC Ferritin Total Bilirubin 7.60 H Direct Bilirubin AST 149 H ALT 153 H Alkaline Phosphatase 172 H Lactate Dehydrogenase C-Reactive Protein NT-Pro-B Natriuret Pep Total Protein 4.8 L Albumin 3.2 L Carcinoembryonic Ag Urine Creatinine Urine Total Protein Crossmatch 10/26/19 05:00 WBC RBC Hgb Hct MCV MCH MCHC RDW Plt Count Seg Neuts % (Manual) Lymphocytes % (Manual) Monocytes % (Manual) Nucleated RBC % Seg Neutrophils # Man Lymphocytes # (Manual) Monocytes # (Manual) PT INR APTT D-Dimer Heparin Anti-Xa Level ABG pO2 ABG HCO3 ABG Base Excess ABG Hemoglobin Sodium Potassium Chloride Carbon Dioxide BUN Creatinine Glucose POC Glucose Lactic Acid Calcium Phosphorus Magnesium 2.80 H TIBC Ferritin Total Bilirubin 10.30 H Direct Bilirubin 6.8 H AST 69 H ALT 96 H Alkaline Phosphatase 153 H Lactate Dehydrogenase C-Reactive Protein NT-Pro-B Natriuret Pep Total Protein 4.4 L Albumin 2.8 L Carcinoembryonic Ag Urine Creatinine Urine Total Protein Crossmatch Allied health notes reviewed: nursing
--- NOTE | 2019-10-26 12:57 | Progress Note ---
Assessment and Plan Cultures: blood culture 10/19/2019 no growth today urine culture 10/19/2019 <10 Assessment: 68 y/o male with history of CAD, previous SD, CVA, CHF status post AICD, previous PE/DVT, admitted on due to 10 day-history of dry cough, malaise and progressive shortness of breath and dyspnea on exertion: #Shock ?septic ?cardiogenic and MODS: off pressors today, leukocytosis better, no fever; unclear septic etiology ? GB/liver / malignancy. No evidence of cholangitis. Urinalysis negative, blood cultures negative. Procalcitonin elevated, however unclear significance under ASHLIE setting. #Cough/Dyspnea on exertion: CXR x 3 negative. COVID test NEGATIVE. Inflamatory markers are markedly elevated D-dimer 2301, CRP 29, LDH 1150, ferritin> 2000. #History of CHF with AICD ? r/o CHF exacerbation, BNP 7312. EF 25-30% #Elevated LFTs: likely due to innumerable liver lesions ? mets and possible pancreatic mass ? malignancy. CT abd/pelvis shows large mass in the region of the pancreatic head/duodenum which could be of either origin although duodenal origin is favored since there is no pancreatic or biliary ductal dilatation as would be expected with a mass this size in the pancreatic head. There is metastatic disease disease involving the liver, likely the surrounding regional lymph nodes, and there is also a small bone lesion in the lumbar spine. #ASHLIE: Renally adjust antibiotics, improving. #Penicillin allergy: Patient has taken Keflex, and he reports allergy is remote and vague. #Anemia/thrombocytopenia/coagulopathy: ? malignancy ? sepsis Recommendations: continue meropenem IV renally adjusted Day 4 of 7 - extended due to elevated procal 3.6-->6.5 obtain liver biopsy EUS may be needed for staging and diagnosis per GI hem/onc consult Will follow Jennifer Armstrong MD Infectious Diseases [facility] M [phone] O [phone] Subjective Date of service: 10/26/19 Principal diagnosis: sepsis Interval history: Non verbal, off pressors, no fever Objective - Exam Narrative Exam: General appearance: somnolent in NAD on nasal cannula oxygen Eyes: anicteric sclerae, moist conjunctivae HENT: Atraumatic; oropharynx clear Lungs: CTA narda +AICD pocket no erythema, heat or edema CV: Tachycardic Abdomen: Soft, non-tender Extremities: narda arm edema Skin: No rash. Psych: no agitated, depressed mood Neuro: somnolent non verbal open eyes - Constitutional Vitals: Vital Signs Temp Pulse Resp BP Pulse Ox 99.4 F 92 H 17 106/70 99 10/26/19 12:00 10/26/19 12:00 10/26/19 12:00 10/26/19 12:00 10/26/19 12:00 Temperature -Last 24 Hours Temperature 99.4 F Temperature 98.8 F Temperature 98.6 F Temperature 97.7 F Temperature 97.0 F Temperature 97.5 F - Labs CBC & Chem 7: 10/26/19 05:00 10/26/19 05:00 Labs: Abnormal lab results 10/23/19 10/26/19 10/26/19 Range/Units 10:20 05:00 05:00 WBC 18.6 H (4.5-11.0) K/mm3 RBC 2.78 L (3.65-5.03) M/mm3 Hgb 8.4 L (11.8-15.2) gm/dl Hct 25.8 L (35.5-45.6) % RDW 20.9 H (13.2-15.2) % Plt Count 33 L (140-440) K/mm3 Seg Neuts % (Manual) 86.0 H (40.0-70.0) % Lymphocytes % (Manual) 3.0 L (13.4-35.0) % Monocytes % (Manual) 8.0 H (0.0-7.3) % Nucleated RBC % 1.0 H (0.0-0.9) % Seg Neutrophils # Man 16.0 H (1.8-7.7) K/mm3 Lymphocytes # (Manual) 0.6 L (1.2-5.4) K/mm3 Monocytes # (Manual) 1.5 H (0.0-0.8) K/mm3 Sodium 154 H (137-145) mmol/L Chloride 112.9 H (98-107) mmol/L BUN 99 H (9-20) mg/dL Creatinine 1.8 H (0.8-1.5) mg/dL Glucose 154 H (75-100) mg/dL Calcium 8.2 L (8.4-10.2) mg/dL Magnesium (1.7-2.3) mg/dL Total Bilirubin (0.1-1.2) mg/dL Direct Bilirubin (0-0.2) mg/dL AST (5-40) units/L ALT (7-56) units/L Alkaline Phosphatase (35-129) units/L Total Protein (6.3-8.2) g/dL Albumin (3.9-5) g/dL Carcinoembryonic Ag 3.4 H (0.0-2.4) ng/mL 10/26/19 Range/Units 05:00 WBC (4.5-11.0) K/mm3 RBC (3.65-5.03) M/mm3 Hgb (11.8-15.2) gm/dl Hct (35.5-45.6) % RDW (13.2-15.2) % Plt Count (140-440) K/mm3 Seg Neuts % (Manual) (40.0-70.0) % Lymphocytes % (Manual) (13.4-35.0) % Monocytes % (Manual) (0.0-7.3) % Nucleated RBC % (0.0-0.9) % Seg Neutrophils # Man (1.8-7.7) K/mm3 Lymphocytes # (Manual) (1.2-5.4) K/mm3 Monocytes # (Manual) (0.0-0.8) K/mm3 Sodium (137-145) mmol/L Chloride (98-107) mmol/L BUN (9-20) mg/dL Creatinine (0.8-1.5) mg/dL Glucose (75-100) mg/dL Calcium (8.4-10.2) mg/dL Magnesium 2.80 H (1.7-2.3) mg/dL Total Bilirubin 10.30 H (0.1-1.2) mg/dL Direct Bilirubin 6.8 H (0-0.2) mg/dL AST 69 H (5-40) units/L ALT 96 H (7-56) units/L Alkaline Phosphatase 153 H (35-129) units/L Total Protein 4.4 L (6.3-8.2) g/dL Albumin 2.8 L (3.9-5) g/dL Carcinoembryonic Ag (0.0-2.4) ng/mL
--- NOTE | 2019-10-26 13:52 | Progress Note ---
Assessment and Plan Acute Renal Failure secondary to Prerenal Azotemia vs Ischemic ATN from Sepsis and Hypotension, possible HRS: Metabolic Acidosis: Hypernatremia: -Renal labs reviewed. Serum creatinine 1.8 today, yesterday's was 2.1. UOP 1250 ml. -No indication for HD at this time, will monitor renal function daily -24 hour urine collection will end at 3:00 p.m today -S/P on Albumin challenge, Midodrine and Ocreotide for possible HRS -On Sodium Bicarbonate 1300 mg po TID -Hypernatremia- Start D5W@ 75 ml/hr -Renal ultrasound-No Hydronephrosis. Medical renal disease -Avoid nephrotoxic agents -Renally dose medications -Strict I/O monitoring -Obtain daily weights -Continue to monitor Sepsis/Leukocytosis: Cough/Dyspnea: -Initial COVID-19 result-negative -On IV Merrem -ID onboard Anemia: Thrombocytopenia: -S/P PRBC's transfusions -As per primary Hypotension: -Off Levophed drip -On Midodrine -On IV fluids -Monitor BP closely Supratherapeutic INR/CHF/Afib/Vtach: -S/P vitamin K. Coumadin on hold -Has Defbrillator -On Dobuatmine drip -Cardiology onboard Subjective Date of service: 10/26/19 Principal diagnosis: sepsis Interval history: No adverse events noted. Resting. Objective - Vital Signs Vital signs: Vital Signs - 12hr 10/26/19 10/26/19 10/26/19 02:00 02:16 02:30 Temperature Pulse Rate 88 88 82 Pulse Rate [ From Monitor] Respiratory 19 22 19 Rate Blood Pressure 91/54 87/52 85/56 O2 Sat by Pulse 99 96 92 Oximetry 10/26/19 10/26/19 10/26/19 02:45 03:00 03:16 Temperature Pulse Rate 82 82 82 Pulse Rate [ From Monitor] Respiratory 14 22 21 Rate Blood Pressure 74/52 74/52 88/50 O2 Sat by Pulse 93 92 95 Oximetry 10/26/19 10/26/19 10/26/19 03:30 03:45 04:00 Temperature 98.6 F Pulse Rate 75 88 85 Pulse Rate [ 87 From Monitor] Respiratory 22 22 20 Rate Blood Pressure 102/57 108/49 90/54 O2 Sat by Pulse 95 98 96 Oximetry 10/26/1910/25/20 0520 04:15 04:30 04:46 Temperature Pulse Rate 81 81 83 Pulse Rate [ From Monitor] Respiratory 23 15 25 H Rate Blood Pressure 104/47 104/47 141/85 O2 Sat by Pulse 97 96 Oximetry 10/25/20 05/20/20 052020 05:00 05:16 05:30 Temperature Pulse Rate 83 95 H 92 H Pulse Rate [ From Monitor] Respiratory 26 H 23 26 H Rate Blood Pressure 141/85 121/100 121/100 O2 Sat by Pulse 97 Oximetry 10/25/20 05/20/20 052020 05:45 06:00 06:16 Temperature Pulse Rate 89 89 83 Pulse Rate [ From Monitor] Respiratory 24 23 23 Rate Blood Pressure 102/67 119/60 89/62 O2 Sat by Pulse 96 95 95 Oximetry 10/25/20 05/20/20 0520 06:30 07:00 07:30 Temperature Pulse Rate 87 88 94 H Pulse Rate [ From Monitor] Respiratory 17 23 26 H Rate Blood Pressure 96/64 94/70 118/80 O2 Sat by Pulse 96 96 95 Oximetry 20 0520/20 0520 08:00 08:30 09:00 Temperature 98.8 F Pulse Rate 86 87 90 Pulse Rate [ 82 From Monitor] Respiratory 21 15 24 Rate Blood Pressure 107/69 102/58 102/58 O2 Sat by Pulse 96 95 98 Oximetry 10/25/20 05/20/20 05/20/20 09:30 10:00 10:30 Temperature Pulse Rate 88 86 81 Pulse Rate [ From Monitor] Respiratory 21 22 22 Rate Blood Pressure 112/70 118/69 103/65 O2 Sat by Pulse 98 98 98 Oximetry 10/25/20 05/20/20 05/2020 11:00 11:30 11:54 Temperature Pulse Rate 87 93 H 82 Pulse Rate [ From Monitor] Respiratory 21 18 Rate Blood Pressure 103/65 114/80 O2 Sat by Pulse 96 Oximetry 20 12:00 Temperature 99.4 F Pulse Rate 92 H Pulse Rate [ From Monitor] Respiratory 17 Rate Blood Pressure 106/70 O2 Sat by Pulse 99 Oximetry - General Appearance General appearance: chronically ill EENT: ATNC Neck: no JVD, supple Respiratory: Present: Decreased Breath Sounds Cardiology: S1S2 Gastrointestinal: normoactive bowel sounds Integumentary: warm and dry Neurologic: other (Resting, does not speak much) Musculoskeletal: other (Edema to left hand) - Lab 10/26/19 05:00 10/26/19 05:00 Most recent lab results ABG pH 7.426 pH Units (7.350-7.450) 10/24/19 18:30 ABG pCO2 29.7 mm Hg 10/24/19 18:30 ABG pO2 93.4 mm Hg (80.0-90.0) H 10/24/19 18:30 ABG HCO3 19.1 mmol/L (20.0-26.0) L 10/24/19 18:30 ABG O2 Saturation 97.4 % (95.0-99.0) 10/24/19 18:30 Calcium 8.2 mg/dL (8.4-10.2) L 10/26/19 05:00 Phosphorus 6.00 mg/dL (2.5-4.5) H 10/20/19 04:15 Magnesium 2.80 mg/dL (1.7-2.3) H 10/26/19 05:00 Urine Creatinine 101.1 mg/dL (0.1-20.0) H 10/19/19 12:25 Urine Sodium 12 mmol/L 10/19/19 12:25 Urine Total Protein 21 mg/dL (5-11.8) H 10/19/19 12:25 Medications & Allergies - Medications Allergies/Adverse Reactions: Allergies Penicillins Allergy (Verified 07/07/19 15:47) Unknown Home Medications: Home Medications Medication Instructions Recorded Confirmed Last Taken Type Atorvastatin [Lipitor Tab] 80 mg PO QHS 07/07/19 10/23/19 Unknown History Bisoprolol Fumarate 5 mg PO DAILY 07/07/19 10/23/19 Unknown History Mexiletine HCl 150 mg PO Q8H 07/07/19 10/23/19 Unknown History Warfarin [Coumadin] 5 mg PO QDAY 07/07/19 10/23/19 Unknown History Active Medications: Generic Name Dose Route Start Last Admin Trade Name Freq PRN Reason Stop Dose Admin Acetaminophen 650 mg 10/19/19 00:08 Tylenol PO Q4H PRN Pain MILD(1-3)/Fever >100.5/GIBBS Norepinephrine 8 mg/ Sodium 250 mls @ 3.75 mls/hr 10/23/19 00:00 10/25/19 09:45 Chloride IV 0 mcg/min TITR ABBEY 0 mls/hr Titration Protocol 2 MCG/MIN MEROPENEM/NS 1 GRAM/100 ML 1 gram in 100 mls @ 100 mls/hr 10/23/19 16:00 10/26/19 09:23 Merrem/Ns 1 Gram/100 Ml IV 10/27/19 23:59 100 mls/hr Q12HR ABBEY Administration Protocol Magnesium Hydroxide 30 ml 10/19/19 00:08 Milk Of Magnesia PO Q4H PRN Constipation Midodrine 10 mg 10/23/19 12:00 10/26/19 12:49 Proamatine PO 10 mg TID@0800,1200,1600 ABBEY Administration Octreotide Acetate 100 mcg 10/23/19 14:00 10/26/19 05:54 Sandostatin SUB-Q 100 mcg Q8HR ABBEY Administration Ondansetron HCl 4 mg 10/19/19 00:08 10/21/19 22:31 Zofran IV 4 mg Q8H PRN Administration Nausea And Vomiting Sodium Bicarbonate 1,300 mg 10/23/19 14:00 10/26/19 08:20 Sodium Bicarbonate PO 1,300 mg TID ABBEY Administration Sodium Chloride 10 ml 10/19/19 10:00 10/26/19 09:26 Sodium Chloride Flush Syringe 10 Ml IV 10 ml BID ABBEY Administration Sodium Chloride 10 ml 10/19/19 00:08 Sodium Chloride Flush Syringe 10 Ml IV PRN PRN LINE FLUSH
--- NOTE | 2019-10-26 14:03 | Progress Note ---
Assessment and Plan 1. Abnormal LFTs - nearing normal, except for TBili, and most c/w ischemic hepatopathy or "shock" liver. Once sepsis syndrome resolves, if still elevated, then further evaluation, but probably due to neoplastic process. - elevated T Bili likely cholestatic due to comorbid illness - will give vit K to see if INR can normalize 2. 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 Tissue origin unclear, but pancreatic or duodenal are considerations. Doubt this is the cause of sepsis. CA19-9 and CEA negative, or at best nondiagnostic. - liver biopsy to diagnose when medically able (given elevated INR and low plat elet count), either as in- or out-patient, and then Oncology evaluation - further evaluation including EUS may be needed for staging and diagnosis, but this would need to be done elsewhere, where the modality is available. 3. Thrombocytopenia - may be medications or illness related. Doubt due to liver disease. - will defer to Hospitalist Am remaining on case to try and expedite liver biopsy and ensure improvement of INR. Subjective Date of service: 10/26/19 Principal diagnosis: sepsis Interval history: Pt doing better. Off pressors. Denies abd pain, N/V. Objective - Constitutional Vitals: Vital Signs - 12hr 10/26/19 10/26/19 10/26/19 02:00 02:16 02:30 Temperature Pulse Rate 88 88 82 Pulse Rate [ From Monitor] Respiratory 19 22 19 Rate Blood Pressure 91/54 87/52 85/56 O2 Sat by Pulse 99 96 92 Oximetry 10/26/19 10/26/19 10/26/19 02:45 03:00 03:16 Temperature Pulse Rate 82 82 82 Pulse Rate [ From Monitor] Respiratory 14 22 21 Rate Blood Pressure 74/52 74/52 88/50 O2 Sat by Pulse 93 92 95 Oximetry 10/26/19 10/26/19 10/26/19 03:30 03:45 04:00 Temperature 98.6 F Pulse Rate 75 88 85 Pulse Rate [ 87 From Monitor] Respiratory 22 22 20 Rate Blood Pressure 102/57 108/49 90/54 O2 Sat by Pulse 95 98 96 Oximetry 10/26/19 10/26/19 10/26/19 04:15 04:30 04:46 Temperature Pulse Rate 81 81 83 Pulse Rate [ From Monitor] Respiratory 23 15 25 H Rate Blood Pressure 104/47 104/47 141/85 O2 Sat by Pulse 97 96 Oximetry 10/25/20 10/25/20 10/26/19 05:00 05:16 05:30 Temperature Pulse Rate 83 95 H 92 H Pulse Rate [ From Monitor] Respiratory 26 H 23 26 H Rate Blood Pressure 141/85 121/100 121/100 O2 Sat by Pulse 97 Oximetry 10/26/1920 10/26/19 05:45 06:00 06:16 Temperature Pulse Rate 89 89 83 Pulse Rate [ From Monitor] Respiratory 24 23 23 Rate Blood Pressure 102/67 119/60 89/62 O2 Sat by Pulse 96 95 95 Oximetry 10/26/19 10/26/19 10/26/19 06:30 07:00 07:30 Temperature Pulse Rate 87 88 94 H Pulse Rate [ From Monitor] Respiratory 17 23 26 H Rate Blood Pressure 96/64 94/70 118/80 O2 Sat by Pulse 96 96 95 Oximetry 10/26/19 10/26/19 10/26/19 08:00 08:30 09:00 Temperature 98.8 F Pulse Rate 86 87 90 Pulse Rate [ 82 From Monitor] Respiratory 21 15 24 Rate Blood Pressure 107/69 102/58 102/58 O2 Sat by Pulse 96 95 98 Oximetry 20 10/26/19 10/26/19 09:30 10:00 10:30 Temperature Pulse Rate 88 86 81 Pulse Rate [ From Monitor] Respiratory 21 22 22 Rate Blood Pressure 112/70 118/69 103/65 O2 Sat by Pulse 98 98 98 Oximetry 10/26/19 10/26/19 10/26/19 11:00 11:30 11:54 Temperature Pulse Rate 87 93 H 82 Pulse Rate [ From Monitor] Respiratory 21 18 Rate Blood Pressure 103/65 114/80 O2 Sat by Pulse 96 Oximetry 10/26/19 12:00 Temperature 99.4 F Pulse Rate 92 H Pulse Rate [ From Monitor] Respiratory 17 Rate Blood Pressure 106/70 O2 Sat by Pulse 99 Oximetry General appearance: Present: no acute distress, other (edematous) - EENT Eyes: PERRL, EOM intact, scleral icterus ENT: hearing intact - Respiratory Respiratory effort: normal - Gastrointestinal General gastrointestinal: Present: soft, non-tender - Labs CBC & Chem 7: 10/26/19 05:00 10/26/19 05:00 Labs: Abnormal lab results 10/23/19 10/26/19 10/26/19 Range/Units 10: 05:00 05:00 WBC 18.6 H (4.5-11.0) K/mm3 RBC 2.78 L (3.65-5.03) M/mm3 Hgb 8.4 L (11.8-15.2) gm/dl Hct 25.8 L (35.5-45.6) % RDW 20.9 H (13.2-15.2) % Plt Count 33 L (140-440) K/mm3 Seg Neuts % (Manual) 86.0 H (40.0-70.0) % Lymphocytes % (Manual) 3.0 L (13.4-35.0) % Monocytes % (Manual) 8.0 H (0.0-7.3) % Nucleated RBC % 1.0 H (0.0-0.9) % Seg Neutrophils # Man 16.0 H (1.8-7.7) K/mm3 Lymphocytes # (Manual) 0.6 L (1.2-5.4) K/mm3 Monocytes # (Manual) 1.5 H (0.0-0.8) K/mm3 Sodium 154 H (137-145) mmol/L Chloride 112.9 H (98-107) mmol/L BUN 99 H (9-20) mg/dL Creatinine 1.8 H (0.8-1.5) mg/dL Glucose 154 H (75-100) mg/dL Calcium 8.2 L (8.4-10.2) mg/dL Magnesium (1.7-2.3) mg/dL Total Bilirubin (0.1-1.2) mg/dL Direct Bilirubin (0-0.2) mg/dL AST (5-40) units/L ALT (7-56) units/L Alkaline Phosphatase (35-129) units/L Total Protein (6.3-8.2) g/dL Albumin (3.9-5) g/dL Carcinoembryonic Ag 3.4 H (0.0-2.4) ng/mL 10/26/19 Range/Units 05:00 WBC (4.5-11.0) K/mm3 RBC (3.65-5.03) M/mm3 Hgb (11.8-15.2) gm/dl Hct (35.5-45.6) % RDW (13.2-15.2) % Plt Count (140-440) K/mm3 Seg Neuts % (Manual) (40.0-70.0) % Lymphocytes % (Manual) (13.4-35.0) % Monocytes % (Manual) (0.0-7.3) % Nucleated RBC % (0.0-0.9) % Seg Neutrophils # Man (1.8-7.7) K/mm3 Lymphocytes # (Manual) (1.2-5.4) K/mm3 Monocytes # (Manual) (0.0-0.8) K/mm3 Sodium (137-145) mmol/L Chloride (98-107) mmol/L BUN (9-20) mg/dL Creatinine (0.8-1.5) mg/dL Glucose (75-100) mg/dL Calcium (8.4-10.2) mg/dL Magnesium 2.80 H (1.7-2.3) mg/dL Total Bilirubin 10.30 H (0.1-1.2) mg/dL Direct Bilirubin 6.8 H (0-0.2) mg/dL AST 69 H (5-40) units/L ALT 96 H (7-56) units/L Alkaline Phosphatase 153 H (35-129) units/L Total Protein 4.4 L (6.3-8.2) g/dL Albumin 2.8 L (3.9-5) g/dL Carcinoembryonic Ag (0.0-2.4) ng/mL Medications & Allergies - Medications Allergies/Adverse Reactions: Allergies Penicillins Allergy (Verified 07/07/19 15:47) Unknown Home Medications: Home Medications Medication Instructions Recorded Confirmed Last Taken Type Atorvastatin [Lipitor Tab] 80 mg PO QHS 07/07/19 10/23/19 Unknown History Bisoprolol Fumarate 5 mg PO DAILY 07/07/19 10/23/19 Unknown History Mexiletine HCl 150 mg PO Q8H 07/07/19 10/23/19 Unknown History Warfarin [Coumadin] 5 mg PO QDAY 07/07/19 10/23/19 Unknown History Active Medications: Generic Name Dose Route Start Last Admin Trade Name Freq PRN Reason Stop Dose Admin Acetaminophen 650 mg 10/19/19 00:08 Tylenol PO Q4H PRN Pain MILD(1-3)/Fever >100.5/GIBBS Norepinephrine 8 mg/ Sodium 250 mls @ 3.75 mls/hr 10/23/19 00:00 10/25/19 09:45 Chloride IV 0 mcg/min TITR ABBEY 0 mls/hr Titration Protocol 2 MCG/MIN MEROPENEM/NS 1 GRAM/100 ML 1 gram in 100 mls @ 100 mls/hr 10/23/19 16:00 10/26/19 09:23 Merrem/Ns 1 Gram/100 Ml IV 10/27/19 23:59 100 mls/hr Q12HR ABBEY Administration Protocol Dextrose 1,000 mls @ 75 mls/hr 10/26/19 14:00 D5w IV DIRECT ABBEY Magnesium Hydroxide 30 ml 10/19/19 00:08 Milk Of Magnesia PO Q4H PRN Constipation Midodrine 10 mg 10/23/19 12:00 10/26/19 12:49 Proamatine PO 10 mg TID@0800,1200,1600 ABBEY Administration Octreotide Acetate 100 mcg 10/23/19 14:00 10/26/19 05:54 Sandostatin SUB-Q 100 mcg Q8HR ABBEY Administration Ondansetron HCl 4 mg 10/19/19 00:08 10/21/19 22:31 Zofran IV 4 mg Q8H PRN Administration Nausea And Vomiting Sodium Bicarbonate 1,300 mg 10/23/19 14:00 10/26/19 08:20 Sodium Bicarbonate PO 1,300 mg TID ABBEY Administration Sodium Chloride 10 ml 10/19/19 10:00 10/26/19 09:26 Sodium Chloride Flush Syringe 10 Ml IV 10 ml BID ABBEY Administration Sodium Chloride 10 ml 10/19/19 00:08 Sodium Chloride Flush Syringe 10 Ml IV PRN PRN LINE FLUSH HEART Score - HEART Score Troponin: Troponin T 0.017 ng/mL (0.00-0.029) 10/19/19 02:12
[2019-10-26] MEDS ORDERED: PHYTONADIONE(ADULT ONLY) 10 MG in SODIUM CHLORIDE 0.9% 50 ML IV ONE (14:30)
[2019-10-26] MEDS: DEXTROSE 5% IN WATER 1,000 ML IV SCH (14:43)
[2019-10-26 15:50] LABS: Patient Weight,Urine 250.6 lbs
[2019-10-26 15:58] LABS: Creatinine,Urine 58.8 mg/dL (0.1-20.0)
[2019-10-26 16:30] LABS: Creatinine 24 Hour,Urine 0.8 (0.8-2.8)
[2019-10-26 16:31] LABS: Creatinine,Urine 58.8 mg/dL (0.1-20.0)
[2019-10-26 22:36] LABS: ANA Screen, IFA Negative (Negative)
[2019-10-27 05:05] LABS: Hemoglobin 10.2 gm/dl (11.8-15.2); Mean Corpuscular HGB Conc 33 % (32-34); Mean Corpuscular Volume 96 fl (84-94); Red Blood Count 3.23 M/mm3 (3.65-5.03)
[2019-10-27 05:15] LABS: Platelet Count 50 K/mm3 (140-440); Red Cell Distribution Width 22.3 % (13.2-15.2)
[2019-10-27 05:16] LABS: INR 1.48 (0.87-1.13)
[2019-10-27 05:24] LABS: Calcium 8.3 mg/dL (8.4-10.2)
[2019-10-27] MEDS: DEXTROSE 5% IN WATER 1,000 ML IV SCH (06:22)
[2019-10-27] MEDS: OCTREOTIDE 100 MCG/1 ML INJ SUB-Q SCH (06:23)
[2019-10-27 06:28] LABS: Anisocytosis 1+; Band Neutrophils # (Manual) 0.4 K/mm3; Basophils % (Manual) 0 % (0.0-1.8); Burr Cells Rare; Hypochromasia Few; Macrocytosis Rare; Ovalocytes Rare; Platelet Estimate Consistent w Auto; Total Cells Counted 100
[2019-10-27 08:54] VITALS: BP 127/68
--- NOTE | 2019-10-27 09:00 | Progress Note ---
Assessment and Plan 1. Abnormal LFTs - not checked today, but o/w nearing normal, except for TBili, and most c/w ischemic hepatopathy or "shock" liver. Once sepsis syndrome resolves, if still elevated, then further evaluation, but probably due to neoplastic process. - elevated T Bili likely cholestatic due to comorbid illness - INR improved to 1.48 with vit K 2. 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 Tissue origin unclear, but pancreatic or duodenal are considerations. Doubt this is the cause of sepsis. CA19-9 and CEA negative, or at best nondiagnostic. - liver biopsy to diagnose when medically able (given elevated INR and low platelet count), either as in- or out-patient, and then Oncology evaluation - further evaluation including EUS may be needed for staging and diagnosis, but this would need to be done elsewhere, where the modality is available. 3. Thrombocytopenia - may be medications or illness related. Doubt due to liver disease. Improving. - will defer to Hospitalist 4. Dyspnea - will defer to hospitalist. Am remaining on case to try and expedite liver biopsy and ensure improvement of INR. Subjective Date of service: 10/27/19 Principal diagnosis: sepsis Interval history: Pt on floor. Denies abd pain, N/V. Objective - Constitutional Vitals: Vital Signs - 12hr 10/26/19 10/26/19 10/27/19 22:00 23:20 00:00 Temperature 97.6 F Pulse Rate 72 94 H Pulse Rate [ 72 From Monitor] Respiratory 24 24 Rate Blood Pressure 100/70 O2 Sat by Pulse 95 95 Oximetry 10/27/19 10/27/19 10/27/19 02:26 03:51 04:00 Temperature 97.7 F Pulse Rate 87 100 H Pulse Rate [ From Monitor] Respiratory 24 Rate Blood Pressure 97/65 156/88 O2 Sat by Pulse 94 Oximetry 10/27/19 10/27/19 07:42 08:42 Temperature 97.4 F L Pulse Rate 81 Pulse Rate [ From Monitor] Respiratory 17 Rate Blood Pressure 97/51 127/68 O2 Sat by Pulse 97 Oximetry General appearance: Present: mild distress, other (dyspneic) - EENT Eyes: PERRL, EOM intact, scleral icterus ENT: hearing intact - Respiratory Respiratory effort: labored, other (open-mouthed) Respiratory: bilateral: rales (crackles) - Gastrointestinal General gastrointestinal: Present: soft, non-tender - Labs CBC & Chem 7: 10/27/19 04:32 10/27/19 04:32 Labs: Abnormal lab results 10/25/19 10/25/19 10/27/19 Range/Units 15:00 15:00 04:32 WBC 20.4 H (4.5-11.0) K/mm3 RBC 3.23 L (3.65-5.03) M/mm3 Hgb 10.2 L (11.8-15.2) gm/dl Hct 31.0 L (35.5-45.6) % MCV 96 H (84-94) fl RDW 22.3 H (13.2-15.2) % Plt Count 50 L (140-440) K/mm3 Seg Neuts % (Manual) 88.0 H (40.0-70.0) % Lymphocytes % (Manual) 5.0 L (13.4-35.0) % Seg Neutrophils # Man 18.0 H (1.8-7.7) K/mm3 Lymphocytes # (Manual) 1.0 L (1.2-5.4) K/mm3 PT (12.2-14.9) Sec. INR (0.87-1.13) Sodium (137-145) mmol/L Chloride (98-107) mmol/L Carbon Dioxide (22-30) mmol/L BUN (9-20) mg/dL Creatinine (0.8-1.5) mg/dL Glucose (75-100) mg/dL Calcium (8.4-10.2) mg/dL Magnesium (1.7-2.3) mg/dL Urine Creatinine 58.8 H 58.8 H (0.1-20.0) mg/dL 10/27/19 10/27/19 10/27/19 Range/Units 04:32 04:32 04:32 WBC (4.5-11.0) K/mm3 RBC (3.65-5.03) M/mm3 Hgb (11.8-15.2) gm/dl Hct (35.5-45.6) % MCV (84-94) fl RDW (13.2-15.2) % Plt Count (140-440) K/mm3 Seg Neuts % (Manual) (40.0-70.0) % Lymphocytes % (Manual) (13.4-35.0) % Seg Neutrophils # Man (1.8-7.7) K/mm3 Lymphocytes # (Manual) (1.2-5.4) K/mm3 PT 18.0 H (12.2-14.9) Sec. INR 1.48 H (0.87-1.13) Sodium 149 H (137-145) mmol/L Chloride 108.8 H (98-107) mmol/L Carbon Dioxide 20 L D (22-30) mmol/L BUN 97 H (9-20) mg/dL Creatinine 1.6 H (0.8-1.5) mg/dL Glucose 142 H (75-100) mg/dL Calcium 8.3 L (8.4-10.2) mg/dL Magnesium 3.00 H (1.7-2.3) mg/dL Urine Creatinine (0.1-20.0) mg/dL Medications & Allergies - Medications Allergies/Adverse Reactions: Allergies Penicillins Allergy (Verified 07/07/19 15:47) Unknown Home Medications: Home Medications Medication Instructions Recorded Confirmed Last Taken Type Atorvastatin [Lipitor Tab] 80 mg PO QHS 07/07/19 10/23/19 Unknown History Bisoprolol Fumarate 5 mg PO DAILY 07/07/19 10/23/19 Unknown History Mexiletine HCl 150 mg PO Q8H 07/07/19 10/23/19 Unknown History Warfarin [Coumadin] 5 mg PO QDAY 07/07/19 10/23/19 Unknown History Active Medications: Generic Name Dose Route Start Last Admin Trade Name Onurq PRN Reason Stop Dose Admin Acetaminophen 650 mg 10/19/19 00:08 Tylenol PO Q4H PRN Pain MILD(1-3)/Fever >100.5/GIBBS MEROPENEM/NS 1 GRAM/100 ML 1 gram in 100 mls @ 100 mls/hr 10/23/19 16:00 22:50 Merrem/Ns 1 Gram/100 Ml IV 10/27/19 23:59 100 mls/hr Q12HR ABBEY Administration Protocol Dextrose 1,000 mls @ 75 mls/hr 10/26/19 14:00 10/27/19 06:22 D5w IV 75 mls/hr DIRECT ABBEY Administration Magnesium Hydroxide 30 ml 10/19/19 00:08 Milk Of Magnesia PO Q4H PRN Constipation Midodrine 10 mg 10/23/19 12:00 10/26/19 16:20 Proamatine PO 10 mg TID@0800,1200,1600 ABBEY Administration Octreotide Acetate 100 mcg 10/23/19 14:00 10/27/19 06:23 Sandostatin SUB-Q 100 mcg Q8HR ABBEY Administration Ondansetron HCl 4 mg 10/19/19 00:08 10/21/19 22:31 Zofran IV 4 mg Q8H PRN Administration Nausea And Vomiting Sodium Bicarbonate 1,300 mg 10/23/19 14:00 10/26/19 22:50 Sodium Bicarbonate PO 1,300 mg TID ABBEY Administration Sodium Chloride 10 ml 10/19/19 10:00 10/26/19 22:51 Sodium Chloride Flush Syringe 10 Ml IV 10 ml BID ABBEY Administration Sodium Chloride 10 ml 10/19/19 00:08 Sodium Chloride Flush Syringe 10 Ml IV PRN PRN LINE FLUSH HEART Score - HEART Score Troponin: Troponin T 0.017 ng/mL (0.00-0.029) 10/19/19 02:12
[2019-10-27] MEDS ORDERED: FUROSEMIDE 40 MG/4 ML INJ IV ONE (09:30)
--- NOTE | 2019-10-27 09:38 | Event Note ---
Date: 10/27/19 This is a 68-year-old man hospitalized on the fourth floor. I am responding to a CODE BLUE. Nurse tells me that they found the patient diaphoretic poorly responsive but breathing. A code was called. I found staff at the bedside in respiratory managing his airway with Ambu bag assist. The patient essentially is found in asystole. I am told the patient has a history of liver failure. The hospitalist was present. The cardiology nurse tells me the patient had an AICD. Blood glucose have been measured and was about 130. Exam Morbidly obese patient with no signs of life Ambu bag assist in progress Procedure The patient was intubated under direct laryngoscopy single attempt with a 7.5 [place] endotracheal tube. Apparent pulmonary edema coming forth. Positive end- tidal CO2. The breath sounds are present bilaterally. The tube was secured. CPR CPR continued. The patient was defibrillated x2. I did not really observe anything much more of them EMD with perhaps a small complex versus a March of P waves. Patient did not respond to intubation, epinephrine, defibrillation. He had no signs of life. He was pronounced as further resuscitative efforts were deemed futile. This was discussed and confirmed with Dr. Hopper, the hospitalist.
--- NOTE | 2019-10-27 10:18 | Death Summary ---
Summary - Providers Date of service: 10/27/19 Consults: 10/19/19 00:08 Consult to Dietitian/Nutrition [CONS] Routine Physician Instructions: Reason For Exam: Reason for Consult: Diet education Consult to Physician [CONS] Routine Comment: CLD DR AVILES'S [facility] TO ADV OF CONSULT 0840 Consulting Provider: BRISA VENCES Physician Instructions: Reason For Exam: DYSPNEA R/O COVID 19 10/19/19 00:21 Consult to Physician [CONS] Routine Comment: Consulting Provider: REINALDO RODAS Physician Instructions: Reason For Exam: ELEVATED INR 10/19/19 06:46 Consult to Physician [CONS] Routine Comment: CLD DR ROLLINSS OFC @1242 & ADVD DR MORENO OF CONSULT Consulting Provider: KATINA HERNANDEZ Physician Instructions: Reason For Exam: Acute kidney injury 10/19/19 10:15 Consult to Physician [CONS] Routine Comment: [facility] PGD GAYE @1056 TO ADV OF CONSULT Consulting Provider: BARRINGTON COLE Physician Instructions: Reason For Exam: CHF 10/20/19 07:29 Consult to Physician [CONS] Routine Comment: Consulting Provider: SUNNY SAWYER Physician Instructions: Reason For Exam: CHOLESTATSIS 10/20/19 07:57 Consult to Physician [CONS] Routine Comment: Consulting Provider: CRISTEL ESCALERA Physician Instructions: Reason For Exam: septic shock 10/23/19 09:12 Consult to Physician [CONS] Routine Comment: Consulting Provider: RADHA EDMOND Physician Instructions: Reason For Exam: PANCREATIC MALIGNANCY 10/25/19 11:55 Occupational Therapy Evaluate and Treat [CONS] Routine Comment: Reason For Exam: ADLS Physical Therapy Evaluation and Treat [CONS] Routine Comment: Reason For Exam: deconditioning, Attending: DEANNA MCCULLOUGH - summary Date of admission: 10/19/19 00:04 Date of : 10/27/19 (09:26 am) Reason for admission: Ac. hypoxic respiratory failure,ac on chr systolic congestive heart failure Significant findings: 68-year-old white male with known history of CHF, pacemaker/defibrillator placement in the past presenting to the emergency room today for progressive worsening of shortness of breath which has been ongoing for about 4 days. Patient was evaluated, noted to be in acute respiratory failure requiring BiPAP Medications optimized, admitted to ICU, evaluated by pulmonary critical, noted to have acute exacerbation of chronic systolic congestive heart failure EF of 25 to 30%, patient had multiple cardiac issues like atrial fibrillation , cardiomyopathy , severe systolic congestive heart failure , cardiomyopathy cardiology evaluated medications optimized, chronic anticoagulation. Patient had elevated INR at the time of admission, closely monitored and treated appropriately Patient's work-up also revealed metastatic pancreatic malignant mass, COVID test was negative, developed acute kidney injury due to hepatorenal syndrome due to shock Patient also had sepsis with septic shock requiring vasopressors Acute blood loss anemia received multiple units of blood transfusion Patient was stabilized in ICU and transfer to telemetry Patient continued to deteriorate, and on Patient had multiple serious medical issues with very poor prognosis Multiorgan involvement Continued to deteriorate and on 10/27/2019 patient went into respiratory distress, respiratory therapist placed him on Ventimask with significant improvement, however later had cardiac arrest, CODE BLUE was called, CPR was done per ACLS protocol, patient could not be revived. Please refer to code sheet Patient was pronounced ,Family was informed. Time of at 09:26 AM on 10/27/2019 Cause of : Final diagnosis --Acute hypoxic respiratory failure requiring noninvasive ventilation. --Cardiac arrest Status post CPR per ACLS protocol Patient did not survive --AICD/defibrillator in place; --COVID-19 test negative --Septic shock : Requiring vasopressors Levophed --Pancreatic malignant mass with liver mets Very poor prognosis --Acute respiratory failure Current Visit: Yes Status: Acute COVID negative, acute bronchitis --Shock liver ; liver failure Likely secondary to septic shock As well as congested liver due to CHF Poor prognosis --Hepatorenal syndrome, secondary to shock Current Visit: Yes Status: Acute Poor prognosis --Acute kidney injury; vasomotor nephropathy poor prognosis --Acute blood loss anemia Received total 3 units PRBC P improved to 8.4, monitor H&H, transfuse as needed --Coagulopathy /supratherapeutic INR Current Visit: Yes Status: Acute Secondary to Coumadin toxicity -- H/O atrial fibrillation /rate controlled beta-blockers held due to septic shock Coumadin held due to supratherapeutic INR --hypotension Current Visit: Yes Status: Acute Patient placed on IV fluid. Off levophed --Acute on chronic systolic congestive heart failure[EF 25 to 30%] Cardiology following., Continue anti-failure medications Input output monitoring --Severe cardiomyopathy [25 to 30% EF] Continue current anti-failure medications Poor prognosis Patient Total time spent 45 minutes Procedures/treatments rendered: Consultants; that evaluated the patient are Cardiology Pulmonary critical Nephrology Infectious diseases GI Hospitalists Pertinent studies: Multiple chest x-rays Abdominal ultrasound Renal ultrasound Echocardiogram CT abdomen and pelvis Disposition: Patient
[2019-10-27 15:27] LABS: Heparin-Induced Platelet Antib Negative (Negative); Unfractionated Heparin Negative (Negative)
[2019-10-27] MEDS ORDERED: EPINEPHrine 1 MG/10 ML SYRINGE ONE (18:37)
== END 2019-10-27 13:33 | DRG 871 ==
LOC: ED 20:03 → IMCU 10-19 00:04 → CC1 10-19 08:48 → 4A 10-26 17:44
PROVIDERS: ADMIT Internal Medicine Geriatric Medicine; ATTEND Internal Medicine
PROC: 05HY33Z Insertion of Infusion Device into Upper Vein, Percutaneous Approach (ICD-10-PCS; 2019-10-18)
PROC: B543ZZA Ultrasonography of Right Jugular Veins, Guidance (ICD-10-PCS; 2019-10-18)
PROC: 06JY3ZZ Inspection of Lower Vein, Percutaneous Approach (ICD-10-PCS; 2019-10-18)
PROC: 30233N1 Transfusion of Nonautologous Red Blood Cells into Peripheral Vein, Percutaneous Approach (ICD-10-PCS; principal; 2019-10-22)
PROC: 4A033R1 Measurement of Arterial Saturation, Peripheral, Percutaneous Approach (ICD-10-PCS; 2019-10-22)
PROC: 5A09357 Assistance with Respiratory Ventilation, Less than 24 Consecutive Hours, Continuous Positive Airway Pressure (ICD-10-PCS; 2019-10-23)
PROC: 5A12012 Performance of Cardiac Output, Single, Manual (ICD-10-PCS; 2019-10-27)
DX: A41.9 Sepsis, unspecified organism (principal); N17.0 Acute kidney failure with tubular necrosis; J96.01 Acute respiratory failure with hypoxia; R65.21 Severe sepsis with septic shock; K72.00 Acute and subacute hepatic failure without coma; K76.7 Hepatorenal syndrome; I50.23 Acute on chronic systolic (congestive) heart failure; D68.9 Coagulation defect, unspecified; C25.2 Malignant neoplasm of tail of pancreas; C78.7 Secondary malignant neoplasm of liver and intrahepatic bile duct; D62 Acute posthemorrhagic anemia; I42.9 Cardiomyopathy, unspecified; E87.0 Hyperosmolality and hypernatremia; E66.01 Morbid (severe) obesity due to excess calories; I48.0 Paroxysmal atrial fibrillation; I11.0 Hypertensive heart disease with heart failure; D69.6 Thrombocytopenia, unspecified; Z95.810 Presence of automatic (implantable) cardiac defibrillator; Z68.34 Body mass index [BMI] 34.0-34.9, adult; Z03.818 Encounter for observation for suspected exposure to other biological agents ruled out; Z88.0 Allergy status to penicillin; Z79.899 Other long term (current) drug therapy; Z79.01 Long term (current) use of anticoagulants
CPT/HCPCS: 36415; 36600; 71045; 74176; 76705; 76770; 80048; 80053; 80074; 80076; 80202; 81001; 82106; 82140; 82378; 82533; 82565; 82570; 82575; 82728; 82803; 82962; 83550; 83615; 83735; 83880; 84100; 84145; 84156; 84300; 84443; 84484; 85007; 85014; 85018; 85025; 85027; 85049; 85379; 85520; 85610; 85730; 86022; 86038; 86140; 86301; 86689; 86850; 86900; 86901; 86920; 87040; 87086; 89050; 93005; 93306; 94660; 94760; G0378; J0171; J0456; J0692; J0696; J1250; J1450; J1644; J1956; J2185; J2354; J2405; J3370; J3430; J7030; J7040; J7050; J7070; P9016; P9047; U0003; U0003-CS